=== PATIENT | female | born 1940 | race Caucasian/White ===

== ENCOUNTER → 2018-07-29 | Day surgery (SDC) | payer MEDICARE ==
[2018-07-28 12:43] LABS: BASOPHILS # (AUTO) 0.1 (0.0-0.1); BASOPHILS % 1.3 % (0.0-1.0); EOSINOPHILS # (AUTO) 0.1 (0.0-0.4); EOSINOPHILS % 1.4 % (0.0-6.0); HEMATOCRIT 39.5 % (34.2-44.1); HEMOGLOBIN 13.5 g/dL (12.0-16.0); LYMPHOCYTES # (AUTO) 1.7 (1.0-3.2); LYMPHOCYTES % 24.3 % (18.0-39.1); MEAN CORPUSCULAR HEMOGLOBIN 30.5 pg (28-32); MEAN CORPUSCULAR HGB CONC 34.2 g/dL (31-35); MEAN CORPUSCULAR VOLUME 89.4 fL (81-99); MONOCYTES # (AUTO) 0.7 (0.2-0.8); MONOCYTES % 9.7 % (4.4-11.3); NEUTROPHILS # (AUTO) 4.4 (2.1-6.9); NEUTROPHILS % 62.7 % (38.7-80.0); PLATELET COUNT 181 x10e3/uL (140-360); RED BLOOD COUNT 4.42 x10e6/uL (3.6-5.1); RED CELL DISTRIBUTION WIDTH 13.2 % (11.7-14.4)
[~2018-07-29] MED LIST: ASPIR 8181 MG PO; ATORVASTATIN CA20 MG PO; CARVEDILOL12.5 MG PO; FENTANYL CITRATE/PF 100MCG/2 ML INJ ONE; FLUOXETINE HCL10 MG PO; FUROSEMIDE40 MG PO; INSULIN REGULAR, HUMAN 100 UNIT/1 ML 3ML VIAL ONE; JANUMET 50-1,01 EACH PO; LEFLUNOMIDE20 MG PO; LISINOPRIL10 MG PO; MIDAZOLAM HCL 2 MG/2 ML VIAL ONE; PROPOFOL IV EMULSION 10 MG/ML 50 ML VIAL ONE; VITAMIN D1000 UNI1 PO
--- OUTSIDE RECORDS SUMMARY | 2018-07-29 09:20 | XMS REPORT | Summary of Care ---
Author Author [facility] Organization [facility] Address Unknown Phone Unavailable Encounter HQ Rossir_german(FIN) [id number] Date(s): 03/06/16 - 03/06/16 [facility] [address] [place] [address]- Discharge Disposition: Home or Self Care Attending Physician: Physician, Non Associated MD Referring Physician: Willis Walsh DO Vital Signs No data available for this section Problem List Condition Effective Dates Status Health Status Informant Acute bronchitis1, 2 07/14/13 Resolved Acute pharyngitis3 07/14/13 Resolved Acute sinusitis4, 5 01/29/12 Resolved Acute suppurative 07/14/13 Resolved otitis media6 Arthritis of hand7, 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 8 Backache9 05/21/13 Resolved 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 svkdoaye40 Diabetes Active mellitus(Confirmed) Eahvymu16 03/27/13 Active Hormone replacement 04/05/10 Active fkmyzos56 Hypertension(Confirm Active ed) Hypertensive 04/05/10 Active wdomobd46 Hypertriglyceridemia 09/23/12 Active 14 Jxzpwcru75 07/31/10 Active Knee pain16 03/22/14 Active Menopausal 07/31/10 Active oggsntpc81 Obesity(Confirmed) Active Postmenopausal 03/10/12 Active Postmenopausal 04/05/10 Active state19 Sziyagb99 02/24/13 Active Xoqsgnnboq46 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 Type 2 diabetes 12/01/12 Active mellitus well fjnnbeqtgo57 Vitamin D 11/19/11 Active aejjudrfjf98 1Data migrated from [employer] on 02/25/15. 2Data migrated from [employer] on 02/25/15. 3Data migrated from [employer] on 02/25/15. 4Data migrated from [employer] on 02/25/15. 5Data migrated from [employer] on 02/25/15. 6Data migrated from [employer] on 02/25/15. 7Data migrated from [employer] on 02/16/15. 8Data migrated from [employer] on 01/08/15. 9Data migrated from [employer] on 02/25/15. 10Data migrated from [employer] on 01/08/15. 11Data migrated from [employer] on 01/08/15. 12Data migrated from [employer] on 01/08/15. 13Data migrated from [employer] on 01/08/15. 14Data migrated from [employer] on 01/08/15. 15Data migrated from [employer] on 01/08/15. 16Data migrated from [employer] on 01/08/15. 17Data migrated from [employer] on 01/08/15. 18Data migrated from [employer] on 01/08/15. 19Data migrated from [employer] on 01/08/15. 20Data migrated from [employer] on 01/08/15. 21Data migrated from [employer] on 02/16/15. 22Data migrated from [employer] on 01/08/15. 23Data migrated from [employer] on 01/08/15. Allergies, Adverse Reactions, Alerts Substance Reaction Severity Status erythromycin1 Active 1Data migrated from [employer] on 12/07/14. Originally documented as ERYTHROMYCIN. Medications No data available for this section Results No data available for this section Immunizations Given and Recorded Vaccine Date Status Refusal Reason Hx influenza vaccine-unspecified1 06/02/10 Given 1Result Comment: fluvirin. Migrated from OBS ; Data migrated from [employer] on 09/12/2015. Procedures Procedure Date Related Diagnosis Body Site Appendectomy Cataract surgery Excision of Magana's neuroma Hysterectomy Laparoscopic adjustable gastric banding Tonsillectomy Social History Social History Type Response Alcohol Past Smoking Status Never smoker; Exposure to Tobacco Smoke None; Cigarette Smoking Last 365 Days No; Reg Smoking Cessation Counseling No Assessment and Plan No data available for this section
--- OUTSIDE RECORDS SUMMARY | 2018-07-29 09:20 | XMS REPORT | Summary of Care ---
Author Organization Unknown Address Unknown Phone Unavailable Encounter HQ Encntr_alias(MARIUSZ) [id number] Date(s): 03/22/14 - 03/22/14 [facility] Outpatient Imaging [address] Discharge Disposition: Home Physician Attending: Rasheeda Milton MD Reason for Visit 719.46 - JOINT PAIN-L/LE Problem List No data available for this section Allergies, Adverse Reactions, Alerts Substance Reaction Severity Status erythromycin Active Medications No data available for this section Medications Administered During Your Visit No data available for this section Immunizations No data available for this section
--- OUTSIDE RECORDS SUMMARY | 2018-07-29 09:20 | XMS REPORT | Summary of Care ---
Author Organization Unknown Address Unknown Phone Unavailable Encounter HQ Miladis(FIN) [id number] Date(s): 01/27/15 - 01/27/15 [facility] Outpatient Imaging [address] [address]- [phone] Discharge Disposition: Home Physician Attending: Rasheeda Milton MD Vital Signs No data available for this section Problem List Condition Effective Dates Status Health Status Informant Arthritis of hand1 07/23/13 Active Depressive disorder2 09/01/10 Active Fatigue3 03/27/13 Active Hormone replacement 04/05/10 Active therapy4 Hypertensive 04/05/10 Active episode5 Hypertriglyceridemia 09/23/12 Active 6 Insomnia7 07/31/10 Active Knee pain8 03/22/14 Active Menopausal flushing9 07/31/10 Active Postmenopausal 03/10/12 Active gyscpkopkwff16 Postmenopausal 04/05/10 Active state11 Kqgfuiv87 02/24/13 Active Type 2 diabetes 12/01/12 Active mellitus well adsjfqqhro21 Vitamin D 11/19/11 Active dnsewhuwbc76 1Data migrated from [employer] on 01/08/15. 2Data migrated from [employer] on 01/08/15. 3Data migrated from [employer] on 01/08/15. 4Data migrated from [employer] on 01/08/15. 5Data migrated from [employer] on 01/08/15. 6Data migrated from [employer] on 01/08/15. 7Data migrated from [employer] on 01/08/15. 8Data migrated from [employer] on 01/08/15. 9Data migrated from [employer] on 01/08/15. 10Data migrated from [employer] on 01/08/15. 11Data migrated from [employer] on 01/08/15. 12Data migrated from [employer] on 01/08/15. 13Data migrated from [employer] on 01/08/15. 14Data migrated from [employer] on 01/08/15. Allergies, Adverse Reactions, Alerts Substance Reaction Severity Status erythromycin1 Active 1Data migrated from [employer] on 12/07/14. Originally documented as ERYTHROMYCIN. Medications No data available for this section Results No data available for this section Immunizations No data available for this section Procedures No data available for this section Social History No data available for this section Assessment and Plan No data available for this section
--- OUTSIDE RECORDS SUMMARY | 2018-07-29 09:20 | XMS REPORT | Summary of Care ---
Author Author [facility] Organization [facility] Address Unknown Phone Unavailable Encounter HQ Rossir_german(FIN) [id number] Date(s): 04/23/16 - 04/23/16 [facility] [address] [place] [address]- Discharge Disposition: Home or Self Care Attending Physician: Gino Zacarias MD Referring Physician: Gino Zacarias MD Vital Signs No data available for this section Problem List Condition Effective Dates Status Health Status Informant Acute bronchitis1, 2 07/14/13 Resolved Acute pharyngitis3 07/14/13 Resolved Acute sinusitis4, 5 01/29/12 Resolved Acute suppurative 07/14/13 Resolved otitis media6 Arthritis of hand7, 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 8 Backache9 05/21/13 Resolved 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 sxhxapwm43 Diabetes Active mellitus(Confirmed) Auhrskv68 03/27/13 Active Hormone replacement 04/05/10 Active miujipn20 Hypertension(Confirm Active ed) Hypertensive 04/05/10 Active Hypertriglyceridemia 09/23/12 Active 14 Fuybxzap89 07/31/10 Active Knee pain16 03/22/14 Active Menopausal 07/31/10 Active qqbstltu62 Obesity(Confirmed) Active Postmenopausal 03/10/12 Active jolqwpksbmhc19 Postmenopausal 04/05/10 Active state19 Ymaltik86 02/24/13 Active Ihssuyjpwm68 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 Type 2 diabetes 12/01/12 Active mellitus well nsqtcdnevm27 Vitamin D 11/19/11 Active 1Data migrated from [employer] on 02/25/15. [...]
--- OUTSIDE RECORDS SUMMARY | 2018-07-29 09:20 | XMS REPORT | Continuity of Care Document ---
Author Author [facility] Interface Address Unknown Phone Unavailable Problems Problem Status Onset Date Classification Date Reported Comments Source TIA (TRANSIENT ISCHEMIC ATTACK), UNCONTR Active 09/07/2017 [facility] STROKE LIKE SYMPTOMS Active 09/07/2017 [facility] UNWELL Active 03/08/2017 [facility] BRAIN TIA, ACUTE HYPOKALEMIA Active 03/08/2017 [facility] DX: J84.10=PULMONARY FIBROSIS, UNSPECIFI Active 02/07/2017 [facility] R07.1 Active 01/30/2017 [facility] PYELONEPHRITIS, PNEUMONIA, ACUTE UTI Active 12/14/2016 [facility] FEVER Active 12/14/2016 [facility] SYNCOPE Active 07/26/2016 [facility] BACTERIAL SEPSIS, NSTEMI Active 07/26/2016 [facility] SCREENING/POSTMENOPAUSAL OSTEOPOROSIS Active 06/11/2016 [facility] CPAP 05857 Active 04/17/2016 [facility] SPLIT NIGHT 38229 Active 02/21/2016 [facility] Arthritis of hand<sup>7, 8</sup> Active 01/14/2015 Problem 12/16/2017 Data migrated from [employer] on 01/08/15. [facility] Tendinitis<sup>21</sup> Active 01/14/2015 Problem 12/16/2017 Data migrated from [employer] on 02/16/15. [facility] 729.5 - PAIN IN LIMB [facility] [place] Knee pain<sup>8</sup> Active 03/22/2014 Problem 01/30/2015 8Data migrated from [employer] on 01/08/15. [facility] Knee pain<sup>16</sup> Active 03/22/2014 Problem 12/16/2017 Data migrated from [employer] on 01/08/15. [facility] Arthritis of hand<sup>1</sup> Active 07/23/2013 Problem 01/30/2015 1Data migrated from [employer] on 01/08/15. [facility] [place] Acute bronchitis<sup>1, 2</sup> Resolved 07/14/2013 Problem 12/16/2017 Data migrated from [employer] on 02/25/15. [facility] Acute pharyngitis<sup>3</sup> Resolved 07/14/2013 Problem 12/16/2017 Data migrated from [employer] on 02/25/15. [facility] Acute suppurative otitis media<sup>6</sup> Resolved 07/14/2013 Problem 12/16/2017 Data migrated from [employer] on 02/25/15. [facility] Backache<sup>9</sup> Resolved 05/21/2013 Problem 12/16/2017 Data migrated from [employer] on 02/25/15. [facility] Fatigue<sup>3</sup> Active 03/27/2013 Problem 01/30/2015 3Data migrated from [employer] on 01/08/15. [facility] Fatigue<sup>11</sup> Active 03/27/2013 Problem 12/16/2017 Data migrated from [employer] on 01/08/15. [facility] Snoring<sup>12</sup> Active 02/24/2013 Problem 01/30/2015 12Data migrated from [employer] on 01/08/15. [facility] Snoring<sup>20</sup> Active 02/24/2013 Problem 12/16/2017 Data migrated from [employer] on 01/08/15. [facility] Type 2 diabetes mellitus well controlled<sup>13</sup> Active 12/01/2012 Problem 01/30/2015 13Data migrated from [employer] on 01/08/15. [facility] Type 2 diabetes mellitus well controlled<sup>22</sup> Active 12/01/2012 Problem 12/16/2017 Data migrated from [employer] on 01/08/15. [facility] Hypertriglyceridemia<sup>6</sup> Active 09/23/2012 Problem 01/30/2015 6Data migrated from [employer] on 01/08/15. [facility] Hypertriglyceridemia<sup>14</sup> Active 09/23/2012 Problem 12/16/2017 Data migrated from [employer] on 01/08/15. [facility] Postmenopausal osteoporosis<sup>10</sup> Active 03/10/2012 Problem 01/30/2015 10Data migrated from [employer] on 01/08/15. [facility] Postmenopausal osteoporosis<sup>18</sup> Active 03/10/2012 Problem 12/16/2017 Data migrated from [employer] on 01/08/15. [facility] Acute sinusitis<sup>4, 5</sup> Resolved 01/29/2012 Problem 12/16/2017 Data migrated from [employer] on 02/25/15. [facility] Vitamin D deficiency<sup>14</sup> Active 11/19/2011 Problem 01/30/2015 14Data migrated from [employer] on 01/08/15. [facility] Vitamin D deficiency<sup>23</sup> Active 11/19/2011 Problem 12/16/2017 Data migrated from [employer] on 01/08/15. [facility] Depressive disorder<sup>2</sup> Active 09/01/2010 Problem 01/30/2015 2Data migrated from [employer] on 01/08/15. [facility] Depressive disorder<sup>10</sup> Active 09/01/2010 Problem 12/16/2017 Data migrated from [employer] on 01/08/15. [facility] Insomnia<sup>7</sup> Active 07/31/2010 Problem 01/30/2015 7Data migrated from [employer] on 01/08/15. [facility] Menopausal flushing<sup>9</sup> Active 07/31/2010 Problem 01/30/2015 9Data migrated from [employer] on 01/08/15. [facility] Insomnia<sup>15</sup> Active 07/31/2010 Problem 12/16/2017 Data migrated from [employer] on 01/08/15. [facility] Menopausal flushing<sup>17</sup> Active 07/31/2010 Problem 12/16/2017 Data migrated from [employer] on 01/08/15. [facility] Hormone replacement therapy<sup>4</sup> Active 04/05/2010 Problem 01/30/2015 4Data migrated from [employer] on 01/08/15. [facility] Hypertensive episode<sup>5</sup> Active 04/05/2010 Problem 01/30/2015 5Data migrated from [employer] on 01/08/15. [facility]<sup>11</sup> Active 04/05/2010 Problem 01/30/2015 11Data migrated from [employer] on 01/08/15. [facility] Hormone replacement therapy<sup>12</sup> Active 04/05/2010 Problem 12/16/2017 Data migrated from [employer] on 01/08/15. [facility] Hypertensive episode<sup>13</sup> Active 04/05/2010 Problem 12/16/2017 Data migrated from [employer] on 01/08/15. [facility] Postmenopausal state<sup>19</sup> Active 04/05/2010 Problem 12/16/2017 Data migrated from [employer] on 01/08/15. [facility] Diabetes mellitus Active Problem 12/16/2017 [facility] Hypertension Active Problem 12/16/2017 [facility] Obesity Active Problem 12/16/2017 [facility] Hypertensive heart disease without heart failure Active Problem 04/18/2018 Zackery Thakur MD, PA,[facility] Body mass index 33.0-33.9, adult Active Problem 04/18/2018 Zackery Thakur MD, PA Old myocardial infarction Active Problem 04/18/2018 Zackery Thakur MD, PA,[facility] Type 2 diabetes mellitus without complications Active Problem 04/18/2018 Zackery Thakur MD, PA Family history of ischemic heart disease and other diseases of the circulatory system Active Diagnosis 04/18/2018 Zackery Thakur MD, PA Screening for cardiovascular disorders Active Problem 04/18/2018 Zackery Thakur MD, PA Mixed hyperlipidemia Active Diagnosis 04/18/2018 Zackery Thakur MD, [place] Obesity, unspecified Active Problem 04/18/2018 Zackery Thakur MD, [place] Cerebrovascular disease, unspecified Active Problem 04/18/2018 Zackery Thakur MD, [place] Lower extremity edema Active Problem 04/18/2018 Zackery Thakur MD PA Body mass index 36.0-36.9, adult Active Problem 04/18/2018 Zackery Thakur MD PA Body mass index 31.0-31.9, adult Active Problem 04/18/2018 Zackery Thakur MD, PA Pulmonary hypertension, secondary Active Problem 04/18/2018 Zackery Thakur MD, [place] Hypertensive heart disease with heart failure Active Problem 04/18/2018 Zackery Thakur MD, [place] Atrial fibrillation Resolved Problem 12/16/2017 [facility] CHF (<span ID="[id number]">Confirmed</span>) Resolved Problem 12/16/2017 [facility] Mitral regurgitation Resolved Problem 12/16/2017 [facility] Heart attack Resolved Problem 12/16/2017 [facility] Transient cerebral ischemic attack, unspecified 12/16/2017 [facility] Type 2 diabetes mellitus with hyperglycemia 12/16/2017 [facility] Rheumatoid arthritis, unspecified 12/16/2017 [facility] Hypertensive urgency 12/16/2017 [facility] Hyperlipidemia, unspecified 12/16/2017 [facility] Facial weakness 12/16/2017 [facility] Slurred speech 12/16/2017 [facility] Atherosclerotic heart disease of [place] coronary artery without angina pectoris 12/16/2017 [facility] NIHSS score 0 12/16/2017 [facility] Coma scale, best motor response, obeys commands, at arrival to emergency department 12/16/2017 [facility] Coma scale, eyes open, spontaneous, at arrival to emergency department 12/16/2017 [facility] Coma scale, best verbal response, oriented, at arrival to emergency department 12/16/2017 [facility] 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 12/16/2017 [facility] Personal history of transient ischemic attack , and cerebral infarction without residual deficits 12/16/2017 [facility] OBSTRUCTIVE SLEEP APNEA (ADULT) (PEDIATR Active [facility] AGE-RELATED OSTEOPOROSIS W/O CURRENT PAT Active [facility] SEPSIS, UNSPECIFIED ORGANISM Active [facility] NON-ST ELEVATION (NSTEMI) MYOCARDIAL INF Active [facility] TUBULO-INTERSTITIAL NEPHRITIS, 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 [facility] PNEUMONIA, UNSPECIFIED ORGANISM Active [facility] URINARY TRACT INFECTION, SITE NOT SPECIF Active [facility] CHEST PAIN ON BREATHING Active [facility] TRANSIENT CEREBRAL ISCHEMIC ATTACK, UNSP Active [facility] HYPOKALEMIA Active [facility] ESSENTIAL (PRIMARY) HYPERTENSION Active [facility] Medications Medication Details Route Status Patient Instructions Ordering Provider Order Date Source Lisinopril 10 mg, 2 tab, Route: PO, Drug form: TAB, Daily, Dosing Weight 94.091, kg, Start date: 09/10/17 9:00:00 [employer], Duration: 30 day, Stop date: 10/09/17 9:00:00 CSTNotes: (Same as: Prinivil, Zestril) No Longer Active 09/10/2017 [facility] atorvastatin 40 MG Oral Tablet [Lipitor] 40 mg=1 tab, PO, Bedtime, # 30 tab, 0 Refill(s), Pharmacy: [id number] Active 09/09/2017 [facility] lisinopril 10 mg oral tablet 10 mg=1 tab, PO, Daily, # 30 tab, 0 Refill(s), Pharmacy: [facility] Active 09/09/2017 [facility] amLODIPine 10 mg oral tablet 10 mg=1 tab, PO, Daily, # 30 tab, 0 Refill(s), Pharmacy: [facility] Active 09/09/2017 [facility] Prednisone 20 mg, 1 tab, Route: PO, Drug form: TAB, Daily, Dosing Weight 94.091, kg, Start date: 09/09/17 9:00:00 [employer], Duration: 5 day, Stop date: 09/13/17 9:00:00 CSTNotes: Take with food. Inactive 09/09/2017 [facility] potassium chloride 20 mEq oral tablet, extended release 40 mEq, 2 tab, Route: PO, Drug form: ERTAB, Daily, Dosing Weight 94.091, kg, Start date: 09/09/17 9:00:00 [employer], Duration: 30 day, Stop date: 10/08/17 9:00:00 CSTNotes: (Same as: K-Dur 20) "Do Not Crush" With food and full glass of water Inactive 09/09/2017 [facility] leflunomide 10 mg, 0.5 tab, Route: PO, Drug form: TAB, Daily, Dosing Weight 94.091, kg, Start date: 09/09/17 9:00:00 [employer], Duration: 30 day, Stop date: 10/08/17 9:00:00 CSTNotes: Non-Formulary Drug (Same as:Arava) Inactive 09/09/2017 [facility] Furosemide 40 MG Oral Tablet 40 mg, 1 tab, Route: PO, Drug form: TAB, Daily, Dosing Weight 94.091, kg, Start date: 09/09/17 9:00:00 [employer], Duration: 30 day, Stop date: 10/08/17 9:00:00 CSTNotes: (Same as: Lasix) May cause GI upset. Give with food or milk. Inactive 09/09/2017 [facility] Prozac 10 mg, 1 cap, Route: PO, Drug form: CAP, Daily, Dosing Weight 94.091, kg, Start date: 09/09/17 9:00:00 [employer], Duration: 30 day, Stop date: 10/08/17 9:00:00 CSTNotes: (Same as: Prozac) Inactive 09/09/2017 [facility] Escitalopram 10 mg, 1 tab, Route: PO, Drug form: TAB, Daily, Dosing Weight 94.091, kg, Start date: 09/09/17 9:00:00 [employer], Duration: 30 day, Stop date: 10/08/17 9:00:00 CSTNotes: (Same as: Lexapro) Inactive 09/09/2017 [facility] Aspirin 81 MG Enteric Coated Tablet 81 mg, 1 tab, Route: PO, Drug form: ECTAB, Daily, Dosing Weight 94.091, kg, Start date: 09/09/17 9:00:00 [employer], Duration: 30 day, Stop date: 10/08/17 9:00:00 CSTNotes: Do not crush or chew. (Same As: Ecotrin) Inactive 09/09/2017 [facility] Saline Flush 0.9% 10 ml, Route: IVP, Drug Form: INJ, Dosing Weight 94.091, kg, Q12H, Start date: 09/08/17 21:00:00 [employer], Duration: 30 day, Stop date: 10/08/17 9:00:00 CSTNotes: (Same as: BD Posiflush) No Longer Active 09/09/2017 [facility] carvedilol 6.25 mg, 2 tab, Route: PO, Drug form: TAB, Q12H, Dosing Weight 94.091, kg, Start date: 09/08/17 21:00:00 [employer], Duration: 30 day, Stop date: 10/08/17 9:00:00 CSTNotes: Give with food. (Same As: Coreg) No Longer Active 09/09/2017 [facility] atorvastatin 80 mg, 2 tab, Route: PO, Drug form: TAB, Bedtime, Dosing Weight 94.091, kg, Start date: 09/08/17 21:00:00 [employer], Duration: 30 day, Stop date: 10/07/17 21:00:00 CSTNotes: (Same as: Lipitor) No Longer Active 09/09/2017 [facility] Lorazepam 0.5 mg, 1 tab, Route: PO, Drug form: TAB, Bedtime, Dosing Weight 94.091, kg, Start date: 09/08/17 21:00:00 [employer], Duration: 30 day, Stop date: 10/07/17 21:00:00 CSTNotes: (Same as: Ativan) No Longer Active 09/09/2017 [facility] Saline Flush 0.9% 10 ml, Route: IVP, Drug Form: INJ, Dosing Weight 94.091, kg, PRN, PRN Line Flush, Start date: 09/08/17 20:23:00 [employer], Duration: 30 day, Stop date: 10/08/17 20:22:00 CSTNotes: (Same as: BD Posiflush) No Longer Active 09/09/2017 [facility] Lisinopril 20 mg, 1 tab, Route: PO, Drug form: TAB, BID, Dosing Weight 94.091, kg, Start date: 09/08/17 17:00:00 [employer], Duration: 30 day, Stop date: 10/08/17 9:00:00 CSTNotes: (Same as: Prinivil, Zestril) No Longer Active 09/08/2017 [facility] Clonidine Hydrochloride 0.2 MG Oral Tablet 0.1 mg, 1 tab, Route: PO, Drug form: TAB, PRN, Dosing Weight 94.091, kg, PRN Hypertension, Start date: 09/08/17 16:13:00 [employer], Duration: 30 day, Stop date: 10/08/17 16:12:00 CSTNotes: (Same As: Catapres) No Longer Active 09/08/2017 [facility] Clonidine 0.1 mg, 1 tab, Route: PO, Drug form: TAB, Q8H, Dosing Weight 94.091, kg, Start date: 09/08/17 16:13:00 [employer], Duration: 30 day, Stop date: 10/08/17 16:00:00 CSTNotes: (Same As: Catapres) No Longer Active 09/08/2017 [facility] Amlodipine 10 mg, 2 tab, Route: PO, Drug form: TAB, Daily, Dosing Weight 94.091, kg, Start date: 09/08/17 16:12:00 [employer], Duration: 30 day, Stop date: 10/08/17 9:00:00 CSTNotes: (Same as: Norvasc) No Longer Active 09/08/2017 [facility] Clonidine 0.1 mg, 1 tab, Route: PO, Drug form: TAB, Q6H, Dosing Weight 94.091, kg, PRN Elevated BP, Start date: 09/08/17 14:40:00 [employer], Duration: 30 day, Stop date: 10/08/17 14:39:00 CSTNotes: (Same As: Catapres) No Longer Active 09/08/2017 [facility] Hydralazine Hydrochloride 50 MG Oral Tablet 50 mg, 1 tab, Route: PO, Drug form: TAB, TID, Dosing Weight 94.091, kg, Start date: 09/08/17 13:00:00 [employer], Duration: 30 day, Stop date: 10/08/17 9:00:00 CSTNotes: (Same as: Apresoline) May interfere w/enteral feedings Take With Food No Longer Active 09/08/2017 [facility] NS 1,000 mL 1,000 mL, Rate: 75 ml/hr, Infuse over: 13.3 hr, Route: IV, Dosing Weight 94.091 kg, Total Volume: 1,000, Start date: 09/08/17 10:28:00 [employer], Duration: 30 day, Stop date: 10/08/17 10:27:00 [employer], 2.06, m2 No Longer Active 09/08/2017 [facility] Protonix 40 mg, Route: IVP, Drug form: INJ, ONCE, Dosing Weight 94.091, kg, Start date: 09/08/17 10:26:00 [employer], Stop date: 09/08/17 10:26:00 CSTNotes: For IV push reconstitute with 10 ml 0.9% sodium chloride and push over 2 minutes. (Same as: Protonix) Inactive 09/08/2017 [facility] Insulin Lispro 3 unit, 0.03 mL, Route: SUB-Q, Drug form: SOLN, Bedtime, Dosing Weight 94.091, kg, PRN Blood Glucose Results, Start date: 09/08/17 9:20:00 [employer], Duration: 30 day, Stop date: 10/08/17 9:19:00 CSTNotes: Roll in palms of hands gently; Do not shake `vigorously. (Same as: Humalog ) "Single Patient Use Only " WASTE: F/P - Black; E - Municipal Trash Bin Stable for 28 days at room temperature. Expires in days from Date No Longer Active 09/08/2017 [facility] Glucagon 1 mg, Route: IM, Drug form: PDR/INJ, PRN, Dosing Weight 94.091, kg, PRN Blood Glucose Results, Start date: 09/08/17 9:20:00 [employer], Duration: 30 day, Stop date: 10/08/17 9:19:00 [employer] No Longer Active 09/08/2017 [facility] Dextrose 50% Syringe 25 gm, 50 mL, Route: IVP, Drug Form: INJ, Dosing Weight 94.091, kg, PRN, PRN Blood Glucose Results, Start date: 09/08/17 9:20:00 [employer], Duration: 30 day, Stop date: 10/08/17 9:19:00 [employer] No Longer Active 09/08/2017 [facility] Saline Flush 0.9% 10 ml, Route: IVP, Drug Form: INJ, Dosing Weight 94.091, kg, Q12H, Start date: 09/08/17 9:00:00 [employer], Duration: 30 day, Stop date: 10/07/17 21:00:00 CSTNotes: (Same as: BD Posiflush) No Longer Active 09/08/2017 [facility] Potassium Chloride 40 mEq, 2 tab, Route: PO, Drug form: ERTAB, Q4H, Dosing Weight 94.091, kg, Start date: 09/08/17 8:00:00 [employer], Duration: 2 doses or times, Stop date: 09/08/17 12:00:00 CSTNotes: (Same as: K- Dur 20) "Do Not Crush" With food and full glass of water Inactive 09/08/2017 [facility] Zofran 4 mg, 2 mL, Route: IVP, Drug form: INJ, Q6H, Dosing Weight 94.091, kg, PRN as needed for nausea/vomiting, Priority: STAT, Start date: 09/08/17 7:40:00 [employer], Duration: 30 day, Stop date: 10/08/17 7:39:00 CSTNotes: (Same as: Zofran) MEDICATION WASTE Product Size: 4 mg Product Wasted: ___ mg No Longer Active 09/08/2017 [facility] Zofran 4 mg, Route: IVP, Drug form: INJ, Q6H, Dosing Weight 94.091, kg, Priority: STAT, Start date: 09/08/17 7:19:00 [employer], Duration: 30 day, Stop date: 10/08/17 6:00:00 [employer] Inactive 09/08/2017 [facility] Hydralazine 10 mg, 0.5 mL, Route: IVP, Drug form: INJ, Q4H, Dosing Weight 94.091, kg, PRN Elevated BP, Start date: 09/08/17 1:55:00 [employer], Duration: 30 day, Stop date: 10/08/17 1:54:00 CSTNotes: (Same as: Dorothy clifford) Push over 5 minutes No Longer Active 09/08/2017 [facility] tramadol hydrochloride 50 MG Oral Tablet 50 mg, 1 tab, Route: PO, Drug form: TAB, Q6H, Dosing Weight 94.091, kg, PRN Pain Score 1-3, Start date: 09/08/17 1:49:00 [employer], Duration: 30 day, Stop date: 10/08/17 1:48:00 CSTNotes: Not to exceed 400mg/day. (Same As: Ultram) No Longer Active 09/08/2017 [facility] Tylenol 650 mg, 2 tab, Route: PO, Drug form: TAB, Q6H, Dosing Weight 94.091, kg, PRN Pain 1-3/Temp > 100.4 F, Start date: 09/08/17 1:49:00 [employer], Duration: 30 day, Stop date: 10/08/17 1:48:00 CSTNotes: Do not exceed 4 gm/day. (Same as: Tylenol) No Longer Active 09/08/2017 [facility] Saline Flush 0.9% 10 ml, Route: IVP, Drug Form: INJ, Dosing Weight 94.091, kg, PRN, PRN Line Flush, Start date: 09/08/17 0:43:00 [employer], Duration: 30 day, Stop date: 10/08/17 0:42:00 CSTNotes: (Same as: BD Posiflush) No Longer Active 09/08/2017 [facility] predniSONE 20 mg oral tablet 20 mg=1 tab, PO, Daily, for 5 days, 0 Refill(s) Active 09/08/2017 [facility] escitalopram 10 mg oral tablet 10 mg=1 tab, PO, Daily, # 30 tab, 0 Refill(s) Active 09/08/2017 [facility] leflunomide 10 mg oral tablet 10 mg=1 tab, PO, Daily, # 30 tab, 0 Refill(s) Active 09/08/2017 [facility] LORazepam 0.5 mg oral tablet 0.5 mg=1 tab, PO, Bedtime, # 30 tab, 0 Refill(s) Active 09/08/2017 [facility] Aspirin 324 mg, 4 tab, Route: CHEW, Drug form: CHEWTAB, ONCE, Dosing Weight 94.091, kg, Priority: STAT, Start date: 09/07/17 23:06:00 [employer], Stop date: 09/07/17 23:06:00 CSTNotes: Take with food. No Longer Active 09/08/2017 [facility] Hydralazine 10 mg, 0.5 mL, Route: IVP, Drug form: INJ, ONCE, Dosing Weight 94.091, kg, Priority: STAT, Start date: 09/07/17 22:28:00 [employer], Stop date: 09/07/17 22:28:00 CSTNotes: (Same as: Apresoline) Push over 5 minutes Inactive 09/08/2017 [facility] Saline Flush 0.9% 10 mL, Route: IVP, Drug Form: INJ, Dosing Weight 81.392, kg, PRN, PRN Line Flush, Start date: 09/07/17 22:08:00 [employer], Duration: 30 day, Stop date: 10/07/17 22:07:00 CSTNotes: (Same as: BD Posiflush) No Longer Active 09/08/2017 [facility] Amlodipine Besylate 1 tablet Orally Active 5 MG Orally Once a day [facility] 03/20/2017 Zackery Thakur MD, [place] Amlodipine Besylate 1 tablet Orally Active 5 MG Orally Once a day [facility] 03/20/2017 Zackery Thakur [place], [place] Hydralazine Hydrochloride 50 MG Oral Tablet 50 mg=1 tab, PO, TID, # 90 tab, 0 Refill(s), Pharmacy: [id number] Active 03/12/2017 [facility] Hydralazine 10 mg, 0.5 mL, Route: IV, Drug form: INJ, ONCE, Dosing Weight 81.392, kg, Priority: NOW, Start date: 03/12/17 10:39:00 CDT, Stop date: 03/12/17 10:39:00 CDTNotes: (Same as: Apresoline) Push over 5 minutes Inactive 03/12/2017 [facility] Hydralazine Hydrochloride 25 MG Oral Tablet 25 mg, 1 tab, Route: PO, Drug form: TAB, Q6H, Dosing Weight 81.392, kg, Priority: NOW, Start date: 03/11/17 14:02:00 CDT, Duration: 30 day, Stop date: 04/10/17 12:00:00 CDTNotes: (Same as: Apresoline) May interfere w/enteral feedings Take With Food. No Longer Active 03/11/2017 [facility] Clonidine Hydrochloride 0.1 MG Oral Tablet 0.1 mg, 1 tab, Route: PO, Drug form: TAB, Q6H, Dosing Weight 81.392, kg, PRN Hypertension, Start date: 03/10/17 22:12:00 CDT, Duration: 30 day, Stop date: 04/09/17 22:11:00 CDTNotes: (Same As: Catapres) No Longer Active 03/11/2017 [facility] Insulin, Aspart, Human 1 unit, 0.01 mL, Route: SUB-Q, Drug form: SOLN, Bedtime, Dosing Weight 81.392, kg, PRN Blood Glucose Results, Start date: 03/10/17 22:10:00 CDT, Duration: 30 day, Stop date: 04/09/17 22:09:00 CDTNotes: Roll in palms of hands gently; Do not shake vigorously. (Same as: NovoLOG) "single patient use only" WASTE: F/P - Black; E - Municipal Trash Bin Stable for 28 days at room temperature. Expires in days from Date No Longer Active 03/11/2017 [facility] Glucagon 1 mg, Route: IM, Drug form: PDR/INJ, PRN, Dosing Weight 81.392, kg, PRN Blood Glucose Results, Start date: 03/10/17 22:10:00 CDT, Duration: 30 day, Stop date: 04/09/17 22:09:00 CDT No Longer Active 03/11/2017 [facility] Dextrose 50% Syringe 12.5 gm, 25 mL, Route: IVP, Drug Form: INJ, Dosing Weight 81.392, kg, PRN, PRN Blood Glucose Results, Start date: 03/10/17 22:10:00 CDT, Duration: 30 day, Stop date: 04/09/17 22:09:00 CDT No Longer Active 03/11/2017 [facility] Lisinopril 20 mg, 1 tab, Route: PO, Drug form: TAB, BID, Dosing Weight 81.392, kg, Start date: 03/10/17 17:00:00 CDT, Duration: 30 day, Stop date: 04/09/17 9:00:00 CDTNotes: (Same as: Prinivil, Zestril) No Longer Active 03/10/2017 [facility] K-Dur 20 20 mEq, 1 tab, Route: PO, Drug form: ERTAB, ONCE, Dosing Weight 81.392, kg, Start date: 03/10/17 16:47:00 CDT, Stop date: 03/10/17 16:47:00 CDTNotes: (Same as: K-Dur 20) "Do Not Crush" With food and full glass of water Inactive 03/10/2017 [facility] lisinopril 20 mg oral tablet 20 mg, PO, BID, # 60 tab, 2 Refill(s) Active 03/10/2017 [facility] carvedilol 6.25 mg oral tablet 6.25 mg=1 tab, PO, Q12H, # 60 tab, 1 Refill(s) Active 03/10/2017 [facility] atorvastatin 80 mg oral tablet 80 mg=1 tab, PO, Bedtime, # 30 tab, 1 Refill(s) Active 03/10/2017 [facility] Furosemide 40 MG Oral Tablet 40 mg, 1 tab, Route: PO, Drug form: TAB, Daily, Dosing Weight 81.392, kg, Start date: 03/10/17 9:00:00 CDT, Duration: 30 day, Stop date: 04/08/17 9:00:00 CDTNotes: (Same as: Lasix) May cause GI upset. Give with food or milk. No Longer Active 03/10/2017 [facility] Prozac 10 mg, 1 cap, Route: PO, Drug form: CAP, Daily, Dosing Weight 81.392, kg, Start date: 03/10/17 9:00:00 CDT, Duration: 30 day, Stop date: 04/08/17 9:00:00 CDTNotes: (Same as: Prozac) No Longer Active 03/10/2017 [facility] aspirin 81 mg tablet, enteric coated 81 mg, 1 tab, Route: PO, Drug form: ECTAB, Daily, Dosing Weight 81.392, kg, Start date: 03/10/17 9:00:00 CDT, Duration: 30 day, Stop date: 04/08/17 9:00:00 CDT No Longer Active 03/10/2017 [facility] Coreg 6.25 mg, 2 tab, Route: PO, Drug form: TAB, Q12H, Dosing Weight 81.392, kg, Start date: 03/09/17 21:00:00 CDT, Duration: 30 day, Stop date: 04/08/17 9:00:00 CDTNotes: Give with food. (Same As: Coreg) No Longer Active 03/10/2017 [facility] atorvastatin 80 mg, 2 tab, Route: PO, Drug form: TAB, Bedtime, Dosing Weight 79.545, kg, Start date: 03/09/17 21:00:00 CDT, Duration: 30 day, Stop date: 04/07/17 21:00:00 CDTNotes: (Same as: Lipitor) No Longer Active 03/10/2017 [facility] Hydralazine Hydrochloride 10 MG Oral Tablet 10 mg, 1 tab, Route: PO, Drug form: TAB, TID, Dosing Weight 81.392, kg, Start date: 03/09/17 17:00:00 CDT, Duration: 30 day, Stop date: 04/08/17 13:00:00 CDTNotes: (Same as: Apresoline) May interfere w/enteral feedings. Take With Food No Longer Active 03/09/2017 [facility] Glipizide 5 mg, 1 tab, Route: PO, Drug form: TAB, BID, Dosing Weight 81.392, kg, Start date: 03/09/17 17:00:00 CDT, Duration: 30 day, Stop date: 04/08/17 9:00:00 CDTNotes: (Same as: Glucotrol) 30 min before meals. No Longer Active 03/09/2017 [facility] Lisinopril 10 mg, 2 tab, Route: PO, Drug form: TAB, BID, Dosing Weight 81.392, kg, Start date: 03/09/17 17:00:00 CDT, Duration: 30 day, Stop date: 04/08/17 9:00:00 CDTNotes: (Same as: Prinivil, Zestril) No Longer Active 03/09/2017 [facility] Glucagon 1 mg, Route: IM, Drug form: PDR/INJ, PRN, Dosing Weight 81.392, kg, PRN Blood Glucose Results, Start date: 03/09/17 14:51:00 CDT, Duration: 30 day, Stop date: 04/08/17 14:50:00 CDT No Longer Active 03/09/2017 [facility] Dextrose 50% Syringe 25 gm, 50 mL, Route: IVP, Drug Form: INJ, Dosing Weight 81.392, kg, PRN, PRN Blood Glucose Results, Start date: 03/09/17 14:51:00 CDT, Duration: 30 day, Stop date: 04/08/17 14:50:00 CDT No Longer Active 03/09/2017 [facility] Insulin, Aspart, Human 4 unit, 0.04 mL, Route: SUB-Q, Drug form: SOLN, TID-Before Meals, Dosing Weight 81.392, kg, PRN Blood Glucose Results, Start date: 03/09/17 14:51:00 CDT, Duration: 30 day, Stop date: 04/08/17 14:50:00 CDTNotes: Roll in palms of hands gently; Do not shake vigorously. (Same as: NovoLOG) "single patient use only" WASTE: F/P - Black; E - Municipal Trash Bin Stable for 28 days at room temperature. Expires in days from Date No Longer Active 03/09/2017 [facility] K-Dur 20 20 mEq, 1 tab, Route: PO, Drug form: ERTAB, ONCE, Dosing Weight 81.392, kg, Start date: 03/09/17 14:39:00 CDT, Stop date: 03/09/17 14:39:00 CDTNotes: (Same as: K-Dur 20) "Do Not Crush" With food and full glass of water Inactive 03/09/2017 [facility] Trazodone Hydrochloride 50 MG Oral Tablet 50 mg, 1 tab, Route: PO, Drug form: TAB, Bedtime, Dosing Weight 81.392, kg, PRN Sleep, Start date: 03/09/17 14:38:00 CDT, Duration: 30 day, Stop date: 04/08/17 14:37:00 CDTNotes: (Same As: Desyrel) No Longer Active 03/09/2017 [facility] Albuterol 0.833 MG/ML / Ipratropium [place] 0.167 MG/ML Inhalant Solution [DuoNeb] 3 mL, Route: NEB, Drug Form: SOLN, Dosing Weight 81.392, kg, QID, PRN as needed for shortness of breath or wheezing, Start date: 03/09/17 14:37:00 CDT, Duration: 30 day, Stop date: 04/08/17 14:36:00 CDTNotes: (Same as: Duoneb) No Longer Active 03/09/2017 [facility] metoprolol extended release 50 mg, 1 tab, Route: PO, Drug form: ERTAB, Daily, Priority: NOW, Start date: 03/09/17 9:25:00 CDT, Duration: 30 day, Stop date: 04/08/17 9:00:00 CDTNotes: (Same as: Toprol XL) May split tab, but do not crush. Inactive 03/09/2017 [facility] Hydralazine Hydrochloride 10 MG Oral Tablet 10 mg, 1 tab, Route: PO, Drug form: TAB, Q8H, Dosing Weight 81.392, kg, Priority: NOW, Start date: 03/09/17 9:24:00 CDT, Duration: 30 day, Stop date: 04/08/17 8:00:00 CDTNotes: (Same as: Apresoline) May interfere w/enteral feedings. Take With Food Inactive 03/09/2017 [facility] pneumococcal capsular polysaccharide type 1 vaccine / pneumococcal capsular polysaccharide type 10A vaccine / pneumococcal capsular polysaccharide type 11A vaccine / pneumococcal capsular polysaccharide type 12F vaccine / pneumococcal capsular polysacchar 0.5 mL, Route: IM, Drug Form: INJ, Daily, Start date: 03/09/17 9:00:00 CDT, Duration: 1 doses or times, Stop date: 03/09/17 9:00:00 CDTNotes: (Same as: Pneumovax 23) Refrigerate Inactive 03/09/2017 [facility] Saline Flush 0.9% 10 ml, Route: IVP, Drug Form: INJ, Dosing Weight 79.545, kg, Q12H, Start date: 03/09/17 9:00:00 CDT, Duration: 30 day, Stop date: 04/07/17 21:00:00 CDTNotes: (Same as: BD Posiflush) No Longer Active 03/09/2017 [facility] aspirin 81 mg tablet, enteric coated 81 mg, 1 tab, Route: PO, Drug form: ECTAB, Daily, Dosing Weight 79.545, kg, Start date: 03/09/17 9:00:00 CDT, Duration: 30 day, Stop date: 04/07/17 9:00:00 CDTNotes: Do not crush or chew. (Same As: Ecotrin) No Longer Active 03/09/2017 [facility] Tylenol 650 mg, 2 tab, Route: PO, Drug form: TAB, Q6H, Dosing Weight 81.392, kg, PRN Pain Score 1-3, Start date: 03/09/17 7:52:00 CDT, Duration: 30 day, Stop date: 04/08/17 7:51:00 CDTNotes: Do not exceed 4 gm/day. (Same as: Tylenol) No Longer Active 03/09/2017 [facility] aspirin 81 mg tablet, enteric coated 81 mg=1 tab, PO, Daily, # 90 tab, 3 Refill(s) Active 03/09/2017 [facility] Glipizide 5 mg, PO, BID, 0 Refill(s) Active 03/09/2017 [facility] Hydralazine 10 mg, Route: IV, ONCE, Dosing Weight 79.545, kg, Start date: 03/09/17 1:08:00 CDT, Stop date: 03/09/17 1:08:00 CDT Inactive 03/09/2017 [facility] Magnesium Oxide 800 mg, 2 tab, Route: PO, Drug form: TAB, PRN, Dosing Weight 79.545, kg, PRN Abnormal Lab Result, For NON-ICU Patients Only., Start date: 03/09/17 1:02:00 CDT, Duration: 30 day, Stop date: 04/08/17 1 :01:00 CDTNotes: (Same as: Mag-Ox 400) Magnesium oxide [id number] elemental magnesium Dose=____mg magnesium oxide (___mg elemental magnesium) No Longer Active 03/09/2017 [facility] Magnesium Sulfate 1 gm, 100 mL, Route: IVPB, Drug form: INJ, PRN, Dosing Weight 79.545, kg, PRN Abnormal Lab Result, For NON-ICU Patients Only., Start date: 03/09/17 1:02:00 CDT, Duration: 30 day, Stop date: 04/08/17 1:01:00 CDTNotes: WASTE: F/P - Sink; E - Municipal Trash Bin No Longer Active 03/09/2017 [facility] Calcium Gluconate 2 gm, 20 mL, Route: IVPB, PRN, Dosing Weight 79.545, kg, PRN Abnormal Lab Result, For NON-ICU Patients Only., Start date: 03/09/17 1:02:00 CDT, Duration: 30 day, Stop date: 04/08/17 1:01:00 CDTNotes: WASTE: F/P - Sink; E - Municipal Trash Bin No Longer Active 03/09/2017 [facility] sodium phosphate 30 mmol, 10 mL, Route: IVPB, PRN, Dosing Weight 79.545, kg, PRN Abnormal Lab Result, For NON-ICU Patients Only., Start date: 03/09/17 1:02:00 CDT, Duration: 30 day, Stop date: 04/08/17 1:01:00 CDT No Longer Active 03/09/2017 [facility] potassium phosphate-sodium phosphate 250 mg-280 mg-160 mg oral powder for reconstitution 2 pkt, Route: PO, Drug Form: PDR/REC, Dosing Weight 79.545, kg, PRN, PRN Abnormal Lab Result, For NON-ICU Patients Only, Start date: 03/09/17 1:02:00 CDT, Duration: 30 day, Stop date: 04/08/17 1:01:00 CDTNotes: (Same as: Phos-NaK) Each 1.5 gm pkt has 250mg phosphorous. Mix w/2.5oz water and stir. No Longer Active 03/09/2017 [facility] potassium phosphate 15 mmol, 5 mL, Route: IVPB, PRN, Dosing Weight 79.545, kg, PRN Abnormal Lab Result, For NON-ICU Patients Only., Start date: 03/09/17 1:02:00 CDT, Duration: 30 day, Stop date: 04/08/17 1:01:00 CDTNotes: (Same as: K Phosphate.) 1 mMol phoshate has 1.47 mEq potassium Infuse over 4 hours No Longer Active 03/09/2017 [facility] Potassium Chloride 10 mEq, 100 mL, Route: IVPB, Drug form: INJ, PRN, Dosing Weight 79.545, kg, PRN Abnormal Lab Result, For NON-ICU Patients Only, Start date: 03/09/17 1:02:00 CDT, Duration: 30 day, Stop date: 04/08/17 1:01:00 CDTNotes: Infuse at a rate of 10 mEq/hr. (Same as: KCL) No Longer Active 03/09/2017 [facility] Saline Flush 0.9% 10 ml, Route: IVP, Drug Form: INJ, Dosing Weight 79.545, kg, PRN, PRN Line Flush, Start date: 03/09/17 1:01:00 CDT, Duration: 30 day, Stop date: 04/08/17 1:00:00 CDTNotes: (Same as: BD Posiflush) No Longer Active 03/09/2017 [facility] Potassium Chloride 1.33 MEQ/ML Oral Solution 40 mEq, 15 mL, Route: PO, Drug form: LIQ, ONCE, Dosing Weight 79.545, kg, Priority: STAT, Start date: 03/09/17 0:33:00 CDT, Stop date: 03/09/17 0:33:00 CDT Inactive 03/09/2017 [facility] Aspirin 324 mg, Route: CHEW, Drug form: CHEWTAB, ONCE, Dosing Weight 79.545, kg, Priority: STAT, Start date: 03/08/17 23:11:00 CDT, Stop date: 03/08/17 23:11:00 CDT No Longer Active 03/09/2017 [facility] Saline Flush 0.9% 10 mL, Route: IVP, Drug Form: INJ, Dosing Weight 79.545, kg, PRN, PRN Line Flush, Start date: 03/08/17 21:22:00 CDT, Duration: 30 day, Stop date: 04/07/17 21:21:00 CDTNotes: (Same as: BD Posiflush) No Longer Active 03/09/2017 [facility] Lisinopril 1 tablet Orally Active 10 MG Orally Once a day [facility] 11/26/2016 [place], [place] Lisinopril 1 tablet Orally Active 10 MG Orally Once a day [facility] 11/26/2016 Zackery Thakur [place], [place] Amlodipine Besylate 1 tablet Orally Active 10 MG Orally Once a day [facility] 11/26/2016 Zackery Thakur [place], [place] POLYETHYLENE GLYCOL 3350 PO, Daily, PRN Constipation, 0 Refill(s) Active 08/25/2016 [facility] Oxycodone Hydrochloride 1 MG/ML Oral Solution 10 mg=10 mL, [place], Q8H, PRN Other -See Comment | Pain Score 3-8, 0 Refill(s) Active 08/25/2016 [facility] ondansetron 2 mg/mL injectable solution 4 mg=2 mL, IVP, Q6H, PRN Nausea & Vomiting, 0 Refill(s) Active 08/25/2016 [facility] ocular lubricant Each Affected Eye, QID, PRN Dry Eyes, 0 Refill(s) Active 08/25/2016 [facility] Nystatin 100 UNT/MG Topical Powder 1 appl, TOP, PRN, PRN For Fungal Prophylaxis, 0 Refill(s) Active 08/25/2016 [facility] Morphine 2 mg=1 mL, IVP, Q4H, PRN Pain Score 7-10, 0 Refill(s) Active 08/25/2016 [facility] metoprolol tartrate 50 mg oral tablet 50 mg=1 tab, PEG, Q8H, 0 Refill(s) Active 08/25/2016 [facility] magnesium oxide 400 mg oral tablet 800 mg=2 tab, PO, PRN, PRN Abnormal Lab Result, 0 Refill(s) Active 08/25/2016 [facility] insulin isophane (NPH) 100 units/mL human recombinant subcutaneous suspension 8 unit, SUB-Q, BID, 0 Refill(s) Active 08/25/2016 [facility] Insulin, Aspart, Human 10 unit, SUB-Q, Sliding Scale, PRN Blood Glucose Results, 0 Refill(s) Active 08/25/2016 [facility] Glucagon 1 mg, IM, PRN, PRN Blood Glucose Results, 0 Refill(s) Active 08/25/2016 [facility] fentaNYL 0.05 mg/mL injectable solution 25 microgram=0.5 mL, IVP, Q2H, PRN Pain Score 1-5, 0 Refill(s) Active 08/25/2016 [facility] furosemide 10 mg/mL injectable solution 20 mg=2 mL, IVP, Daily, 0 Refill(s) Active 08/25/2016 [facility] famotidine 10 mg/mL intravenous solution 20 mg=2 mL, IVP, Q12H, 0 Refill(s) Active 08/25/2016 [facility] Calcium Carbonate 500 MG Chewable Tablet 500 mg=1 tab, PO, PRN, PRN Abnormal Lab Result, 0 Refill(s) Active 08/25/2016 [facility] Bacitracin 0.5 UNT/MG / Polymyxin B 10 UNT/MG Topical Ointment 1 appl, TOP, Daily, 0 Refill(s) Active 08/25/2016 [facility] Albuterol 0.833 MG/ML / Ipratropium [place] 0.167 MG/ML Inhalant Solution [DuoNeb] 3 mL, NEB, PRN, PRN Respiratory Protocol, 0 Refill(s) Active 08/25/2016 [facility] Acetaminophen 650 MG Rectal Suppository 650 mg=1 supp, [place], Q6H, PRN Pain 4-6/Temp > 100.4 F, 0 Refill(s) Active 08/25/2016 [facility] Lasix 20 mg, 2 mL, Route: IVP, Drug form: INJ, Daily, Dosing Weight 82.045, kg, Start date: 08/25/16 9:00:00 [employer], Duration: 30 day, Stop date: 09/23/16 9:00:00 CSTNotes: (Same as: Lasix) No Longer Active 08/25/2016 [facility] Triple Antibiotic topical ointment 1 appl, Route: TOP, Daily, Drug form: OINT, Start date: 08/24/16 9:00:00 [employer], Duration: 30 day, Stop date: 09/22/16 9:00:00 [employer] No Longer Active 08/24/2016 [facility] Famotidine 20 mg, 2 mL, Route: IVP, Drug form: INJ, Q12H, Dosing Weight 82.045, kg, Start date: 08/23/16 21:00:00 [employer], Duration: 30 day, Stop date: 09/22/16 9:00:00 CSTNotes: (Same as: Pepcid) Can be dilute in 5-10cc NS IVP: Slow IV push over at least 2 minutes. No Longer Active 08/24/2016 [facility] Artificial Tears 1 drp, Route: Each Affected Eye, QID, Drug form: SOLN, PRN Dry Eyes, Start date: 08/23/16 14:46:00 [employer], Duration: 30 day, Stop date: 09/22/16 14:45:00 [employer] No Longer Active 08/23/2016 [facility] bacitracin-polymyxin B topical 1 appl, Route: TOP, Daily, Drug form: OINT, Start date: 08/23/16 10:00:00 [employer], Duration: 30 day, Stop date: 09/22/16 9:00:00 CSTNotes: (Same As: Polysporin) No Longer Active 08/23/2016 [facility] Metoprolol 5 mg, Route: IV, ONCE, Dosing Weight 82.045, kg, Priority: STAT, Start date: 08/22/16 15:06:00 [employer], Stop date: 08/22/16 15:06:00 [employer] Inactive 08/22/2016 [facility] metoprolol tartrate 50 mg, 1 tab, Route: PEG, Drug form: TAB, Q8H, Dosing Weight 82.045, kg, Start date: 08/22/16 14:48:00 [employer], Stop date: 09/21/16 8:00:00 CSTNotes: (Same as: Lopressor) No Longer Active 08/22/2016 [facility] phenylephrine (ANES) Route: IV, Drug form: INJ, ONCE, Stop date: 08/20/16 15:04:00 [employer] Inactive 08/20/2016 [facility] ondansetron (ANES) Route: IV, Drug form: INJ, ONCE, Stop date: 08/20/16 14:48:00 [employer] Inactive 08/20/2016 [facility] metoclopramide (ANES) Route: IV, Drug form: INJ, ONCE, Stop date: 08/20/16 14:48:00 [employer] Inactive 08/20/2016 [facility] rocuronium (ANES) Route: IV, Drug form: INJ, ONCE, Stop date: 08/20/16 14:43:00 [employer] Inactive 08/20/2016 [facility] midazolam (ANES) Route: IV, Drug form: SOLN, ONCE, Stop date: 08/20/16 14:43:00 [employer] Inactive 08/20/2016 [facility] fentaNYL (ANES) Route: IV, Drug form: INJ, ONCE, Stop date: 08/20/16 14:43:00 [employer] Inactive 08/20/2016 [facility] LR 1000 mL INJ (ANES) Route: IV, Total Volume: 1,000, Start date: 08/20/16 13:47:00 [employer], Stop date: 08/20/16 14:47:00 [employer] Inactive 08/20/2016 [facility] Attn RN: Wait for Vanco draw prior to giving next dose Attn RN: Wait for Vanco draw prior to giving next dose, Reminder, Drug form: MISC, Route: MISC, ONCE, 08/20/16 8:45:00 [employer], Stop date: 08/20/16 8:45:00 [employer] Inactive 08/20/2016 [facility] Insulin, Aspart, Human 4 unit, 0.04 mL, Route: SUB-Q, Drug form: SOLN, Sliding Scale, Dosing Weight 82.045, kg, PRN Blood Glucose Results, Start date: 08/19/16 19:04:00 [employer], Duration: 30 day, Stop date: 09/18/16 19:03:00 CSTNotes: Roll in palms of hands gently; Do not shake vigorously. (Same as: NovoLOG) "single patient use only" WASTE: F/P - Black; E - Municipal Trash Bin Stable for 28 days at room temperature. Expires in days from Date No Longer Active 08/20/2016 [facility] Glucagon 1 mg, Route: IM, Drug form: PDR/INJ, PRN, Dosing Weight 82.045, kg, PRN Blood Glucose Results, Start date: 08/19/16 19:04:00 [employer], Duration: 30 day, Stop date: 09/18/16 19:03:00 [employer] No Longer Active 08/20/2016 [facility] Dextrose 50% Syringe 25 gm, 50 mL, Route: IVP, Drug Form: INJ, Dosing Weight 82.045, kg, PRN, PRN Blood Glucose Results, Start date: 08/19/16 19:04:00 [employer], Duration: 30 day, Stop date: 09/18/16 19:03:00 [employer] No Longer Active 08/20/2016 [facility] Vancomycin 1,000 mg, Route: IVPB, [id number], Dosing Weight 82.045, kg, Priority: NOW, Start date: 08/18/16 21:16:00 [employer], Duration: 30 day, Stop date: 09/17/16 9:00:00 CSTNotes: TIME CRITICAL MEDICATION (Same As: Van cocin) Infusion rate 2001 mg: infuse over 2.5 hours MEDICATION WASTE Product Size: 1000 mg Product Wasted: ___ mg No Longer Active 08/19/2016 [facility] meropenem 500 mg, Route: IVPB, Drug form: PDR/INJ, ABXQ6H, Dosing Weight 82.045, kg, CrCL >=50ml/min, Extended infusion, infuse over 3 hours, Priority: NOW, Start date: 08/18/16 21:16:00 [employer], Duration: 30 day, Stop date: 09/17/16 15:16:00 CSTNotes: Same as Merrem MEDICATION WASTE Product Size: 500 mg Product Wasted: ___ mg No Longer Active 08/19/2016 [facility] Oxycodone Hydrochloride 1 MG/ML Oral Solution 10 mg, 10 mL, Route: NG, Drug form: LIQ, ONCE, Dosing Weight 82.045, kg, Start date: 08/18/16 21:00:00 [employer], Stop date: 08/18/16 21:00:00 CSTNotes: (Same as: 'Roxicodone) Inactive 08/19/2016 [facility] Oxycodone Hydrochloride 1 MG/ML Oral Solution 10 mg, 10 mL, Route: NJ, Drug form: LIQ, Q8H, Dosing Weight 82.045, kg, PRN Other -See Comment, Start date: 08/18/16 16:52:00 [employer], Duration: 30 day, Stop date: 09/17/16 16:51:00 [employer], Pain Score 3-8Notes: (Same as: 'Roxicodone) No Longer Active 08/18/2016 [facility] Famotidine 20 mg, 2 mL, Route: IVP, Drug form: INJ, Daily, Dosing Weight 82.045, kg, Priority: NOW, Start date: 08/18/16 9:40:00 [employer], Duration: 30 day, Stop date: 09/17/16 9:00:00 CSTNotes: (Same as: Pepcid) Can be dilute in 5-10cc NS IVP: Slow IV push over at least 2 minutes. No Longer Active 08/18/2016 [facility] Cathflo Activase 2 mg injection 4 mg, 4 mL, Route: INJ, Drug form: INJ, ONCE, Dosing Weight 82.045, kg, x 2 ports, Priority: NOW, Start date: 08/18/16 0:36:00 [employer], Stop date: 08/18/16 0:36:00 CSTNotes: "Syringe for catheter clearance or interventional radiology use. Reconstitute each vial of Cathflo Activase with 2.2 ml Sterile Water resulting in a 1 mg/ml solution. Stable for 8 hours only. (Same as: Activase) MEDICATION WASTE Product Size: 2 mg Product Wasted: ___ mg Inactive 08/18/2016 [facility] Insulin, Aspart, Human 2 unit, 0.02 mL, Route: SUB-Q, Drug form: SOLN, Sliding Scale, Dosing Weight 82.045, kg, PRN Blood Glucose Results, Start date: 08/18/16 0:35:00 [employer], Duration: 30 day, Stop date: 09/17/16 0:34:00 CSTNotes: Roll in palms of hands gently; Do not shake vigorously. (Same as: NovoLOG) "single patient use only" WASTE: F/P - Black; E - Municipal Trash Bin Stable for 28 days at room temperature. Expires in days from Date No Longer Active 08/18/2016 [facility] Dextrose 50% Syringe 25 gm, 50 mL, Route: IVP, Drug Form: INJ, Dosing Weight 82.045, kg, PRN, PRN Blood Glucose Results, Start date: 08/18/16 0:35:00 [employer], Duration: 30 day, Stop date: 09/17/16 0:34:00 [employer] No Longer Active 08/18/2016 [facility] Glucagon 1 mg, Route: IM, Drug form: PDR/INJ, PRN, Dosing Weight 82.045, kg, PRN Blood Glucose Results, Start date: 08/18/16 0:35:00 [employer], Duration: 30 day, Stop date: 09/17/16 0:34:00 [employer] No Longer Active 08/18/2016 [facility] Gentamicin Sulfate (FCI) 480 mg, 12 mL, Route: IV, ONCE, Dosing Weight 82.045, kg, Start date: 08/17/16 15:52:00 [employer], Stop date: 08/17/16 15:52:00 CSTNotes: TIME CRITICAL MEDICATION (Same as Garamycin) Inactive 08/17/2016 [facility] Fentanyl 50 microgram, 1 mL, Route: IVP, Drug form: INJ, Q2H, Dosing Weight 82.045, kg, PRN Pain Score 6-10, Start date: 08/17/16 13:46:00 [employer], Duration: 30 day, Stop date: 09/16/16 13:45:00 CSTNotes: (Same as: Sublimaze) Preservative free. No Longer Active 08/17/2016 [facility] Oxycodone Hydrochloride 1 MG/ML Oral Solution 10 mg, 10 mL, Route: NJ, Drug form: LIQ, Q6H, Dosing Weight 82.045, kg, Start date: 08/17/16 12:00:00 [employer], Duration: 30 day, Stop date: 09/16/16 6:00:00 CSTNotes: (Same as: 'Roxicodone) No Longer Active 08/17/2016 [facility] Vitamin K1 10 mg, 1 mL, Route: SUB-Q, Drug form: INJ, Daily, Dosing Weight 82.045, kg, Start date: 08/17/16 9:00:00 [employer], Duration: 2 doses or times, Stop date: 08/18/16 9:00:00 CSTNotes: (Same as: Aqua-Mephyton, Vitamin K) MEDICATION WASTE Product Size: 10 mg Product Wasted: ___ mg No Longer Active 08/17/2016 [facility] Miralax 17 gm, 1 pkt, Route: PO, Drug form: PWDR, Daily, Dosing Weight 82.045, kg, PRN Constipation, Start date: 08/16/16 17:55:00 [employer], Stop date: 09/15/16 17:54:00 CSTNotes: Dissolve in 8 oz of water or juice. (Same as: Miralax) No Longer Active 08/16/2016 [facility] Sodium Chloride 0.154 MEQ/ML Injectable Solution 1,000 mL, Rate: 25 ml/hr, Infuse over: 40 hr, Route: IV, Dosing Weight 82.045 kg, Total Volume: 1,000, Start date: 08/16/16 11:04:00 [employer], Duration: 1 day, Stop date: 08/17/16 11:03:00 [employer] Inactive 08/16/2016 [facility] Flagyl 500 mg, 100 mL, Route: IVPB, Drug form: INJ, ABXQ8H, Dosing Weight 82.045, kg, Start date: 08/15/16 23:00:00 [employer], Duration: 30 day, Stop date: 09/14/16 15:00:00 CSTNotes: (Same as: Flagyl) Avoid alcohol. No Longer Active 08/16/2016 [facility] Cefazolin 2 gm, 100 mL, Route: IVPB, Drug form: INJ, [id number], Dosing Weight 82.045, kg, Start date: 08/15/16 23:00:00 [employer], Duration: 30 day, Stop date: 09/14/16 15:00:00 CSTNotes: Same as: Ancef No Longer Active 08/16/2016 [facility] Norvasc 10 mg, 2 tab, Route: PO, Drug form: TAB, Daily, Dosing Weight 82.045, kg, Priority: NOW, Start date: 08/15/16 13:55:00 [employer], Duration: 30 day, Stop date: 09/14/16 9:00:00 CSTNotes: (Same as: Norvasc) No Longer Active 08/15/2016 [facility] Labetalol 10 mg, 2 mL, Route: IV, Drug form: INJ, Q6H, Dosing Weight 82.045, kg, PRN Hypertension, Start date: 08/15/16 13:55:00 [employer], Duration: 30 day, Stop date: 09/14/16 13:54:00 CSTNotes: (Same as: Normodyne, Trandate) Push over 2 minutes Give bolus over 2-3 minutes. No Longer Active 08/15/2016 [facility] Hydralazine 10 mg, 0.5 mL, Route: IV, Drug form: INJ, Q4H, Dosing Weight 82.045, kg, PRN Hypertension, Start date: 08/15/16 13:55:00 [employer], Duration: 30 day, Stop date: 09/14/16 13:54:00 CSTNotes: (Same as: Apresoline) Push over 5 minutes No Longer Active 08/15/2016 [facility] Vitamin K1 10 mg, 1 mL, Route: SUB-Q, Drug form: INJ, ONCE, Dosing Weight 82.045, kg, Priority: NOW, Start date: 08/15/16 13:40:00 [employer], Stop date: 08/15/16 13:40:00 CSTNotes: (Same as: Aqua-Mephyton, Vitamin K) MEDICATION WASTE Product Size: 10 mg Product Wasted: ___ mg Inactive 08/15/2016 [facility] Vancomycin 1.25 gm, 250 mL, Route: IV, Drug form: INJ, ONCE, Dosing Weight 82.045, kg, Start date: 08/14/16 21:54:00 [employer], Stop date: 08/14/16 21:54:00 CSTNotes: TIME CRITICAL MEDICATION Same as: Vancocin-NS (premi xed) Infusion rate 2001 mg: infuse over 2.5 hours Inactive 08/15/2016 [facility] insulin, isophane 8 unit, 0.08 mL, Route: SUB-Q, Drug form: INJ, BID, Dosing Weight 82.045, kg, Start date: 08/11/16 9:28:00 [employer], Duration: 30 day, Stop date: 09/10/16 9:00:00 CSTNotes: Roll in palms of hands gently; Do not shake vigorously. (Same as: NovoLIN N, Humulin N) Do not hold insulin without contacting prescriber "single patient use only" WASTE: F/P - Black; E - Municipal Trash Bin Stable for 14 days at room temperature Expires in days from Date No Longer Active 08/11/2016 [facility] Glucagon 1 mg, Route: IM, Drug form: PDR/INJ, PRN, Dosing Weight 82.045, kg, PRN Blood Glucose Results, Start date: 08/11/16 9:15:00 [employer], Duration: 30 day, Stop date: 09/10/16 9:14:00 [employer] No Longer Active 08/11/2016 [facility] Dextrose 50% Syringe 25 gm, 50 mL, Route: IVP, Drug Form: INJ, Dosing Weight 82.045, kg, PRN, PRN Blood Glucose Results, Start date: 08/11/16 9:15:00 [employer], Duration: 30 day, Stop date: 09/10/16 9:14:00 [employer] No Longer Active 08/11/2016 [facility] Famotidine 20 mg, 1 tab, Route: NG, Drug form: TAB, Daily, Dosing Weight 82.045, kg, Start date: 08/11/16 9:00:00 [employer], Duration: 30 day, Stop date: 09/09/16 9:00:00 CSTNotes: (Same as: Pepcid) No Longer Active 08/11/2016 [facility] Aspirin 81 MG Chewable Tablet 81 mg, 1 tab, Route: NG, Drug form: CHEWTAB, Daily, Dosing Weight 82.045, kg, Start date: 08/11/16 9:00:00 [employer], Duration: 30 day, Stop date: 09/09/16 9:00:00 CSTNotes: Take with food. No Longer Active 08/11/2016 [facility] TPN, adult solution 1,300 mL 1,300 mL, Rate: 50 ml/hr, Infuse over: 26 hr, Route: IV, Dosing Weight 82.045 kg, Total Volume: 1,300, Start date: 08/09/16 22:00:00 [employer], Duration: 1 day, Stop date: 08/10/16 21:59:00 [employer] No Longer Active 08/10/2016 [facility] Sodium Chloride 0.154 MEQ/ML Injectable Solution 1,000 mL, Rate: 25 ml/hr, Infuse over: 40 hr, Route: IV, Dosing Weight 82.045 kg, Total Volume: 1,000, Start date: 08/09/16 17:41:00 [employer], Duration: 30 day, Stop date: 09/08/16 17:40:00 [employer] Inactive 08/09/2016 [facility] fat emulsion, intravenous 250 mL IV, 31.25 ml/hr, Start date: 08/08/16 22:00:00 [employer], Duration: 8, 250 ml, 82.045 No Longer Active 08/09/2016 [facility] TPN, adult solution 1,250 mL 1,250 mL, Rate: 50 ml/hr, Infuse over: 25 hr, Route: IV, Dosing Weight 82.045 kg, Total Volume: 1,250, Start date: 08/08/16 22:00:00 [employer], Duration: 1 day, Stop date: 08/09/16 21:59:00 [employer] No Longer Active 08/09/2016 [facility] TPN, adult solution 1,250 mL 1,250 mL, Rate: 50 ml/hr, Infuse over: 25 hr, Route: IV, Dosing Weight 82.045 kg, Total Volume: 1,250, Start date: 08/07/16 22:00:00 [employer], Duration: 1 day, Stop date: 08/08/16 21:59:00 [employer] No Longer Active 08/08/2016 [facility] Vancomycin 750 mg, Route: IV, ABXQ8H, Dosing Weight 82.045, kg, Start date: 08/07/16 21:00:00 [employer], Duration: 30 day, Stop date: 09/06/16 13:00:00 CSTNotes: TIME CRITICAL MEDICATION (Same As: Vancocin) Infusion rate 2001 mg: infuse over 2.5 hours MEDICATION WASTE Product Size: 1000 mg Product Wasted: ___ mg No Longer Active 08/08/2016 [facility] Zosyn 3.375 gm, Route: IVPB, ABXQ8H, Dosing Weight 82.045, kg, CrCl >=20 ml/min infuse over 4 hours, Start date: 08/07/16 21:00:00 [employer], Duration: 30 day, Stop date: 09/06/16 13:00:00 CSTNotes: (Same as: Zosyn) Dosing based on Piperacillin component No Longer Active 08/08/2016 [facility] Dulcolax Laxative 10 mg, 1 supp, Route: W[place], Drug form: SUPP, ONCE, Dosing Weight 82.045, kg, Start date: 08/07/16 21:00:00 [employer], Stop date: 08/07/16 21:00:00 CSTNotes: (Same As: Dulcolax, Bisco-Lax) Inactive 08/08/2016 [facility] fat emulsion, intravenous 250 mL IV, 31.25 ml/hr, Start date: 08/06/16 22:00:00 [employer], Duration: 8, 250 ml, 82.045Notes: (Same as: Intralipid, Liposyn) Infuse through a 1.2 micron filter No Longer Active 08/07/2016 [facility] TPN, adult solution 1,250 mL 1,250 mL, Rate: 50 ml/hr, Infuse over: 25 hr, Route: IV, Dosing Weight 82.045 kg, Total Volume: 1,250, Start date: 08/06/16 22:00:00 [employer], Duration: 1 day, Stop date: 08/07/16 21:59:00 [employer] No Longer Active 08/07/2016 [facility] TPN, adult solution 1,250 mL 1,250 mL, Rate: 50 ml/hr, Infuse over: 25 hr, Route: IV, Dosing Weight 82.045 kg, Total Volume: 1,250, Start date: 08/05/16 22:00:00 [employer], Duration: 24 hr, Stop date: 08/06/16 21:59:00 [employer] No Longer Active 08/06/2016 [facility] Propofol 10 MG/ML Injectable Suspension 1,000 mg, 100 mL, Rate: Titrate, Start Dose: 5 microgram/kg/min, Titration: 5 microgram/kg/min every 15 min, Goal(s): 3, Max Dose: 50 microgram/kg/min, Route: IV, Dosing Weight 82.045 kg, Total Volume: 100, Start date: 08/05/16 2:30:00 [employer], Stop date:...Notes: If Diprivan - change bottle & tubing every 12 hr Per state nursing law propofol can only be given by a nurse if patient is intubated or bao ng intubated (unless the nurse is a DIRECTOR OF EVENT SALES). Same as: Diprivan No Longer Active 08/05/2016 [facility] TPN, adult solution 1,250 mL 1,250 mL, Rate: 50 ml/hr, Infuse over: 25 hr, Route: IV, Dosing Weight 82.045 kg, Total Volume: 1,250, Start date: 08/04/16 22:00:00 [employer], Duration: 1 day, Stop date: 08/05/16 21:59:00 [employer] No Longer Active 08/05/2016 [facility] TPN, adult solution 1,250 mL 1,250 mL, Rate: 50 ml/hr, Infuse over: 25 hr, Route: IV, Dosing Weight 82.045 kg, Total Volume: 1,250, Start date: 08/03/16 22:00:00 [employer], Duration: 24 hr, Stop date: 08/04/16 21:59:00 [employer] No Longer Active 08/04/2016 [facility] fat emulsion, intravenous 250 mL IV, 31.25 ml/hr, Start date: 08/03/16 22:00:00 [employer], Duration: 8, 250 ml, 82.045Notes: (Same as: Intralipid, Liposyn) Infuse through a 1.2 micron filter No Longer Active 08/04/2016 [facility] Albuterol 0.833 MG/ML / Ipratropium [place] 0.167 MG/ML Inhalant Solution [DuoNeb] 3 ml, Route: NEB, Drug Form: SOLN, Dosing Weight 82.045, kg, PRN, PRN Respiratory Protocol, Start date: 08/03/16 21:44:00 [employer], Duration: 30 day, Stop date: 09/02/16 21:43:00 CSTNotes: (Same as: Duoneb) No Longer Active 08/04/2016 [facility] Acetaminophen 650 MG Rectal Suppository 650 mg, 1 supp, Route: WY, Drug form: SUPP, Q6H, Dosing Weight 82.045, kg, PRN Pain 4-6/Temp > 100.4 F, Start date: 08/03/16 12:47:00 [employer], Duration: 30 day, Stop date: 09/02/16 12:46:00 CSTNotes: Max wqlzmnoiuimci=3865 mg/day (4 gm/day). (Same as: Tylenol) No Longer Active 08/03/2016 [facility] Insulin regular 100 unit + sodium chloride 0.9% INJ 99 mL 99 mL, Rate: Start Insulin Drip Per ICU Protocol, Dosing Weight 82.045, kg, Route: IVPB, Total Volume: 100, Start Date: 08/03/16 12:24:00 [employer], Duration: 30 day, Stop date: 09/02/16 12:23:00 [employer], Replace Every: 24 hrNotes: (Same as: Humulin R and NovoLIN R) WASTE: F/P - Black; E - Municipal Trash Bin (Do not shake) No Longer Active 08/03/2016 [facility] Dextrose 50% Syringe 25 gm, 50 mL, Route: IVP, Drug Form: INJ, Dosing Weight 82.045, kg, PRN, PRN Blood Glucose Results, Start date: 08/03/16 12:24:00 [employer], Duration: 30 day, Stop date: 09/02/16 12:23:00 [employer] No Longer Active 08/03/2016 [facility] Cathflo Activase 2 mg injection 2 mg, 2 mL, Route: IV, Drug form: INJ, ONCE, Dosing Weight 82.045, kg, Start date: 08/03/16 12:21:00 [employer], Stop date: 08/03/16 12:21:00 CSTNotes: "Syringe for catheter clearance or interventional radiology use. Reconstitute each vial of Cathflo Activase with 2.2 ml Sterile Water resulting in a 1 mg/ml solution. Stable for 8 hours only. (Same as: Activase) MEDICATION WASTE Product Size: 2 mg Product Wasted: _0__ mg Inactive 08/03/2016 [facility] TPN, adult solution 1,250 mL 1,250 mL, Rate: 50 ml/hr, Infuse over: 25 hr, Route: IV, Dosing Weight 82.045 kg, Total Volume: 1,250, Start date: 08/02/16 22:00:00 [employer], Duration: 24 hr, Stop date: 08/03/16 21:59:00 [employer] No Longer Active 08/03/2016 [facility] Aspirin 300 mg, 1 supp, Route: WY, Drug form: SUPP, Daily, Dosing Weight 82.045, kg, Start date: 08/02/16 15:00:00 [employer], Duration: 30 day, Stop date: 09/01/16 9:00:00 CSTNotes: Refrigerate. No Longer Active 08/02/2016 [facility] Famotidine 20 mg, 2 mL, Route: IVP, Drug form: INJ, Daily, Dosing Weight 82.045, kg, Start date: 08/02/16 15:00:00 [employer], Duration: 30 day, Stop date: 09/01/16 9:00:00 CSTNotes: (Same as: Pepcid) Can be dilute in 5-10cc NS IVP: Slow IV push over at least 2 minutes. No Longer Active 08/02/2016 [facility] Sodium Chloride 0.154 MEQ/ML Injectable Solution 1,000 mL, Rate: 25 ml/hr, Infuse over: 40 hr, Route: IV, Dosing Weight 82.045 kg, Total Volume: 1,000, Start date: 08/02/16 14:13:00 [employer], Duration: 30 day, Stop date: 09/01/16 14:12:00 [employer] No Longer Active 08/02/2016 [facility] Acetaminophen 1,000 mg, 100 mL, Route: IV, Drug form: INJ, Q6H, Dosing Weight 82.045, kg, PRN Pain 4-6/Temp > 100.4 F, Start date: 08/01/16 15:36:00 [employer], Duration: 30 day, Stop date: 08/31/16 15:35:00 CSTNotes: Infuse over 15 minutes Do not exceed 4gm/day of acetaminophen MEDICATION WASTE Product Size: 1000 mg Product Wasted: ___ mg No Longer Active 08/01/2016 [facility] insulin, isophane 10 unit, 0.1 mL, Route: SUB-Q, Drug form: INJ, ONCE, Dosing Weight 82.045, kg, Priority: STAT, Start date: 08/01/16 9:52:00 [employer], Stop date: 08/01/16 9:52:00 CSTNotes: Roll in palms of hands gently; Do not shake vigorously. (Same as: NovoLIN N, Humulin N) Do not hold insulin without contacting prescriber "single patient use only" WASTE: F/P - Black; E - Municipal Trash Bin Stable for 14 days at room temperature Expires in days from Date Inactive 08/01/2016 [facility] Haldol 2.5 mg, 0.5 mL, Route: IV, Drug form: INJ, Q6H, Dosing Weight 82.045, kg, PRN as needed for agitation, Priority: STAT, Start date: 07/31/16 15:06:00 [employer], Duration: 30 day, Stop date: 08/30/16 15:05:00 CSTNotes: (Same as: Haldol) No Longer Active 07/31/2016 [facility] Labetalol 10 mg, 2 mL, Route: IV, Drug form: INJ, Q6H, Dosing Weight 82.045, kg, PRN Hypertension, Start date: 07/31/16 15:06:00 [employer], Duration: 30 day, Stop date: 08/30/16 15:05:00 CSTNotes: (Same as: Normodyne, Trandate) Push over 2 minutes Give bolus over 2-3 minutes. No Longer Active 07/31/2016 [facility] Hydralazine 10 mg, 0.5 mL, Route: IV, Drug form: INJ, Q4H, Dosing Weight 82.045, kg, PRN Hypertension, Start date: 07/31/16 15:06:00 [employer], Duration: 30 day, Stop date: 08/30/16 15:05:00 CSTNotes: (Same as: Apresoline) Push over 5 minutes No Longer Active 07/31/2016 [facility] Famotidine 20 MG Oral Tablet 20 mg, 1 tab, Route: PO, Drug form: TAB, Daily, Dosing Weight 82.045, kg, Start date: 07/31/16 9:00:00 [employer], Duration: 30 day, Stop date: 08/29/16 9:00:00 CSTNotes: (Same as: Pepcid) No Longer Active 07/31/2016 [facility] Cefazolin 2 gm, 100 mL, Route: IVPB, Drug form: INJ, ABXQ8H, Dosing Weight 82.045, kg, Start date: 07/30/16 12:00:00 [employer], Duration: 30 day, Stop date: 08/29/16 4:00:00 CSTNotes: Same as: Ancef No Longer Active 07/30/2016 [facility] Miralax 17 gm, 1 pkt, Route: PO, Drug form: PWDR, Daily, Dosing Weight 82.045, kg, Start date: 07/29/16 17:00:00 [employer], Stop date: 08/28/16 9:00:00 CSTNotes: Dissolve in 8 oz of water or juice. (Same as: Harriet ax) No Longer Active 07/29/2016 [facility] Lasix 20 mg, 2 mL, Route: IVP, Drug form: INJ, Q12H, Dosing Weight 82.045, kg, Start date: 07/29/16 15:04:00 [employer], Duration: 30 day, Stop date: 09/27/16 9:00:00 CSTNotes: (Same as: Lasix) No Longer Active 07/29/2016 [facility] Calcium Carbonate 500 MG Chewable Tablet 500 mg, 1 tab, Route: PO, Drug form: CHEWTAB, PRN, Dosing Weight 82.045, kg, PRN Abnormal Lab Result, FOR ICU USE ONLY, Start date: 07/29/16 6:54:00 [employer], Duration: 30 day, Stop date: 09/27/16 6:53:00 CSTNotes: (Same As: Tums) Calcium Carbonate 500 tn=334 mg elemental calcium Dose= mg calcium carbonate ( mg elemental calcium) No Longer Active 07/29/2016 [facility] Calcium Gluconate 1 gm, 10 mL, Route: IVPB, PRN, Dosing Weight 82.045, kg, PRN Abnormal Lab Result, Start date: 07/29/16 6:54:00 [employer], Duration: 30 day, Stop date: 09/27/16 6:53:00 [employer], FOR ICU USE ONLYNotes: WASTE: F/P - Sink; E - Municipal Trash Bin No Longer Active 07/29/2016 [facility] Magnesium Sulfate 2 gm, 50 mL, Route: IVPB, Drug form: INJ, PRN, Dosing Weight 82.045, kg, PRN Abnormal Lab Result, Start date: 07/29/16 6:54:00 [employer], Duration: 30 day, Stop date: 09/27/16 6:53:00 [employer], FOR ICU USE ONLYNotes: WASTE: F/P - Sink; E - Municipal Trash Bin No Longer Active 07/29/2016 [facility] Magnesium Oxide 800 mg, 2 tab, Route: PO, Drug form: TAB, PRN, Dosing Weight 82.045, kg, PRN Abnormal Lab Result, FOR ICU USE ONLY, Start date: 07/29/16 6:54:00 [employer], Duration: 30 day, Stop date: 09/27/16 6:53:00 [employer] Notes: (Same as: Mag-Ox 400) Magnesium oxide 450by=681vh elemental magnesium Dose=____mg magnesium oxide (___mg elemental magnesium) No Longer Active 07/29/2016 [facility] potassium phosphate + sodium chloride 0.9% INJ 250 mL 15 mmol, 5 mL, Route: IVPB, PRN, Dosing Weight 82.045, kg, PRN Abnormal Lab Result, Start date: 07/29/16 6:54:00 [employer], Duration: 30 day, Stop date: 09/27/16 6:53:00 [employer], FOR ICU USE ONLYNotes: (Same as: K Phosphate.) 1 mMol phoshate has 1.47 mEq potassium Infuse over 4 hours No Longer Active 07/29/2016 [facility] sodium phosphate + D5W 250 mL 45 mmol, 15 mL, Route: IVPB, PRN, Dosing Weight 82.045, kg, PRN Abnormal Lab Result, Start date: 07/29/16 6:54:00 [employer], Duration: 30 day, Stop date: 09/27/16 6:53:00 [employer], FOR ICU USE ONLY No Longer Active 07/29/2016 [facility] potassium chloride 10 mEq, 100 mL, Route: IVPB, Drug form: INJ, PRN, Dosing Weight 82.045, kg, PRN Abnormal Lab Result, Via peripheral line, Start date: 07/29/16 6:54:00 [employer], Duration: 30 day, Stop date: 09/27/16 6:53:00 [employer], FOR ICU USE ONLYNotes: Infuse at a rate of 10 mEq/hr. (Same as: KCL) No Longer Active 07/29/2016 [facility] potassium phosphate-sodium phosphate 250 mg-280 mg-160 mg oral powder for reconstitution 2 pkt, Route: PO, Drug Form: PDR/REC, Dosing Weight 82.045, kg, PRN, PRN Abnormal Lab Result, FOR ICU USE ONLY, Start date: 07/29/16 6:54:00 [employer], Duration: 30 day, Stop date: 09/27/16 6:53:00 CSTNotes: (Same as: Phos-NaK) Each 1.5 gm pkt has 250mg phosphorous. Mix w/2.5oz water and stir. No Longer Active 07/29/2016 [facility] Please Do not give Vanco prior to trough is collected Please Do not give Vanco prior to trough is collected, Reminder, Drug form: MISC, Route: MISC, ONCE, 07/28/16 16:00:00 [employer], Stop date: 07/28/16 16:00:00 [employer] Inactive 07/28/2016 [facility] Famotidine 20 MG Oral Tablet 20 mg, 1 tab, Route: PO, Drug form: TAB, BID, Dosing Weight 82.045, kg, Start date: 07/28/16 9:00:00 [employer], Duration: 30 day, Stop date: 08/26/16 17:00:00 CSTNotes: (Same as: Pepcid) No Longer Active 07/28/2016 [facility] Potassium Chloride 1.33 MEQ/ML Oral Solution 20 mEq, 15 mL, Route: NG, Drug form: LIQ, ONCE, Dosing Weight 82.045, kg, Start date: 07/28/16 7:03:00 [employer], Stop date: 07/28/16 7:03:00 CSTNotes: (Same as: Potassium Chloride) Inactive 07/28/2016 [facility] potassium phosphate + sodium chloride 0.9% INJ 250 mL 15 mmol, 5 mL, Route: IVPB, ONCE, Dosing Weight 82.045, kg, Start date: 07/28/16 7:02:00 [employer], Stop date: 07/28/16 7:02:00 CSTNotes: (Same as: K Phosphate.) 1 mMol phoshate has 1.47 mEq potassium Infuse over 4 hours Inactive 07/28/2016 [facility] Sodium Chloride 0.154 MEQ/ML Injectable Solution 1,000 mL, 1,000 ml/hr, Infuse Over: 1 hr, Route: IV, 1,000, Drug form: INJ, ONCE, Priority: STAT, Dosing Weight 82.045 kg, Start date: 07/28/16 7:02:00 [employer], Duration: 1 doses or times, Stop date: 07/28/16 7:02:00 [employer] Inactive 07/28/2016 [facility] Sodium Chloride 0.154 MEQ/ML Injectable Solution 1,000 mL, Rate: 75 ml/hr, Infuse over: 13.3 hr, Route: IV, Dosing Weight 82.045 kg, Total Volume: 1,000, Start date: 07/28/16 4:25:00 [employer], Duration: 30 day, Stop date: 08/27/16 4:24:00 [employer] No Longer Active 07/28/2016 [facility] Sodium Chloride 0.154 MEQ/ML Injectable Solution 2,000 mL, 2000 ml/hr, Infuse Over: 1 hr, Route: IV, 2,000, Drug form: INJ, ONCE, Priority: STAT, Dosing Weight 82.045 kg, Start date: 07/28/16 3:13:00 [employer], Duration: 1 doses or times, Stop date: 07/28/16 3:13:00 [employer] Inactive 07/28/2016 [facility] Sodium Chloride 0.154 MEQ/ML Injectable Solution 2,000 mL, Route: IV, ONCE, Dosing Weight 82.045 kg, Start date: 07/28/16 3:11:00 [employer], Stop date: 07/28/16 3:11:00 [employer] Inactive 07/28/2016 [facility] Sodium Chloride 0.154 MEQ/ML Injectable Solution 2,000 mL, Route: IV, ONCE, Dosing Weight 82.045 kg, Start date: 07/28/16 2:57:00 [employer], Stop date: 07/28/16 2:57:00 [employer] Inactive 07/28/2016 [facility] Norepinephrine 8 mg, 8 mL, Rate: Titrate, Start Dose: 5 microgram/min, Titration: 2 microgram/min every 2-5 minutes, Goal(s): MAP >=60 mmHg, Max Dose: 70 microgram/min, Route: IV, Dosing Weight 82.045 kg, Total Vol ume: 250, Start date: 07/28/16 2:56:00 [employer], Duratio...Notes: Not for direct administration - DILUTE. Protect from light. (Same as:Levophed). Administer by either central venous catheter or peripherally-inserted central catheter (PICC) line. No Longer Active 07/28/2016 [facility] heparin 5,000 unit, 1 mL, Route: SUB-Q, Drug form: INJ, Q8H, Dosing Weight 82.045, kg, Start date: 07/28/16 0:00:00 [employer], Duration: 30 day, Stop date: 08/26/16 16:00:00 CSTNotes: porcine heparin No Longer Active 07/28/2016 [facility] Sodium Chloride 0.154 MEQ/ML Injectable Solution 1,000 mL, Rate: 75 ml/hr, Infuse over: 13.3 hr, Route: IV, Dosing Weight 82.045 kg, Total Volume: 1,000, Start date: 07/27/16 23:45:00 [employer], Duration: 30 day, Stop date: 08/26/16 23:44:00 [employer] No Longer Active 07/28/2016 [facility] insulin, isophane 22 unit, 0.22 mL, Route: SUB-Q, Drug form: INJ, Q12H, Dosing Weight 82.045, kg, Start date: 07/27/16 21:00:00 [employer], Stop date: 08/26/16 9:00:00 CSTNotes: Roll in palms of hands gently; Do not shake vigorously. (Same as: NovoLIN N, Humulin N) Do not hold insulin without contacting prescriber "single patient use only" WASTE: F/P - Black; E - [employer] Trash Bin Stable for 14 days at room temperature Expires in days from Date No Longer Active 07/28/2016 [facility] Aspirin 81 MG Chewable Tablet 81 mg, 1 tab, Route: PO, Drug form: CHEWTAB, Daily, Dosing Weight 82.045, kg, Priority: STAT, Start date: 07/27/16 19:03:00 [employer], Duration: 30 day, Stop date: 08/26/16 9:00:00 CSTNotes: Take with food. No Longer Active 07/28/2016 [facility] Propofol 40 mg, 4 mL, Route: IV, Drug form: SUSP, ONCE, Dosing Weight 82.045, kg, Start date: 07/27/16 16:15:00 [employer], Stop date: 07/27/16 16:15:00 CSTNotes: If Diprivan - change bottle & tubing every 12 hr Per state nursing law propofol can only be given by a nurse if patient is intubated or being intubated (unless the nurse is a DIRECTOR OF EVENT SALES). Same as: Diprivan Inactive 07/27/2016 [facility] Midazolam 50 mg, 50 mL, Rate: Titrate, Start Dose: 1 mg/hr, Titration: Rebolus 1 mg IV and/or Titrate by 1 milligram/hour every 30 minutes, Goal(s): RASS -1 to -2, Max Dose: 10 mg/hr, Route: IV, Dosing Weight 82.045 kg, Total Volume: 50, Start date: 07/27/16 16...Notes: (Same as: Versed) No Longer Active 07/27/2016 [facility] Fentanyl 1,250 microgram, 250 mL, Rate: Titrate, Start Dose: 50 microgram/hr, Titration: 25 micrograms/hour every 15 minutes, Goal(s): RASS -1 to -2, Max Dose: 300 microgram/hr, Route: IV, Dosing Weight 82.045 kg, Total Volume: 250, Start date: 07/27/16 16:04:...Notes: Concentration: 5 microgram / ml No Longer Active 07/27/2016 [facility] Succinylcholine 60 mg, 3 mL, Route: IV, Drug form: INJ, ONCE, Dosing Weight 82.045, kg, Start date: 07/27/16 16:03:00 [employer], Stop date: 07/27/16 16:03:00 CSTNotes: (Same As: Anectine) Inactive 07/27/2016 [facility] Midazolam 2 mg, 2 mL, Route: IVP, Drug form: INJ, ONCE, Dosing Weight 82.045, kg, Start date: 07/27/16 16:03:00 [employer], Stop date: 07/27/16 16:03:00 CSTNotes: (Same as: Versed) MEDICATION WASTE Product Size: 2 mg Product Wasted: ___ mg Inactive 07/27/2016 [facility] Etomidate 10 mg, 5 mL, Route: IV, Drug form: INJ, ONCE, Dosing Weight 82.045, kg, Start date: 07/27/16 16:03:00 [employer], Stop date: 07/27/16 16:03:00 CSTNotes: (Same as: Amidate). Per state nursing law etomidate can only be given by a nurse if patient is intubated or being intubated (unless the nurse is a DIRECTOR OF EVENT [employer]). Inactive 07/27/2016 [facility] vancomycin 1.25 gm, 250 mL, Route: IVPB, Drug form: INJ, [id number], Start date: 07/27/16 16:00:00 [employer], Duration: 30 day, Stop date: 08/25/16 18:00:00 CSTNotes: TIME CRITICAL MEDICATION Same as: Vancocin-NS (premi xed) Infusion rate 2001 mg: infuse over 2.5 hours No Longer Active 07/27/2016 [facility] Vancomycin 1,000 mg, Route: IVPB, [id number], Dosing Weight 86.364, kg, Start date: 07/27/16 16:00:00 [employer], Duration: 30 day, Stop date: 08/25/16 16:00:00 CSTNotes: TIME CRITICAL MEDICATION (Same As: Vancocin) Infusi on rate 2001 mg: infuse over 2.5 hours MEDICATION WASTE Product Size: 1000 mg Product Wasted: ___ mg Inactive 07/27/2016 [facility] Insulin, Aspart, Human 15 unit, 0.15 mL, Route: SUB-Q, Drug form: SOLN, Sliding Scale, Dosing Weight 82.045, kg, PRN Blood Glucose Results, Start date: 07/27/16 15:57:00 [employer], Duration: 30 day, Stop date: 08/26/16 15:56:00 CSTNotes: Roll in palms of hands gently; Do not shake vigorously. (Same as: NovoLOG) "single patient use only" WASTE: F/P - Black; E - Municipal Trash Bin Stable for 28 days at room temperature. Expires in days from Date No Longer Active 07/27/2016 [facility] Dextrose 50% Syringe 12.5 gm, 25 mL, Route: IVP, Drug Form: INJ, Dosing Weight 82.045, kg, PRN, PRN Blood Glucose Results, Start date: 07/27/16 15:57:00 [employer], Duration: 30 day, Stop date: 08/26/16 15:56:00 [employer] No Longer Active 07/27/2016 [facility] Glucagon 1 mg, Route: IM, Drug form: PDR/INJ, PRN, Dosing Weight 82.045, kg, PRN Blood Glucose Results, Start date: 07/27/16 15:57:00 [employer], Duration: 30 day, Stop date: 08/26/16 15:56:00 [employer] No Longer Active 07/27/2016 [facility] aspirin 81 mg tablet, enteric coated 81 mg, 1 tab, Route: PO, Drug form: CHEWTAB, Daily, Dosing Weight 82.045, kg, Priority: NOW, Start date: 07/27/16 13:32:00 [employer], Stop date: 08/26/16 9:00:00 CSTNotes: Take with food. Inactive 07/27/2016 [facility] Vancomycin 1 ea, Route: MISC, Dosing Weight 82.045, kg, ONCALL, Start date: 07/27/16 12:00:00 [employer], Duration: 1 doses or times, Pharmacy to dose Inactive 07/27/2016 [facility] potassium chloride 10 mEq, 100 mL, Route: IVPB, Drug form: INJ, Q1H, Dosing Weight 82.045, kg, Total Dose=20 meq, Start date: 07/27/16 12:00:00 [employer], Duration: 2 doses or times, Stop date: 07/27/16 13:00:00 [employer], Peripheral LineNotes: Infuse at a rate of 10 mEq/hr. (Same as: KCL) Inactive 07/27/2016 [facility] Lasix 20 mg, 2 mL, Route: IVP, Drug form: INJ, ONCE, Dosing Weight 82.045, kg, Start date: 07/27/16 11:08:00 [employer], Stop date: 07/27/16 11:08:00 CSTNotes: (Same as: Lasix) Inactive 07/27/2016 [facility] Prozac 10 mg, 1 cap, Route: PO, Drug form: CAP, Daily, Dosing Weight 86.364, kg, Start date: 07/27/16 9:00:00 [employer], Duration: 30 day, Stop date: 09/24/16 9:00:00 CSTNotes: (Same as: Prozac) No Longer Active 07/27/2016 [facility] Zosyn 3.375 gm, Route: IVPB, [id number], Dosing Weight 86.364, kg, CrCl >=20 ml/min infuse over 4 hours, Start date: 07/26/16 22:00:00 [employer], Duration: 30 day, Stop date: 08/25/16 14:00:00 CSTNotes: (Same as: Zosyn) Dosing based on Piperacillin component No Longer Active 07/27/2016 [facility] Saline Flush 0.9% 10 ml, Route: IVP, Drug Form: INJ, Dosing Weight 86.364, kg, Q12H, Start date: 07/26/16 21:00:00 [employer], Duration: 30 day, Stop date: 09/24/16 9:00:00 CSTNotes: (Same as: BD Posiflush) No Longer Active 07/27/2016 [facility] atorvastatin 10 mg, 1 tab, Route: PO, Drug form: TAB, Bedtime, Dosing Weight 86.364, kg, Start date: 07/26/16 21:00:00 [employer], Duration: 30 day, Stop date: 09/23/16 21:00:00 CSTNotes: (Same As: Lipitor) No Longer Active 07/27/2016 [facility] Zosyn 3.375 gm, Route: IVPB, Drug form: PDR/INJ, Q6H, Dosing Weight 86.364, kg, Priority: STAT, Start date: 07/26/16 18:06:00 [employer], Duration: 30 day, Stop date: 08/25/16 18:00:00 [employer] Inactive 07/27/2016 [facility] Vancomycin 1 gm, Route: IVPB, Drug form: INJ, Q12H, Dosing Weight 86.364, kg, Priority: STAT, Start date: 07/26/16 18:06:00 [employer], Duration: 30 day, Stop date: 08/25/16 9:00:00 [employer] Inactive 07/27/2016 [facility] Acetaminophen 325 mg, Route: PO, Drug form: TAB, Q4H, Dosing Weight 86.364, kg, PRN Pain Score 4-6, Start date: 07/26/16 18:06:00 [employer], Duration: 30 day, Stop date: 08/25/16 18:05:00 [employer] Inactive 07/27/2016 [facility] Morphine 2 mg, 1 mL, Route: IVP, Drug form: INJ, Q4H, Dosing Weight 86.364, kg, PRN Pain Score 7-10, Start date: 07/26/16 18:06:00 [employer], Duration: 30 day, Stop date: 09/24/16 18:05:00 CSTNotes: (Same as:MORPhine Sulfate) No Longer Active 07/27/2016 [facility] Ondansetron 4 mg, 2 mL, Route: IVP, Drug form: INJ, Q6H, Dosing Weight 86.364, kg, PRN Nausea & Vomiting, Start date: 07/26/16 18:06:00 [employer], Duration: 30 day, Stop date: 09/24/16 18:05:00 CSTNotes: (Same as: Ben) MEDICATION WASTE Product Size: 4 mg Product Wasted: ___ mg No Longer Active 07/27/2016 [facility] Tylenol 1,000 mg, 2 tab, Route: PO, Drug form: TAB, Q6H, Dosing Weight 86.364, kg, PRN Pain 1-3/Temp > 100.4 F, Start date: 07/26/16 17:08:00 [employer], Duration: 30 day, Stop date: 08/25/16 17:07:00 CSTNotes: Max acetaminophen 4000 mg/day (4 gm/day). (Same as: Tylenol Extra Strength) No Longer Active 07/26/2016 [facility] potassium chloride 10 mEq, 100 mL, Route: IVPB, Drug form: INJ, Q1H, Dosing Weight 86.364, kg, Total Dose=40 meq, Start date: 07/26/16 17:00:00 [employer], Duration: 4 doses or times, Stop date: 07/26/16 20:00:00 [employer], Peripheral LineNotes: Infuse at a rate of 10 mEq/hr. (Same as: KCL) Inactive 07/26/2016 [facility] Insulin, Aspart, Human 2 unit, 0.02 mL, Route: SUB-Q, Drug form: SOLN, Bedtime, Dosing Weight 86.364, kg, PRN Blood Glucose Results, Start date: 07/26/16 16:47:00 [employer], Duration: 30 day, Stop date: 08/25/16 16:46:00 CSTNotes: Roll in palms of hands gently; Do not shake vigorously. (Same as: NovoLOG) "single patient use only" WASTE: F/P - Black; E - Municipal Trash Bin Stable for 28 days at room temperature. Expires in days from Date No Longer Active 07/26/2016 [facility] Dextrose 50% Syringe 25 gm, 50 mL, Route: IVP, Drug Form: INJ, Dosing Weight 86.364, kg, PRN, PRN Blood Glucose Results, Start date: 07/26/16 16:47:00 [employer], Duration: 30 day, Stop date: 08/25/16 16:46:00 [employer] No Longer Active 07/26/2016 [facility] Glucagon 1 mg, Route: IM, Drug form: PDR/INJ, PRN, Dosing Weight 86.364, kg, PRN Blood Glucose Results, Start date: 07/26/16 16:47:00 [employer], Duration: 30 day, Stop date: 08/25/16 16:46:00 [employer] No Longer Active 07/26/2016 [facility] Saline Flush 0.9% 10 ml, Route: IVP, Drug Form: INJ, Dosing Weight 86.364, kg, PRN, PRN Line Flush, Start date: 07/26/16 16:44:00 [employer], Duration: 30 day, Stop date: 09/24/16 16:43:00 CSTNotes: (Same as: BD Posiflush) No Longer Active 07/26/2016 [facility] Nystatin 100 UNT/MG Topical Powder 1 appl, Route: TOP, PRN, Drug form: PWDR, PRN For Fungal Prophylaxis, Start date: 07/26/16 16:44:00 [employer], Duration: 30 day, Stop date: 09/24/16 16:43:00 CSTNotes: (Same as:Mycostatin, Nilstat) For external use only. No Longer Active 07/26/2016 [facility] Acetaminophen 650 mg, 2 tab, Route: PO, Drug form: TAB, Q4H, Dosing Weight 86.364, kg, PRN For Temp > 100.4 F, Start date: 07/26/16 16:44:00 [employer], Duration: 30 day, Stop date: 08/25/16 16:43:00 CSTNotes: Do not exceed 4 gm/day. (Same as: Tylenol) Inactive 07/26/2016 [facility] Ondansetron 4 mg, 2 mL, Route: IVP, Drug form: INJ, Q8H, Dosing Weight 86.364, kg, PRN Nausea & Vomiting, Start date: 07/26/16 16:44:00 [employer], Duration: 30 day, Stop date: 08/25/16 16:43:00 CSTNotes: (Same as: Zofran) MEDICATION WASTE Product Size: 4 mg Product Wasted: ___ mg Inactive 07/26/2016 [facility] Lactated Ringers 1,000 mL 1,000 mL, Rate: 100 ml/hr, Infuse over: 10 hr, Route: IV, Dosing Weight 86.364 kg, Total Volume: 1,000, Start date: 07/26/16 16:40:00 [employer], Duration: 20 hr, Stop date: 07/27/16 12:39:00 [employer] No Longer Active 07/26/2016 [facility] Aspirin 325 mg, Route: PO, Drug form: TAB, ONCE, Dosing Weight 86.364, kg, Priority: STAT, Start date: 07/26/16 15:42:00 [employer], Stop date: 07/26/16 15:42:00 [employer] Inactive 07/26/2016 [facility] Zosyn 3.375 gm, Route: IVPB, ONCE, Dosing Weight 86.364, kg, Priority: STAT, Start date: 07/26/16 13:11:00 [employer], Stop date: 07/26/16 13:11:00 CSTNotes: (Same as: Zosyn) Dosing based on Piperacillin component MEDICATION WASTE Product Size: 3375 mg Product Wasted: ___ mg Inactive 07/26/2016 [facility] Vancomycin 2,000 mg, 500 mL, Route: IVPB, Drug form: SOLN, ONCE, Dosing Weight 86.364, kg, Time Critical Medication, Priority: STAT, Start date: 07/26/16 12:55:00 [employer], Stop date: 07/26/16 12:55:00 CSTNotes: TIME C RITICAL MEDICATION Same as: Vancocin Infusion rate 2001 mg: infuse over 2.5 hours Inactive 07/26/2016 [facility] cefepime 1 gm, Route: IVPB, ONCE, Dosing Weight 86.364, kg, Priority: STAT, Start date: 07/26/16 12:55:00 [employer], Stop date: 07/26/16 12:55:00 [employer] Inactive 07/26/2016 [facility] Saline Flush 0.9% 10 mL, Route: IVP, Drug Form: INJ, Dosing Weight 86.364, kg, PRN, PRN Line Flush, Start date: 07/26/16 12:55:00 [employer], Duration: 30 day, Stop date: 08/25/16 12:54:00 CSTNotes: (Same as: BD Posiflush) No Longer Active 07/26/2016 [facility] Sodium Chloride 0.154 MEQ/ML Injectable Solution 2,590.92 mL, 2,000 ml/hr, Route: IV, ONCE, Priority: STAT, Dosing Weight 86.364 kg, Start date: 07/26/16 12:55:00 [employer], Duration: 1 doses or times, Stop date: 07/26/16 12:55:00 [employer] Inactive 07/26/2016 [facility] Amlodipine Besylate 1 tablet Orally Active 10 MG Orally Once a day Blaze Thakur MD, DANY Metoprolol Tartrate 1 tablet with food Orally Active 25 MG Orally twice a day (bid) Blaze Thakur MD, PA Meloxicam 1 tablet Orally Active 15 MG Orally Once a day Blaze Thakur MD, PA Leflunomide 1 tablet Orally Active 10 MG Orally Once a day Blaze Thakur MD, PA Klor-Con M20 1 tablet with food Orally Active 20 MEQ Orally Once a day Blaze Thakur MD, PA Furosemide 1 tablet Orally Active 40 MG Orally Once a day Blaze Thakur MD, PA Janumet 1 tablet with meals Orally Active 50-1000 MG Orally Twice a day Blaze Thakur MD, PA GlipiZIDE 1 tablet Orally Active 5 MG Orally Once a day Blaze Thakur MD, PA Fluoxetine HCl 1 capsule in the morning Orally Active 10 MG Orally Once a day Blaze Thakur MD, PA Atorvastatin Calcium 1 tablet Orally Active 10 MG Orally Once a day Blaze Thakur MD, PA Atorvastatin Calcium 1 tablet Orally Active 80 MG Orally Once a day Blaze Thakur MD, DANY Potassium Bicarb & Chloride not defined Orally Active 20 MEQ Orally Blaze Thakur MD, PA Meloxicam 1 tablet Orally Active 15 MG Orally Once a day Blaze Thakur MD, PA Furosemide 1 tablet Orally Active 40 mg Orally twice a day (bid) Blaze Thakur MD, PA HydrALAZINE HCl 1 tablet Orally Active 50 MG Orally Three times a day Blaze Thakur MD, PA Leflunomide 1 tablet Orally Active 10 MG Orally Once a day Blaze Thakur MD, PA Janumet 1 tablet with meals Orally Active 50-1000 MG Orally Twice a day Blaze Thakur MD, PA Fluoxetine HCl 1 capsule in the morning Orally Active 10 MG Orally Once a day Blaze Thakur MD, PA Aspirin 1 tablet Orally Active 81 MG Orally Once a day Blaze Thakur MD, PA Coreg 1 tablet Orally Active 6.25 MG Orally twice a day (bid) Blaze Thakur MD, PA Leflunomide 1 tablet Orally Active 20 MG Orally Once a day Blaze Thakur MD, PA HydrALAZINE HCl 1 tablet Orally Active 50 MG Orally Three times a day Blaze Thakur MD, PA Atorvastatin Calcium 1 tablet Orally Active 80 MG Orally Once a day Blaze Thakur MD, PA Coreg 1 tablet Orally Active 6.25 MG Orally twice a day (bid) Blaze Thakur MD, PA Aspirin 1 tablet Orally Active 81 MG Orally Once a day Blaze Thakur MD, DANY Allergies, Adverse Reactions, Alerts Substance Category Reaction Severity Reaction type Status Date Reported Comments Source erythromycin<sup>1</sup> Assertion Drug allergy Active 04/05/2010 1Data migrated from [employer] on 12/07/14. Originally documented as ERYTHROMYCIN. [facility] Erythromycin Adverse Reaction Info Not Available Adverse Reaction Active 04/17/2018 Zackery Thakur MD, DANY erythromycin Assertion [facility] [place] Immunizations Immunization Date Given Site Status Last Updated Comments Source pneumococcal 23-valent vaccine 03/09/2017 Not Given [facility] pneumococcal 13-valent vaccine<sup>3</sup> 06/07/2016 Left Deltoid completed [facility] Result Comment: [facility]#[id number] [facility] pneumococcal 13-valent vaccine<sup>1</sup> 06/07/2016 Left Deltoid completed [facility] Result Comment: [facility]#[id number] [facility] Hx influenza vaccine-unspecified<sup>1</sup> 2016 [facility] Location History: at specialist office [facility] Hx influenza vaccine-unspecified<sup>2</sup> 2016 [facility] Location History: at specialist office [facility] Hx influenza vaccine-unspecified<sup>2</sup> 06/02/2010 Left Deltoid completed [facility] Result Comment: fluvirin. Migrated from OBS ; Data migrated from [employer] on 09/12/2015. [facility] Hx influenza vaccine-unspecified<sup>1</sup> 06/02/2010 Left Deltoid completed [facility] Result Comment: fluvirin. Migrated from OBS ; Data migrated from [employer] on 09/12/2015. [facility] Hx influenza vaccine-unspecified<sup>3</sup> 06/02/2010 Left Deltoid completed [facility] Result Comment: fluvirin. Migrated from OBS ; Data migrated from [employer] on 09/12/2015. [facility] Results Order Name Results Value Reference Range Date Interpretation Comments [facility] CHEM PANEL eGFR 45 mL/min/1.73m2 09/09/2017 Result Comment: The eGFR is calculated using the CKD-EPI formula. In most young, healthy individuals the eGFR will be >90 mL/min/1.73m2. The eGFR declines with age. An eGFR of 60-89 may be normal in some populations, particularly the elderly, for whom the CKD-EPI formula has not been extensively validated. Use of the eGFR is not recommended in the following populations: Individuals with unstable creatinine concentrations, including patients and those with serious co-morbid conditions. Patients with extremes in muscle mass or diet. The data above are obtained from the National Kidney Disease Education Program (NKDEP) which additionally recommends that when the eGFR is used in patients with extremes of body mass index for purposes of drug dosing, the eGFR should be multiplied by the estimated BMI. [facility] CHEM PANEL Creatinine Lvl 1.18 mg/dL 0.50 - 1.40 09/09/2017 [facility] CHEM PANEL Chloride Lvl 102 meq/L 95 - 109 09/09/2017 [facility] CHEM PANEL Sodium Lvl 140 meq/L 135 - 145 09/09/2017 [facility] CHEM PANEL Potassium Lvl 3.2 meq/L 3.5 - 5.1 09/09/2017 [facility] CHEM PANEL CO2 28 meq/L 24 - 32 09/09/2017 [facility] CHEM PANEL Calcium Lvl 8.8 mg/dL 8.5 - 10.5 09/09/2017 [facility] CHEM PANEL BUN 28 mg/dL 7 - 22 09/09/2017 [facility] CHEM PANEL Glucose Lvl 203 mg/dL 70 - 99 09/09/2017 [facility] CHEM PANEL AGAP 13.2 meq/L 10.0 - 20.0 09/09/2017 [facility] HEMATOLOGY Hgb 13.7 g/dL 12.0 - 16.0 09/09/2017 [facility] HEMATOLOGY Hct 39.8 % 36.0 - 48.0 09/09/2017 [facility] HEMATOLOGY MCH 30.7 pg 27.0 - 31.0 09/09/2017 [facility] HEMATOLOGY MCHC 34.5 g/dL 32.0 - 36.0 09/09/2017 [facility] HEMATOLOGY MCV 89.1 fL 80.0 - 98.0 09/09/2017 [facility] HEMATOLOGY RBC 4.47 M/CMM 4.20 - 5.40 09/09/2017 [facility] HEMATOLOGY WBC 10.6 K/CMM 3.7 - 10.4 09/09/2017 [facility] HEMATOLOGY Platelet 239 K/CMM 133 - 450 09/09/2017 [facility] HEMATOLOGY MPV 8.2 fL 7.4 - 10.4 09/09/2017 [facility] HEMATOLOGY RDW 13.7 % 11.5 - 14.5 09/09/2017 [facility] HEMATOLOGY Basophils # 0.1 K/CMM 0.0 - 0.2 09/09/2017 [facility] HEMATOLOGY Eosinophils 0.2 % 0.0 - 4.0 09/09/2017 [facility] HEMATOLOGY Monocytes 9.1 % 2.0 - 12.0 09/09/2017 [facility] HEMATOLOGY Segs-Bands # 7.0 K/CMM 1.5 - 8.1 09/09/2017 [facility] HEMATOLOGY Basophils 0.5 % 0.0 - 1.0 09/09/2017 [facility] HEMATOLOGY Lymphocytes 24.3 % 20.0 - 40.0 09/09/2017 [facility] HEMATOLOGY Segs 65.9 % 45.0 - 75.0 09/09/2017 [facility] HEMATOLOGY Monocytes # 1.0 K/CMM 0.0 - 0.8 09/09/2017 [facility] HEMATOLOGY Lymphocytes # 2.6 K/CMM 1.0 - 5.5 09/09/2017 [facility] CARDIAC ENZYMES Total CK 37 unit/L 12 - 191 09/08/2017 [facility] CARDIAC ENZYMES Troponin-I null 0.00 - 0.40 09/08/2017 [facility] ELECTROLYTES Potassium Lvl 3.3 meq/L 3.5 - 5.1 09/08/2017 [facility] Brain wo contrast CT Brain wo contrast CT Clinical Indication: - tia Comparison: Comparison is made to CT study of 09/07/2017 and MR study of 09/08/2017 TECHNIQUE: CT images were obtained from the foramen magnum to the vertex without the use of intravenous contrast on a multidetector CT. Coronal and sagittal reconstructions were obtained. CT radiation dose DLP: 858 mGy-cm FINDINGS: BRAIN PARENCHYMA: There is generalized brain parenchymal atrophy related to the patient's age. Mild nonspecific periventricular white matter disease changes are noted. Atherosclerotic calcifications are present within the carotid siphons and distal vertebral arteries. There are no focal mass lesions on this noncontrast head CT. There is no mass effect, midline shift or edema. There are no intra-axial or extra-axial fluid collections, intraventricular or intraparenchymal hemorrhage. There is no noncontrast CT evidence of a subacute stroke. The pineal, sellar, brainstem, cerebellum and skull base regions appear unremarkable. VENTRICLES: The lateral ventricles, third and fourth ventricles appear unremarkable. The basilar cisterns are normal. ORBITS, MASTOIDS AND PARANASAL SINUSES: The visualized orbits and paranasal sinuses are unremarkable. The mastoid air cells are clear. SKULL: There are no calvarial abnormalities seen. If there is further concern for intracranial pathology or acute stroke, MRI of the brain may be performed for complete assessment. IMPRESSION: Chronic age-related and small vessel ischemic changes without mass, hemorrhage or subacute stroke. Findings are stable. SL: EVETTE 09/08/2017 - - Read by: Jose Leigh MD Dictated Date/time: 09/08/17 10:31 Electronically Signed by: Jose Leigh MD 09/08/17 10:40 FINAL REPORT [facility] CARDIAC ENZYMES Troponin-I null 0.00 - 0.40 09/08/2017 [facility] CARDIAC ENZYMES Total CK 45 unit/L 12 - 191 09/08/2017 [facility] CHEM PANEL Calcium Lvl 8.6 mg/dL 8.5 - 10.5 09/08/2017 [facility] CHEM PANEL eGFR 56 mL/min/1.73m2 09/08/2017 Result Comment: The eGFR is calculated using the CKD-EPI formula. In most young, healthy individuals the eGFR will be >90 mL/min/1.73m2. The eGFR declines with age. An eGFR of 60-89 may be normal in some populations, particularly the elderly, for whom the CKD-EPI formula has not been extensively validated. Use of the eGFR is not recommended in the following populations: Individuals with unstable creatinine concentrations, including patients and those with serious co-morbid conditions. Patients with extremes in muscle mass or diet. The data above are obtained from the National Kidney Disease Education Program (NKDEP) which additionally recommends that when the eGFR is used in patients with extremes of body mass index for purposes of drug dosing, the eGFR should be multiplied by the estimated BMI. [facility] CHEM PANEL Glucose Lvl 318 mg/dL 70 - 99 09/08/2017 [facility] CHEM PANEL BUN 20 mg/dL 7 - 22 09/08/2017 [facility] CHEM PANEL AGAP 15.8 meq/L 10.0 - 20.0 09/08/2017 [facility] CHEM PANEL Creatinine Lvl 0.98 mg/dL 0.50 - 1.40 09/08/2017 [facility] CHEM PANEL Chloride Lvl 100 meq/L 95 - 109 09/08/2017 [facility] CHEM PANEL CO2 24 meq/L 24 - 32 09/08/2017 [facility] CHEM PANEL Sodium Lvl 137 meq/L 135 - 145 09/08/2017 [facility] CHEM PANEL Potassium Lvl 2.8 meq/L 3.5 - 5.1 09/08/2017 Result Comment: Critical Result(s) called to Jluis Chu at 09/08/2017 05:53 by MADHURI. Read back OK. [facility] HEMATOLOGY Monocytes 8.8 % 2.0 - 12.0 09/08/2017 [facility] HEMATOLOGY Segs 72.5 % 45.0 - 75.0 09/08/2017 [facility] HEMATOLOGY Eosinophils 0.2 % 0.0 - 4.0 09/08/2017 [facility] HEMATOLOGY Lymphocytes # 2.2 K/CMM 1.0 - 5.5 09/08/2017 [facility] HEMATOLOGY Monocytes # 1.1 K/CMM 0.0 - 0.8 09/08/2017 [facility] HEMATOLOGY Segs-Bands # 9.0 K/CMM 1.5 - 8.1 09/08/2017 [facility] HEMATOLOGY Basophils 0.4 % 0.0 - 1.0 09/08/2017 [facility] Lymphocytes 18.1 % 20.0 - 40.0 09/08/2017 [facility] MCV 88.3 fL 80.0 - 98.0 09/08/2017 [facility] RDW 13.6 % 11.5 - 14.5 09/08/2017 [facility] MPV 8.8 fL 7.4 - 10.4 09/08/2017 [facility] MCHC 34.4 g/dL 32.0 - 36.0 09/08/2017 [facility] Platelet 249 K/CMM 133 - 450 09/08/2017 [facility] MCH 30.4 pg 27.0 - 31.0 09/08/2017 [facility] WBC 12.3 K/CMM 3.7 - 10.4 09/08/2017 [facility] Hgb 14.2 g/dL 12.0 - 16.0 09/08/2017 [facility] RBC 4.68 M/CMM 4.20 - 5.40 09/08/2017 [facility] Hct 41.3 % 36.0 - 48.0 09/08/2017 [facility] LIPIDS LDL (Calculated) 131 mg/dL <=99 mg/dL 09/08/2017 [facility] LIPIDS VLDL 51 09/08/2017 [facility] LIPIDS Chol 244 mg/dL <=199 mg/dL 09/08/2017 [facility] LIPIDS HDL 62 mg/dL >=61 mg/dL 09/08/2017 [facility] LIPIDS Trig 254 mg/dL <=149 mg/dL 09/08/2017 [facility] LIPIDS CHD Risk 3.94 3.90 - 5.80 09/08/2017 [facility] SPECIAL CHEMISTRY Hgb A1C 9.0 % <=5.6 % 09/08/2017 [facility] CHEM PANEL eGFR 54 mL/min/1.73m2 09/08/2017 Result Comment: The eGFR is calculated using the CKD-EPI formula. In most young, healthy individuals the eGFR will be >90 mL/min/1.73m2. The eGFR declines with age. An eGFR of 60-89 may be normal in some populations, particularly the elderly, for whom the CKD-EPI formula has not been extensively validated. Use of the eGFR is not recommended in the following populations: Individuals with unstable creatinine concentrations, including patients and those with serious co-morbid conditions. Patients with extremes in muscle mass or diet. The data above are obtained from the National Kidney Disease Education Program (NKDEP) which additionally recommends that when the eGFR is used in patients with extremes of body mass index for purposes of drug dosing, the eGFR should be multiplied by the estimated BMI. [facility] CHEM PANEL ALT 18 unit/L 0 - 65 09/08/2017 [facility] CHEM PANEL Albumin Lvl 3.6 g/dL 3.5 - 5.0 09/08/2017 [facility] CHEM PANEL AST 18 unit/L 0 - 37 09/08/2017 [facility] CHEM PANEL Alk Phos 152 unit/L 39 - 136 09/08/2017 [facility] CHEM PANEL Bili Total 0.5 mg/dL 0.2 - 1.3 09/08/2017 [facility] CHEM PANEL AGAP 14.8 meq/L 10.0 - 20.0 09/08/2017 [facility] CHEM PANEL B/C Ratio 20 6 - 25 09/08/2017 [facility] CHEM PANEL A/G Ratio 0.8 0.7 - 1.6 09/08/2017 [facility] CHEM PANEL Globulin 4.6 g/dL 2.7 - 4.2 09/08/2017 [facility] CHEM PANEL BUN 20 mg/dL 7 - 22 09/08/2017 [facility] CHEM PANEL Creatinine Lvl 1.02 mg/dL 0.50 - 1.40 09/08/2017 [facility] CHEM PANEL Sodium Lvl 136 meq/L 135 - 145 09/08/2017 [facility] CHEM PANEL Chloride Lvl 99 meq/L 95 - 109 09/08/2017 [facility] CHEM PANEL CO2 26 meq/L 24 - 32 09/08/2017 [facility] CHEM PANEL Total Protein 8.2 g/dL 6.4 - 8.4 09/08/2017 [facility] CHEM PANEL Calcium Lvl 8.9 mg/dL 8.5 - 10.5 09/08/2017 [facility] CHEM PANEL Glucose Lvl 349 mg/dL 70 - 99 09/08/2017 [facility] CARDIAC ENZYMES Troponin-I null 0.00 - 0.40 09/08/2017 [facility] CARDIAC ENZYMES CK MB 1.1 ng/mL 0.5 - 3.6 09/08/2017 [facility] CARDIAC ENZYMES Total CK 283 unit/L 12 - 191 09/08/2017 [facility] CARDIAC ENZYMES CK MB Index 0.4 0.0 - 2.5 09/08/2017 [facility] HEMATOLOGY PTT 27.0 s 22.9 - 35.8 09/08/2017 [facility] MCHC 33.9 g/dL 32.0 - 36.0 09/08/2017 [facility] HEMATOLOGY RDW 13.8 % 11.5 - 14.5 09/08/2017 [facility] HEMATOLOGY Platelet 258 K/CMM 133 - 450 09/08/2017 [facility] HEMATOLOGY MPV 8.2 fL 7.4 - 10.4 09/08/2017 [facility] HEMATOLOGY WBC 11.7 K/CMM 3.7 - 10.4 09/08/2017 [facility] MCH 29.8 pg 27.0 - 31.0 09/08/2017 [facility] Hct 46.0 % 36.0 - 48.0 09/08/2017 [facility] HEMATOLOGY MCV 87.7 fL 80.0 - 98.0 09/08/2017 [facility] RBC 5.24 M/CMM 4.20 - 5.40 09/08/2017 [facility] Hgb 15.6 g/dL 12.0 - 16.0 09/08/2017 [facility] HEMATOLOGY INR 0.94 0.85 - 1.17 09/08/2017 [facility] HEMATOLOGY PT 12.6 s 12.0 - 14.7 09/08/2017 [facility] HEMATOLOGY Monocytes 6.1 % 2.0 - 12.0 09/08/2017 [facility] HEMATOLOGY Monocytes # 0.7 K/CMM 0.0 - 0.8 09/08/2017 [facility] HEMATOLOGY Eosinophils 0.1 % 0.0 - 4.0 09/08/2017 [facility] Lymphocytes # 1.9 K/CMM 1.0 - 5.5 09/08/2017 [facility] HEMATOLOGY Segs-Bands # 9.0 K/CMM 1.5 - 8.1 09/08/2017 [facility] HEMATOLOGY Basophils # 0.1 K/CMM 0.0 - 0.2 09/08/2017 [facility] HEMATOLOGY Basophils 0.4 % 0.0 - 1.0 09/08/2017 [facility] HEMATOLOGY Segs 77.5 % 45.0 - 75.0 09/08/2017 [facility] HEMATOLOGY Lymphocytes 15.9 % 20.0 - 40.0 09/08/2017 [facility] Carotid artery Doppler bilat US Carotid artery Doppler bilat US Patient Name: SAVANNAH RICHARDSON : 1940; Age: 77 years Female MR: [id number] Study: Carotid artery Doppler bilat US 09/08/2017 12:43 AM [employer] Clinical Indication: - tia. COMPARISON: None TECHNIQUE: López-scale, color Doppler and spectral Doppler of the carotid arteries was performed. Any reported ICA stenoses indirectly reference the distal internal carotid diameter as the denominator for the stenosis measurement, utilizing consensus panel criteria. FINDINGS: RIGHT: No significant plaque. ICA PSV 74 cm/sec CCA PSV 78 cm/sec ICA/CCA ratio 0.94 Vertebral flow is antegrade. External carotid artery is patent. LEFT: No significant plaque. ICA PSV 74 cm/sec CCA PSV 132 cm/sec ICA/CCA ratio 0.56 Vertebral flow is antegrade. External carotid artery is patent. IMPRESSION: 1. RIGHT: ICA stenosis <50% by velocity criteria. 1. LEFT: ICA stenosis <50% by velocity criteria. Consensus panel Doppler US criteria for diagnosis of ICA stenosis: Stenosis (%) ICA PSV (cm/sec) ICA/CCA ratio <50 <125 <2.0 50-69 125-230 2.0-4.0 >70 but less than >230 >4.0 near occlusion Near occlusion High, low, or Variable undetectable SL: [id number] 09/08/2017 - - Read by: Navin Pablo MD Dictated Date/time: 09/08/17 08:01 Electronically Signed by: Navin Pablo MD 09/08/17 08:03 FINAL REPORT [facility] Brain wo contrast MRA Brain wo contrast MRA MRI BRAIN WITHOUT CONTRAST, MRA BRAIN WITHOUT CONTRAST INDICATION: Left facial droop and slurred speech COMPARISON: CT brain 09/07/2017, MRI brain 03/09/2017 DISCUSSION: MRI BRAIN: There are generalized involutional changes of the brain and microangiopathic changes of the white matter. There is no evidence of acute vascular insults, space occupying lesions, hemorrhage, hydrocephalus, midline shift, or extra- axial fluid collections. No cortical-based, suprasellar, craniocervical, or bone abnormalities are seen. MRA BRAIN: The bilateral internal carotid arteries are patent. The bilateral anterior and middle cerebral arteries are patent. The vertebrobasilar arteries and bilateral posterior cerebral arteries are patent. No aneurysms are identified. IMPRESSION: 1. Chronic age-related changes of the brain. No acute intracranial abnormalities are visualized. 2. Unremarkable MRA of the elim ira of [place]. SL:16 09/08/2017 - - Read by: Davis Singleton MD Dictated Date/time: 09/08/17 02:13 Electronically Signed by: Davis Singleton MD 09/08/17 02:25 FINAL REPORT [facility] Brain wo contrast MRI Brain wo contrast MRI MRI BRAIN WITHOUT CONTRAST, MRA BRAIN WITHOUT CONTRAST INDICATION: Left facial droop and slurred speech COMPARISON: CT brain 09/07/2017, MRI brain 03/09/2017 DISCUSSION: MRI BRAIN: There are generalized involutional changes of the brain and microangiopathic changes of the white matter. There is no evidence of acute vascular insults, space occupying lesions, hemorrhage, hydrocephalus, midline shift, or extra- axial fluid collections. No cortical-based, suprasellar, craniocervical, or bone abnormalities are seen. MRA BRAIN: The bilateral internal carotid arteries are patent. The bilateral anterior and middle cerebral arteries are patent. The vertebrobasilar arteries and bilateral posterior cerebral arteries are patent. No aneurysms are identified. IMPRESSION: 1. Chronic age-related changes of the brain. No acute intracranial abnormalities are visualized. 2. Unremarkable MRA of the elim ira of [place]. SL:16 09/08/2017 - - Read by: Davis Singleton MD Dictated Date/time: 09/08/17 02:13 Electronically Signed by: Davis Singleton MD 09/08/17 02:25 FINAL REPORT [facility] Chest 1view DX Chest 1view DX 1 view chest portable: HISTORY: Cerebrovascular accident. FINDINGS: Mildly prominent cardiac silhouette is stable from 03/08/2017. The interstitial markings in each lung are prominent suggesting mild pulmonary vascular congestion. No airspace pneumonia, pleural fluid or pneumothorax. SL: PEREZ 09/07/2017 - - Read by: Cory Swenson MD Dictated Date/time: 09/07/17 22:38 Electronically Signed by: Cory Swenson MD 09/07/17 22:39 FINAL REPORT [facility] Brain Stroke wo contrast CT Brain Stroke wo contrast CT Patient Name: SAVANNAH RICHARDSON : 1940; Age: 77 years Female MR: [id number] Study: Brain Stroke wo contrast CT 09/07/2017 10:08 PM [employer] Clinical Indication: - facial droop. Left facial droop. CT Radiation Dose DLP 901 mGy-cm COMPARISON: None TECHNIQUE: CT images were obtained from the foramen magnum to the vertex without the use of intravenous contrast on a multidetector CT. Coronal and sagittal reconstructions were obtained. FINDINGS: BRAIN PARENCHYMA: There is generalized brain parenchymal atrophy related to the patient's age. Nonspecific periventricular white matter disease changes are noted. Atherosclerotic calcifications are present within the carotid siphons and distal vertebral arteries. There are no focal mass lesions on this noncontrast head CT. There is no mass effect, midline shift or edema. There are no intra-axial or extra-axial fluid collections. There is no intraventricular or intraparenchymal hemorrhage. There is no noncontrast CT evidence of a subacute stroke. Right basal ganglia chronic lacunar infarction. The pineal, sellar, brainstem, cerebellum and skull base regions appear normal. VENTRICLES: The lateral ventricles, third and fourth ventricles appear normal. The basilar cisterns are normal. ORBITS, MASTOIDS AND PARANASAL SINUSES: The visualized orbits are normal. The visualized paranasal sinuses are normal. The mastoid air cells are clear. SKULL: There are no calvarial abnormalities seen. If there is further concern for intracranial pathology or acute stroke, MRI of the brain may be performed for complete assessment. IMPRESSION: Chronic age-related and small vessel ischemic changes without mass, hemorrhage or subacute stroke. SL: JCHICO 09/07/2017 - - Read by: Navin Pablo MD Dictated Date/time: 09/07/17 22:35 Electronically Signed by: Navin Pablo MD 09/07/17 22:39 FINAL REPORT [facility] Hgb 14.6 g/dL 12.0 - 16.0 03/10/2017 [facility] MCV 88.3 fL 80.0 - 98.0 03/10/2017 [facility] Hct 42.5 % 36.0 - 48.0 03/10/2017 [facility] HEMATOLOGY MPV 8.7 fL 7.4 - 10.4 03/10/2017 [facility] HEMATOLOGY Platelet 230 K/CMM 133 - 450 03/10/2017 [facility] HEMATOLOGY RBC 4.82 M/CMM 4.20 - 5.40 03/10/2017 [facility] HEMATOLOGY WBC 9.1 K/CMM 3.7 - 10.4 03/10/2017 [facility] HEMATOLOGY MCH 30.4 pg 27.0 - 31.0 03/10/2017 [facility] HEMATOLOGY RDW 14.6 % 11.5 - 14.5 03/10/2017 [facility] HEMATOLOGY MCHC 34.4 g/dL 32.0 - 36.0 03/10/2017 [facility] HEMATOLOGY Eosinophils # 0.2 K/CMM 0.0 - 0.5 03/10/2017 [facility] HEMATOLOGY Basophils # 0.1 K/CMM 0.0 - 0.2 03/10/2017 [facility] HEMATOLOGY Basophils 1.0 % 0.0 - 1.0 03/10/2017 [facility] HEMATOLOGY Lymphocytes # 2.2 K/CMM 1.0 - 5.5 03/10/2017 [facility] HEMATOLOGY Segs-Bands # 5.8 K/CMM 1.5 - 8.1 03/10/2017 [facility] HEMATOLOGY Eosinophils 2.2 % 0.0 - 4.0 03/10/2017 [facility] HEMATOLOGY Lymphocytes 23.6 % 20.0 - 40.0 03/10/2017 [facility] HEMATOLOGY Monocytes 9.9 % 2.0 - 12.0 03/10/2017 [facility] Monocytes # 0.9 K/CMM 0.0 - 0.8 03/10/2017 [facility] HEMATOLOGY Segs 63.3 % 45.0 - 75.0 03/10/2017 [facility] CHEM PANEL Glucose Lvl 196 mg/dL 70 - 99 03/10/2017 [facility] CHEM PANEL Potassium Lvl 3.4 meq/L 3.5 - 5.1 03/10/2017 [facility] CHEM PANEL Sodium Lvl 141 meq/L 135 - 145 03/10/2017 [facility] CHEM PANEL Creatinine Lvl 0.81 mg/dL 0.50 - 1.40 03/10/2017 [facility] CHEM PANEL BUN 23 mg/dL 7 - 22 03/10/2017 [facility] CHEM PANEL Calcium Lvl 8.8 mg/dL 8.5 - 10.5 03/10/2017 [facility] CHEM PANEL AGAP 11.4 meq/L 10.0 - 20.0 03/10/2017 [facility] CHEM PANEL Chloride Lvl 107 meq/L 95 - 109 03/10/2017 [facility] CHEM PANEL CO2 26 meq/L 24 - 32 03/10/2017 [facility] CHEM PANEL eGFR 72 mL/min/1.73m2 03/10/2017 Result Comment: The eGFR is calculated using the CKD-EPI formula. In most young, healthy individuals the eGFR will be >90 mL/min/1.73m2. The eGFR declines with age. An eGFR of 60-89 may be normal in some populations, particularly the elderly, for whom the CKD-EPI formula has not been extensively validated. Use of the eGFR is not recommended in the following populations: Individuals with unstable creatinine concentrations, including patients and those with serious co-morbid conditions. Patients with extremes in muscle mass or diet. The data above are obtained from the National Kidney Disease Education Program (NKDEP) which additionally recommends that when the eGFR is used in patients with extremes of body mass index for purposes of drug dosing, the eGFR should be multiplied by the estimated BMI. [facility] Carotid artery Doppler bilat US Carotid artery Doppler bilat US Carotid artery Doppler bilat US CLINICAL HISTORY: Aphasia - tia. COMPARISON: none TECHNIQUE: López scale, color Doppler and spectral Doppler of the cervical carotid arteries was performed with standard technique. Static images are submitted for review. FINDINGS: RIGHT: There is no significant intimal thickening or plaque visualized in right CCA. Visualized portion of right ECA is patent. No significant plaque is visualized at the right carotid bulb or visualized portion of right ICA. Right ICA PSV 97 cm/sec. Right CCA PSV 198 cm/sec. Right ICA/CCA Ratio 0.5 LEFT: There is no significant intimal thickening or plaque visualized in the left CCA. Visualized portion of left ECA is patent. No significant plaque is visualized at the left carotid bulb and visualized portion of left ICA. Left ICA PSV 78 cm/sec. Left CCA PSV 169 cm/sec. Left ICA/CCA Ratio 0.5 Antegrade flow is visualized in both vertebral arteries. IMPRESSION: No sonographic evidence for hemodynamically significant stenosis. CONSENSUS PANEL Doppler US criteria for diagnosis of ICA stenosis: Stenosis (%) ICA PSV (cm/sec) ICA EDV(cm/sec) ICA/CCA ratio <50 % <125 <40 <2.0 50-69 % 125-230 40-100 2.0-4.0 >70% but less than >230 >100 >4.0 near occlusion NOTE: Any reported ICA stenoses indirectly reference the distal internal carotid diameter as the denominator for stenosis measurement utilizing Consensus Panel Criteria. SL: [id number] 03/09/2017 - - Read by: Taurus Galloway MD Dictated Date/time: 03/09/17 15:02 Electronically Signed by: Taurus Galloway MD 03/09/17 15:04 FINAL REPORT [facility] CHEM PANEL Magnesium Lvl 2.0 mg/dL 1.8 - 2.4 03/09/2017 [facility] ELECTROLYTES AGAP 9.2 meq/L 10.0 - 20.0 03/09/2017 [facility] ELECTROLYTES eGFR 78 mL/min/1.73m2 03/09/2017 Result Comment: The eGFR is calculated using the CKD-EPI formula. In most young, healthy individuals the eGFR will be >90 mL/min/1.73m2. The eGFR declines with age. An eGFR of 60-89 may be normal in some populations, particularly the elderly, for whom the CKD-EPI formula has not been extensively validated. Use of the eGFR is not recommended in the following populations: Individuals with unstable creatinine concentrations, including patients and those with serious co-morbid conditions. Patients with extremes in muscle mass or diet. The data above are obtained from the National Kidney Disease Education Program (NKDEP) which additionally recommends that when the eGFR is used in patients with extremes of body mass index for purposes of drug dosing, the eGFR should be multiplied by the estimated BMI. [facility] ELECTROLYTES Chloride Lvl 108 meq/L 95 - 109 03/09/2017 [facility] ELECTROLYTES CO2 26 meq/L 24 - 32 03/09/2017 [facility] ELECTROLYTES Potassium Lvl 3.2 meq/L 3.5 - 5.1 03/09/2017 [facility] ELECTROLYTES Creatinine Lvl 0.76 mg/dL 0.50 - 1.40 03/09/2017 [facility] ELECTROLYTES BUN 14 mg/dL 7 - 22 03/09/2017 [facility] ELECTROLYTES Sodium Lvl 140 meq/L 135 - 145 03/09/2017 [facility] ELECTROLYTES Calcium Lvl 9.0 mg/dL 8.5 - 10.5 03/09/2017 [facility] ELECTROLYTES Glucose Lvl 169 mg/dL 70 - 99 03/09/2017 [facility] LIPIDS CHD Risk 4.73 3.90 - 5.80 03/09/2017 [facility] LIPIDS LDL (Calculated) 148 mg/dL <=99 mg/dL 03/09/2017 [facility] LIPIDS VLDL 31 03/09/2017 [facility] LIPIDS Chol 227 mg/dL <=199 mg/dL 03/09/2017 [facility] LIPIDS Trig 153 mg/dL <=149 mg/dL 03/09/2017 [facility] LIPIDS HDL 48 mg/dL >=61 mg/dL 03/09/2017 [facility] SPECIAL CHEMISTRY Hgb A1C 6.6 % <=5.6 % 03/09/2017 [facility] HEMATOLOGY PTT 23.5 s 22.9 - 35.8 03/09/2017 [facility] HEMATOLOGY INR 1.02 0.85 - 1.17 03/09/2017 [facility] HEMATOLOGY PT 13.6 s 12.0 - 14.7 03/09/2017 [facility] URINE AND STOOL UA Color Ltyellow 03/09/2017 [facility] URINE AND STOOL UA Urobilinogen <=1.0 mg/dL 0.1 - 1.0 03/09/2017 [facility] URINE AND STOOL UA Bacteria Occasional /HPF None Seen /HPF 03/09/2017 [facility] URINE AND STOOL UA Turbidity Clear (03/08/17 11:29 PM) Clear 03/09/2017 [facility] URINE AND STOOL UA Spec Grav 1.008 <=1.030 03/09/2017 [facility] URINE AND STOOL UA Protein 30 mg/dL Negative mg/dL 03/09/2017 [facility] URINE AND STOOL UA Glucose Negative mg/dL Negative mg/dL 03/09/2017 [facility] URINE AND STOOL UA pH 7.0 5.0 - 8.0 03/09/2017 [facility] URINE AND STOOL UA Ketones Negative mg/dL Negative mg/dL 03/09/2017 [facility] URINE AND STOOL UA Bili Negative *NA* (03/08/17 11:29 PM) Negative 03/09/2017 [facility] URINE AND STOOL UA Blood Negative (03/08/17 11:29 PM) Negative 03/09/2017 [facility] URINE AND STOOL UA WBC 3 /HPF 0 - 5 03/09/2017 [facility] URINE AND STOOL UA Nitrite Negative (03/08/17 11:29 PM) Negative 03/09/2017 [facility] URINE AND STOOL UA Sq Epi Few /LPF Few /LPF 03/09/2017 [facility] URINE AND STOOL UA Leuk Est Trace *ABN* (03/08/17 11:29 PM) Negative 03/09/2017 [facility] URINE AND STOOL UA RBC 3 /HPF 0 - 2 03/09/2017 [facility] CARDIAC ENZYMES Troponin-I null 0.00 - 0.40 03/09/2017 [facility] CARDIAC ENZYMES CK MB null 0.5 - 3.6 03/09/2017 [facility] CARDIAC ENZYMES Total CK 163 unit/L 12 - 191 03/09/2017 [facility] CARDIAC ENZYMES CK MB Index null 0.0 - 2.5 03/09/2017 [facility] CHEM PANEL eGFR 61 mL/min/1.73m2 03/09/2017 Result Comment: The eGFR is calculated using the CKD-EPI formula. In most young, healthy individuals the eGFR will be >90 mL/min/1.73m2. The eGFR declines with age. An eGFR of 60-89 may be normal in some populations, particularly the elderly, for whom the CKD-EPI formula has not been extensively validated. Use of the eGFR is not recommended in the following populations: Individuals with unstable creatinine concentrations, including patients and those with serious co-morbid conditions. Patients with extremes in muscle mass or diet. The data above are obtained from the National Kidney Disease Education Program (NKDEP) which additionally recommends that when the eGFR is used in patients with extremes of body mass index for purposes of drug dosing, the eGFR should be multiplied by the estimated BMI. [facility] CHEM PANEL BUN 18 mg/dL 7 - 22 03/09/2017 [facility] CHEM PANEL Creatinine Lvl 0.93 mg/dL 0.50 - 1.40 03/09/2017 [facility] CHEM PANEL Glucose Lvl 201 mg/dL 70 - 99 03/09/2017 [facility] CHEM PANEL Alk Phos 98 unit/L 39 - 136 03/09/2017 [facility] CHEM PANEL AST 61 unit/L 0 - 37 03/09/2017 [facility] CHEM PANEL Bili Total 0.4 mg/dL 0.2 - 1.3 03/09/2017 [facility] CHEM PANEL CO2 28 meq/L 24 - 32 03/09/2017 [facility] CHEM PANEL Chloride Lvl 106 meq/L 95 - 109 03/09/2017 [facility] CHEM PANEL B/C Ratio 19 6 - 25 03/09/2017 [facility] CHEM PANEL Calcium Lvl 8.8 mg/dL 8.5 - 10.5 03/09/2017 [facility] CHEM PANEL Sodium Lvl 137 meq/L 135 - 145 03/09/2017 [facility] CHEM PANEL ALT 20 unit/L 0 - 65 03/09/2017 [facility] CHEM PANEL A/G Ratio 0.7 0.7 - 1.6 03/09/2017 [facility] CHEM PANEL Total Protein 8.1 g/dL 6.4 - 8.4 03/09/2017 [facility] CHEM PANEL Globulin 4.8 g/dL 2.7 - 4.2 03/09/2017 [facility] CHEM PANEL Albumin Lvl 3.3 g/dL 3.5 - 5.0 03/09/2017 [facility] CHEM PANEL AGAP 5.6 meq/L 10.0 - 20.0 03/09/2017 [facility] CHEM PANEL Potassium Lvl 2.6 meq/L 3.5 - 5.1 03/09/2017 Result Comment: Critical Result(s) called to heydi davis at 03/09/2017 00:19 by [employer] Read back OK. [facility] HEMATOLOGY Monocytes # 0.8 K/CMM 0.0 - 0.8 03/09/2017 [facility] HEMATOLOGY Lymphocytes # 2.3 K/CMM 1.0 - 5.5 03/09/2017 [facility] HEMATOLOGY Eosinophils 2.1 % 0.0 - 4.0 03/09/2017 [facility] HEMATOLOGY Segs-Bands # 4.6 K/CMM 1.5 - 8.1 03/09/2017 [facility] HEMATOLOGY Basophils 0.9 % 0.0 - 1.0 03/09/2017 [facility] HEMATOLOGY Basophils # 0.1 K/CMM 0.0 - 0.2 03/09/2017 [facility] HEMATOLOGY Eosinophils # 0.2 K/CMM 0.0 - 0.5 03/09/2017 [facility] HEMATOLOGY Lymphocytes 28.9 % 20.0 - 40.0 03/09/2017 [facility] Segs 58.0 % 45.0 - 75.0 03/09/2017 [facility] Monocytes 10.1 % 2.0 - 12.0 03/09/2017 [facility] MPV 8.7 fL 7.4 - 10.4 03/09/2017 [facility] MCHC 33.4 g/dL 32.0 - 36.0 03/09/2017 [facility] Platelet 220 K/CMM 133 - 450 03/09/2017 [facility] RDW 14.3 % 11.5 - 14.5 03/09/2017 [facility] MCH 29.6 pg 27.0 - 31.0 03/09/2017 [facility] MCV 88.7 fL 80.0 - 98.0 03/09/2017 [facility] Hct 43.4 % 36.0 - 48.0 03/09/2017 [facility] Hgb 14.5 g/dL 12.0 - 16.0 03/09/2017 [facility] RBC 4.89 M/CMM 4.20 - 5.40 03/09/2017 [facility] WBC 7.9 K/CMM 3.7 - 10.4 03/09/2017 [facility] Brain wo contrast MRI Brain wo contrast MRI Brain wo contrast MRI CLINICAL INDICATION: Patient states that she had difficulty with her speech. - stroke; COMPARISON: CT head 03/08/2017 TECHNIQUE: Multiplanar imaging of the brain was performed without IV contrast. FINDINGS: BRAIN PARENCHYMA: There are multiple discrete foci of increased T2 signal identified in the centrum semiovale with additional focus noted in the left cerebellum near the brachium pontis. These changes likely represent old lacunar infarcts given the patient's history of diabetes but given their distribution, possibility of multiple sclerosis should be clinically excluded. None of these areas demonstrate any increased signal on the diffusion-weighted images. This excludes acute infarct or acute phase of MS. Mild increase in signal without corresponding increase in signal on the diffusion-weighted images is also noted in the left tonny. Mild increase in signal in the periventricular white matter is likely related to chronic ischemic change from small vessel disease. There is no space-occupying lesion, mass effect or midline shift. No extra-axial fluid collection or intraparenchymal hemorrhage. No CP angle mass is visualized. IACs, brainstem and craniocervical junction are unremarkable. VENTRICLES: There is dilation of ventricles and subarachnoid spaces but not out of proportion to the underlying cerebral atrophy. VISUALIZED VESSELS: The expected intracranial flow voids are present. SELLA, SKULL BASE AND ORBITS: The visualized orbits and optic chiasm are unremarkable. Pituitary gland demonstrates normal morphology.. PARANASAL SINUSES AND MASTOIDS: The visualized paranasal sinuses are clear. There is fluid in right mastoid air cells. IMPRESSION: Abnormal signal in bilateral centrum semiovale, left tonny and left cerebellum is likely related to small vessel disease given the patient's history of diabetes. However given the distribution of the abnormality, MS should be clinically excluded. No acute infarct or other significant acute abnormality is noted in the brain. Cerebral atrophy. Mild right mastoid air cell disease. No other significant abnormality is noted on the non-IV contrast MRI of the brain. SL: [id number] 03/09/2017 - - Read by: Taurus Galloway MD Dictated Date/time: 03/09/17 07:28 Electronically Signed by: Taurus Galloway MD 03/09/17 08:01 FINAL REPORT [facility] Brain wo contrast CT Brain wo contrast CT Study: Brain wo contrast CT 03/08/2017 9:22 PM CDT Patient Name: SAVANNAH RICHARDSON MR: [id number] : 1940; Age: 76 years y/o Female Ordering Physician: Bulmaro Galindo MD Clinical Indication: ct dlp 978.31mgycm - TIA, aphasia, resolved Comparison: None TECHNIQUE: CT images were obtained from the foramen magnum to the vertex without the use of intravenous contrast on a multidetector CT. Coronal and sagittal reformatted images were prepared. FINDINGS: BRAIN PARENCHYMA: 1. Mild diffuse age-appropriate atrophy is present associated with mild nonspecific periventricular low attenuation most consistent with old microangiopathic ischemic change. 2. No evidence of acute intracranial hemorrhage, mass lesion, mass effect, midline shift, or extra-axial fluid collection. VENTRICLES: The lateral ventricles, third ventricle, fourth ventricle, and basilar cisterns are appropriate for degree of atrophy present. PARANASAL SINUSES: Mild diffuse mucoperiosteal thickening in the ethmoid sinus. The visualized portions of the remaining paranasal sinuses are clear. MASTOIDS: Clear. ORBITS AND SOFT TISSUES: The visualized portions of the orbits are normal. SKULL: No acute fracture or suspicious osseous lesion. IMPRESSION: 1. Mild diffuse age-appropriate atrophy is present associated with mild nonspecific periventricular low attenuation most consistent with old microangiopathic ischemic change. 2. Chronic sinusitis as above discussed. SL: [id number] 03/08/2017 - - Read by: Stuart Silva MD Dictated Date/time: 03/08/17 22:09 Electronically Signed by: Stuart Silva MD 03/08/17 22:12 FINAL REPORT [facility] 1view DX Chest 1view DX Chest 1view DX CLINICAL HISTORY: - weakness COMPARISON: 01/30/2017 FINDINGS/IMPRESSION: Limited AP portable study. Support Lines/Devices: none Lungs: Pulmonary underinflation. Mild central vascular congestion. No consolidation or effusion. Cardiomediastinum: Mild stable cardiac silhouette enlargement. Bone and Soft Tissues: No acute bony abnormality is evident. SL: [id number] 03/08/2017 - - Read by: Taurus Galloway MD Dictated Date/time: 03/09/17 14:41 Electronically Signed by: Taurus Galloway MD 03/09/17 14:42 FINAL REPORT [facility] wo contrast CT Chest wo contrast CT Study: CT CHEST WITHOUT CONTRAST Clinical Indication: Pulmonary fibrosis; shortness of breath; Comparison: Chest 12/15/2016 and 01/30/2017 Technique: Axial images with sagittal and coronal reconstructions were obtained without contrast. CT Radiation Dose: GON=357 mGy-cm. FINDINGS: There are patchy bilateral groundglass opacities. Focal linear scarring involves the right upper lobe, the superior segment of the right lower lobe, the lingula and the base of the right lower lobe. No endobronchial obstructing lesion or bronchiectasis is identified. No mass or pneumonia is identified. No gross mediastinal vascular abnormality is identified. There is no hilar or mediastinal adenopathy. No pleural or pericardial effusion is seen. Images of the upper abdomen are remarkable for a lap band at the esophagogastric junction region. IMPRESSION: 1. Bilateral pulmonary scarring as described. 2. No definite acute abnormality. 3. Lap band. SL: [id number] 02/13/2017 - - Read by: Dick De Jesus MD Dictated Date/time: 02/13/17 16:01 Electronically Signed by: Dick De Jesus MD 02/13/17 16:06 FINAL REPORT [facility] Chest 2 views DX Chest 2 views DX Chest 2 views DX CLINICAL HISTORY: - R07.1 Chest pain on breathing COMPARISON: 12/15/2016 FINDINGS: SUPPORT DEVICES: none LUNGS: There is mild diffuse increase in reticular opacities throughout both lungs. No consolidation or any significant effusion. No pneumothorax is evident. CARDIOVASCULAR: Mild stable cardiac silhouette enlargement. Pulmonary vasculature is within normal limits. MEDIASTINUM/TIAGO: Trachea is midline. No contour abnormality is noted. OSSEOUS STRUCTURES: No acute bony abnormality is noted. SOFT TISSUES: No significant soft tissue abnormality is noted. Lap band catheter is incidentally noted to be in place. IMPRESSION: Mild diffuse increase in nonspecific reticular opacities involving both lungs. High-resolution chest CT may be performed for further evaluation as clinically indicated. Mild stable cardiac silhouette enlargement. SL: [id number] 01/30/2017 - - Read by: Taurus Galloway MD Dictated Date/time: 01/30/17 16:16 Electronically Signed by: Taurus Galloway MD 01/30/17 16:19 FINAL REPORT [facility] 1view DX Chest 1view DX Clinical Indication: dyspnea - ? FLASH PULMONARY EDEMA Comparison: 12/14/2016 FINDINGS: HEART: Cardiomegaly. PULMONARY VASCULATURE: Moderate pulmonary vasculature congestion versus perihilar nonspecific airspace opacity. LUNGS: Lung volumes are maintained. There are no pneumothoraces noted. Costophrenic sulci: -Right costophrenic sulcus: The right costophrenic sulcus is sharp without evidence for pleural effusions or thickening. -Left costophrenic sulcus: The left costophrenic sulcus is sharp without evidence for pleural effusions or thickening. BONES: The visualized osseous structures are unremarkable. IMPRESSION: 1. Mild cardiomegaly with moderate pulmonary vascular congestion versus nonspecific airspace infiltrate, this is worse than the prior study. SL: [id number] 12/15/2016 - - Read by: Tyson Bennett DO Dictated Date/time: 12/15/16 02:13 Electronically Signed by: Tyson Bennett DO 12/15/16 02:18 FINAL REPORT [facility] 1view DX Chest 1view DX Clinical Indication: pain - Undifferentiated Sepsis Comparison: None FINDINGS: HEART: Borderline heart size. PULMONARY VASCULATURE: Mild pulmonary vasculature congestion versus perihilar nonspecific airspace opacity. LUNGS: Right lower lobe nonspecific airspace opacity. Costophrenic sulci: -Right costophrenic sulcus: The right costophrenic sulcus is sharp without evidence for pleural effusions or thickening. -Left costophrenic sulcus: The left costophrenic sulcus is sharp without evidence for pleural effusions or thickening. BONES: The visualized osseous structures are unremarkable. IMPRESSION: 1. Mild cardiomegaly with mild pulmonary vascular congestion versus nonspecific airspace infiltrate. 2. Right lower lobe nonspecific airspace opacity.. SL: [id number] 12/14/2016 - - Read by: Tyson Bennett DO Dictated Date/time: 12/14/16 23:18 Electronically Signed by: Tyson Bennett DO 12/14/16 23:18 FINAL REPORT [facility] Chest 2 views DX Chest 2 views DX CHEST TWO VIEW INDICATION: Shortness of breath. COMPARISON: 08/18/2016 chest x-ray. FINDINGS: There is diffuse prominence of interstitial markings bilaterally. Cardiomediastinal silhouette is stable and the heart within normal limits. Bones intact. No pleural effusions. IMPRESSION: Diffuse interstitial process consistent either with diffuse pneumonia or interstitial edema END IMPRESSION SL: [id number] 12/08/2016 - - Read by: Juan Rangel MD Dictated Date/time: 12/08/16 13:31 Electronically Signed by: Juan Rangel MD 12/08/16 13:32 FINAL REPORT [facility] eGFR 88 mL/min/1.73m2 08/25/2016 Result Comment: The eGFR is calculated using the CKD-EPI formula. In most young, healthy individuals the eGFR will be >90 mL/min/1.73m2. The eGFR declines with age. An eGFR of 60-89 may be normal in some populations, particularly the elderly, for whom the CKD-EPI formula has not been extensively validated. Use of the eGFR is not recommended in the following populations: Individuals with unstable creatinine concentrations, including patients and those with serious co-morbid conditions. Patients with extremes in muscle mass or diet. The data above are obtained from the National Kidney Disease Education Program (NKDEP) which additionally recommends that when the eGFR is used in patients with extremes of body mass index for purposes of drug dosing, the eGFR should be multiplied by the estimated BMI. [facility] CHEM PANEL CO2 34 meq/L 24 - 32 08/25/2016 [facility] CHEM PANEL Calcium Lvl 8.1 mg/dL 8.5 - 10.5 08/25/2016 [facility] CHEM PANEL Sodium Lvl 144 meq/L 135 - 145 08/25/2016 [facility] CHEM PANEL Potassium Lvl 3.9 meq/L 3.5 - 5.1 08/25/2016 [facility] CHEM PANEL Chloride Lvl 107 meq/L 95 - 109 08/25/2016 [facility] CHEM PANEL Glucose Lvl 179 mg/dL 70 - 99 08/25/2016 [facility] CHEM PANEL BUN 22 mg/dL 7 - 22 08/25/2016 [facility] CHEM PANEL Creatinine Lvl 0.65 mg/dL 0.50 - 1.40 08/25/2016 [facility] CHEM PANEL AGAP 6.9 meq/L 10.0 - 20.0 08/25/2016 [facility] CHEM PANEL Magnesium Lvl 2.1 mg/dL 1.8 - 2.4 08/25/2016 [facility] CHEM PANEL Phosphorus 2.6 mg/dL 2.5 - 4.5 08/25/2016 [facility] HEMATOLOGY MPV 7.5 fL 7.4 - 10.4 08/25/2016 [facility] Platelet 406 K/CMM 133 - 450 08/25/2016 [facility] RDW 15.1 % 11.5 - 14.5 08/25/2016 [facility] MCHC 33.0 g/dL 32.0 - 36.0 08/25/2016 [facility] Hgb 8.2 g/dL 12.0 - 16.0 08/25/2016 [facility] RBC 2.80 M/CMM 4.20 - 5.40 08/25/2016 [facility] MCV 88.5 fL 80.0 - 98.0 08/25/2016 [facility] WBC 12.2 K/CMM 3.7 - 10.4 08/25/2016 [facility] MCH 29.2 pg 27.0 - 31.0 08/25/2016 [facility] Hct 24.7 % 36.0 - 48.0 08/25/2016 [facility] Monocytes # 1.0 K/CMM 0.0 - 0.8 08/25/2016 [facility] Eosinophils # 0.2 K/CMM 0.0 - 0.5 08/25/2016 [facility] HEMATOLOGY Basophils # 0.1 K/CMM 0.0 - 0.2 08/25/2016 [facility] HEMATOLOGY Segs-Bands # 9.4 K/CMM 1.5 - 8.1 08/25/2016 [facility] HEMATOLOGY Lymphocytes # 1.4 K/CMM 1.0 - 5.5 08/25/2016 [facility] HEMATOLOGY Eosinophils 1.8 % 0.0 - 4.0 08/25/2016 [facility] HEMATOLOGY Basophils 1.1 % 0.0 - 1.0 08/25/2016 [facility] HEMATOLOGY Monocytes 8.6 % 2.0 - 12.0 08/25/2016 [facility] HEMATOLOGY Lymphocytes 11.8 % 20.0 - 40.0 08/25/2016 [facility] HEMATOLOGY Segs 76.7 % 45.0 - 75.0 08/25/2016 [facility] ELECTROLYTES Potassium Lvl 3.6 meq/L 3.5 - 5.1 08/25/2016 [facility] CHEM PANEL Magnesium Lvl 2.2 mg/dL 1.8 - 2.4 08/24/2016 [facility] CHEM PANEL Phosphorus 3.2 mg/dL 2.5 - 4.5 08/24/2016 [facility] CHEM PANEL eGFR 86 mL/min/1.73m2 08/24/2016 Result Comment: The eGFR is calculated using the CKD-EPI formula. In most young, healthy individuals the eGFR will be >90 mL/min/1.73m2. The eGFR declines with age. An eGFR of 60-89 may be normal in some populations, particularly the elderly, for whom the CKD-EPI formula has not been extensively validated. Use of the eGFR is not recommended in the following populations: Individuals with unstable creatinine concentrations, including patients and those with serious co-morbid conditions. Patients with extremes in muscle mass or diet. The data above are obtained from the National Kidney Disease Education Program (NKDEP) which additionally recommends that when the eGFR is used in patients with extremes of body mass index for purposes of drug dosing, the eGFR should be multiplied by the estimated BMI. [facility] CHEM PANEL Sodium Lvl 143 meq/L 135 - 145 08/24/2016 [facility] CHEM PANEL Creatinine Lvl 0.68 mg/dL 0.50 - 1.40 08/24/2016 [facility] CHEM PANEL Chloride Lvl 103 meq/L 95 - 109 08/24/2016 [facility] CHEM PANEL Potassium Lvl 2.9 meq/L 3.5 - 5.1 08/24/2016 Result Comment: Critical Result(s) called to Octavio Telles at 08/24/2016 07:16 byHA. Read back OK. [facility] CHEM PANEL CO2 32 meq/L 24 - 32 08/24/2016 [facility] CHEM PANEL AGAP 10.9 meq/L 10.0 - 20.0 08/24/2016 [facility] CHEM PANEL BUN 20 mg/dL 7 - 22 08/24/2016 [facility] CHEM PANEL Glucose Lvl 199 mg/dL 70 - 99 08/24/2016 [facility] CHEM PANEL Calcium Lvl 7.9 mg/dL 8.5 - 10.5 08/24/2016 [facility] HEMATOLOGY Platelet 424 K/CMM 133 - 450 08/24/2016 [facility] RDW 14.8 % 11.5 - 14.5 08/24/2016 [facility] MCHC 33.0 g/dL 32.0 - 36.0 08/24/2016 [facility] MPV 7.3 fL 7.4 - 10.4 08/24/2016 [facility] Hct 24.3 % 36.0 - 48.0 08/24/2016 [facility] Hgb 8.0 g/dL 12.0 - 16.0 08/24/2016 [facility] MCH 28.7 pg 27.0 - 31.0 08/24/2016 [facility] MCV 87.2 fL 80.0 - 98.0 08/24/2016 [facility] WBC 13.8 K/CMM 3.7 - 10.4 08/24/2016 [facility] RBC 2.79 M/CMM 4.20 - 5.40 08/24/2016 [facility] Basophils # 0.1 K/CMM 0.0 - 0.2 08/24/2016 [facility] HEMATOLOGY Eosinophils # 0.2 K/CMM 0.0 - 0.5 08/24/2016 [facility] HEMATOLOGY Monocytes # 1.0 K/CMM 0.0 - 0.8 08/24/2016 [facility] Lymphocytes # 1.2 K/CMM 1.0 - 5.5 08/24/2016 [facility] HEMATOLOGY Segs-Bands # 11.3 K/CMM 1.5 - 8.1 08/24/2016 [facility] Basophils 0.6 % 0.0 - 1.0 08/24/2016 [facility] HEMATOLOGY Eosinophils 1.1 % 0.0 - 4.0 08/24/2016 [facility] HEMATOLOGY Monocytes 7.3 % 2.0 - 12.0 08/24/2016 [facility] HEMATOLOGY Lymphocytes 8.9 % 20.0 - 40.0 08/24/2016 [facility] HEMATOLOGY Segs 82.1 % 45.0 - 75.0 08/24/2016 [facility] CHEM PANEL Phosphorus 3.5 mg/dL 2.5 - 4.5 08/23/2016 [facility] CHEM PANEL Magnesium Lvl 2.1 mg/dL 1.8 - 2.4 08/23/2016 [facility] CHEM PANEL eGFR 88 mL/min/1.73m2 08/23/2016 Result Comment: The eGFR is calculated using the CKD-EPI formula. In most young, healthy individuals the eGFR will be >90 mL/min/1.73m2. The eGFR declines with age. An eGFR of 60-89 may be normal in some populations, particularly the elderly, for whom the CKD-EPI formula has not been extensively validated. Use of the eGFR is not recommended in the following populations: Individuals with unstable creatinine concentrations, including patients and those with serious co-morbid conditions. Patients with extremes in muscle mass or diet. The data above are obtained from the National Kidney Disease Education Program (NKDEP) which additionally recommends that when the eGFR is used in patients with extremes of body mass index for purposes of drug dosing, the eGFR should be multiplied by the estimated BMI. [facility] CHEM PANEL CO2 32 meq/L 24 - 32 08/23/2016 [facility] CHEM PANEL AGAP 10.0 meq/L 10.0 - 20.0 08/23/2016 [facility] CHEM PANEL Calcium Lvl 8.0 mg/dL 8.5 - 10.5 08/23/2016 [facility] CHEM PANEL Creatinine Lvl 0.65 mg/dL 0.50 - 1.40 08/23/2016 [facility] CHEM PANEL Sodium Lvl 145 meq/L 135 - 145 08/23/2016 [facility] CHEM PANEL Glucose Lvl 150 mg/dL 70 - 99 08/23/2016 [facility] CHEM PANEL BUN 17 mg/dL 7 - 22 08/23/2016 [facility] CHEM PANEL Chloride Lvl 106 meq/L 95 - 109 08/23/2016 [facility] HEMATOLOGY MCV 88.5 fL 80.0 - 98.0 08/23/2016 [facility] WBC 12.9 K/CMM 3.7 - 10.4 08/23/2016 [facility] MCH 28.6 pg 27.0 - 31.0 08/23/2016 [facility] Hct 24.4 % 36.0 - 48.0 08/23/2016 [facility] Hgb 7.9 g/dL 12.0 - 16.0 08/23/2016 [facility] MCHC 32.3 g/dL 32.0 - 36.0 08/23/2016 [facility] Platelet 336 K/CMM 133 - 450 08/23/2016 [facility] RBC 2.75 M/CMM 4.20 - 5.40 08/23/2016 [facility] RDW 14.9 % 11.5 - 14.5 08/23/2016 [facility] MPV 7.5 fL 7.4 - 10.4 08/23/2016 [facility] Monocytes 7.0 % 2.0 - 12.0 08/23/2016 [facility] Eosinophils # 0.2 K/CMM 0.0 - 0.5 08/23/2016 [facility] Monocytes # 0.9 K/CMM 0.0 - 0.8 08/23/2016 [facility] Basophils 0.4 % 0.0 - 1.0 08/23/2016 [facility] Lymphocytes # 1.2 K/CMM 1.0 - 5.5 08/23/2016 [facility] Segs-Bands # 10.5 K/CMM 1.5 - 8.1 08/23/2016 [facility] Lymphocytes 9.6 % 20.0 - 40.0 08/23/2016 [facility] Basophils # 0.1 K/CMM 0.0 - 0.2 08/23/2016 [facility] Eosinophils 1.6 % 0.0 - 4.0 08/23/2016 [facility] Segs 81.4 % 45.0 - 75.0 08/23/2016 [facility] BLOOD BANK RESULTS FFP product Product available (08/22/16 2:00 PM) 08/22/2016 [facility] BLOOD BANK RESULTS ABO/Rh O POS 08/22/2016 [facility] BLOOD BANK RESULTS Antibody Scrn Negative (08/22/16 7:16 AM) 08/22/2016 [facility] HEMATOLOGY RBC Morph Normal (08/22/16 2:22 AM) 08/22/2016 [facility] HEMATOLOGY Plt Morph Normal (08/22/16 2:22 AM) 08/22/2016 [facility] HEMATOLOGY INR 1.29 0.85 - 1.17 08/22/2016 [facility] HEMATOLOGY PT 16.3 s 12.0 - 14.7 08/22/2016 [facility] TOXICOLOGY Vanco Tr 16.1 ug/ml 08/20/2016 [facility] TOXICOLOGY Vanco Tr TND 0916 08/20/2016 [facility] HEMATOLOGY INR 1.51 0.85 - 1.17 08/20/2016 [facility] HEMATOLOGY PT 18.5 s 12.0 - 14.7 08/20/2016 [facility] HEMATOLOGY Plt Morph Normal (08/19/16 4:55 AM) 08/19/2016 [facility] HEMATOLOGY RBC Morph Normal (08/19/16 4:55 AM) 08/19/2016 [facility] Chest 1view DX Chest 1view DX Chest 1view DX 76 years old Female Clinical Indication: Tube placement/removal/reposition; Comparison: 08/18/2016 at 13:41 FINDINGS: Tubes and lines: A right-sided PICC line extends into the mid SVC. There is an endotracheal tube approximately 3 cm above the sean. A weighted feeding tube passes through the mediastinum into the distal stomach. LUNGS: The volume of the lungs is somewhat diminished by shallow inspiration. Image obtained in a lordotic projection. Electrocardiogram lines superimposed on the mediastinum. There is some perihilar patchy infiltrates are present on the left. Right infrahilar infiltrates appear slightly improved when compared to previous exam. The right perihilar area appears less congested. No pleural effusion is noted. MEDIASTINUM: The cardiac silhouette is partially obscured on the left by adjacent parenchymal disease appear stable when compared to prior study. CHEST WALL: Unremarkable. SKELETON: The visualized osseous structures are unremarkable. IMPRESSION: 1. Mild improvement in perihilar congestion and right basilar infiltrate when compared to previous exam. 2. Support tubes and lines in satisfactory position. ADAM: SYLVIA 08/18/2016 - - Read by: Jose M Rivero MD Dictated Date/time: 08/18/16 17:52 Electronically Signed by: Jose M Rivero MD 08/18/16 17:55 FINAL REPORT [facility] Chest 1view DX Chest 1view DX Study: Chest 1view DX Clinical Indication: Tube placement/removal/reposition Comparison: Chest x-ray from 08/17/2016 FINDINGS: All support lines and tubes remain in stable position. Cardiac silhouette remains enlarged. Multifocal asymmetric alveolar opacities throughout the bilateral lungs are stable. Small right pleural effusion is suspected. There is no pneumothorax. The osseous structures are unremarkable. IMPRESSION: Stable exam of the chest SL: [id number] 08/18/2016 - - Read by: Nicholas Shell MD Dictated Date/time: 08/18/16 14:14 Electronically Signed by: Nicholas Shell MD 08/18/16 14:15 FINAL REPORT [facility] 1view Chest 1view DX Chest 1view DX 76 years old Female Clinical Indication: Tube placement/removal/reposition; NG TUBE REPOSITIONED Comparison: 08/17/2016 at 10:15 FINDINGS: Tubes and lines: The endotracheal tube is 3 cm above the sena in the midline. A weighted feeding tube is looped in the stomach with the tip in the proximal stomach. LAP band also present. LUNGS: The volume of the lungs is slightly diminished by shallow inspiration. There is pulmonary edema throughout the left lung and in the right lung base. Findings similar to previous examination allowing for some differences in radiographic technique. No large effusion suspected. MEDIASTINUM: Cardiac silhouette mildly prominent. Cardiac margin partially obscured by adjacent parenchymal disease. CHEST WALL: Unremarkable. SKELETON: The visualized osseous structures are unremarkable. IMPRESSION: 1. Weighted feeding tube coiled in stomach. SL: [id number] 08/17/2016 - - Read by: Jose M Rivero MD Dictated Date/time: 08/17/16 13:28 Electronically Signed by: Jose M Rivero MD 08/17/16 13:30 FINAL REPORT [facility] 1view DX Patient Name: SAVANNAH RICHARDSON : 1940; Age: 76 years Female MR: [id number] Study: Chest 1view DX Order Time: 08/17/2016 9:26 AM [employer] CLINICAL INDICATION: Tube placement/removal/reposition ADDITIONAL HISTORY: None COMPARISON: Chest radiograph on 08/14/2016 FINDINGS: Lines: Stable position of the right PICC line, endotracheal tube, and Dobbhoff tube. Lungs: The bilateral airspace and interstitial opacities are grossly unchanged. No obvious effusion or pneumothorax. Mediastinum: The cardiac silhouette is mildly enlarged. Midline trachea. Bones and soft tissues: Unremarkable. IMPRESSION: No significant change since 08/14/2016. : [id number] 08/17/2016 - - Read by: Moose Miguel MD Dictated Date/time: 08/17/16 10:51 Electronically Signed by: Moose Miguel MD 08/17/16 10:53 FINAL REPORT [facility] Toxic Gran Moderate *ABN* (08/16/16 5:57 AM) None Seen 08/16/2016 [facility] HEMATOLOGY Bands 2.0 % 0.0 - 11.0 08/16/2016 [facility] Atypical Lymphs 0.0 % <=0.0 % 08/16/2016 [facility] Metamyelocytes 5.0 % 0.0 - 1.0 08/16/2016 [facility] RBC Morph Normal (08/16/16 5:57 AM) 08/16/2016 [facility] Plt Morph Normal (08/16/16 5:57 AM) 08/16/2016 [facility] PT 18.7 s 12.0 - 14.7 08/16/2016 [facility] INR 1.53 0.85 - 1.17 08/16/2016 [facility] PTT 33.0 s 22.9 - 35.8 08/14/2016 [facility] Chest 1view DX Chest 1view DX Clinical Indication:76 years Female with Tube placement/removal/reposition Comparison: Chest x-ray 08/13/2016 FINDINGS: Lines: Endotracheal tube tip is approximately 2 cm above the sean. Tip of feeding tube is below the field of view of the study. Unchanged position of right PICC The single frontal chest radiograph shows normal lung volumes. Unchanged diffuse bilateral airspace opacities. Cavitation in the right lower lobe. Partially visualized gastric band and catheter. Small bilateral pleural effusion. No pneumothorax. Cardiac silhouette is stable. Pulmonary vasculature is normal. The trachea is midline. There are no acute osseous abnormalities noted. IMPRESSION: 1. No change since prior chest x-ray and no new acute abnormality. 2. Diffuse bilateral airspace opacities and a right lower lobe cavitation. 08/14/2016 - - Read by: Doni Westbrook MD Dictated Date/time: 08/14/16 08:09 Electronically Signed by: Doni Westbrook MD 08/14/16 08:13 FINAL REPORT [facility] CHEM PANEL Procalcitonin Lvl 1.75 ng/mL 0.00 - 0.10 08/13/2016 [facility] Chest 1view DX Chest 1view DX Study: Chest 1view DX portable 08/13/2016 1707 hours Clinical Indication: Crackles; intubated Comparison: Chest 08/09/2016 FINDINGS: The endotracheal tube terminates above the sean. Feeding tube enters the stomach but its terminal point is not evident. Right PICC terminates within the superior vena cava. The cardiac silhouette is enlarged. The diffuse coarse bilateral pulmonary opacities are grossly stable. No pneumothorax or significant pleural effusion is seen. IMPRESSION: No significant change. SL: [id number] 08/13/2016 - - Read by: Dick De Jesus MD Dictated Date/time: 08/13/16 17:58 Electronically Signed by: iDck De Jesus MD 08/13/16 17:59 FINAL REPORT [facility] CHEM PANEL Albumin Lvl 1.2 g/dL 3.5 - 5.0 08/13/2016 [facility] CHEM PANEL Total Protein 8.1 g/dL 6.4 - 8.4 08/13/2016 [facility] CHEM PANEL AST 22 unit/L 0 - 37 08/13/2016 [facility] CHEM PANEL ALT 9 unit/L 0 - 65 08/13/2016 [facility] CHEM PANEL Alk Phos 182 unit/L 39 - 136 08/13/2016 [facility] CHEM PANEL Bili Total 1.9 mg/dL 0.2 - 1.3 08/13/2016 [facility] CHEM PANEL A/G Ratio 0.2 0.7 - 1.6 08/13/2016 [facility] CHEM PANEL Globulin 6.9 g/dL 2.7 - 4.2 08/13/2016 [facility] CHEM PANEL B/C Ratio 30 6 - 25 08/13/2016 [facility] CHEM PANEL Albumin Lvl 1.1 g/dL 3.5 - 5.0 08/10/2016 [facility] Abdomen AP DX Abdomen AP DX Patient Name: SAVANNAH RICHARDSON : 1940; Age: 76 years Female MR: [id number] Study: Abdomen AP DX 08/09/2016 6:20 PM [employer]. Clinical Indication: Tube placement/removal/reposition. COMPARISON: None FINDINGS: Views: 1 Dobbhoff tube tip is in the gastric antral region. Laparoscopic band is in place. There is a non-obstructive bowel gas pattern. There is no abnormal dilation of bowel loops. There are no radiopaque densities noted. There are no clinically significant osseous abnormalities noted. Bilateral pleural effusions with lower lobe infiltrates. Right femoral acetabular joint arthritic change. IMPRESSION: 1. Dobbhoff tube tip in the gastric antral region. 2. Bilateral lower lobe infiltrates and effusions. 3. Right femoral acetabular joint osteoarthritic change. SL: [id number] 08/09/2016 - - Read by: Navin Pablo MD Dictated Date/time: 08/09/16 20:06 Electronically Signed by: Navin Pablo MD 08/09/16 20:10 FINAL REPORT [facility] TOXICOLOGY Vanco Tr TND 1200 08/09/2016 [facility] TOXICOLOGY Vanco Tr 29.1 ug/ml 08/09/2016 [facility] Chest 1view DX Chest 1view DX Chest 1view DX CLINICAL HISTORY:Crackles COMPARISON: none FINDINGS: Limited AP portable study. Stable position of ET tube. Extensive patchy airspace disease involving both lungs persists without significant change. No large effusion is evident on either side. Stable cardiomediastinum. No acute bony abnormality is noted. Multiple EKG leads and other wires project over the patient's chest. IMPRESSION: No significant change from previous study is noted. SL: [id number] 08/09/2016 - - Read by: Taurus Galloway MD Dictated Date/time: 08/09/16 07:11 Electronically Signed by: Taurus Galloway MD 08/09/16 07:13 FINAL REPORT [facility] Neck soft tissue w contrast CT Neck soft tissue w contrast CT CT SOFT TISSUE NECK WITH CONTRAST INDICATION: Soft tissue neck trauma, Absent of breath sounds; ICU patient that was ventilated - per RN patient had procedure done and there was bleeding; looking for hematoma, CT dose DLP - 277 mGycm COMPARISON: CT soft tissue neck without contrast 08/03/2016 DISCUSSION: An endotracheal tube is in place. The distal end is not completely included in the current study. Fluid is noted in the pharynx, surrounding the tube. The lumen of the tube is patent. The subglottic trachea is clear. As previously described, there is edema of the visceral space of the infrahyoid neck, not significantly changed. No hematoma is identified. There is persistent, but decreased right paratracheal extraluminal gas. The thyroid is heterogeneous, but normal in size. Heterogeneity may be secondary to injury or primary thyroid pathology. Grossly, no masses of the upper aerodigestive tract are identified. No suspicious cervical lymphadenopathy is seen. The bilateral parotid and submandibular glands are unremarkable. No acute bony abnormalities are visualized. Advanced cervical spondylosis is noted. There is mild partial opacification of the visible left sphenoid sinus. The visible paranasal sinuses are otherwise clear. There is increasing opacification of the right mastoid and right middle ear cavity. There is mild partial opacification of the left mastoid. There is mild interval improvement in extensive patchy consolidation of the visible lung apices. Bilateral pleural effusions are again noted. IMPRESSION: 1. Stable edema of the visceral space of the infrahyoid neck and mild interval improvement in right paratracheal extra-axial gas. The findings suggest laryngeal trauma. No hematoma is identified. 2. The thyroid is heterogeneous, but normal in size. Heterogeneity may be secondary to injury or primary thyroid pathology. 3. Mild interval improvement in extensive opacification of the visible upper lungs. SL:16 08/08/2016 - - Read by: Davis Singleton MD Dictated Date/time: 08/08/16 23:08 Electronically Signed by: Davis Singleton MD 08/08/16 23:22 FINAL REPORT [facility] 1view DX Chest 1view DX Portable chest: The endotracheal tube is in satisfactory position. Extensive bilateral pulmonary infiltrates are again noted. There is slight improvement in opacity in the right lung compared to the previous day. There is no significant change in the left lung infiltrates. The right lower lobe cavity or pneumatocele is unchanged. There is no evidence of pneumothorax. A small right pleural effusion is noted. There are no other new findings. ADAM DLAWRENCE-PC 08/06/2016 - - Read by: Doni Pastor MD Dictated Date/time: 08/06/16 07:42 Electronically Signed by: Doni Pastor MD 08/06/16 07:43 FINAL REPORT [facility] 1view DX Chest 1view DX CHEST RADIOGRAPH SINGLE VIEW INDICATION: Assess tube placement COMPARISON: Chest radiograph 08/04/2016 IMPRESSION: The distal end of the endotracheal tube is approximately 3.9 cm above the sean. The right PICC remains in satisfactory position. The lungs are underinflated. There is no significant interval change in marked bilateral pulmonary opacification. No pneumothorax is visualized. SL:16 08/05/2016 - - Read by: Davis Singleton MD Dictated Date/time: 08/05/16 12:00 Electronically Signed by: Davis Singleton MD 08/05/16 12:01 FINAL REPORT [facility] wo contrast CT Chest wo contrast CT CT CHEST WITHOUT CONTRAST: HISTORY: Sepsis. TECHNIQUE: Multislice axial acquisitions were done through the chest without contrast. Sagittal and coronal reformatted images were also obtained. FINDINGS: The endotracheal tube and PICC line are in satisfactory position. A lap band is noted in good position. There are diffuse groundglass opacities in the lungs with interspersed interstitial infiltrates. There is consolidation in the right lower lobe with a 4.6 cm cavity in the right lower lobe with an adjacent irregular 2.3 cm cavity. The larger cavity contains internal septations without fluid, which could potentially be skeletonized vessels. Small cavities in the right middle lobe, right upper lobe and left upper lobe are also seen. There is no significant effusion. There is no mediastinal mass or significant lymph node enlargement. Mild pericardial fluid is seen in the upper recesses. There are no acute osseous abnormalities. IMPRESSION: 1. Bilateral pulmonary infiltrates and consolidation consistent with pneumonia. 2. Bilateral cavitary lesions. The larger cavitary areas are in the right lower lobe consolidation suggesting necrotizing pneumonia. 3. Small pericardial effusion. [id number] 08/04/2016 - - Read by: Doni Pastor MD Dictated Date/time: 08/04/16 13:44 Electronically Signed by: Doni Pastor MD 08/04/16 13:53 FINAL REPORT [facility] 1view DX Chest 1view DX Portable chest: The endotracheal tube and PICC line are in satisfactory position. There is no significant change in the bilateral alveolar pulmonary infiltrates compared to the previous day. A small pneumatocele over the right lung base is noted which may be slightly increased in size. There is no significant effusion. There are no other new findings. DLAWRENCE-PC 08/04/2016 - - Read by: Doni Pastor MD Dictated Date/time: 08/04/16 07:23 Electronically Signed by: Doni Pastor MD 08/04/16 07:24 FINAL REPORT [facility] Neck soft tissue wo contrast CT Neck soft tissue wo contrast CT CT SOFT TISSUE NECK WITHOUT CONTRAST INDICATION: Absence of breath sounds,soft tissue injury, CT dose DLP 334 mGy-cm COMPARISON: None DISCUSSION: An endotracheal tube is in place, the distal end above the sean. Fluid is noted in the pharynx, surrounding the tube. The lumen of the tube is patent. The subglottic trachea is mostly clear. Mild secretions are noted near the tip of the tube. There is edema of the visceral space of the infrahyoid neck. The prelaryngeal and upper pretracheal soft tissue is prominent and heterogeneous, suggesting hematoma, associated with extraluminal gas. Evaluation is limited without the use of intravenous contrast. The thyroid is heterogeneous and indistinct. Grossly, no masses of the upper aerodigestive tract are identified. No suspicious cervical lymphadenopathy is seen. The bilateral parotid and submandibular glands are grossly unremarkable. Bones: No acute bony abnormalities are visualized. Advanced cervical spondylosis is noted. Paranasal sinuses: There is mild partial opacification of the visible left sphenoid sinus and left mastoid. The visible paranasal sinuses and mastoid air cells are otherwise clear. Lungs: There is extensive patchy consolidation of the visible lung apices. Bilateral pleural effusions are also noted. IMPRESSION: 1. The findings, as described, are compatible with laryngeal and thyroid trauma. There is an ill-defined hematoma the visceral space of the infrahyoid neck, predominantly involving the thyroid. 2. Extensive pulmonary opacification. SL:16 08/03/2016 - - Read by: Davis Singleton MD Dictated Date/time: 08/05/16 08:22 Electronically Signed by: Davis Singleton MD 08/05/16 08:39 FINAL REPORT [facility] LIPIDS Trig 167 mg/dL <=149 mg/dL 08/03/2016 [facility] Chest 1view DX Chest 1view DX Chest 1view DX 76 years old Female Clinical Indication: Tube placement/removal/reposition; Comparison: None FINDINGS: Tubes and lines: The endotracheal tube is 1.5 cm above the sean. A right-sided PICC line extends to the lower SVC. LUNGS: The volume of the lungs is diminished by shallow inspiration. There is patchy pulmonary infiltration in the perihilar lungs. Some improvement in left apical infiltrate has occurred since the previous examination of 08/02/2016. Patchy basilar infiltrates remain. There is some moderate consolidation in the right lung apex. No pleural effusion is noted. MEDIASTINUM: The cardiac silhouette is exaggerated by some leftward rotation but is probably stable. CHEST WALL: Unremarkable. SKELETON: The visualized osseous structures are unremarkable. IMPRESSION: 1. Patchy bilateral pulmonary infiltrates moderately severe throughout the right lung and the left lower lung with some improvement in the left lung apex since the previous exam. 2. Satisfactory position of right-sided PICC line and endotracheal tube. : [id number] 08/03/2016 - - Read by: Jose M Rivero MD Dictated Date/time: 08/03/16 07:52 Electronically Signed by: Jose M Rivero MD 08/03/16 07:55 FINAL REPORT [facility] 1view DX Chest 1view DX Portable chest: The endotracheal tube and PICC line are in satisfactory position. There is no change in the bilateral alveolar infiltrates compared to the earlier exam on the same day considering technical variances. There is no significant effusion. There is no other change. [id number] 08/02/2016 - - Read by: Doni Pastor MD Dictated Date/time: 08/02/16 13:12 Electronically Signed by: Doni Pastor MD 08/02/16 13:13 FINAL REPORT [facility] 1view DX Chest 1view DX Patient Name: SAVANNAH RICHARDSON : 1940; Age: 76 years y/o Female MR: [id number] Study: Chest 1view DX 08/02/2016 3:00 AM [employer] Ordering Physician: Clinical Indication: Tube placement/removal/reposition; Comparison: 08/01/2016 Chest one view Endotracheal tube, right arm PICC are satisfactory. Nasogastric tube has been removed. Gastric band device overlies the epigastric region as before. Stable cardiomegaly. Diffuse interstitial pulmonary infiltrates persist with little change. There is no significant pleural effusion. IMPRESSION: No significant change in lung aeration since prior study. : [id number] 08/02/2016 - - Read by: Bull Suarez MD Dictated Date/time: 08/02/16 07:45 Electronically Signed by: Bull Suarez MD 08/02/16 07:46 FINAL REPORT [facility] Chest 1view DX Chest 1view DX Portable chest: The endotracheal tube, nasogastric tube and PICC line are in satisfactory position. There is better expansion of the lungs compared to the previous day without significant change in the bilateral pulmonary infiltrates. The right hemidiaphragm is elevated. There is no significant effusion. There is no other significant change. [id number] 08/01/2016 - - Read by: Doni Pastor MD Dictated Date/time: 08/01/16 07:11 Electronically Signed by: Doni Pastor MD 08/01/16 07:12 FINAL REPORT [facility] Chest 1view DX Chest 1view DX Portable chest: The endotracheal tube, nasogastric tube and PICC line are in satisfactory position. The lap band remains in place. There is no change in the bilateral pulmonary infiltrates compared to the previous exam on 07/27/2016. There is no significant effusion. There is no other change. DLAWRENCE-PC 07/31/2016 - - Read by: Doni Pastor MD Dictated Date/time: 07/31/16 06:56 Electronically Signed by: Doni Pastor MD 07/31/16 06:56 FINAL REPORT [facility] TOXICOLOGY Vanco Lvl 15.4 ug/ml 07/28/2016 [facility] CHEM PANEL Lactic Acid Lvl 1.4 mMol/L 0.5 - 2.2 07/28/2016 [facility] CHEM PANEL Procalcitonin Lvl 179.35 ng/mL 0.00 - 0.10 07/28/2016 Result Comment: Critical Result(s) called to Shani Alvarenga at 07/28/2016 07:41 by zonia. Read back OK. [facility] HEMATOLOGY PTT 32.1 s 22.9 - 35.8 07/28/2016 [facility] Chest 1view DX Chest 1view DX EXAM: XR CHEST 1 VIEW DATE: 07/27/2016 11:29 PM [employer] INDICATION: Tube placement/removal/reposition COMPARISON: 07/27/2016 TECHNIQUE: A single AP view of the chest was obtained. FINDINGS: A right PICC has been placed, with the tip projecting over the atriocaval junction. The endotracheal and nasogastric tube are unchanged. There is redemonstration of cardiomegaly and diffuse airspace opacities throughout the lungs, which have slightly increased from the prior exam. The osseous structures are unchanged. IMPRESSION: 1. Interval placement of a right PICC, with the tip projecting over the atriocaval junction. 2. Mild interval increase in diffuse airspace opacities, which may represent pulmonary edema or multifocal infection. SL: [id number] 07/27/2016 - - Read by: Willis Carrington MD Dictated Date/time: 07/27/16 23:54 Electronically Signed by: Willis Carrington MD 07/27/16 23:55 FINAL REPORT [facility] Chest 1 v for Placement DX Chest 1 v for Placement DX EXAM: XR CHEST, 1 VIEW DATE: 07/27/2016 4:45 PM [employer] INDICATION: Tube Placement (Endotracheal). COMPARISON: 07/26/2016 TECHNIQUE: Frontal radiograph of the chest was obtained. FINDINGS: An endotracheal tube tip projects 3.0 cm above the sean. The nasogastric tube side-port projects over the gastric body. Moderate cardiomegaly and interstitial pulmonary edema is redemonstrated. An ill-defined left retrocardiac opacity is identified. A lap band projects over the left upper quadrant. The osseous structures are unchanged. IMPRESSION: Interval satisfactory placement of an endotracheal and nasogastric tube. No other significant interval change. SL: [id number] 07/27/2016 - - Read by: Willis Carrington MD Dictated Date/time: 07/27/16 17:49 Electronically Signed by: Willis Carrington MD 07/27/16 17:50 FINAL REPORT [facility] CARDIAC ENZYMES Total CK 979 unit/L 12 - 191 07/27/2016 [facility] CARDIAC ENZYMES Troponin-I 3.50 ng/mL 0.00 - 0.40 07/27/2016 Result Comment: Critical Result(s) called to pal meneses at 07/27/2016 02:54 by mely. Read back OK. [facility] CARDIAC ENZYMES CK MB 8.9 ng/mL 0.5 - 3.6 07/27/2016 [facility] CARDIAC ENZYMES CK MB Index 0.9 0.0 - 2.5 07/27/2016 [facility] CHEM PANEL AST 69 unit/L 0 - 37 07/27/2016 [facility] CHEM PANEL Alk Phos 65 unit/L 39 - 136 07/27/2016 [facility] CHEM PANEL Bili Total 1.2 mg/dL 0.2 - 1.3 07/27/2016 [facility] CHEM PANEL B/C Ratio 15 6 - 25 07/27/2016 [facility] CHEM PANEL Total Protein 6.5 g/dL 6.4 - 8.4 07/27/2016 [facility] CHEM PANEL Albumin Lvl 2.1 g/dL 3.5 - 5.0 07/27/2016 [facility] CHEM PANEL ALT 27 unit/L 0 - 65 07/27/2016 [facility] CHEM PANEL A/G Ratio 0.5 0.7 - 1.6 07/27/2016 [facility] CHEM PANEL Globulin 4.4 g/dL 2.7 - 4.2 07/27/2016 [facility] CHEM PANEL Lactic Acid Lvl 3.2 mMol/L 0.5 - 2.2 07/27/2016 [facility] BACTERIAL - SEROLOGY MRSA by PCR Negative (07/26/16 9:08 PM) 07/27/2016 [facility] CARDIAC ENZYMES CK MB Index 0.8 0.0 - 2.5 07/27/2016 [facility] CARDIAC ENZYMES CK MB 7.6 ng/mL 0.5 - 3.6 07/27/2016 [facility] CARDIAC ENZYMES Total CK 987 unit/L 12 - 191 07/27/2016 [facility] CARDIAC ENZYMES Troponin-I 6.50 ng/mL 0.00 - 0.40 07/27/2016 Result Comment: Critical Result(s) called to Josué Musa at 07/26/2016 20:39_ byJASON_. Read back OK. [facility] CHEM PANEL Lactic Acid Lvl 3.3 mMol/L 0.5 - 2.2 07/27/2016 [facility] URINE AND STOOL UA pH 5.0 5.0 - 8.0 07/27/2016 [facility] URINE AND STOOL UA Color Yellow *NA* (07/26/16 7:52 PM) Yellow 07/27/2016 [facility] URINE AND STOOL UA Turbidity Clear (07/26/16 7:52 PM) Clear 07/27/2016 [facility] URINE AND STOOL UA Spec Grav 1.024 <=1.030 07/27/2016 [facility] URINE AND STOOL UA Bili Negative *NA* (07/26/16 7:52 PM) Negative 07/27/2016 [facility] URINE AND STOOL UA Protein >=300 mg/dL Negative mg/dL 07/27/2016 [facility] URINE AND STOOL UA Ketones 20 mg/dL Negative mg/dL 07/27/2016 [facility] URINE AND STOOL UA Blood Large *ABN* (07/26/16 7:52 PM) Negative 07/27/2016 [facility] URINE AND STOOL UA Glucose 500 mg/dL Negative mg/dL 07/27/2016 [facility] URINE AND STOOL UA Urobilinogen <=1.0 mg/dL 0.1 - 1.0 07/27/2016 [facility] URINE AND STOOL UA Sq Epi Occasional /LPF Few /LPF 07/27/2016 [facility] URINE AND STOOL UA Nitrite Positive *ABN* (07/26/16 7:52 PM) Negative 07/27/2016 [facility] URINE AND STOOL UA Leuk Est Negative (07/26/16 7:52 PM) Negative 07/27/2016 [facility] URINE AND STOOL UA RBC 11 /HPF 0 - 2 07/27/2016 [facility] URINE AND STOOL UA Bacteria Occasional /HPF None Seen /HPF 07/27/2016 [facility] URINE AND STOOL UA WBC 4 /HPF 0 - 5 07/27/2016 [facility] VIRAL - SEROLOGY RSV Ag Negative (07/26/16 7:52 PM) Negative 07/27/2016 [facility] VIRAL - SEROLOGY Influ A Negative (07/26/16 7:52 PM) Negative 07/27/2016 [facility] VIRAL - SEROLOGY Influ B Negative (07/26/16 7:52 PM) Negative 07/27/2016 [facility] BACTERIAL - SEROLOGY Source Strep Urine (07/26/16 4:24 PM) 07/26/2016 [facility] BACTERIAL - SEROLOGY Strep pneumoniae Ag Negative (07/26/16 4:24 PM) Negative 07/26/2016 [facility] URINE AND STOOL UA Sq Epi None Seen 07/26/2016 [facility] URINE AND STOOL UA Urobilinogen <=1.0 mg/dL 0.1 - 1.0 07/26/2016 [facility] URINE AND STOOL UA WBC 4 /HPF 0 - 5 07/26/2016 [facility] URINE AND STOOL UA Leuk Est Negative (07/26/16 4:24 PM) Negative 07/26/2016 [facility] URINE AND STOOL UA RBC 4 /HPF 0 - 2 07/26/2016 [facility] URINE AND STOOL UA Bacteria Occasional /HPF None Seen /HPF 07/26/2016 [facility] URINE AND STOOL UA Turbidity Clear (07/26/16 4:24 PM) Clear 07/26/2016 [facility] URINE AND STOOL UA Color Yellow *NA* (07/26/16 4:24 PM) Yellow 07/26/2016 [facility] URINE AND STOOL UA Spec Grav 1.027 <=1.030 07/26/2016 [facility] URINE AND STOOL UA pH 5.0 5.0 - 8.0 07/26/2016 [facility] URINE AND STOOL UA Protein >=300 mg/dL Negative mg/dL 07/26/2016 [facility] URINE AND STOOL UA Glucose 500 mg/dL Negative mg/dL 07/26/2016 [facility] URINE AND STOOL UA Ketones 20 mg/dL Negative mg/dL 07/26/2016 [facility] URINE AND STOOL UA Bili Negative *NA* (07/26/16 4:24 PM) Negative 07/26/2016 [facility] URINE AND STOOL UA Nitrite Positive *ABN* (07/26/16 4:24 PM) Negative 07/26/2016 [facility] URINE AND STOOL UA Blood Large *ABN* (07/26/16 4:24 PM) Negative 07/26/2016 [facility] BLOOD BANK RESULTS Antibody Scrn Negative (07/26/16 12:59 PM) 07/26/2016 [facility] BLOOD BANK RESULTS ABO/Rh O POS 07/26/2016 [facility] CARDIAC ENZYMES CK MB Index 0.5 0.0 - 2.5 07/26/2016 [facility] CARDIAC ENZYMES Troponin-I 2.50 ng/mL 0.00 - 0.40 07/26/2016 [facility] CARDIAC ENZYMES CK MB 2.4 ng/mL 0.5 - 3.6 07/26/2016 [facility] CARDIAC ENZYMES Total CK 513 unit/L 12 - 191 07/26/2016 [facility] CHEM PANEL B/C Ratio 11 6 - 25 07/26/2016 [facility] CHEM PANEL Bili Total 1.4 mg/dL 0.2 - 1.3 07/26/2016 [facility] CHEM PANEL Alk Phos 104 unit/L 39 - 136 07/26/2016 [facility] CHEM PANEL Globulin 5.2 g/dL 2.7 - 4.2 07/26/2016 [facility] CHEM PANEL Total Protein 8.2 g/dL 6.4 - 8.4 07/26/2016 [facility] CHEM PANEL AST 33 unit/L 0 - 37 07/26/2016 [facility] CHEM PANEL ALT 31 unit/L 0 - 65 07/26/2016 [facility] CHEM PANEL A/G Ratio 0.6 0.7 - 1.6 07/26/2016 [facility] CHEM PANEL Procalcitonin Lvl 71.39 ng/mL 0.00 - 0.10 07/26/2016 Result Comment: Critical Result(s) called to Savannah Telles at _07/26/2016 15:38 by_AN. Read back OK. [facility] HEMATOLOGY Bands 30.0 % 0.0 - 11.0 07/26/2016 [facility] Atypical Lymphs 0.0 % <=0.0 % 07/26/2016 [facility] Metamyelocytes 3.0 % 0.0 - 1.0 07/26/2016 [facility] HEMATOLOGY PTT 30.5 s 22.9 - 35.8 07/26/2016 [facility] Brain wo contrast CT Brain wo contrast CT Patient Name: SAVANNAH RICHARDSON : 1940; Age: 76 years Female MR: [id number] Study: Brain wo contrast CT 07/26/2016 2:10 PM [employer] Clinical Indication: Headache Primary [place] dlp:981.84. Pt to ER per EMS s/p found down by . pt states she had been on the floor since last night. TECHNIQUE: CT images were obtained from the foramen magnum to the vertex without the use of intravenous contrast on a multidetector CT. Coronal and sagittal reconstructions were obtained. FINDINGS: BRAIN PARENCHYMA: There is generalized brain parenchymal atrophy related to the patient's age. Nonspecific periventricular white matter disease changes are noted. Atherosclerotic calcifications are present within the carotid siphons and distal vertebral arteries. There are no focal mass lesions on this noncontrast head CT. There is no mass effect, midline shift or edema. There are no intra-axial or extra-axial fluid collections. There is no intraventricular or intraparenchymal hemorrhage. There is no noncontrast CT evidence of a subacute stroke. The pineal, sellar, brainstem, cerebellum and skull base regions appear normal. VENTRICLES: The lateral ventricles, third and fourth ventricles appear normal. The basilar cisterns are normal. ORBITS, MASTOIDS AND PARANASAL SINUSES: The visualized orbits are normal. Mild ethmoid sinus mucosal thickening. The mastoid air cells are clear. SKULL: There are no calvarial abnormalities seen. If there is further concern for intracranial pathology or acute stroke, MRI of the brain may be performed for complete assessment. IMPRESSION: Chronic age-related and small vessel ischemic changes without mass, hemorrhage or subacute stroke. SL: JULIETTE-ISRRAEL 07/26/2016 - - Read by: Navin Pablo MD Dictated Date/time: 07/26/16 15:30 Electronically Signed by: Navin Pablo MD 07/26/16 15:35 FINAL REPORT [facility] Spine cervical wo contrast CT Spine cervical wo contrast CT Clinical Indication: Found down, states she has been on the floor since yesterday evening; Comparison: None Technique: Multi-detector CT imaging of the cervical spine is performed. Coronal and sagittal reconstructions were obtained. CT Radiation Dose DLP 1102 mGy-cm FINDINGS: ALIGNMENT AND GENERAL ASSESSMENT: Reversal of usual cervical lordosis. Minimal anterolisthesis of C4 on C5.. There are no fractures or subluxations. The craniocervical junction is normal. The atlanto-dental alignment appears unremarkable. The posterior elements and spinous processes are unremarkable. The facet joint, spinolaminar and spinous process alignment are normal. DISK SPACES AND SOFT TISSUES: The prevertebral soft tissues are normal. Fusions of C3 and C4, and C6 and C7. Extensive degenerative disc disease at the remaining levels of the cervical spine. Multilevel facet arthropathy. VISUALIZED LUNG APICES: Biapical pulmonary nodules which measure up to [address] myelogram or MRI of the cervical spine may be performed, if there is further concern. IMPRESSION: 1. No fractures or subluxations of the cervical spine. 2. Advanced multilevel degenerative changes, osseous lesions of the C3 and C4 vertebral bodies and C6 and C7 vertebral bodies. Reversal of usual cervical lordosis. Osseous demineralization. SL: [id number] 07/26/2016 - - Read by: Doni Westbrook MD Dictated Date/time: 07/26/16 15:18 Electronically Signed by: Doni Westbrook MD 07/26/16 15:23 FINAL REPORT [facility] Chest/Abdomen/Pelvis wo IV contrast CT Chest/Abdomen/Pelvis wo IV contrast CT Clinical Indication: Found down; Comparison: CT chest 08/25/2013 Technique: Multi-detector CT imaging of the chest, abdomen and pelvis is performed without IV contrast. Coronal and sagittal reconstructions were obtained. CT Radiation Dose DLP 1187 mGy-cm FINDINGS: Lack of IV contrast limits the sensitivity of the examination, and limits evaluation of the vessels. CHEST: Lungs and Pleura: Patchy airspace opacities of the dependent portions of the right upper and lower lobes left basilar atelectasis. Multiple bilateral pulmonary nodules. Largest right nodule measures 10 mm in the right upper lobe (series 3 image 12). Largest left nodule measures 9 mm in the anterior left upper lobe (series 3 image 12). Multiple other bilateral subcentimeter nodules are noted. There is no interstitial lung disease. There is no pleural effusion. There is no pneumothorax. Airway: The central airway is normal. Mediastinum: The non-contrast enhanced images of the mediastinum show no definite mediastinal lymphadenopathy. There is no cardiomegaly. A small amount of intermediate density pericardial fluid. Mild coronary artery calcifications. Pulmonary arteries are unremarkable. ABDOMEN/PELVIS: Hepatobiliary: No focal hepatic lesion. No biliary ductal dilatation. Hepatic steatosis. Pancreas: No focal mass or ductal dilatation. Spleen: No splenomegaly. Adrenals: Indeterminate 1.4 cm left adrenal nodule. Kidneys: No hydronephrosis or renal stones. Perinephric stranding, left more than right. Pelvic organs: The uterus has been removed. Bladder is unremarkable. Peritoneum/Retroperitoneum: No free air or free fluid. Lymph nodes: No lymphadenopathy. Bowel: No significant bowel thickening or dilatation. The appendix is visualized and appears unremarkable. Gastric band which is in appropriate position. Bones and soft tissues: No acute abnormalities. Degenerative changes in the lower lumbar spine. Slight convex left curvature of the lower lumbar spine. IMPRESSION: 1. Patchy airspace opacities of the dependent portions of the right upper and lower lobes which may be due to aspiration or pneumonia. Left basilar atelectasis. 2. Multiple bilateral pulmonary nodules which measure up to 1 cm, new since the scan from 08/25/2013. These may be infectious/inflammatory, or due to metastatic disease. Recommend a short-term follow-up chest CT in 3 months and possible PET/CT for evaluation when feasible. 3. A small amount of intermediate density pericardial fluid, suggestive of hemopericardium 4. Indeterminate 1.4 cm left adrenal nodule. MRI of the abdomen without and with contrast would be useful for characterization. 5. Nonspecific bilateral perinephric stranding, which can be due to chronic kidney disease, nephritis, or infection. 6. Hepatic steatosis. SL: [id number] 07/26/2016 - - Read by: Doni Westbrook MD Dictated Date/time: 12/15/16 15:24 Electronically Signed by: Doni Westbrook MD 07/26/16 15:36 FINAL REPORT [facility] Chest 1view DX Chest 1view DX Portable chest: The cardiac silhouette is enlarged. There is pulmonary venous congestion and diffuse interstitial infiltrate in the lungs consistent with pulmonary edema. There may be some alveolar infiltrate in the left retrocardiac region. There is no significant effusion. A Lap Band over the left upper quadrant is noted. [id number] 07/26/2016 - - Read by: Doni Pastor MD Dictated Date/time: 07/26/16 14:18 Electronically Signed by: Doni Pastor MD 07/26/16 14:19 FINAL REPORT [facility] Digital Mammo Scre[place] AMENDMENT: 08/27/2016 Quoc Chu M.D. The patient's prior mammograms dated 05/31/09 are made available and are compared to the most recent examination. Bilateral benign appearing coarse calcifications have increased/coarsened in the interim. Otherwise, there is no significant change in either breast, allowing for differences in technique/positioning. No mammographic evidence of malignancy. 1 year screening exam is recommended. Amended BI-RADS: 2 Benign letter sent: Comp Normal - DIGITAL MAMMO SCREENING ABDIRAHMAN MA BILATERAL DIGITAL SCREENING MAMMOGRAM WITH CAD: 07/13/2016 CLINICAL: Routine. Current study was evaluated with a Computer Aided Detection (CAD) system. Exam is read without the benefit of comparison films. We have not yet received films from the prior facility where the patient states her prior mammograms were performed. Interpretation has been delayed secondary to this. There are scattered fibroglandular densities in both breasts. There are benign appearing scattered calcifications in both breasts. No significant masses, calcifications, or other findings are seen in either breast. IMPRESSION: BENIGN There is no mammographic evidence of malignancy. A 1 year screening mammogram is recommended. SUMMARY: Prior mammograms would be of added benefit to document halfway stability. This aids in establishing benignity. The patient should make additional efforts to locate her prior exams. An addendum will be made if additional films are provided. Quoc dalton/penrad:07/31/2016 13:57:15 Private Investigator Surveillance: Marlen Flores, [facility] This exam was dictated and interpreted by [id number] for [facility]. letter sent: Bilateral Benign Mammogram BI-RADS: 2 Benign 07/13/2016 - - Read by: Quoc Chu MD Dictated Date/time: 08/27/16 13:35 Electronically Signed by: Quoc Chu MD 08/27/16 13:35 FINAL REPORT - - Read by: Quoc Chu MD Dictated Date/time: 07/31/16 13:57 Electronically Signed by: Quoc Chu MD 07/31/16 13:57 FINAL REPORT [facility] Bone Density Scan Bone Density Scan BONE DENSITY: HISTORY: Osteoporosis TECHNIQUE: Dual energy x-ray absorptiometry (DEXA) was done over the lumbar spine and left hip on a [employer] SL scanner. An artifact was seen on the lumbar spine scanogram, therefore the left forearm was also evaluated. FINDINGS: There is a small round opacity overlying the L1-L2 level on the lumbar spine scanogram consistent with the patient's Lap Band port. The total T score over the lumbar spine is 1.8, consistent with normal bone density. This could be spuriously high due inclusion of the port, although the values over the individual vertebrae are all normal, therefore not significant. The global T-score over the left hip is 0.9, consistent with normal bone density. The focal T-score over the left femoral neck is -0.7, consistent with normal bone density. The BMD is 0.773 g/sq cm. The total T-score over the left forearm is -3.0, consistent with osteoporosis. The BMD over the distal forearm is 0.413 g/sq cm. IMPRESSION: 1. Normal bone density of the lumbar spine. 2. Normal global bone density of the left hip. 3. Normal bone density of the left femoral neck. 4. Osteoporosis of the distal left forearm. FOR YOUR INFORMATION: The World Health Organization has established that OSTEOPOROSIS occurs at -2.5 or more standard deviations below peak bone mass (T-score). OSTEOPENIA occurs at -1.0 to -2.5 standard deviations (T-score) below peak bone mass. [id number] 07/13/2016 - - Read by: Doni Pastor MD Dictated Date/time: 07/13/16 10:35 Electronically Signed by: Doni Pastor MD 07/16/16 07:49 FINAL REPORT [facility] Chest 2 views DX Chest 2 views DX Study: Chest 2 views DX Clinical Indication: Cough and congestion Comparison: 08/11/2013 FINDINGS: The cardiac silhouette is normal in size. The lungs are clear and without consolidation or congestion. No pleural effusion or pneumothorax is seen. The osseous structures are unremarkable. Mild left basilar scarring is seen. Postoperative changes of prior lap band procedure are noted. IMPRESSION: No acute cardiopulmonary disease. SL: [id number] 12/08/2015 - - Read by: Nicholas Shell MD Dictated Date/time: 12/08/15 18:37 Electronically Signed by: Nicholas Shell MD 12/08/15 18:37 FINAL REPORT [facility] Hand 3 views DX Hand 3 views DX Left hand, 3 views. HISTORY: Arthritis, pain. COMPARISON: None available. FINDINGS: Soft tissues of the hand appear mildly diffusely swollen. No significant arthritic change is seen. Joint spaces are grossly preserved. No osseous erosions are identified. SL: 14 01/27/2015 - - Read by: Neno Pichardo MD Dictated Date/time: 01/27/15 17:14 Electronically Signed by: Neno Pichardo MD 01/27/15 17:16 [facility] [place] Vital Signs Vital Sign Value Date Comments Source Weight 195 04/17/2018 Zackery Thakur [place], [place] Heart Rate 77 04/17/2018 Zackery Thakur [place], [place] Diastolic (mm Hg) 82 04/17/2018 Zackery Thakur [place], [place] Systolic (mm Hg) 140 04/17/2018 Zackery Thakur MD, [place] Weight 195 02/24/2018 Zackery Thakur MD, [place] Heart Rate 77 02/24/2018 Zackery Thakur [place], [place] Diastolic (mm Hg) 70 02/24/2018 Zackery Thakur [place], [place] Systolic (mm Hg) 138 02/24/2018 Zackery Thakur MD, [place] Heart Rate 91 09/09/2017 [facility] Systolic (mm Hg) 144 09/09/2017 [facility] Diastolic (mm Hg) 71 09/09/2017 [facility] Systolic (mm Hg) 158 09/09/2017 [facility] Diastolic (mm Hg) 79 09/09/2017 [facility] Temperature Oral (F) 98.5 F 09/09/2017 [facility] Heart Rate 76 09/09/2017 [facility] Respitory Rate 18 09/09/2017 [facility] Heart Rate 74 09/09/2017 [facility] Systolic (mm Hg) 128 09/09/2017 [facility] Diastolic (mm Hg) 70 09/09/2017 [facility] Respitory Rate 18 09/09/2017 [facility] Temperature Oral (F) 98.4 F 09/09/2017 [facility] Respitory Rate 18 09/09/2017 [facility] Temperature Oral (F) 98.8 F 09/09/2017 [facility] BMI Calculated 37.94 09/08/2017 [facility] Weight 94.091 09/08/2017 [facility] Height 157.48 cm 09/08/2017 [facility] Weight 174 05/29/2017 Zackery Thakur MD, [place] Heart Rate 84 05/29/2017 Zackery Thakur MD, [place] Diastolic (mm Hg) 74 05/29/2017 Zackery Thakur MD, [place] Systolic (mm Hg) 140 05/29/2017 Zackery Thakur MD, [place] Weight 170 03/20/2017 Zackery Thakur MD, [place] Heart Rate 75 03/20/2017 Zackery Thakur MD, [place] Diastolic (mm Hg) 90 03/20/2017 Zackery Thakur MD, [place] Systolic (mm Hg) 155 03/20/2017 Zackery Thakur MD, [place] Heart Rate 82 03/12/2017 [facility] Temperature Oral (F) 98 F 03/12/2017 [facility] Respitory Rate 18 03/12/2017 [facility] Systolic (mm Hg) 158 03/12/2017 [facility] Diastolic (mm Hg) 84 03/12/2017 [facility] Heart Rate 88 03/12/2017 [facility] Systolic (mm Hg) 155 03/12/2017 [facility] Diastolic (mm Hg) 78 03/12/2017 [facility] Respitory Rate 18 03/12/2017 [facility] Temperature Oral (F) 98.2 F 03/12/2017 [facility] Respitory Rate 18 03/12/2017 [facility] Heart Rate 74 03/12/2017 [facility] Systolic (mm Hg) 162 03/12/2017 [facility] Diastolic (mm Hg) 95 03/12/2017 [facility] Temperature Oral (F) 97.8 F 03/12/2017 [facility] BMI Calculated 33.9 03/09/2017 [facility] Height 154.94 cm 03/09/2017 [facility] Weight 81.392 03/09/2017 [facility] BMI Calculated 33.13 03/09/2017 [facility] Weight 79.545 03/09/2017 [facility] Height 154.94 cm 03/09/2017 [facility] Weight 168 11/26/2016 Zackery Thakur MD, [place] Heart Rate 80 11/26/2016 Zackery Thakur MD, [place] Diastolic (mm Hg) 62 11/26/2016 Zackery Thakur MD, [place] Systolic (mm Hg) 130 11/26/2016 Zackery Thakur MD, [place] Weight 176 11/08/2016 Zackery Thakur MD, [place] Heart Rate 71 11/08/2016 Zackery Thakur MD, [place] Diastolic (mm Hg) 65 11/08/2016 Zackery Thakur MD, [place] Systolic (mm Hg) 130 11/08/2016 Zackery Thakur MD, [place] Height 154.94 cm 08/25/2016 [facility] Respitory Rate 22 08/25/2016 [facility] Systolic (mm Hg) 151 08/25/2016 [facility] Diastolic (mm Hg) 75 08/25/2016 [facility] Respitory Rate 26 08/25/2016 [facility] Systolic (mm Hg) 146 08/25/2016 [facility] Diastolic (mm Hg) 79 08/25/2016 [facility] Temperature Oral (F) 98.2 F 08/25/2016 [facility] Systolic (mm Hg) 138 08/25/2016 [facility] Diastolic (mm Hg) 73 08/25/2016 [facility] Respitory Rate 25 08/25/2016 [facility] Height 154.94 cm 08/25/2016 [facility] Temperature Oral (F) 98.4 F 08/25/2016 [facility] Height 154.94 cm 08/25/2016 [facility] Temperature Oral (F) 100.3 F 08/10/2016 [facility] Weight 82.045 07/27/2016 [facility] BMI Calculated 34.18 07/27/2016 [facility] BMI Calculated 30.73 07/26/2016 [facility] Weight 86.364 07/26/2016 [facility] Heart Rate 111 07/26/2016 [facility] Encounters Location Location Details Encounter Type Encounter Number Reason For Visit Attending Provider ADM Date DC Date Status Source [facility] [place] [facility] [id number] Rasheeda Milton 03/22/2014 03/23/2014 [facility] [place] [facility] [id number] Rasheeda Milton 01/27/2015 01/28/2015 [facility] [place] Outpatient [id number] RASHEEDA EVANGELISTA- GOR 07/25/2015 Active [facility] Outpatient [id number] RASHEEDA EVANGELISTA- GOR 08/18/2015 Active [facility] Outpatient [id number] RASHEEDA EVANGELISTA- GOR 10/28/2015 Active [facility] Outpatient [id number] DAVON GONZALEZ 12/05/2015 Active [facility] Outpatient [id number] DAVON GONZALEZ 12/08/2015 Active [facility] Outpatient [id number] Willis Orellana III 03/07/2016 03/07/2016 [facility] Outpatient [id number] Gino Zacarias 04/24/2016 04/24/2016 [facility] Outpatient [id number] RASHEEDA EVANGELISTA- GOR 06/07/2016 [facility] Outpatient [id number] Rasheeda Evangelista-Gor 07/13/2016 07/14/2016 [facility] Inpatient [id number] Willis Melendrez 07/26/2016 08/25/2016 [facility] Outpatient [id number] LUCIE FIGUEROA 12/08/2016 [facility] Outpatient [id number] Gino Zacarias 01/30/2017 01/31/2017 [facility] Outpatient [id number] Gino Zacarias 02/13/2017 02/14/2017 [facility] Inpatient [id number] Arnel Storey 03/09/2017 03/12/2017 [facility] Inpatient [id number] Omega Sltaer 09/08/2017 09/09/2017 [facility] Procedures Procedure Code Date Perfomer Comments Source Appendectomy [id number] [facility] Cataract surgery [id number] [facility] Excision of Magana's neuroma [id number] [facility] Hysterectomy [id number] [facility] Laparoscopic adjustable gastric banding [id number] [facility] Tonsillectomy [id number] [facility] Arthroscopic repair of meniscus [id number] [facility] Neck dissection<sup>1</sup> [id number] Replacement of 2 cervical discs [facility]
--- OUTSIDE RECORDS SUMMARY | 2018-07-29 09:20 | XMS REPORT | Summary of Care ---
Author Author [facility] Organization [facility] Address Unknown Phone Unavailable Encounter HQ Eliana_german(FIN) [id number] Date(s): 07/13/16 - 07/13/16 [facility] [address] [place] [address]- Discharge Disposition: Home or Self Care Attending Physician: Rasheeda Milton MD Referring Physician: Rasheeda Milton MD Vital Signs No data available for this section Problem List Condition Effective Dates Status Health Status Informant Acute bronchitis1, 2 07/14/13 Resolved Acute pharyngitis3 07/14/13 Resolved Acute sinusitis4, 5 01/29/12 Resolved Acute suppurative 07/14/13 Resolved otitis media6 Arthritis of hand7, 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 8 Backache9 05/21/13 Resolved 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 oejneodx00 Diabetes Active mellitus(Confirmed) Fsitpyy30 03/27/13 Active Hormone replacement 04/05/10 Active ujabemy48 Hypertension(Confirm Active ed) Hypertensive 04/05/10 Active rbstced86 Hypertriglyceridemia 09/23/12 Active 14 Aewkjrwe42 07/31/10 Active Knee pain16 03/22/14 Active Menopausal 07/31/10 Active niidnroa66 Obesity(Confirmed) Active Postmenopausal 03/10/12 Active ruuvsbckmbxk12 Postmenopausal 04/05/10 Active state19 Ohminxt30 02/24/13 Active Bbzeszwwln34 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 Type 2 diabetes 12/01/12 Active mellitus well ktxogknsxd12 Vitamin D 11/19/11 Active biqtsufmkr57 1Data migrated from [employer] on 02/25/15. [...] Date Status Refusal Reason Hx influenza vaccine-unspecified1 05/15/16 Recorded Hx influenza vaccine-unspecified2 06/02/10 Given pneumococcal 13-valent vaccine3 06/07/16 Given 1Location History: at specialist office 2Result Comment: fluvirin. Migrated from OBS ; Data migrated from [employer] on 09/12/2015. 3Result Comment: [facility]#[id number] Procedures Procedure Date Related Diagnosis Body Site [...]
--- OUTSIDE RECORDS SUMMARY | 2018-07-29 09:21 | XMS REPORT ---
Author Author Zackery Thakur Organization [employer] Address Unknown Phone Unavailable Care Team Providers Care Cross Tie Turner Name Role Phone Zackery Thakur CP Unavailable Allergies No Known Allergies Problems Problem Type Condition Code Onset Dates Condition Status Problem Family history of ischemic heart disease and other diseases of the circulatory system Z82.49 Active Problem Mixed hyperlipidemia E78.2 Active Problem Obesity, unspecified E66.9 Active Problem Body mass index (BMI) 33.0-33.9, adult Z68.33 Active Problem Screening for cardiovascular disorders Z13.6 Active Problem Pulmonary hypertension, secondary I27.2 Active Problem Body mass index (BMI) 31.0-31.9, adult Z68.31 Active Problem Cerebrovascular disease, unspecified I67.9 Active Problem Hypertensive heart disease without heart failure I11.9 Active Problem Type 2 diabetes mellitus without complications E11.9 Active Problem Lower extremity edema M79.89 Active Problem Old myocardial infarction I25.2 Active Medications No Known Medications Results No Known Results Summary Purpose [employer] Submission
--- OUTSIDE RECORDS SUMMARY | 2018-07-29 09:21 | XMS REPORT ---
Author Author Zackery Thakur Organization [employer] Address Unknown Phone Unavailable Care Team Providers Care Plastic Shaper Name Role Phone Zackery Thakur CP Unavailable Allergies No Known Allergies Problems Problem Type Condition Code Onset Dates Condition Status Problem Body mass index (BMI) 33.0-33.9, adult Z68.33 Active Problem Hypertensive heart disease without heart failure I11.9 Active Problem Type 2 diabetes mellitus without complications E11.9 Active Problem Old myocardial infarction I25.2 Active Problem Family history of ischemic heart disease and other diseases of the circulatory system Z82.49 Active Problem Screening for cardiovascular disorders Z13.6 Active Problem Mixed hyperlipidemia E78.2 Active Problem Obesity, unspecified E66.9 Active Medications No Known Medications Results No Known Results Summary Purpose [employer] Submission
--- OUTSIDE RECORDS SUMMARY | 2018-07-29 09:21 | XMS REPORT ---
Author Author Zackery Thakur [facility] [place] eClinicalWorks Address Unknown Phone Unavailable Care Team Providers Care Crane Service Technician Name Role Phone Zackery Thakur Unavailable Allergies, Adverse Reactions, Alerts Substance Reaction Event Type Erythromycin Info Not Available Drug Allergy Problems Problem Type Condition Code Onset Dates Condition Status Problem Family history of ischemic heart disease and other diseases of the circulatory system Z82.49 Active Problem Mixed hyperlipidemia E78.2 Active Problem Obesity, unspecified E66.9 Active Problem Pulmonary hypertension, secondary I27.2 Active Assessment Obesity, unspecified E66.9 Active Problem Body mass index (BMI) 31.0-31.9, adult Z68.31 Active Assessment Body mass index (BMI) 31.0-31.9, adult Z68.31 Active Problem Cerebrovascular disease, unspecified I67.9 Active Problem Hypertensive heart disease without heart failure I11.9 Active Problem Type 2 diabetes mellitus without complications E11.9 Active Problem Lower extremity edema M79.89 Active Problem Old myocardial infarction I25.2 Active Assessment Mixed hyperlipidemia E78.2 Active Assessment Type 2 diabetes mellitus without complications E11.9 Active Assessment Family history of ischemic heart disease and other diseases of the circulatory system Z82.49 Active Assessment Pulmonary hypertension, secondary I27.2 Active Assessment Hypertensive heart disease without heart failure I11.9 Active Assessment Old myocardial infarction I25.2 Active Assessment Lower extremity edema M79.89 Active Problem Body mass index (BMI) 33.0-33.9, adult Z68.33 Active Assessment Cerebrovascular disease, unspecified I67.9 Active Problem Screening for cardiovascular disorders Z13.6 Active Medications Medication Code System Code Instructions Start Date End Date Status Dosage HydrALAZINE HCl [facility] [address]-38 50 MG Orally Three times a day Active 1 tablet GlipiZIDE [facility] [address]-52 5 MG Orally Once a day Active 1 tablet Janumet [facility] [address]-60 50-1000 MG Orally Twice a day Active 1 tablet with meals Meloxicam [facility] [address]-17 15 MG Orally Once a day Active 1 tablet Lisinopril [facility] [address]-57 10 MG Orally Once a day November 26, 2016 Active 1 tablet Metoprolol Tartrate [facility] [address]-24 25 MG Orally twice a day (bid) Active 1 tablet with food Fluoxetine HCl [facility] [address]-89 10 MG Orally Once a day Active 1 capsule in the morning Atorvastatin Calcium [facility] [address]-97 80 MG Orally Once a day Active 1 tablet Leflunomide [facility] [address]-95 10 MG Orally Once a day Active 1 tablet Potassium Bicarb & Chloride [facility] [address]-46 20 MEQ Orally Active not defined Amlodipine Besylate [facility] [address]-29 5 MG Orally Once a day Mar 20, 2017 Active 1 tablet Coreg [facility] [address]-52 6.25 MG Orally twice a day (bid) Active 1 tablet Aspirin [facility] [address]267 81 MG Orally Once a day Active 1 tablet Furosemide [facility] [address]-60 40 MG Orally Once a day Active 1 tablet Vital Signs Date/Time: Mar 20, 2017 BMI 32.12 Index Weight 170 lbs Height 5 ft 1 in in Cardiac Monitoring Heart Rate 75 /min Blood Pressure Diastolic 90 mm Hg Blood Pressure Systolic 155 mm Hg Results No Known Results Summary Purpose eClinicalWorks Submission
--- OUTSIDE RECORDS SUMMARY | 2018-07-29 09:21 | XMS REPORT ---
Author Author Zackery Thakur [facility] eClinicalWorks Address Unknown Phone Unavailable Care Team Providers Care Energy Conservation Engineer Name Role Phone Zackery Thakur Unavailable Allergies, Adverse Reactions, Alerts Substance Reaction Event Type Erythromycin Info Not Available Drug Allergy Problems Problem Type Condition Code Onset Dates Condition Status Problem Hypertensive heart disease without heart failure I11.9 Active Problem Body mass index (BMI) 33.0-33.9, adult Z68.33 Active Problem Old myocardial infarction I25.2 Active Problem Lower extremity edema M79.89 Active Assessment Obesity, unspecified E66.9 Active Problem Body mass index (BMI) 31.0-31.9, adult Z68.31 Active Assessment Body mass index (BMI) 31.0-31.9, adult Z68.31 Active Problem Cerebrovascular disease, unspecified I67.9 Active Problem Screening for cardiovascular disorders Z13.6 Active Problem Type 2 diabetes mellitus without complications E11.9 Active Problem Pulmonary hypertension, secondary I27.2 Active Problem Family history of ischemic heart disease and other diseases of the circulatory system Z82.49 Active Assessment Mixed hyperlipidemia E78.2 Active Assessment Type 2 diabetes mellitus without complications E11.9 Active Assessment Family history of ischemic heart disease and other diseases of the circulatory system Z82.49 Active Assessment Pulmonary hypertension, secondary I27.2 Active Assessment Old myocardial infarction I25.2 Active Assessment Hypertensive heart disease without heart failure I11.9 Active Assessment Lower extremity edema M79.89 Active Problem Obesity, unspecified E66.9 Active Assessment Cerebrovascular disease, unspecified I67.9 Active Problem Mixed hyperlipidemia E78.2 Active Medications Medication Code System Code Instructions Start Date End Date Status Dosage Janumet [facility] 97919554639 50-1000 MG Orally Twice a day Active 1 tablet with meals Atorvastatin Calcium [facility] 40483819185 80 MG Orally Once a day Active 1 tablet Aspirin [facility] 70894594472 81 MG Orally Once a day Active 1 tablet Meloxicam [facility] 87920421791 15 MG Orally Once a day Active 1 tablet Amlodipine Besylate [facility] 88259220455 5 MG Orally Once a day Mar 20, 2017 Active 1 tablet Leflunomide [facility] 95515280985 10 MG Orally Once a day Active 1 tablet Furosemide [facility] 60935069219 40 MG Orally Once a day Active 1 tablet Lisinopril [facility] 73760966466 10 MG Orally Once a day November 26, 2016 Active 1 tablet Coreg [facility] 54044201664 6.25 MG Orally twice a day (bid) Active 1 tablet Fluoxetine HCl [facility] 53558457697 10 MG Orally Once a day Active 1 capsule in the morning HydrALAZINE HCl [facility] 77315254878 50 MG Orally Three times a day Active 1 tablet Potassium Bicarb & Chloride [facility] [address]-12 20 MEQ Orally Active not defined Vital Signs Date/Time: May 29, 2017 BMI 32.87 Index Weight 174 lbs Height 5 ft 1 in in Cardiac Monitoring Heart Rate 84 /min Blood Pressure Diastolic 74 mm Hg Blood Pressure Systolic 140 mm Hg Results No Known Results Summary Purpose eClinicalWorks Submission
--- OUTSIDE RECORDS SUMMARY | 2018-07-29 09:21 | XMS REPORT ---
Author Author Zackery Thakur [facility] eClinicalWorks Address Unknown Phone Unavailable Care Team Providers Care Weir Fisher Name Role Phone Zackery Thakur CP Unavailable Allergies No Known Allergies Problems Problem Type Condition Code Onset Dates Condition Status Problem Old myocardial infarction I25.2 Active Problem Type 2 diabetes mellitus without complications E11.9 Active Problem Body mass index (BMI) 33.0-33.9, adult Z68.33 Active Problem Cerebrovascular disease, unspecified I67.9 Active Problem Lower extremity edema M79.89 Active Problem Body mass index (BMI) 36.0-36.9, adult Z68.36 Active Problem Family history of ischemic heart disease and other diseases of the circulatory system Z82.49 Active Problem Screening for cardiovascular disorders Z13.6 Active Problem Body mass index (BMI) 31.0-31.9, adult Z68.31 Active Problem Pulmonary hypertension, secondary I27.2 Active Problem Obesity, unspecified E66.9 Active Problem Mixed hyperlipidemia E78.2 Active Problem Hypertensive heart disease without heart failure I11.9 Active Medications Medication Code System Code Instructions Start Date End Date Status Dosage HydrALAZINE HCl [facility] 83312706269 50 MG Orally Three times a day Active 1 tablet Potassium Bicarb & Chloride [facility] [address]-79 20 MEQ Orally Active not defined Leflunomide [facility] 53741922080 10 MG Orally Once a day Active 1 tablet Fluoxetine HCl [facility] 94497470736 10 MG Orally Once a day Active 1 capsule in the morning Coreg [facility] 28769129694 6.25 MG Orally twice a day (bid) Active 1 tablet Lisinopril [facility] 83578737309 10 MG Orally Once a day November 26, 2016 Active 1 tablet Meloxicam [facility] 06857495209 15 MG Orally Once a day Active 1 tablet Janumet [facility] 69624234167 50-1000 MG Orally Twice a day Active 1 tablet with meals Furosemide [facility] 03670610916 40 mg Orally twice a day (bid) Active 1 tablet Aspirin [facility] 51317857732 81 MG Orally Once a day Active 1 tablet Atorvastatin Calcium [facility] 48913798152 80 MG Orally Once a day Active 1 tablet Results No Known Results Summary Purpose eClinicalWorks Submission
--- OUTSIDE RECORDS SUMMARY | 2018-07-29 09:21 | XMS REPORT ---
Author Author Zackery Thakur [facility] [place] eClinicalWorks Address Unknown Phone Unavailable Care Team Providers Care Eyeglass Lens Grinder Name Role Phone Zackery Thakur Unavailable Allergies, Adverse Reactions, Alerts Substance Reaction Event Type Erythromycin Info Not Available Drug Allergy Problems Problem Type Condition Code Onset Dates Condition Status Problem Screening for cardiovascular disorders Z13.6 Active Problem Obesity, unspecified E66.9 Active Problem Family history of ischemic heart disease and other diseases of the circulatory system Z82.49 Active Problem Body mass index (BMI) 31.0-31.9, adult Z68.31 Active Problem Lower extremity edema M79.89 Active Problem Pulmonary hypertension, secondary I27.2 Active Problem Type 2 diabetes mellitus without complications E11.9 Active Problem Mixed hyperlipidemia E78.2 Active Problem Old myocardial infarction I25.2 Active Problem Hypertensive heart disease without heart failure I11.9 Active Assessment Family history of ischemic heart disease and other diseases of the circulatory system Z82.49 Active Assessment Pulmonary hypertension, secondary I27.2 Active Assessment Body mass index (BMI) 31.0-31.9, adult Z68.31 Active Assessment Obesity, unspecified E66.9 Active Assessment Lower extremity edema M79.89 Active Assessment Hypertensive heart disease without heart failure I11.9 Active Assessment Mixed hyperlipidemia E78.2 Active Assessment Old myocardial infarction I25.2 Active Assessment Type 2 diabetes mellitus without complications E11.9 Active Problem Body mass index (BMI) 33.0-33.9, adult Z68.33 Active Medications Medication Code System Code Instructions Start Date End Date Status Dosage Meloxicam [facility] [place] [address]-18 15 MG Orally Once a day Active 1 tablet Leflunomide [facility] [place] [address]-87 10 MG Orally Once a day Active 1 tablet Janumet [facility] [place] [address]-69 50-1000 MG Orally Twice a day Active 1 tablet with meals Lisinopril [facility] [place] [address]-13 10 MG Orally Once a day November 26, 2016 Active 1 tablet Fluoxetine HCl [facility] [place] [address]-89 10 MG Orally Once a day Active 1 capsule in the morning Klor-Con M20 [facility] [place] [address]-74 20 MEQ Orally Once a day Active 1 tablet with food Metoprolol Tartrate [facility] [place] [address]-23 25 MG Orally twice a day (bid) Active 1 tablet with food GlipiZIDE [facility] [place] [address]-74 5 MG Orally Once a day Active 1 tablet Amlodipine Besylate [facility] [place] [address]-15 10 MG Orally Once a day November 26, 2016 Inactive 1 tablet Furosemide [facility] [place] [address]-10 40 MG Orally Once a day Active 1 tablet Atorvastatin Calcium [facility] [place] [address]-11 10 MG Orally Once a day Active 1 tablet Vital Signs Date/Time: November 26, 2016 BMI 31.74 Index Weight 168 lbs Height 5ft 1in in Cardiac Monitoring Heart Rate 80 /min Blood Pressure Diastolic 62 mm Hg Blood Pressure Systolic 130 mm Hg Results No Known Results Summary Purpose eClinicalWorks Submission
--- OUTSIDE RECORDS SUMMARY | 2018-07-29 09:21 | XMS REPORT ---
Author Author Zackery Thakur [facility] eClinicalWorks Address Unknown Phone Unavailable Care Team Providers Care Filing Or Registry Clerk Name Role Phone Zackery Thakur Unavailable Allergies, Adverse Reactions, Alerts Substance Reaction Event Type Erythromycin Info Not Available Drug Allergy Problems Problem Type Condition Code Onset Dates Condition Status Problem Type 2 diabetes mellitus without complications E11.9 Active Problem Screening for cardiovascular disorders Z13.6 Active Problem Old myocardial infarction I25.2 Active Problem Body mass index (BMI) 36.0-36.9, adult Z68.36 Active Assessment Family history of ischemic heart disease and other diseases of the circulatory system Z82.49 Active Problem Cerebrovascular disease, unspecified I67.9 Active Assessment Body mass index (BMI) 36.0-36.9, adult Z68.36 Active Problem Hypertensive heart disease with heart failure I11.0 Active Problem Pulmonary hypertension, secondary I27.2 Active Problem Family history of ischemic heart disease and other diseases of the circulatory system Z82.49 Active Problem Lower extremity edema M79.89 Active Problem Body mass index (BMI) 31.0-31.9, adult Z68.31 Active Assessment Cerebrovascular disease, unspecified I67.9 Active Assessment Old myocardial infarction I25.2 Active Assessment Mixed hyperlipidemia E78.2 Active Assessment Type 2 diabetes mellitus without complications E11.9 Active Problem Obesity, unspecified E66.9 Active Problem Mixed hyperlipidemia E78.2 Active Assessment Lower extremity edema M79.89 Active Problem Hypertensive heart disease without heart failure I11.9 Active Assessment Hypertensive heart disease with heart failure I11.0 Active Problem Body mass index (BMI) 33.0-33.9, adult Z68.33 Active Medications Medication Code System Code Instructions Start Date End Date Status Dosage HydrALAZINE HCl [facility] 49486087614 50 MG Orally Three times a day Active 1 tablet Lisinopril [facility] 67367491845 10 MG Orally Once a day November 26, 2016 Active 1 tablet Leflunomide [facility] 37217947179 20 MG Orally Once a day Active 1 tablet Atorvastatin Calcium [facility] 52806607033 80 MG Orally Once a day Active 1 tablet Coreg [facility] 10385077634 6.25 MG Orally twice a day (bid) Active 1 tablet Aspirin [facility] 57626785711 81 MG Orally Once a day Active 1 tablet Janumet [facility] 15951657680 50-1000 MG Orally Twice a day Active 1 tablet with meals Meloxicam [facility] 03033266344 15 MG Orally Once a day Active 1 tablet Potassium Bicarb & Chloride [facility] [address]-58 20 MEQ Orally Active not defined Fluoxetine HCl [facility] 77542875757 10 MG Orally Once a day Active 1 capsule in the morning Furosemide [facility] 92537701164 40 mg Orally twice a day (bid) Active 1 tablet Vital Signs Date/Time: Apr 17, 2018 BMI 36.84 Index Weight 195 lbs Height 5 ft 1 in in Cardiac Monitoring Heart Rate 77 /min Blood Pressure Diastolic 82 mm Hg Blood Pressure Systolic 140 mm Hg Results No Known Results Summary Purpose eClinicalWorks Submission
--- OUTSIDE RECORDS SUMMARY | 2018-07-29 09:21 | XMS REPORT ---
Author Author Zackery Thakur [facility] eClinicalWorks Address Unknown Phone Unavailable Care Team Providers Care Elementary Special Education Teacher Name Role Phone Zackery Thakur CP Unavailable [...] Instructions Start Date End Date Status Dosage Atorvastatin Calcium [facility] 56391430863 80 MG Orally Once a day Active 1 tablet Potassium Bicarb & Chloride [facility] [address]-00 20 MEQ Orally Active not defined Meloxicam [facility] 28057669606 15 MG Orally Once a day Active 1 tablet Furosemide [facility] 81571687022 40 mg Orally twice a day (bid) Active 1 tablet HydrALAZINE HCl [facility] 15986779338 50 MG Orally Three times a day Active 1 tablet Lisinopril [facility] 20543361701 10 MG Orally Once a day November 26, 2016 Active 1 tablet Leflunomide [facility] 19812464378 10 MG Orally Once a day Active 1 tablet Janumet [facility] 39694801389 50-1000 MG Orally Twice a day Active 1 tablet with meals Fluoxetine HCl [facility] 91582724877 10 MG Orally Once a day Active 1 capsule in the morning Aspirin [facility] 29159500765 81 MG Orally Once a day Active 1 tablet Coreg [facility] 39850442516 6.25 MG Orally twice a day (bid) Active 1 tablet Results No Known Results Summary Purpose eClinicalWorks Submission
--- OUTSIDE RECORDS SUMMARY | 2018-07-29 09:21 | XMS REPORT ---
Author Author Zackery Thakur [facility] eClinicalWorks Address Unknown Phone Unavailable Care Team Providers Care Oncology Social Worker Name Role Phone Zackery Thakur Unavailable Allergies, [...] index (BMI) 36.0-36.9, adult Z68.36 Active Problem Lower extremity edema M79.89 Active Problem Body mass index (BMI) 36.0-36.9, adult Z68.36 Active Problem Family history of ischemic heart disease and other diseases of the circulatory system Z82.49 Active Problem Screening for cardiovascular disorders Z13.6 Active Problem Body mass index (BMI) 31.0-31.9, adult Z68.31 Active Problem Pulmonary hypertension, secondary I27.2 Active Assessment Type 2 diabetes mellitus without complications E11.9 Active Assessment Cerebrovascular disease, unspecified I67.9 Active Assessment Family history of ischemic heart disease and other diseases of the circulatory system Z82.49 Active Assessment Mixed hyperlipidemia E78.2 Active Assessment Hypertensive heart disease without heart failure I11.9 Active Problem Obesity, unspecified E66.9 Active Assessment Old myocardial infarction I25.2 Active Problem Mixed hyperlipidemia E78.2 Active Assessment Lower extremity edema M79.89 Active Problem Hypertensive heart disease without heart failure I11.9 Active Medications Medication Code System Code Instructions Start Date End Date Status Dosage Meloxicam [facility] 21250582063 15 MG Orally Once a day Active 1 tablet Fluoxetine HCl [facility] 13023575292 10 MG Orally Once a day Active 1 capsule in the morning Atorvastatin Calcium [facility] 03080324770 80 MG Orally Once a day Active 1 tablet Coreg [facility] 75722272563 6.25 MG Orally twice a day (bid) Active 1 tablet Leflunomide [facility] 06664022601 10 MG Orally Once a day Active 1 tablet Aspirin [facility] 77550566846 81 MG Orally Once a day Active 1 tablet Amlodipine Besylate [facility] 07508097514 5 MG Orally Once a day Mar 20, 2017 February 24, 2018 Inactive 1 tablet Potassium Bicarb & Chloride [facility] [address]-83 20 MEQ Orally Active not defined HydrALAZINE HCl [facility] 23568572215 50 MG Orally Three times a day Active 1 tablet Lisinopril [facility] 58608145967 10 MG Orally Once a day November 26, 2016 Active 1 tablet Janumet [facility] 94812221738 50-1000 MG Orally Twice a day Active 1 tablet with meals Furosemide [facility] 04015044818 40 mg Orally twice a day (bid) Active 1 tablet Vital Signs Date/Time: February 24, 2018 BMI 36.84 Index Weight 195 lbs Height 5 ft 1 in in Cardiac Monitoring Heart Rate 77 /min Blood Pressure Diastolic 70 mm Hg Blood Pressure Systolic 138 mm Hg Results No Known Results Summary Purpose eClinicalWorks Submission
--- OUTSIDE RECORDS SUMMARY | 2018-07-29 09:21 | XMS REPORT | Summary of Care ---
Author Author [facility] Organization [facility] Address Unknown Phone Unavailable Encounter HQ Miladis(MARIUSZ) [id number] Date(s): 07/26/16 - 08/25/16 [facility] [id number] [place] [address]- [phone] Discharge Disposition: Home or Self Care Attending Physician: Willis Melendrez MD Admitting Physician: Willis Melendrez MD Vital Signs 1 2 3 Most recent to oldest [Reference Range]: 154.94 cm (08/25/16 2:48 PM) 154.94 cm (08/25/16 10:38 AM) 154.94 cm (08/25/16 7:14 AM) Height 84 kg (08/25/16 6:11 AM) 82 kg (08/24/16 5:48 AM) 100 kg (08/23/16 6:09 AM) Current Weight 98.2 DegF (08/25/16 12:00 PM) 98.4 DegF (08/25/16 8:00 AM) 100.3 DegF *HI* (08/10/16 12:00 AM) Temperature Oral [96.4-99.1 DegF] 151/75 mmHg *HI* (08/25/16 1:00 PM) 146/79 mmHg *HI* (08/25/16 12:00 PM) 138/73 mmHg (08/25/16 11:00 AM) Blood Pressure [90-140/60-90 mmHg] 22 BRMIN *HI* (08/25/16 1:00 PM) 26 BRMIN *HI* (08/25/16 12:00 PM) 25 BRMIN *HI* (08/25/16 11:00 AM) Respiratory Rate [14-20 BRMIN] 111 bpm *HI* (07/26/16 12:44 PM) Peripheral Pulse Rate [60-100 bpm] 82.045 kg (07/26/16 9:49 PM) 86.364 kg (07/26/16 12:44 PM) Weight 34.18 m2 (07/26/16 9:49 PM) 30.73 m2 (07/26/16 12:44 PM) Body Mass Index Problem List Condition Effective Dates Status Health Status Informant Acute bronchitis1, 2 07/14/13 Resolved Acute pharyngitis3 07/14/13 Resolved Acute sinusitis4, 5 01/29/12 Resolved Acute suppurative 07/14/13 Resolved otitis media6 Arthritis of hand7, 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 8 Backache9 05/21/13 Resolved 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 xhjcvryi40 Diabetes Active mellitus(Confirmed) Kyywiwk77 03/27/13 Active Hormone replacement 04/05/10 Active yepbhuk62 Hypertension(Confirm Active ed) Hypertensive 04/05/10 Active Hypertriglyceridemia 09/23/12 Active 14 Czzyaoew04 07/31/10 Active Knee pain16 03/22/14 Active Menopausal 07/31/10 Active vvyecqof72 Obesity(Confirmed) Active Postmenopausal 03/10/12 Active robulupvwwpi09 Postmenopausal 04/05/10 Active state19 Yemcklv13 02/24/13 Active Hjjtqafsiz23 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 Type 2 diabetes 12/01/12 Active mellitus well rbevhhboai19 Vitamin D 11/19/11 Active prgtkepkvy57 1Data migrated from [employer] on 02/25/15. [...] on 12/07/14. Originally documented as ERYTHROMYCIN. Medications acetaminophen 1,000 mg, 100 mL, Route: IV, Drug form: INJ, Q6H, Dosing Weight 82.045, kg, PRN Pain 4-6/Temp > 100.4 F, Start date: 08/01/16 15:36:00 OPERATIONS LEAD, Duration: 30 day, Stop date: 08/31/16 15:35:00 OPERATIONS LEAD Notes: Infuse over 15 minutesDo not exceed 4gm/day of acetaminophen MEDICAT ION WASTE Product Size: 1000 mgProduct Wasted: ___ mg Start Date: 08/01/16 Stop Date: 08/03/16 Status: Discontinued acetaminophen 650 mg, 2 tab, Route: PO, Drug form: TAB, Q4H, Dosing Weight 86.364, kg, PRN For Temp > 100.4 F, Start date: 07/26/16 16:44:00 OPERATIONS LEAD, Duration: 30 day, Stop date: 08/25/16 16:43:00 OPERATIONS LEAD Notes: Do not exceed 4 gm/day. (Same as: Tylenol) Start Date: 07/26/16 Stop Date: 07/26/16 Status: Discontinued acetaminophen 325 mg, Route: PO, Drug form: TAB, Q4H, Dosing Weight 86.364, kg, PRN Pain Score 4-6, Start date: 07/26/16 18:06:00 OPERATIONS LEAD, Duration: 30 day, Stop date: 08/25/16 1 8:05:00 OPERATIONS LEAD Start Date: 07/26/16 Stop Date: 07/26/16 Status: Deleted acetaminophen 650 mg rectal suppository 650 mg, 1 supp, Route: FL, Drug form: SUPP, Q6H, Dosing Weight 82.045, kg, PRN P ain 4-6/Temp > 100.4 F, Start date: 08/03/16 12:47:00 OPERATIONS LEAD, Duration: 30 day, Stop date: 09/02/16 12:46:00 OPERATIONS LEAD Notes: Max idgkodqlxtqnn=3089 mg/day (4 gm/day). (Same as: Tylenol) Start Date: 08/03/16 Stop Date: 08/26/16 Status: Discontinued acetaminophen 650 mg rectal suppository 650 mg=1 supp, FL, Q6H, PRN Pain 4-6/Temp > 100.4 F, 0 Refill(s) Start Date: 08/25/16 Status: Ordered Artificial Tears 1 drp, Route: Each Affected Eye, QID, Drug form: SOLN, PRN Dry Eyes, Start date: 08/23/16 14:46:00 OPERATIONS LEAD, Duration: 30 day, Stop date: 09/22/16 14:45:00 OPERATIONS LEAD Start Date: 08/23/16 Stop Date: 08/26/16 Status: Discontinued aspirin 300 mg, 1 supp, Route: FL, Drug form: SUPP, Daily, Dosing Weight 82.045, kg, Sta rt date: 08/02/16 15:00:00 OPERATIONS LEAD, Duration: 30 day, Stop date: 09/01/16 9:00:00 CS T Notes: Refrigerate. Start Date: 08/02/16 Stop Date: 08/10/16 Status: Discontinued aspirin 325 mg, Route: PO, Drug form: TAB, ONCE, Dosing Weight 86.364, kg, Priority: STA T, Start date: 07/26/16 15:42:00 OPERATIONS LEAD, Stop date: 07/26/16 15:42:00 OPERATIONS LEAD Start Date: 07/26/16 Stop Date: 07/26/16 Status: Discontinued aspirin 81 mg tablet, chewable 81 mg, 1 tab, Route: PO, Drug form: CHEWTAB, Daily, Dosing Weight 82.045, kg, Pr iority: STAT, Start date: 07/27/16 19:03:00 OPERATIONS LEAD, Duration: 30 day, Stop date: 9:00:00 OPERATIONS LEAD Notes: Take with food. Start Date: 07/27/16 Stop Date: 08/02/16 Status: Discontinued aspirin 81 mg tablet, chewable 81 mg, 1 tab, Route: NG, Drug form: CHEWTAB, Daily, Dosing Weight 82.045, kg, St art date: 08/11/16 9:00:00 OPERATIONS LEAD, Duration: 30 day, Stop date: 09/09/16 9:00:00 CS T Notes: Take with food. Start Date: 08/11/16 Stop Date: 08/15/16 Status: Voided With Results aspirin 81 mg tablet, enteric coated 81 mg, 1 tab, Route: PO, Drug form: CHEWTAB, Daily, Dosing Weight 82.045, kg, Pr iority: NOW, Start date: 07/27/16 13:32:00 OPERATIONS LEAD, Stop date: 08/26/16 9:00:00 OPERATIONS LEAD Notes: Take with food. Start Date: 07/27/16 Stop Date: 07/27/16 Status: Discontinued atorvastatin 10 mg, 1 tab, Route: PO, Drug form: TAB, Bedtime, Dosing Weight 86.364, kg, Star t date: 07/26/16 21:00:00 OPERATIONS LEAD, Duration: 30 day, Stop date: 09/23/16 21:00:00 CS T Notes: (Same As: Lipitor) Start Date: 07/26/16 Stop Date: 08/26/16 Status: Discontinued Attn RN: Wait for Vanco draw prior to giving next dose Attn RN: Wait for Vanco draw prior to giving next dose, Reminder, Drug form: MT SC, Route: MISC, ONCE, 08/20/16 8:45:00 OPERATIONS LEAD, Stop date: 08/20/16 8:45:00 OPERATIONS LEAD Start Date: 08/20/16 Stop Date: 08/20/16 Status: Completed bacitracin-polymyxin B topical 1 appl, Route: TOP, Daily, Drug form: OINT, Start date: 08/23/16 10:00:00 OPERATIONS LEAD, D uration: 30 day, Stop date: 09/22/16 9:00:00 OPERATIONS LEAD Notes: (Same As: Polysporin) Start Date: 08/23/16 Stop Date: 08/26/16 Status: Discontinued bacitracin-polymyxin B topical ointment 1 appl, TOP, Daily, 0 Refill(s) Start Date: 08/25/16 Status: Ordered calcium carbonate 500 mg (200 mg elemental calcium) oral tablet 500 mg, 1 tab, Route: PO, Drug form: CHEWTAB, PRN, Dosing Weight 82.045, kg, PRN Abnormal Lab Result, FOR ICU USE ONLY, Start date: 07/29/16 6:54:00 OPERATIONS LEAD, Durati on: 30 day, Stop date: 09/27/16 6:53:00 OPERATIONS LEAD Notes: (Same As: Beres)Calcium Carbonate 500 bd=991 mg elemental calcium Dose=_ mg calcium carbonate ( mg elemental calcium) Start Date: 07/29/16 Stop Date: 08/26/16 Status: Discontinued calcium carbonate 500 mg (200 mg elemental calcium) oral tablet 1,000 mg, 2 tab, Route: PO, Drug form: CHEWTAB, PRN, Dosing Weight 82.045, kg, P RN Abnormal Lab Result, FOR ICU USE ONLY, Start date: 07/29/16 6:54:00 OPERATIONS LEAD, Dura tion: 30 day, Stop date: 09/27/16 6:53:00 OPERATIONS LEAD Notes: (Same As: Evaristo)Calcium Carbonate 500 wl=862 mg elemental calcium Dose=_ mg calcium carbonate ( mg elemental calcium) Start Date: 07/29/16 Stop Date: 08/26/16 Status: Discontinued calcium carbonate 500 mg (200 mg elemental calcium) oral tablet 500 mg=1 tab, PO, PRN, PRN Abnormal Lab Result, 0 Refill(s) Start Date: 08/25/16 Status: Ordered calcium gluconate + sodium chloride 0.9% INJ 50 mL 1 gm, 10 mL, Route: IVPB, PRN, Dosing Weight 82.045, kg, PRN Abnormal Lab Result , Start date: 07/29/16 6:54:00 OPERATIONS LEAD, Duration: 30 day, Stop date: 09/27/16 6:53:0 0 OPERATIONS LEAD, FOR ICU USE ONLY Notes: WASTE: F/P - Sink; E - Municipal Trash Bin Start Date: 07/29/16 Stop Date: 08/26/16 Status: Discontinued Cathflo Activase 2 mg injection 2 mg, 2 mL, Route: IV, Drug form: INJ, ONCE, Dosing Weight 82.045, kg, Start boris e: 08/03/16 12:21:00 OPERATIONS LEAD, Stop date: 08/03/16 12:21:00 OPERATIONS LEAD Notes: "Syringe for catheter clearance or interventional radiology use.Reconstit tolowa dee-ni' each vial of Cathflo Activase with 2.2 ml Sterile Water resulting in a 1 mg/ ml solution. Stable for 8 hours only. (Same as: Activase) MEDICATION WASTE * Product Size: 2 mgProduct Wasted: _0__ mg Start Date: 08/03/16 Stop Date: 08/03/16 Status: Completed Cathflo Activase 2 mg injection 4 mg, 4 mL, Route: INJ, Drug form: INJ, ONCE, Dosing Weight 82.045, kg, x 2 port s, Priority: NOW, Start date: 08/18/16 0:36:00 OPERATIONS LEAD, Stop date: 08/18/16 0:36:00 OPERATIONS LEAD Notes: "Syringe for catheter clearance or interventional radiology use.Reconstit tolowa dee-ni' each vial of Cathflo Activase with 2.2 ml Sterile Water resulting in a 1 mg/ ml solution. Stable for 8 hours only. (Same as: Activase) MEDICATION WASTE * Product Size: 2 mgProduct Wasted: ___ mg Start Date: 08/18/16 Stop Date: 08/18/16 Status: Completed ceFAZolin 2 gm, 100 mL, Route: IVPB, Drug form: INJ, ABXQ8H, Dosing Weight 82.045, kg, Sta rt date: 07/30/16 12:00:00 OPERATIONS LEAD, Duration: 30 day, Stop date: 08/29/16 4:00:00 CS T Notes: Same as: Ancef Start Date: 07/30/16 Stop Date: 08/07/16 Status: Discontinued ceFAZolin 2 gm, 100 mL, Route: IVPB, Drug form: INJ, ABXQ8H, Dosing Weight 82.045, kg, Sta rt date: 08/15/16 23:00:00 OPERATIONS LEAD, Duration: 30 day, Stop date: 09/14/16 15:00:[address] Notes: Same as: Ancef Start Date: 08/15/16 Stop Date: 08/18/16 Status: Discontinued cefepime 1 gm, Route: IVPB, ONCE, Dosing Weight 86.364, kg, Priority: STAT, Start date: 09/26/15 12:55:00 OPERATIONS LEAD, Stop date: 07/26/16 12:55:00 OPERATIONS LEAD Start Date: 07/26/16 Stop Date: 07/26/16 Status: Discontinued Dextrose 50% Syringe 25 gm, 50 mL, Route: IVP, Drug Form: INJ, Dosing Weight 82.045, kg, PRN, PRN Blo od Glucose Results, Start date: 08/19/16 19:04:00 OPERATIONS LEAD, Duration: 30 day, Stop da te: 09/18/16 19:03:00 OPERATIONS LEAD Start Date: 08/19/16 Stop Date: 08/26/16 Status: Discontinued Dextrose 50% Syringe 12.5 gm, 25 mL, Route: IVP, Drug Form: INJ, Dosing Weight 82.045, kg, PRN, PRN B lood Glucose Results, Start date: 08/19/16 19:04:00 OPERATIONS LEAD, Duration: 30 day, Stop date: 09/18/16 19:03:00 OPERATIONS LEAD Start Date: 08/19/16 Stop Date: 08/26/16 Status: Discontinued Dextrose 50% Syringe 25 gm, 50 mL, Route: IVP, Drug Form: INJ, Dosing Weight 82.045, kg, PRN, PRN Blo od Glucose Results, Start date: 08/11/16 9:15:00 OPERATIONS LEAD, Duration: 30 day, Stop boris e: 09/10/16 9:14:00 OPERATIONS LEAD Start Date: 08/11/16 Stop Date: 08/18/16 Status: Discontinued Dextrose 50% Syringe 12.5 gm, 25 mL, Route: IVP, Drug Form: INJ, Dosing Weight 82.045, kg, PRN, PRN B lood Glucose Results, Start date: 08/11/16 9:15:00 OPERATIONS LEAD, Duration: 30 day, Stop d ate: 09/10/16 9:14:00 OPERATIONS LEAD Start Date: 08/11/16 Stop Date: 08/18/16 Status: Discontinued Dextrose 50% Syringe 25 gm, 50 mL, Route: IVP, Drug Form: INJ, Dosing Weight 86.364, kg, PRN, PRN Blo od Glucose Results, Start date: 07/26/16 16:47:00 OPERATIONS LEAD, Duration: 30 day, Stop da te: 08/25/16 16:46:00 OPERATIONS LEAD Start Date: 07/26/16 Stop Date: 07/27/16 Status: Discontinued Dextrose 50% Syringe 12.5 gm, 25 mL, Route: IVP, Drug Form: INJ, Dosing Weight 86.364, kg, PRN, PRN B lood Glucose Results, Start date: 07/26/16 16:47:00 OPERATIONS LEAD, Duration: 30 day, Stop date: 08/25/16 16:46:00 OPERATIONS LEAD Start Date: 07/26/16 Stop Date: 07/27/16 Status: Discontinued Dextrose 50% Syringe 25 gm, 50 mL, Route: IVP, Drug Form: INJ, Dosing Weight 82.045, kg, PRN, PRN Blo od Glucose Results, Start date: 08/18/16 0:35:00 OPERATIONS LEAD, Duration: 30 day, Stop boris e: 09/17/16 0:34:00 OPERATIONS LEAD Start Date: 08/18/16 Stop Date: 08/19/16 Status: Discontinued Dextrose 50% Syringe 12.5 gm, 25 mL, Route: IVP, Drug Form: INJ, Dosing Weight 82.045, kg, PRN, PRN B lood Glucose Results, Start date: 08/18/16 0:35:00 OPERATIONS LEAD, Duration: 30 day, Stop d ate: 09/17/16 0:34:00 OPERATIONS LEAD Start Date: 08/18/16 Stop Date: 08/19/16 Status: Discontinued Dextrose 50% Syringe 12.5 gm, 25 mL, Route: IVP, Drug Form: INJ, Dosing Weight 82.045, kg, PRN, PRN B lood Glucose Results, Start date: 07/27/16 15:57:00 OPERATIONS LEAD, Duration: 30 day, Stop date: 08/26/16 15:56:00 OPERATIONS LEAD Start Date: 07/27/16 Stop Date: 08/03/16 Status: Discontinued Dextrose 50% Syringe 25 gm, 50 mL, Route: IVP, Drug Form: INJ, Dosing Weight 82.045, kg, PRN, PRN Blo od Glucose Results, Start date: 07/27/16 15:57:00 OPERATIONS LEAD, Duration: 30 day, Stop da te: 08/26/16 15:56:00 OPERATIONS LEAD Start Date: 07/27/16 Stop Date: 08/03/16 Status: Discontinued Dextrose 50% Syringe 25 gm, 50 mL, Route: IVP, Drug Form: INJ, Dosing Weight 82.045, kg, PRN, PRN Blo od Glucose Results, Start date: 08/03/16 12:24:00 OPERATIONS LEAD, Duration: 30 day, Stop da te: 09/02/16 12:23:00 OPERATIONS LEAD Start Date: 08/03/16 Stop Date: 08/13/16 Status: Discontinued Dextrose 50% Syringe 12.5 gm, 25 mL, Route: IVP, Drug Form: INJ, Dosing Weight 82.045, kg, PRN, PRN B lood Glucose Results, Start date: 08/03/16 12:24:00 OPERATIONS LEAD, Duration: 30 day, Stop date: 09/02/16 12:23:00 OPERATIONS LEAD Start Date: 08/03/16 Stop Date: 08/13/16 Status: Discontinued Dulcolax Laxative 10 mg, 1 supp, Route: FL, Drug form: SUPP, ONCE, Dosing Weight 82.045, kg, Start date: 08/07/16 21:00:00 OPERATIONS LEAD, Stop date: 08/07/16 21:00:00 OPERATIONS LEAD Notes: (Same As: Dulcolax, Bisco-Lax) Start Date: 08/07/16 Stop Date: 08/07/16 Status: Completed DuoNeb inhalation solution 3 ml, Route: NEB, Drug Form: SOLN, Dosing Weight 82.045, kg, PRN, PRN Respirator y Protocol, Start date: 08/03/16 21:44:00 OPERATIONS LEAD, Duration: 30 day, Stop date: 08/13 09/28 21:43:00 OPERATIONS LEAD Notes: (Same as: Duoneb) Start Date: 08/03/16 Stop Date: 08/26/16 Status: Discontinued DuoNeb inhalation solution 3 mL, NEB, PRN, PRN Respiratory Protocol, 0 Refill(s) Start Date: 08/25/16 Status: Ordered etomidate 10 mg, 5 mL, Route: IV, Drug form: INJ, ONCE, Dosing Weight 82.045, kg, Start da te: 07/27/16 16:03:00 OPERATIONS LEAD, Stop date: 07/27/16 16:03:00 OPERATIONS LEAD Notes: (Same as: Amidate). Per state nursing law etomidate can only be given by a nurse if patient is intubated or being intubated (unless the nurse is a [employer] SOFTWARE TEST ENGINEER). Start Date: 07/27/16 Stop Date: 07/27/16 Status: Completed famotidine 20 mg, 2 mL, Route: IVP, Drug form: INJ, Q12H, Dosing Weight 82.045, kg, Start d ate: 08/23/16 21:00:00 OPERATIONS LEAD, Duration: 30 day, Stop date: 09/22/16 9:00:00 OPERATIONS LEAD Notes: (Same as: Pepcid)Can be dilute in 5-10cc NS IVP: Slow IV push over at le ast 2 minutes. Start Date: 08/23/16 Stop Date: 08/26/16 Status: Discontinued famotidine 20 mg, 2 mL, Route: IVP, Drug form: INJ, Daily, Dosing Weight 82.045, kg, Start date: 08/02/16 15:00:00 OPERATIONS LEAD, Duration: 30 day, Stop date: 09/01/16 9:00:00 OPERATIONS LEAD Notes: (Same as: Pepcid)Can be dilute in 5-10cc NS IVP: Slow IV push over at le ast 2 minutes. Start Date: 08/02/16 Stop Date: 08/10/16 Status: Discontinued famotidine 20 mg, 1 tab, Route: NG, Drug form: TAB, Daily, Dosing Weight 82.045, kg, Start date: 08/11/16 9:00:00 OPERATIONS LEAD, Duration: 30 day, Stop date: 09/09/16 9:00:00 OPERATIONS LEAD Notes: (Same as: Pepcid) Start Date: 08/11/16 Stop Date: 08/18/16 Status: Discontinued famotidine 20 mg, 2 mL, Route: IVP, Drug form: INJ, Daily, Dosing Weight 82.045, kg, Priori ty: NOW, Start date: 08/18/16 9:40:00 OPERATIONS LEAD, Duration: 30 day, Stop date: 09/17/16 9:00:00 OPERATIONS LEAD Notes: (Same as: Pepcid)Can be dilute in 5-10cc NS IVP: Slow IV push over at le ast 2 minutes. Start Date: 08/18/16 Stop Date: 08/23/16 Status: Discontinued famotidine 10 mg/mL intravenous solution 20 mg=2 mL, IVP, Q12H, 0 Refill(s) Start Date: 08/25/16 Status: Ordered famotidine 20 mg oral tablet 20 mg, 1 tab, Route: PO, Drug form: TAB, BID, Dosing Weight 82.045, kg, Start da te: 07/28/16 9:00:00 OPERATIONS LEAD, Duration: 30 day, Stop date: 08/26/16 17:00:00 OPERATIONS LEAD Notes: (Same as: Pepcid) Start Date: 07/28/16 Stop Date: 07/30/16 Status: Discontinued famotidine 20 mg oral tablet 20 mg, 1 tab, Route: PO, Drug form: TAB, Daily, Dosing Weight 82.045, kg, Start date: 07/31/16 9:00:00 OPERATIONS LEAD, Duration: 30 day, Stop date: 08/29/16 9:00:00 OPERATIONS LEAD Notes: (Same as: Pepcid) Start Date: 07/31/16 Stop Date: 08/02/16 Status: Discontinued fat emulsion, intravenous 250 mL IV, 31.25 ml/hr, Start date: 08/06/16 22:00:00 OPERATIONS LEAD, Duration: 8, 250 ml, 82.045 Notes: (Same as: Intralipid, Liposyn)Infuse through a 1.2 micron filter Start Date: 08/06/16 Stop Date: 08/07/16 Status: Completed fat emulsion, intravenous 250 mL IV, 31.25 ml/hr, Start date: 08/08/16 22:00:00 OPERATIONS LEAD, Duration: 8, 250 ml, 82.045 Start Date: 08/08/16 Stop Date: 08/09/16 Status: Completed fat emulsion, intravenous 250 mL IV, 31.25 ml/hr, Start date: 08/03/16 22:00:00 OPERATIONS LEAD, Duration: 8, 250 ml, 82.045 Notes: (Same as: Intralipid, Liposyn)Infuse through a 1.2 micron filter Start Date: 08/03/16 Stop Date: 08/04/16 Status: Completed fentaNYL 50 microgram, 1 mL, Route: IVP, Drug form: INJ, Q2H, Dosing Weight 82.045, kg, P RN Pain Score 6-10, Start date: 08/17/16 13:46:00 OPERATIONS LEAD, Duration: 30 day, Stop da te: 09/16/16 13:45:00 OPERATIONS LEAD Notes: (Same as: Sublimaze) Preservative free. Start Date: 08/17/16 Stop Date: 08/26/16 Status: Discontinued fentaNYL 25 microgram, 0.5 mL, Route: IVP, Drug form: INJ, Q2H, Dosing Weight 82.045, kg, PRN Pain Score 1-5, Start date: 08/17/16 13:46:00 OPERATIONS LEAD, Duration: 30 day, Stop d ate: 09/16/16 13:45:00 OPERATIONS LEAD Notes: (Same as: Sublimaze) Preservative free. Start Date: 08/17/16 Stop Date: 08/26/16 Status: Discontinued fentaNYL (ANES) Route: IV, Drug form: INJ, ONCE, Stop date: 08/20/16 14:43:00 OPERATIONS LEAD Start Date: 08/20/16 Stop Date: 08/20/16 Status: Completed fentaNYL 0.05 mg/mL injectable solution 25 microgram=0.5 mL, IVP, Q2H, PRN Pain Score 1-5, 0 Refill(s) Start Date: 08/25/16 Status: Ordered fentaNYL 5 microgram/ml NS 250ml (Premix) 1,250 microgram 1,250 microgram, 250 mL, Rate: Titrate, Start Dose: 50 microgram/hr, Titration: 25 micrograms/hour every 15 minutes, Goal(s): RASS -1 to -2, Max Dose: 300 micro gram/hr, Route: IV, Dosing Weight 82.045 kg, Total Volume: 250, Start date: 07/12 01/25 16:04:... Notes: Concentration: 5 microgram / ml Start Date: 07/27/16 Stop Date: 08/17/16 Status: Discontinued Flagyl 500 mg, 100 mL, Route: IVPB, Drug form: INJ, ABXQ8H, Dosing Weight 82.045, kg, S tart date: 08/15/16 23:00:00 OPERATIONS LEAD, Duration: 30 day, Stop date: 09/14/16 15:00:00 OPERATIONS LEAD Notes: (Same as: Flagyl) Avoid alcohol. Start Date: 08/15/16 Stop Date: 08/18/16 Status: Discontinued furosemide 10 mg/mL injectable solution 20 mg=2 mL, IVP, Daily, 0 Refill(s) Start Date: 08/25/16 Status: Ordered gentamicin + sodium chloride 0.9% INJ 100 mL 480 mg, 12 mL, Route: IV, ONCE, Dosing Weight 82.045, kg, Start date: 08/17/16 1 5:52:00 OPERATIONS LEAD, Stop date: 08/17/16 15:52:00 OPERATIONS LEAD Notes: TIME CRITICAL MEDICATION(Same as Garamycin) Start Date: 08/17/16 Stop Date: 08/17/16 Status: Completed glucagon 1 mg, Route: IM, Drug form: PDR/INJ, PRN, Dosing Weight 82.045, kg, PRN Blood Gl ucose Results, Start date: 08/19/16 19:04:00 OPERATIONS LEAD, Duration: 30 day, Stop date: 0 09/18/16 19:03:00 OPERATIONS LEAD Start Date: 08/19/16 Stop Date: 08/26/16 Status: Discontinued glucagon 1 mg, Route: IM, Drug form: PDR/INJ, PRN, Dosing Weight 82.045, kg, PRN Blood Gl ucose Results, Start date: 08/11/16 9:15:00 OPERATIONS LEAD, Duration: 30 day, Stop date: 9:14:00 OPERATIONS LEAD Start Date: 08/11/16 Stop Date: 08/18/16 Status: Discontinued glucagon 1 mg, Route: IM, Drug form: PDR/INJ, PRN, Dosing Weight 86.364, kg, PRN Blood Gl ucose Results, Start date: 07/26/16 16:47:00 OPERATIONS LEAD, Duration: 30 day, Stop date: 0 08/25/16 16:46:00 OPERATIONS LEAD Start Date: 07/26/16 Stop Date: 07/27/16 Status: Discontinued glucagon 1 mg, IM, PRN, PRN Blood Glucose Results, 0 Refill(s) Start Date: 08/25/16 Status: Ordered glucagon 1 mg, Route: IM, Drug form: PDR/INJ, PRN, Dosing Weight 82.045, kg, PRN Blood Gl ucose Results, Start date: 08/18/16 0:35:00 OPERATIONS LEAD, Duration: 30 day, Stop date: 0:34:00 OPERATIONS LEAD Start Date: 08/18/16 Stop Date: 08/19/16 Status: Discontinued glucagon 1 mg, Route: IM, Drug form: PDR/INJ, PRN, Dosing Weight 82.045, kg, PRN Blood Gl ucose Results, Start date: 07/27/16 15:57:00 OPERATIONS LEAD, Duration: 30 day, Stop date: 0 08/26/16 15:56:00 OPERATIONS LEAD Start Date: 07/27/16 Stop Date: 08/03/16 Status: Discontinued Haldol 2.5 mg, 0.5 mL, Route: IV, Drug form: INJ, Q6H, Dosing Weight 82.045, kg, PRN as needed for agitation, Priority: STAT, Start date: 07/31/16 15:06:00 OPERATIONS LEAD, Durati on: 30 day, Stop date: 08/30/16 15:05:00 OPERATIONS LEAD Notes: (Same as: Haldol) Start Date: 07/31/16 Stop Date: 08/09/16 Status: Discontinued heparin 5,000 unit, 1 mL, Route: SUB-Q, Drug form: INJ, Q8H, Dosing Weight 82.045, kg, S tart date: 07/28/16 0:00:00 OPERATIONS LEAD, Duration: 30 day, Stop date: 08/26/16 16:00:00 OPERATIONS LEAD Notes: porcine heparin Start Date: 07/28/16 Stop Date: 08/15/16 Status: Voided With Results hydrALAZINE 10 mg, 0.5 mL, Route: IV, Drug form: INJ, Q4H, Dosing Weight 82.045, kg, PRN Hyp ertension, Start date: 08/15/16 13:55:00 OPERATIONS LEAD, Duration: 30 day, Stop date: 09/14 13:54:00 OPERATIONS LEAD Notes: (Same as: Apresoline)Push over 5 minutes Start Date: 08/15/16 Stop Date: 08/26/16 Status: Discontinued hydrALAZINE 10 mg, 0.5 mL, Route: IV, Drug form: INJ, Q4H, Dosing Weight 82.045, kg, PRN Hyp ertension, Start date: 07/31/16 15:06:00 OPERATIONS LEAD, Duration: 30 day, Stop date: 08/30 15:05:00 OPERATIONS LEAD Notes: (Same as: Apresoline)Push over 5 minutes Start Date: 07/31/16 Stop Date: 08/15/16 Status: Voided With Results insulin aspart 4 unit, 0.04 mL, Route: SUB-Q, Drug form: SOLN, Sliding Scale, Dosing Weight 82. 045, kg, PRN Blood Glucose Results, Start date: 08/19/16 19:04:00 OPERATIONS LEAD, Duration: 30 day, Stop date: 09/18/16 19:03:00 OPERATIONS LEAD Notes: Roll in palms of hands gently; Do not shake vigorously. (Same as: Meghan Addison)"single patient use only"WASTE: F/P - Black; E - Municipal Trash Bin Stable f or 28 days at room temperature.Expires in days from Date Start Date: 08/19/16 Stop Date: 08/26/16 Status: Discontinued insulin aspart 10 unit, 0.1 mL, Route: SUB-Q, Drug form: SOLN, Sliding Scale, Dosing Weight 82. 045, kg, PRN Blood Glucose Results, Start date: 08/19/16 19:04:00 OPERATIONS LEAD, Duration: 30 day, Stop date: 09/18/16 19:03:00 OPERATIONS LEAD Notes: Roll in palms of hands gently; Do not shake vigorously. (Same as: Meghan Addison)"single patient use only"WASTE: F/P - Black; E - Municipal Trash Bin Stable f or 28 days at room temperature.Expires in days from Date Start Date: 08/19/16 Stop Date: 08/26/16 Status: Discontinued insulin aspart 6 unit, 0.06 mL, Route: SUB-Q, Drug form: SOLN, Sliding Scale, Dosing Weight 82. 045, kg, PRN Blood Glucose Results, Start date: 08/19/16 19:04:00 OPERATIONS LEAD, Duration: 30 day, Stop date: 09/18/16 19:03:00 OPERATIONS LEAD Notes: Roll in palms of hands gently; Do not shake vigorously. (Same as: Meghan Addison)"single patient use only"WASTE: F/P - Black; E - Municipal Trash Bin Stable f or 28 days at room temperature.Expires in days from Date Start Date: 08/19/16 Stop Date: 08/26/16 Status: Discontinued insulin aspart 8 unit, 0.08 mL, Route: SUB-Q, Drug form: SOLN, Sliding Scale, Dosing Weight 82. 045, kg, PRN Blood Glucose Results, Start date: 08/19/16 19:04:00 OPERATIONS LEAD, Duration: 30 day, Stop date: 09/18/16 19:03:00 OPERATIONS LEAD Notes: Roll in palms of hands gently; Do not shake vigorously. (Same as: Meghan Addison)"single patient use only"WASTE: F/P - Black; E - Municipal Trash Bin Stable f or 28 days at room temperature.Expires in days from Date Start Date: 08/19/16 Stop Date: 08/26/16 Status: Discontinued insulin aspart 2 unit, 0.02 mL, Route: SUB-Q, Drug form: SOLN, Sliding Scale, Dosing Weight 82. 045, kg, PRN Blood Glucose Results, Start date: 08/19/16 19:04:00 OPERATIONS LEAD, Duration: 30 day, Stop date: 09/18/16 19:03:00 OPERATIONS LEAD Notes: Roll in palms of hands gently; Do not shake vigorously. (Same as: Meghan Addison)"single patient use only"WASTE: F/P - Black; E - Municipal Trash Bin Stable f or 28 days at room temperature.Expires in days from Date Start Date: 08/19/16 Stop Date: 08/26/16 Status: Discontinued insulin aspart 2 unit, 0.02 mL, Route: SUB-Q, Drug form: SOLN, Bedtime, Dosing Weight 86.364, k g, PRN Blood Glucose Results, Start date: 07/26/16 16:47:00 OPERATIONS LEAD, Duration: 30 da y, Stop date: 08/25/16 16:46:00 OPERATIONS LEAD Notes: Roll in palms of hands gently; Do not shake vigorously. (Same as: Meghan Addison)"single patient use only"WASTE: F/P - Black; E - Municipal Trash Bin Stable f or 28 days at room temperature.Expires in days from Date Start Date: 07/26/16 Stop Date: 07/27/16 Status: Discontinued insulin aspart 3 unit, 0.03 mL, Route: SUB-Q, Drug form: SOLN, Bedtime, Dosing Weight 86.364, k g, PRN Blood Glucose Results, Start date: 07/26/16 16:47:00 OPERATIONS LEAD, Duration: 30 da y, Stop date: 08/25/16 16:46:00 OPERATIONS LEAD Notes: Roll in palms of hands gently; Do not shake vigorously. (Same as: Meghan Addison)"single patient use only"WASTE: F/P - Black; E - Municipal Trash Bin Stable f or 28 days at room temperature.Expires in days from Date Start Date: 07/26/16 Stop Date: 07/27/16 Status: Discontinued insulin aspart 4 unit, 0.04 mL, Route: SUB-Q, Drug form: SOLN, Bedtime, Dosing Weight 86.364, k g, PRN Blood Glucose Results, Start date: 07/26/16 16:47:00 OPERATIONS LEAD, Duration: 30 da y, Stop date: 08/25/16 16:46:00 OPERATIONS LEAD Notes: Roll in palms of hands gently; Do not shake vigorously. (Same as: Meghan Addison)"single patient use only"WASTE: F/P - Black; E - Municipal Trash Bin Stable f or 28 days at room temperature.Expires in days from Date Start Date: 07/26/16 Stop Date: 07/27/16 Status: Discontinued insulin aspart 1 unit, 0.01 mL, Route: SUB-Q, Drug form: SOLN, Bedtime, Dosing Weight 86.364, k g, PRN Blood Glucose Results, Start date: 07/26/16 16:47:00 OPERATIONS LEAD, Duration: 30 da y, Stop date: 08/25/16 16:46:00 OPERATIONS LEAD Notes: Roll in palms of hands gently; Do not shake vigorously. (Same as: Meghan Addison)"single patient use only"WASTE: F/P - Black; E - Municipal Trash Bin Stable f or 28 days at room temperature.Expires in days from Date Start Date: 07/26/16 Stop Date: 07/27/16 Status: Discontinued insulin aspart 2 unit, 0.02 mL, Route: SUB-Q, Drug form: SOLN, TID-Before Meals, Dosing Weight 86.364, kg, PRN Blood Glucose Results, Start date: 07/26/16 16:47:00 OPERATIONS LEAD, Durati on: 30 day, Stop date: 08/25/16 16:46:00 OPERATIONS LEAD Notes: Roll in palms of hands gently; Do not shake vigorously. (Same as: Meghan Addison)"single patient use only"WASTE: F/P - Black; E - Municipal Trash Bin Stable f or 28 days at room temperature.Expires in days from Date Start Date: 07/26/16 Stop Date: 07/27/16 Status: Discontinued insulin aspart 4 unit, 0.04 mL, Route: SUB-Q, Drug form: SOLN, TID-Before Meals, Dosing Weight 86.364, kg, PRN Blood Glucose Results, Start date: 07/26/16 16:47:00 OPERATIONS LEAD, Durati on: 30 day, Stop date: 08/25/16 16:46:00 OPERATIONS LEAD Notes: Roll in palms of hands gently; Do not shake vigorously. (Same as: Meghan Addison)"single patient use only"WASTE: F/P - Black; E - Municipal Trash Bin Stable f or 28 days at room temperature.Expires in days from Date Start Date: 07/26/16 Stop Date: 07/27/16 Status: Discontinued insulin aspart 6 unit, 0.06 mL, Route: SUB-Q, Drug form: SOLN, TID-Before Meals, Dosing Weight 86.364, kg, PRN Blood Glucose Results, Start date: 07/26/16 16:47:00 OPERATIONS LEAD, Durati on: 30 day, Stop date: 08/25/16 16:46:00 OPERATIONS LEAD Notes: Roll in palms of hands gently; Do not shake vigorously. (Same as: Meghan Addison)"single patient use only"WASTE: F/P - Black; E - Municipal Trash Bin Stable f or 28 days at room temperature.Expires in days from Date Start Date: 07/26/16 Stop Date: 07/27/16 Status: Discontinued insulin aspart 8 unit, 0.08 mL, Route: SUB-Q, Drug form: SOLN, TID-Before Meals, Dosing Weight 86.364, kg, PRN Blood Glucose Results, Start date: 07/26/16 16:47:00 OPERATIONS LEAD, Durati on: 30 day, Stop date: 08/25/16 16:46:00 OPERATIONS LEAD Notes: Roll in palms of hands gently; Do not shake vigorously. (Same as: Meghan Addison)"single patient use only"WASTE: F/P - Black; E - Municipal Trash Bin Stable f or 28 days at room temperature.Expires in days from Date Start Date: 07/26/16 Stop Date: 07/27/16 Status: Discontinued insulin aspart 10 unit, 0.1 mL, Route: SUB-Q, Drug form: SOLN, TID-Before Meals, Dosing Weight 86.364, kg, PRN Blood Glucose Results, Start date: 07/26/16 16:47:00 OPERATIONS LEAD, Durati on: 30 day, Stop date: 08/25/16 16:46:00 OPERATIONS LEAD Notes: Roll in palms of hands gently; Do not shake vigorously. (Same as: Meghan Addison)"single patient use only"WASTE: F/P - Black; E - Municipal Trash Bin Stable f or 28 days at room temperature.Expires in days from Date Start Date: 07/26/16 Stop Date: 07/27/16 Status: Discontinued insulin aspart 10 unit, SUB-Q, Sliding Scale, PRN Blood Glucose Results, 0 Refill(s) Start Date: 08/25/16 Status: Ordered insulin aspart 8 unit, SUB-Q, Sliding Scale, PRN Blood Glucose Results, 0 Refill(s) Start Date: 08/25/16 Status: Ordered insulin aspart 4 unit, SUB-Q, Sliding Scale, PRN Blood Glucose Results, 0 Refill(s) Start Date: 08/25/16 Status: Ordered insulin aspart 6 unit, SUB-Q, Sliding Scale, PRN Blood Glucose Results, 0 Refill(s) Start Date: 08/25/16 Status: Ordered insulin aspart 2 unit, SUB-Q, Sliding Scale, PRN Blood Glucose Results, 0 Refill(s) Start Date: 08/25/16 Status: Ordered insulin aspart 2 unit, 0.02 mL, Route: SUB-Q, Drug form: SOLN, Sliding Scale, Dosing Weight 82. 045, kg, PRN Blood Glucose Results, Start date: 08/18/16 0:35:00 OPERATIONS LEAD, Duration: 30 day, Stop date: 09/17/16 0:34:00 OPERATIONS LEAD Notes: Roll in palms of hands gently; Do not shake vigorously. (Same as: Meghan Addison)"single patient use only"WASTE: F/P - Black; E - Municipal Trash Bin Stable f or 28 days at room temperature.Expires in days from Date Start Date: 08/18/16 Stop Date: 08/19/16 Status: Discontinued insulin aspart 3 unit, 0.03 mL, Route: SUB-Q, Drug form: SOLN, Sliding Scale, Dosing Weight 82. 045, kg, PRN Blood Glucose Results, Start date: 08/18/16 0:35:00 OPERATIONS LEAD, Duration: 30 day, Stop date: 09/17/16 0:34:00 OPERATIONS LEAD Notes: Roll in palms of hands gently; Do not shake vigorously. (Same as: Meghan Addison)"single patient use only"WASTE: F/P - Black; E - Municipal Trash Bin Stable f or 28 days at room temperature.Expires in days from Date Start Date: 08/18/16 Stop Date: 08/19/16 Status: Discontinued insulin aspart 1 unit, 0.01 mL, Route: SUB-Q, Drug form: SOLN, Sliding Scale, Dosing Weight 82. 045, kg, PRN Blood Glucose Results, Start date: 08/18/16 0:35:00 OPERATIONS LEAD, Duration: 30 day, Stop date: 09/17/16 0:34:00 OPERATIONS LEAD Notes: Roll in palms of hands gently; Do not shake vigorously. (Same as: NovoROSE Addison)"single patient use only"WASTE: F/P - Black; E - Municipal Trash Bin Stable f or 28 days at room temperature.Expires in days from Date Start Date: 08/18/16 Stop Date: 08/19/16 Status: Discontinued insulin aspart 5 unit, 0.05 mL, Route: SUB-Q, Drug form: SOLN, Sliding Scale, Dosing Weight 82. 045, kg, PRN Blood Glucose Results, Start date: 08/18/16 0:35:00 OPERATIONS LEAD, Duration: 30 day, Stop date: 09/17/16 0:34:00 OPERATIONS LEAD Notes: Roll in palms of hands gently; Do not shake vigorously. (Same as: NovoROSE Addison)"single patient use only"WASTE: F/P - Black; E - Municipal Trash Bin Stable f or 28 days at room temperature.Expires in days from Date Start Date: 08/18/16 Stop Date: 08/19/16 Status: Discontinued insulin aspart 4 unit, 0.04 mL, Route: SUB-Q, Drug form: SOLN, Sliding Scale, Dosing Weight 82. 045, kg, PRN Blood Glucose Results, Start date: 08/18/16 0:35:00 OPERATIONS LEAD, Duration: 30 day, Stop date: 09/17/16 0:34:00 OPERATIONS LEAD Notes: Roll in palms of hands gently; Do not shake vigorously. (Same as: NovoROSE Adidson)"single patient use only"WASTE: F/P - Black; E - Municipal Trash Bin Stable f or 28 days at room temperature.Expires in days from Date Start Date: 08/18/16 Stop Date: 08/19/16 Status: Discontinued insulin aspart 15 unit, 0.15 mL, Route: SUB-Q, Drug form: SOLN, Sliding Scale, Dosing Weight 82 .045, kg, PRN Blood Glucose Results, Start date: 07/27/16 15:57:00 OPERATIONS LEAD, Duration : 30 day, Stop date: 08/26/16 15:56:00 OPERATIONS LEAD Notes: Roll in palms of hands gently; Do not shake vigorously. (Same as: Meghan Addison)"single patient use only"WASTE: F/P - Black; E - Municipal Trash Bin Stable f or 28 days at room temperature.Expires in days from Date Start Date: 07/27/16 Stop Date: 08/03/16 Status: Discontinued insulin aspart 9 unit, 0.09 mL, Route: SUB-Q, Drug form: SOLN, Sliding Scale, Dosing Weight 82. 045, kg, PRN Blood Glucose Results, Start date: 07/27/16 15:57:00 OPERATIONS LEAD, Duration: 30 day, Stop date: 08/26/16 15:56:00 OPERATIONS LEAD Notes: Roll in palms of hands gently; Do not shake vigorously. (Same as: Meghan Addison)"single patient use only"WASTE: F/P - Black; E - Municipal Trash Bin Stable f or 28 days at room temperature.Expires in days from Date Start Date: 07/27/16 Stop Date: 08/03/16 Status: Discontinued insulin aspart 12 unit, 0.12 mL, Route: SUB-Q, Drug form: SOLN, Sliding Scale, Dosing Weight 82 .045, kg, PRN Blood Glucose Results, Start date: 07/27/16 15:57:00 OPERATIONS LEAD, Duration : 30 day, Stop date: 08/26/16 15:56:00 OPERATIONS LEAD Notes: Roll in palms of hands gently; Do not shake vigorously. (Same as: NovoROSE G)"single patient use only"WASTE: F/P - Black; E - Municipal Trash Bin Stable f or 28 days at room temperature.Expires in days from Date Start Date: 07/27/16 Stop Date: 08/03/16 Status: Discontinued insulin aspart 6 unit, 0.06 mL, Route: SUB-Q, Drug form: SOLN, Sliding Scale, Dosing Weight 82. 045, kg, PRN Blood Glucose Results, Start date: 07/27/16 15:57:00 OPERATIONS LEAD, Duration: 30 day, Stop date: 08/26/16 15:56:00 OPERATIONS LEAD Notes: Roll in palms of hands gently; Do not shake vigorously. (Same as: NovoROSE Addison)"single patient use only"WASTE: F/P - Black; E - Municipal Trash Bin Stable f or 28 days at room temperature.Expires in days from Date Start Date: 07/27/16 Stop Date: 08/03/16 Status: Discontinued insulin aspart 3 unit, 0.03 mL, Route: SUB-Q, Drug form: SOLN, Sliding Scale, Dosing Weight 82. 045, kg, PRN Blood Glucose Results, Start date: 07/27/16 15:57:00 OPERATIONS LEAD, Duration: 30 day, Stop date: 08/26/16 15:56:00 OPERATIONS LEAD Notes: Roll in palms of hands gently; Do not shake vigorously. (Same as: Meghan Addison)"single patient use only"WASTE: F/P - Black; E - Municipal Trash Bin Stable f or 28 days at room temperature.Expires in days from Date Start Date: 07/27/16 Stop Date: 08/03/16 Status: Discontinued insulin isophane (NPH) 100 units/mL human recombinant subcutaneous suspension 8 unit, SUB-Q, BID, 0 Refill(s) Start Date: 08/25/16 Status: Ordered insulin isophane-NPH 8 unit, 0.08 mL, Route: SUB-Q, Drug form: INJ, BID, Dosing Weight 82.045, kg, St art date: 08/11/16 9:28:00 OPERATIONS LEAD, Duration: 30 day, Stop date: 09/10/16 9:00:00 CS T Notes: Roll in palms of hands gently; Do not shake vigorously. (Same as: NovoLI N N, Humulin N)Do not hold insulin without contacting prescriber"single patient use only"WASTE: F/P - Black; E - Municipal Trash Bin Stable for 14 days at room temperatureExpires in days from Date Start Date: 08/11/16 Stop Date: 08/26/16 Status: Discontinued insulin isophane-NPH 22 unit, 0.22 mL, Route: SUB-Q, Drug form: INJ, Q12H, Dosing Weight 82.045, kg, Start date: 07/27/16 21:00:00 OPERATIONS LEAD, Stop date: 08/26/16 9:00:00 OPERATIONS LEAD Notes: Roll in palms of hands gently; Do not shake vigorously. (Same as: NovoLI N N, Humulin N)Do not hold insulin without contacting prescriber"single patient use only"WASTE: F/P - Black; E - Municipal Trash Bin Stable for 14 days at room temperatureExpires in days from Date Start Date: 07/27/16 Stop Date: 08/03/16 Status: Discontinued insulin isophane-NPH 10 unit, 0.1 mL, Route: SUB-Q, Drug form: INJ, ONCE, Dosing Weight 82.045, kg, P riority: STAT, Start date: 08/01/16 9:52:00 OPERATIONS LEAD, Stop date: 08/01/16 9:52:00 OPERATIONS LEAD Notes: Roll in palms of hands gently; Do not shake vigorously. (Same as: NovoLI N N, Humulin N)Do not hold insulin without contacting prescriber"single patient use only"WASTE: F/P - Black; E - Municipal Trash Bin Stable for 14 days at room temperatureExpires in days from Date Start Date: 08/01/16 Stop Date: 08/01/16 Status: Completed Insulin regular 100 unit + sodium chloride 0.9% INJ 99 mL 99 mL, Rate: Start Insulin Drip Per ICU Protocol, Dosing Weight 82.045, kg, Rout e: IVPB, Total Volume: 100, Start Date: 08/03/16 12:24:00 OPERATIONS LEAD, Duration: 30 day, Stop date: 09/02/16 12:23:00 OPERATIONS LEAD, Replace Every: 24 hr Notes: (Same as: Humulin R and NovoLIN R)WASTE: F/P - Black; E - Municipal Trash Bin (Do not shake) Start Date: 08/03/16 Stop Date: 08/11/16 Status: Discontinued labetalol 10 mg, 2 mL, Route: IV, Drug form: INJ, Q6H, Dosing Weight 82.045, kg, PRN Hyper tension, Start date: 08/15/16 13:55:00 OPERATIONS LEAD, Duration: 30 day, Stop date: 7 13:54:00 OPERATIONS LEAD Notes: (Same as: Normodyne, Trandate)Push over 2 minutes Give bolus over 2-3 mi nutes. Start Date: 08/15/16 Stop Date: 08/26/16 Status: Discontinued labetalol 10 mg, 2 mL, Route: IV, Drug form: INJ, Q6H, Dosing Weight 82.045, kg, PRN Hyper tension, Start date: 07/31/16 15:06:00 OPERATIONS LEAD, Duration: 30 day, Stop date: 7 15:05:00 OPERATIONS LEAD Notes: (Same as: Normodyne, Trandate)Push over 2 minutes Give bolus over 2-3 mi nutes. Start Date: 07/31/16 Stop Date: 08/15/16 Status: Voided With Results Lactated Ringers 1,000 mL 1,000 mL, Rate: 100 ml/hr, Infuse over: 10 hr, Route: IV, Dosing Weight 86.364 k g, Total Volume: 1,000, Start date: 07/26/16 16:40:00 OPERATIONS LEAD, Duration: 20 hr, Stop date: 07/27/16 12:39:00 OPERATIONS LEAD Start Date: 07/26/16 Stop Date: 07/27/16 Status: Completed Lasix 20 mg, 2 mL, Route: IVP, Drug form: INJ, Q12H, Dosing Weight 82.045, kg, Start d ate: 07/29/16 15:04:00 OPERATIONS LEAD, Duration: 30 day, Stop date: 09/27/16 9:00:00 OPERATIONS LEAD Notes: (Same as: Lasix) Start Date: 07/29/16 Stop Date: 08/24/16 Status: Discontinued Lasix 20 mg, 2 mL, Route: IVP, Drug form: INJ, Daily, Dosing Weight 82.045, kg, Start date: 08/25/16 9:00:00 OPERATIONS LEAD, Duration: 30 day, Stop date: 09/23/16 9:00:00 OPERATIONS LEAD Notes: (Same as: Lasix) Start Date: 08/25/16 Stop Date: 08/26/16 Status: Discontinued Lasix 20 mg, 2 mL, Route: IVP, Drug form: INJ, ONCE, Dosing Weight 82.045, kg, Start d ate: 07/27/16 11:08:00 OPERATIONS LEAD, Stop date: 07/27/16 11:08:00 OPERATIONS LEAD Notes: (Same as: Lasix) Start Date: 07/27/16 Stop Date: 07/27/16 Status: Completed LR 1000 mL INJ (ANES) Route: IV, Total Volume: 1,000, Start date: 08/20/16 13:47:00 OPERATIONS LEAD, Stop date: 14:47:00 OPERATIONS LEAD Start Date: 08/20/16 Stop Date: 08/20/16 Status: Completed magnesium oxide 800 mg, 2 tab, Route: PO, Drug form: TAB, PRN, Dosing Weight 82.045, kg, PRN Abn ormal Lab Result, FOR ICU USE ONLY, Start date: 07/29/16 6:54:00 OPERATIONS LEAD, Duration: 30 day, Stop date: 09/27/16 6:53:00 OPERATIONS LEAD Notes: (Same as: Mag-Ox 400)Magnesium oxide [id number] elemental magnesiumDose= ____mg magnesium oxide (___mg elemental magnesium) Start Date: 07/29/16 Stop Date: 08/26/16 Status: Discontinued magnesium oxide 400 mg oral tablet 800 mg=2 tab, PO, PRN, PRN Abnormal Lab Result, 0 Refill(s) Start Date: 08/25/16 Status: Ordered magnesium sulfate 2 gm, 50 mL, Route: IVPB, Drug form: INJ, PRN, Dosing Weight 82.045, kg, PRN Abn ormal Lab Result, Start date: 07/29/16 6:54:00 OPERATIONS LEAD, Duration: 30 day, Stop date: 09/27/16 6:53:00 OPERATIONS LEAD, FOR ICU USE ONLY Notes: WASTE: F/P - Sink; E - Municipal Trash Bin Start Date: 07/29/16 Stop Date: 08/26/16 Status: Discontinued meropenem + sodium chloride 0.9% INJ 100 mL 500 mg, Route: IVPB, Drug form: PDR/INJ, ABXQ6H, Dosing Weight 82.045, kg, CrCL >=50ml/min, Extended infusion, infuse over 3 hours, Priority: NOW, Start date: 08/18/16 21:16:00 OPERATIONS LEAD, Duration: 30 day, Stop date: 09/17/16 15:16:00 OPERATIONS LEAD Notes: Same as Merrem MEDICATION WASTE Product Size: 500 mgProduct Wast ed: ___ mg Start Date: 08/18/16 Stop Date: 08/26/16 Status: Discontinued metoclopramide (ANES) Route: IV, Drug form: INJ, ONCE, Stop date: 08/20/16 14:48:00 OPERATIONS LEAD Start Date: 08/20/16 Stop Date: 08/20/16 Status: Completed metoprolol 5 mg/5 ml INJ 5 mg, Route: IV, ONCE, Dosing Weight 82.045, kg, Priority: STAT, Start date: 06/28 15:06:00 OPERATIONS LEAD, Stop date: 08/22/16 15:06:00 OPERATIONS LEAD Start Date: 08/22/16 Stop Date: 08/22/16 Status: Completed metoprolol tartrate 50 mg, 1 tab, Route: PEG, Drug form: TAB, Q8H, Dosing Weight 82.045, kg, Start d ate: 08/22/16 14:48:00 OPERATIONS LEAD, Stop date: 09/21/16 8:00:00 OPERATIONS LEAD Notes: (Same as: Lopressor) Start Date: 08/22/16 Stop Date: 08/26/16 Status: Discontinued metoprolol tartrate 50 mg oral tablet 50 mg=1 tab, PEG, Q8H, 0 Refill(s) Start Date: 08/25/16 Status: Ordered midazolam (ANES) Route: IV, Drug form: SOLN, ONCE, Stop date: 08/20/16 14:43:00 OPERATIONS LEAD Start Date: 08/20/16 Stop Date: 08/20/16 Status: Completed midazolam - one time ICU bolus dose 2 mg, 2 mL, Route: IVP, Drug form: INJ, ONCE, Dosing Weight 82.045, kg, Start da te: 07/27/16 16:03:00 OPERATIONS LEAD, Stop date: 07/27/16 16:03:00 OPERATIONS LEAD Notes: (Same as: Versed) MEDICATION WASTE Product Size: 2 mgProduct Was daniel: ___ mg Start Date: 07/27/16 Stop Date: 07/27/16 Status: Completed midazolam 50mg/ NS 50ml drip (premixed) 50 mg 50 mg, 50 mL, Rate: Titrate, Start Dose: 1 mg/hr, Titration: Rebolus 1 mg IV and /or Titrate by 1 milligram/hour every 30 minutes, Goal(s): RASS -1 to -2, Max Do se: 10 mg/hr, Route: IV, Dosing Weight 82.045 kg, Total Volume: 50, Start date: 07/27/16 16... Notes: (Same as: Versed) Start Date: 07/27/16 Stop Date: 07/30/16 Status: Discontinued MiraLax 17 gm, 1 pkt, Route: PO, Drug form: PWDR, Daily, Dosing Weight 82.045, kg, Start date: 07/29/16 17:00:00 OPERATIONS LEAD, Stop date: 08/28/16 9:00:00 OPERATIONS LEAD Notes: Dissolve in 8 oz of water or juice.(Same as: Miralax) Start Date: 07/29/16 Stop Date: 08/16/16 Status: Discontinued MiraLax 17 gm, 1 pkt, Route: PO, Drug form: PWDR, Daily, Dosing Weight 82.045, kg, PRN C onstipation, Start date: 08/16/16 17:55:00 OPERATIONS LEAD, Stop date: 09/15/16 17:54:00 OPERATIONS LEAD Notes: Dissolve in 8 oz of water or juice.(Same as: Miralax) Start Date: 08/16/16 Stop Date: 08/26/16 Status: Discontinued morphine Sulfate 2 mg=1 mL, IVP, Q4H, PRN Pain Score 7-10, 0 Refill(s) Start Date: 08/25/16 Status: Ordered morphine Sulfate 2 mg, 1 mL, Route: IVP, Drug form: INJ, Q4H, Dosing Weight 86.364, kg, PRN Pain Score 7-10, Start date: 07/26/16 18:06:00 OPERATIONS LEAD, Duration: 30 day, Stop date: 09/12 10/26 18:05:00 OPERATIONS LEAD Notes: (Same as:MORPhine Sulfate) Start Date: 07/26/16 Stop Date: 08/26/16 Status: Discontinued norepinephrine 4 mg/4 ml inj 8 mg + D5W 242 mL 8 mg, 8 mL, Rate: Titrate, Start Dose: 5 microgram/min, Titration: 2 microgram/m in every 2-5 minutes, Goal(s): MAP >=60 mmHg, Max Dose: 70 microgram/min, Route: IV, Dosing Weight 82.045 kg, Total Volume: 250, Start date: 07/28/16 2:56:00 OPERATIONS LEAD, Duratio... Notes: Not for direct administration - DILUTE. Protect from light. (Same as:Levo phed). Administer by either central venous catheter or peripherally-inserted shannon tral catheter (PICC) line. Start Date: 07/28/16 Stop Date: 08/02/16 Status: Discontinued Norvasc 10 mg, 2 tab, Route: PO, Drug form: TAB, Daily, Dosing Weight 82.045, kg, Priori ty: NOW, Start date: 08/15/16 13:55:00 OPERATIONS LEAD, Duration: 30 day, Stop date: 7 9:00:00 OPERATIONS LEAD Notes: (Same as: Norvasc) Start Date: 08/15/16 Stop Date: 08/26/16 Status: Discontinued NS (Bolus) IV 2,000 mL, 2000 ml/hr, Infuse Over: 1 hr, Route: IV, 2,000, Drug form: INJ, ONCE, Priority: STAT, Dosing Weight 82.045 kg, Start date: 07/28/16 3:13:00 OPERATIONS LEAD, Dura tion: 1 doses or times, Stop date: 07/28/16 3:13:00 OPERATIONS LEAD Start Date: 07/28/16 Stop Date: 07/28/16 Status: Completed NS (Bolus) IV 2,000 mL, Route: IV, ONCE, Dosing Weight 82.045 kg, Start date: 07/28/16 3:11:00 OPERATIONS LEAD, Stop date: 07/28/16 3:11:00 OPERATIONS LEAD Start Date: 07/28/16 Stop Date: 07/28/16 Status: Deleted NS (Bolus) IV 2,000 mL, Route: IV, ONCE, Dosing Weight 82.045 kg, Start date: 07/28/16 2:57:00 OPERATIONS LEAD, Stop date: 07/28/16 2:57:00 OPERATIONS LEAD Start Date: 07/28/16 Stop Date: 07/28/16 Status: Deleted NS (Bolus) IV 1,000 mL, 1,000 ml/hr, Infuse Over: 1 hr, Route: IV, 1,000, Drug form: INJ, ONCE , Priority: STAT, Dosing Weight 82.045 kg, Start date: 07/28/16 7:02:00 OPERATIONS LEAD, Dur ation: 1 doses or times, Stop date: 07/28/16 7:02:00 OPERATIONS LEAD Start Date: 07/28/16 Stop Date: 07/28/16 Status: Completed nystatin topical 100,000 units/g powder 1 appl, Route: TOP, PRN, Drug form: PWDR, PRN For Fungal Prophylaxis, Start date : 07/26/16 16:44:00 OPERATIONS LEAD, Duration: 30 day, Stop date: 09/24/16 16:43:00 OPERATIONS LEAD Notes: (Same as:Mycostatin, Nilstat) For external use only. Start Date: 07/26/16 Stop Date: 08/26/16 Status: Discontinued nystatin topical 100,000 units/g powder 1 appl, TOP, PRN, PRN For Fungal Prophylaxis, 0 Refill(s) Start Date: 08/25/16 Status: Ordered ocular lubricant Each Affected Eye, QID, PRN Dry Eyes, 0 Refill(s) Start Date: 08/25/16 Status: Ordered ondansetron 4 mg, 2 mL, Route: IVP, Drug form: INJ, Q8H, Dosing Weight 86.364, kg, PRN Nause a & Vomiting, Start date: 07/26/16 16:44:00 OPERATIONS LEAD, Duration: 30 day, Stop date: 08/25/16 16:43:00 OPERATIONS LEAD Notes: (Same as: Zofran) MEDICATION WASTE Product Size: 4 mgProduct Was daniel: ___ mg Start Date: 07/26/16 Stop Date: 07/26/16 Status: Discontinued ondansetron 4 mg, 2 mL, Route: IVP, Drug form: INJ, Q6H, Dosing Weight 86.364, kg, PRN Nause a & Vomiting, Start date: 07/26/16 18:06:00 OPERATIONS LEAD, Duration: 30 day, Stop date: 09/24/16 18:05:00 OPERATIONS LEAD Notes: (Same as: Ben) MEDICATION WASTE Product Size: 4 mgProduct Was daniel: ___ mg Start Date: 07/26/16 Stop Date: 08/26/16 Status: Discontinued ondansetron (ANES) Route: IV, Drug form: INJ, ONCE, Stop date: 08/20/16 14:48:00 OPERATIONS LEAD Start Date: 08/20/16 Stop Date: 08/20/16 Status: Completed ondansetron 2 mg/mL injectable solution 4 mg=2 mL, IVP, Q6H, PRN Nausea & Vomiting, 0 Refill(s) Start Date: 08/25/16 Status: Ordered oxyCODONE 5 mg/5 mL oral solution 10 mg=10 mL, NJ, Q8H, PRN Other -See Comment | Pain Score 3-8, 0 Refill(s) Start Date: 08/25/16 Status: Ordered oxyCODONE 5 mg/5 mL oral solution 10 mg, 10 mL, Route: NJ, Drug form: LIQ, Q8H, Dosing Weight 82.045, kg, PRN Othe r -See Comment, Start date: 08/18/16 16:52:00 OPERATIONS LEAD, Duration: 30 day, Stop date: 09/17/16 16:51:00 OPERATIONS LEAD, Pain Score 3-8 Notes: (Same as: 'Roxicodone) Start Date: 08/18/16 Stop Date: 08/26/16 Status: Discontinued oxyCODONE 5 mg/5 mL oral solution 10 mg, 10 mL, Route: NJ, Drug form: LIQ, Q6H, Dosing Weight 82.045, kg, Start da te: 08/17/16 12:00:00 OPERATIONS LEAD, Duration: 30 day, Stop date: 09/16/16 6:00:00 OPERATIONS LEAD Notes: (Same as: 'Roxicodone) Start Date: 08/17/16 Stop Date: 08/18/16 Status: Discontinued oxyCODONE 5 mg/5 mL oral solution 10 mg, 10 mL, Route: NG, Drug form: LIQ, ONCE, Dosing Weight 82.045, kg, Start d ate: 08/18/16 21:00:00 OPERATIONS LEAD, Stop date: 08/18/16 21:00:00 OPERATIONS LEAD Notes: (Same as: 'Roxicodone) Start Date: 08/18/16 Stop Date: 08/18/16 Status: Completed phenylephrine (ANES) Route: IV, Drug form: INJ, ONCE, Stop date: 08/20/16 15:04:00 OPERATIONS LEAD Start Date: 08/20/16 Stop Date: 08/20/16 Status: Completed Please Do not give Vanco prior to trough is collected Please Do not give Vanco prior to trough is collected, Reminder, Drug form: MISC , Route: MISC, ONCE, 07/28/16 16:00:00 OPERATIONS LEAD, Stop date: 07/28/16 16:00:00 OPERATIONS LEAD Start Date: 07/28/16 Stop Date: 07/28/16 Status: Completed polyethylene glycol 3350 PO, Daily, PRN Constipation, 0 Refill(s) Start Date: 08/25/16 Status: Ordered potassium chloride 10 mEq, 100 mL, Route: IVPB, Drug form: INJ, Q1H, Dosing Weight 86.364, kg, Tota l Dose=40 meq, Start date: 07/26/16 17:00:00 OPERATIONS LEAD, Duration: 4 doses or times, St op date: 07/26/16 20:00:00 OPERATIONS LEAD, Peripheral Line Notes: Infuse at a rate of 10 mEq/hr.(Same as: KCL) Start Date: 07/26/16 Stop Date: 07/26/16 Status: Completed potassium chloride 10 mEq, 100 mL, Route: IVPB, Drug form: INJ, PRN, Dosing Weight 82.045, kg, PRN Abnormal Lab Result, Via peripheral line, Start date: 07/29/16 6:54:00 OPERATIONS LEAD, Dura tion: 30 day, Stop date: 09/27/16 6:53:00 OPERATIONS LEAD, FOR ICU USE ONLY Notes: Infuse at a rate of 10 mEq/hr.(Same as: KCL) Start Date: 07/29/16 Stop Date: 08/26/16 Status: Discontinued potassium chloride 20 mEq, 1 tab, Route: PO, Drug form: ERTAB, PRN, Dosing Weight 82.045, kg, PRN A bnormal Lab Result, Start date: 07/29/16 6:54:00 OPERATIONS LEAD, Duration: 30 day, Stop boris e: 09/27/16 6:53:00 OPERATIONS LEAD, FOR ICU USE ONLY Notes: (Same as: K-Dur 20)"Do Not Crush" With food and full glass of water Start Date: 07/29/16 Stop Date: 08/26/16 Status: Discontinued potassium chloride 20 mEq, 15 mL, Route: NJ, Drug form: LIQ, PRN, Dosing Weight 82.045, kg, PRN Abn ormal Lab Result, Start date: 07/29/16 6:54:00 OPERATIONS LEAD, Duration: 30 day, Stop date: 09/27/16 6:53:00 OPERATIONS LEAD, FOR ICU USE ONLY Notes: (Same as: Potassium Chloride) Start Date: 07/29/16 Stop Date: 08/26/16 Status: Discontinued potassium chloride 20 mEq, 100 mL, Route: IVPB, Drug form: INJ, PRN, Dosing Weight 82.045, kg, PRN Abnormal Lab Result, Via central line, Start date: 07/29/16 6:54:00 OPERATIONS LEAD, Duratio n: 30 day, Stop date: 09/27/16 6:53:00 OPERATIONS LEAD, FOR ICU USE ONLY Notes: (Same as: KCL) Infuse no faster than 10 mEq/hr if given peripherally. Start Date: 07/29/16 Stop Date: 08/26/16 Status: Discontinued potassium chloride 10 mEq, 100 mL, Route: IVPB, Drug form: INJ, Q1H, Dosing Weight 82.045, kg, Tota l Dose=20 meq, Start date: 07/27/16 12:00:00 OPERATIONS LEAD, Duration: 2 doses or times, St op date: 07/27/16 13:00:00 OPERATIONS LEAD, Peripheral Line Notes: Infuse at a rate of 10 mEq/hr.(Same as: KCL) Start Date: 07/27/16 Stop Date: 07/27/16 Status: Completed potassium chloride 20 mEq/15 mL oral liquid 20 mEq, 15 mL, Route: NG, Drug form: LIQ, ONCE, Dosing Weight 82.045, kg, Start date: 07/28/16 7:03:00 OPERATIONS LEAD, Stop date: 07/28/16 7:03:00 OPERATIONS LEAD Notes: (Same as: Potassium Chloride) Start Date: 07/28/16 Stop Date: 07/28/16 Status: Completed potassium phosphate + sodium chloride 0.9% INJ 250 mL 15 mmol, 5 mL, Route: IVPB, PRN, Dosing Weight 82.045, kg, PRN Abnormal Lab Resu lt, Start date: 07/29/16 6:54:00 OPERATIONS LEAD, Duration: 30 day, Stop date: 09/27/16 6:53 :00 OPERATIONS LEAD, FOR ICU USE ONLY Notes: (Same as: K Phosphate.) 1 mMol phoshate has 1.47 mEq potassium Infuse o [place] 4 hours Start Date: 07/29/16 Stop Date: 08/26/16 Status: Discontinued potassium phosphate + sodium chloride 0.9% INJ 250 mL 45 mmol, 15 mL, Route: IVPB, PRN, Dosing Weight 82.045, kg, PRN Abnormal Lab Res ult, Start date: 07/29/16 6:54:00 OPERATIONS LEAD, Duration: 30 day, Stop date: 09/27/16 6:5 3:00 OPERATIONS LEAD, FOR ICU USE ONLY Notes: (Same as: K Phosphate.) 1 mMol phoshate has 1.47 mEq potassium Infuse o [place] 4 hours Start Date: 07/29/16 Stop Date: 08/26/16 Status: Discontinued potassium phosphate + sodium chloride 0.9% INJ 250 mL 30 mmol, 10 mL, Route: IVPB, PRN, Dosing Weight 82.045, kg, PRN Abnormal Lab Res ult, Start date: 07/29/16 6:54:00 OPERATIONS LEAD, Duration: 30 day, Stop date: 09/27/16 6:5 3:00 OPERATIONS LEAD, FOR ICU USE ONLY Notes: (Same as: K Phosphate.) 1 mMol phoshate has 1.47 mEq potassium Infuse o [place] 4 hours Start Date: 07/29/16 Stop Date: 08/26/16 Status: Discontinued potassium phosphate + sodium chloride 0.9% INJ 250 mL 15 mmol, 5 mL, Route: IVPB, ONCE, Dosing Weight 82.045, kg, Start date: 07/28/16 7:02:00 OPERATIONS LEAD, Stop date: 07/28/16 7:02:00 OPERATIONS LEAD Notes: (Same as: K Phosphate.) 1 mMol phoshate has 1.47 mEq potassium Infuse o [place] 4 hours Start Date: 07/28/16 Stop Date: 07/28/16 Status: Completed potassium phosphate-sodium phosphate 250 mg-280 mg-160 mg oral powder for recons titution 2 pkt, Route: PO, Drug Form: PDR/REC, Dosing Weight 82.045, kg, PRN, PRN Abnorma l Lab Result, FOR ICU USE ONLY, Start date: 07/29/16 6:54:00 OPERATIONS LEAD, Duration: 30 d ay, Stop date: 09/27/16 6:53:00 OPERATIONS LEAD Notes: (Same as: Phos-NaK) Each 1.5 gm pkt has 250mg phosphorous. Mix w/2.5oz w ater and stir. Start Date: 07/29/16 Stop Date: 08/26/16 Status: Discontinued propofol 40 mg, 4 mL, Route: IV, Drug form: SUSP, ONCE, Dosing Weight 82.045, kg, Start d ate: 07/27/16 16:15:00 OPERATIONS LEAD, Stop date: 07/27/16 16:15:00 OPERATIONS LEAD Notes: If Diprivan - change bottle & tubing every 12 [facility] law propofol can only be given by a nurse if patient is intubated or being intubated (unless the nurse is a QA SOFTWARE TEST ENGINEER). Same as: Facundorimorro Start Date: 07/27/16 Stop Date: 07/27/16 Status: Completed propofol INJ 1,000 mg 1,000 mg, 100 mL, Rate: Titrate, Start Dose: 5 microgram/kg/min, Titration: 5 mi crogram/kg/min every 15 min, Goal(s): 3, Max Dose: 50 microgram/kg/min, Route: I V, Dosing Weight 82.045 kg, Total Volume: 100, Start date: 08/05/16 2:30:00 OPERATIONS LEAD, Stop date:... Notes: If Diprivan - change bottle & tubing every 12 [facility] law propofol can only be given by a nurse if patient is intubated or being intubated (unless the nurse is a QA SOFTWARE TEST ENGINEER). Same as: Diprivan Start Date: 08/05/16 Stop Date: 08/08/16 Status: Discontinued PROzac 10 mg, 1 cap, Route: PO, Drug form: CAP, Daily, Dosing Weight 86.364, kg, Start date: 07/27/16 9:00:00 OPERATIONS LEAD, Duration: 30 day, Stop date: 09/24/16 9:00:00 OPERATIONS LEAD Notes: (Same as: Prozac) Start Date: 07/27/16 Stop Date: 08/26/16 Status: Discontinued rocuronium (ANES) Route: IV, Drug form: INJ, ONCE, Stop date: 08/20/16 14:43:00 OPERATIONS LEAD Start Date: 08/20/16 Stop Date: 08/20/16 Status: Completed Saline Flush 0.9% 10 ml, Route: IVP, Drug Form: INJ, Dosing Weight 86.364, kg, Q12H, Start date: 09/26/15 21:00:00 OPERATIONS LEAD, Duration: 30 day, Stop date: 09/24/16 9:00:00 OPERATIONS LEAD Notes: (Same as: BD Posiflush) Start Date: 07/26/16 Stop Date: 08/26/16 Status: Discontinued Saline Flush 0.9% 10 ml, Route: IVP, Drug Form: INJ, Dosing Weight 86.364, kg, PRN, PRN Line Flush , Start date: 07/26/16 16:44:00 OPERATIONS LEAD, Duration: 30 day, Stop date: 09/24/16 16:43 :00 OPERATIONS LEAD Notes: (Same as: BD Posiflush) Start Date: 07/26/16 Stop Date: 08/26/16 Status: Discontinued Saline Flush 0.9% 10 mL, Route: IVP, Drug Form: INJ, Dosing Weight 86.364, kg, PRN, PRN Line Flush , Start date: 07/26/16 12:55:00 OPERATIONS LEAD, Duration: 30 day, Stop date: 08/25/16 12:54 :00 OPERATIONS LEAD Notes: (Same as: BD Posiflush) Start Date: 07/26/16 Stop Date: 07/27/16 Status: Discontinued sodium chloride 0.9% 1000 ml INJ 1,000 mL 1,000 mL, Rate: 75 ml/hr, Infuse over: 13.3 hr, Route: IV, Dosing Weight 82.045 kg, Total Volume: 1,000, Start date: 07/28/16 4:25:00 OPERATIONS LEAD, Duration: 30 day, Sto p date: 08/27/16 4:24:00 OPERATIONS LEAD Start Date: 07/28/16 Stop Date: 07/31/16 Status: Discontinued sodium chloride 0.9% 1000 ml INJ 1,000 mL 1,000 mL, Rate: 25 ml/hr, Infuse over: 40 hr, Route: IV, Dosing Weight 82.045 kg , Total Volume: 1,000, Start date: 08/16/16 11:04:00 OPERATIONS LEAD, Duration: 1 day, Stop date: 08/17/16 11:03:00 OPERATIONS LEAD Start Date: 08/16/16 Stop Date: 08/16/16 Status: Discontinued sodium chloride 0.9% 1000 ml INJ 1,000 mL 1,000 mL, Rate: 25 ml/hr, Infuse over: 40 hr, Route: IV, Dosing Weight 82.045 kg , Total Volume: 1,000, Start date: 08/02/16 14:13:00 OPERATIONS LEAD, Duration: 30 day, Stop date: 09/01/16 14:12:00 OPERATIONS LEAD Start Date: 08/02/16 Stop Date: 08/17/16 Status: Discontinued sodium chloride 0.9% 1000 ml INJ 1,000 mL 1,000 mL, Rate: 75 ml/hr, Infuse over: 13.3 hr, Route: IV, Dosing Weight 82.045 kg, Total Volume: 1,000, Start date: 07/27/16 23:45:00 OPERATIONS LEAD, Duration: 30 day, St op date: 08/26/16 23:44:00 OPERATIONS LEAD Start Date: 07/27/16 Stop Date: 07/28/16 Status: Voided With Results Sodium Chloride 0.9% IV (Sodium Chloride 0.9% (Bolus) IV) 2,590.92 mL, 2,000 ml/hr, Route: IV, ONCE, Priority: STAT, Dosing Weight 86.364 kg, Start date: 07/26/16 12:55:00 OPERATIONS LEAD, Duration: 1 doses or times, Stop date: 12:55:00 OPERATIONS LEAD Start Date: 07/26/16 Stop Date: 07/26/16 Status: Completed Sodium Chloride 0.9% IV 1000 mL 1,000 mL, Rate: 25 ml/hr, Infuse over: 40 hr, Route: IV, Dosing Weight 82.045 kg , Total Volume: 1,000, Start date: 08/09/16 17:41:00 OPERATIONS LEAD, Duration: 30 day, Stop date: 09/08/16 17:40:00 OPERATIONS LEAD Start Date: 08/09/16 Stop Date: 08/09/16 Status: Deleted sodium phosphate + D5W 250 mL 45 mmol, 15 mL, Route: IVPB, PRN, Dosing Weight 82.045, kg, PRN Abnormal Lab Res ult, Start date: 07/29/16 6:54:00 OPERATIONS LEAD, Duration: 30 day, Stop date: 09/27/16 6:5 3:00 OPERATIONS LEAD, FOR ICU USE ONLY Start Date: 07/29/16 Stop Date: 08/26/16 Status: Discontinued sodium phosphate + D5W 250 mL 30 mmol, 10 mL, Route: IVPB, PRN, Dosing Weight 82.045, kg, PRN Abnormal Lab Res ult, Start date: 07/29/16 6:54:00 OPERATIONS LEAD, Duration: 30 day, Stop date: 09/27/16 6:5 3:00 OPERATIONS LEAD, FOR ICU USE ONLY Start Date: 07/29/16 Stop Date: 08/26/16 Status: Discontinued sodium phosphate + D5W 250 mL 15 mmol, 5 mL, Route: IVPB, PRN, Dosing Weight 82.045, kg, PRN Abnormal Lab Resu lt, Start date: 07/29/16 6:54:00 OPERATIONS LEAD, Duration: 30 day, Stop date: 09/27/16 6:53 :00 OPERATIONS LEAD, FOR ICU USE ONLY Start Date: 07/29/16 Stop Date: 08/26/16 Status: Discontinued succinylcholine 60 mg, 3 mL, Route: IV, Drug form: INJ, ONCE, Dosing Weight 82.045, kg, Start da te: 07/27/16 16:03:00 OPERATIONS LEAD, Stop date: 07/27/16 16:03:00 OPERATIONS LEAD Notes: (Same As: Anectine) Start Date: 07/27/16 Stop Date: 07/27/16 Status: Completed TPN, adult solution 1,250 mL 1,250 mL, Rate: 50 ml/hr, Infuse over: 25 hr, Route: IV, Dosing Weight 82.045 kg , Total Volume: 1,250, Start date: 08/07/16 22:00:00 OPERATIONS LEAD, Duration: 1 day, Stop date: 08/08/16 21:59:00 OPERATIONS LEAD Start Date: 08/07/16 Stop Date: 08/08/16 Status: Completed TPN, adult solution 1,250 mL 1,250 mL, Rate: 50 ml/hr, Infuse over: 25 hr, Route: IV, Dosing Weight 82.045 kg , Total Volume: 1,250, Start date: 08/06/16 22:00:00 OPERATIONS LEAD, Duration: 1 day, Stop date: 08/07/16 21:59:00 OPERATIONS LEAD Start Date: 08/06/16 Stop Date: 08/07/16 Status: Completed TPN, adult solution 1,250 mL 1,250 mL, Rate: 50 ml/hr, Infuse over: 25 hr, Route: IV, Dosing Weight 82.045 kg , Total Volume: 1,250, Start date: 08/05/16 22:00:00 OPERATIONS LEAD, Duration: 24 hr, Stop date: 08/06/16 21:59:00 OPERATIONS LEAD Start Date: 08/05/16 Stop Date: 08/06/16 Status: Completed TPN, adult solution 1,250 mL 1,250 mL, Rate: 50 ml/hr, Infuse over: 25 hr, Route: IV, Dosing Weight 82.045 kg , Total Volume: 1,250, Start date: 08/02/16 22:00:00 OPERATIONS LEAD, Duration: 24 hr, Stop date: 08/03/16 21:59:00 OPERATIONS LEAD Start Date: 08/02/16 Stop Date: 08/03/16 Status: Completed TPN, adult solution 1,250 mL 1,250 mL, Rate: 50 ml/hr, Infuse over: 25 hr, Route: IV, Dosing Weight 82.045 kg , Total Volume: 1,250, Start date: 08/04/16 22:00:00 OPERATIONS LEAD, Duration: 1 day, Stop date: 08/05/16 21:59:00 OPERATIONS LEAD Start Date: 08/04/16 Stop Date: 08/05/16 Status: Completed TPN, adult solution 1,250 mL 1,250 mL, Rate: 50 ml/hr, Infuse over: 25 hr, Route: IV, Dosing Weight 82.045 kg , Total Volume: 1,250, Start date: 08/08/16 22:00:00 OPERATIONS LEAD, Duration: 1 day, Stop date: 08/09/16 21:59:00 OPERATIONS LEAD Start Date: 08/08/16 Stop Date: 08/09/16 Status: Completed TPN, adult solution 1,250 mL 1,250 mL, Rate: 50 ml/hr, Infuse over: 25 hr, Route: IV, Dosing Weight 82.045 kg , Total Volume: 1,250, Start date: 08/03/16 22:00:00 OPERATIONS LEAD, Duration: 24 hr, Stop date: 08/04/16 21:59:00 OPERATIONS LEAD Start Date: 08/03/16 Stop Date: 08/04/16 Status: Completed TPN, adult solution 1,300 mL 1,300 mL, Rate: 50 ml/hr, Infuse over: 26 hr, Route: IV, Dosing Weight 82.045 kg , Total Volume: 1,300, Start date: 08/09/16 22:00:00 OPERATIONS LEAD, Duration: 1 day, Stop date: 08/10/16 21:59:00 OPERATIONS LEAD Start Date: 08/09/16 Stop Date: 08/10/16 Status: Completed Triple Antibiotic topical ointment 1 appl, Route: TOP, Daily, Drug form: OINT, Start date: 08/24/16 9:00:00 OPERATIONS LEAD, Du ration: 30 day, Stop date: 09/22/16 9:00:00 OPERATIONS LEAD Start Date: 08/24/16 Stop Date: 08/23/16 Status: Deleted Tylenol 1,000 mg, 2 tab, Route: PO, Drug form: TAB, Q6H, Dosing Weight 86.364, kg, PRN P ain 1-3/Temp > 100.4 F, Start date: 07/26/16 17:08:00 OPERATIONS LEAD, Duration: 30 day, Stop date: 08/25/16 17:07:00 OPERATIONS LEAD Notes: Max acetaminophen 4000 mg/day (4 gm/day). (Same as: Tylenol Extra Streng th) Start Date: 07/26/16 Stop Date: 08/25/16 Status: Completed vancomycin 1.25 gm, 250 mL, Route: IVPB, Drug form: INJ, [id number], Start date: 07/27/16 16:0 0:00 OPERATIONS LEAD, Duration: 30 day, Stop date: 08/25/16 18:00:00 OPERATIONS LEAD Notes: TIME CRITICAL MEDICATIONSame as: Vancocin-NS (premixed)Infusion rate< 1000 mg: infuse over 1 [id number] - 1500 mg: infuse over 1.5 [id number] - 2000 mg: infuse over 2 hours> 2001 mg: infuse over 2.5 hours Start Date: 07/27/16 Stop Date: 07/30/16 Status: Discontinued vancomycin 1.25 gm, 250 mL, Route: IV, Drug form: INJ, ONCE, Dosing Weight 82.045, kg, Star t date: 08/14/16 21:54:00 OPERATIONS LEAD, Stop date: 08/14/16 21:54:00 OPERATIONS LEAD Notes: TIME CRITICAL MEDICATIONSame as: Vancocin-NS (premixed)Infusion rate< 1000 mg: infuse over 1 [id number] - 1500 mg: infuse over 1.5 [id number] - 2000 mg: infuse over 2 hours> 2001 mg: infuse over 2.5 hours Start Date: 08/14/16 Stop Date: 08/14/16 Status: Completed vancomycin 2,000 mg, 500 mL, Route: IVPB, Drug form: SOLN, ONCE, Dosing Weight 86.364, kg, Time Critical Medication, Priority: STAT, Start date: 07/26/16 12:55:00 OPERATIONS LEAD, Sto p date: 07/26/16 12:55:00 OPERATIONS LEAD Notes: TIME CRITICAL MEDICATIONSame as: Vancocin Infusion rate< 1000 mg: infuse over 1 [id number] - 1500 mg: infuse over 1.5 [id number] - 2000 mg: infuse over 2 hours> 2001 mg: infuse over 2.5 hours Start Date: 07/26/16 Stop Date: 07/26/16 Status: Completed vancomycin 1 gm, Route: IVPB, Drug form: INJ, Q12H, Dosing Weight 86.364, kg, Priority: STA T, Start date: 07/26/16 18:06:00 OPERATIONS LEAD, Duration: 30 day, Stop date: 08/25/16 9:00 :00 OPERATIONS LEAD Start Date: 07/26/16 Stop Date: 07/26/16 Status: Deleted vancomycin + sodium chloride 0.9% 250 mL INJ (for IV set) 250 mL 750 mg, Route: IV, [id number], Dosing Weight 82.045, kg, Start date: 08/07/16 21:00: 00 OPERATIONS LEAD, Duration: 30 day, Stop date: 09/06/16 13:00:00 OPERATIONS LEAD Notes: TIME CRITICAL MEDICATION(Same As: Vancocin)Infusion rate< 1000 mg: infuse over 1 [id number] - 1500 mg: infuse over 1.5 [id number] - 2000 mg: infuse over 2 hours> 2001 mg: infuse over 2.5 hours MEDICATION WASTE Product Size: 1000 mgProduct Wasted: ___ mg Start Date: 08/07/16 Stop Date: 08/09/16 Status: Discontinued vancomycin + sodium chloride 0.9% INJ 250 mL 1,000 mg, Route: IVPB, [id number], Dosing Weight 86.364, kg, Start date: 07/27/16 1 6:00:00 OPERATIONS LEAD, Duration: 30 day, Stop date: 08/25/16 16:00:00 OPERATIONS LEAD Notes: TIME CRITICAL MEDICATION(Same As: Vancocin)Infusion rate< 1000 mg: infuse over 1 [id number] - 1500 mg: infuse over 1.5 [id number] - 2000 mg: infuse over 2 hours> 2001 mg: infuse over 2.5 hours MEDICATION WASTE Product Size: 1000 mgProduct Wasted: ___ mg Start Date: 07/27/16 Stop Date: 07/27/16 Status: Canceled vancomycin + sodium chloride 0.9% INJ 250 mL 1,000 mg, Route: IVPB, [id number], Dosing Weight 82.045, kg, Priority: NOW, Start d ate: 08/18/16 21:16:00 OPERATIONS LEAD, Duration: 30 day, Stop date: 09/17/16 9:00:00 OPERATIONS LEAD Notes: TIME CRITICAL MEDICATION(Same As: Vancocin)Infusion rate< 1000 mg: infuse over 1 [id number] - 1500 mg: infuse over 1.5 [id number] - 2000 mg: infuse over 2 hours> 2001 mg: infuse over 2.5 hours MEDICATION WASTE Product Size: 1000 mgProduct Wasted: ___ mg Start Date: 08/18/16 Stop Date: 08/26/16 Status: Discontinued Vancomycin Pharmacy Dosing 1 ea, Route: MISC, Dosing Weight 82.045, kg, ONCALL, Start date: 07/27/16 12:00: 00 OPERATIONS LEAD, Duration: 1 doses or times, Pharmacy to dose Start Date: 07/27/16 Stop Date: 07/27/16 Status: Deleted Vitamin K1 10 mg, 1 mL, Route: SUB-Q, Drug form: INJ, ONCE, Dosing Weight 82.045, kg, Prior ity: NOW, Start date: 08/15/16 13:40:00 OPERATIONS LEAD, Stop date: 08/15/16 13:40:00 OPERATIONS LEAD Notes: (Same as: Aqua-Mephyton, Vitamin K) MEDICATION WASTE Product Size : 10 mgProduct Wasted: ___ mg Start Date: 08/15/16 Stop Date: 08/15/16 Status: Completed Vitamin K1 10 mg, 1 mL, Route: SUB-Q, Drug form: INJ, Daily, Dosing Weight 82.045, kg, Star t date: 08/17/16 9:00:00 OPERATIONS LEAD, Duration: 2 doses or times, Stop date: 08/18/16 9: 00:00 OPERATIONS LEAD Notes: (Same as: Aqua-Mephy[place], Vitamin K) MEDICATION WASTE Product Size : 10 mgProduct Wasted: ___ mg Start Date: 08/17/16 Stop Date: 08/18/16 Status: Completed Zosyn 3.375 gm, Route: IVPB, Drug form: PDR/INJ, Q6H, Dosing Weight 86.364, kg, Priori ty: STAT, Start date: 07/26/16 18:06:00 OPERATIONS LEAD, Duration: 30 day, Stop date: 18:00:00 OPERATIONS LEAD Start Date: 07/26/16 Stop Date: 07/26/16 Status: Deleted Zosyn + sodium chloride 0.9% 100 ml ADV 100 mL 3.375 gm, Route: IVPB, [id number], Dosing Weight 82.045, kg, CrCl >=20 ml/min infuse over 4 hours, Start date: 08/07/16 21:00:00 OPERATIONS LEAD, Duration: 30 day, Stop date: 09/06/16 13:00:00 OPERATIONS LEAD Notes: (Same as: Zosyn) Dosing based on Piperacillin component Start Date: 08/07/16 Stop Date: 08/15/16 Status: Discontinued Zosyn + sodium chloride 0.9% 100 ml ADV 100 mL 3.375 gm, Route: IVPB, [id number], Dosing Weight 86.364, kg, CrCl >=20 ml/min infuse over 4 hours, Start date: 07/26/16 22:00:00 OPERATIONS LEAD, Duration: 30 day, Stop date: 08/25/16 14:00:00 OPERATIONS LEAD Notes: (Same as: Zosyn) Dosing based on Piperacillin component Start Date: 07/26/16 Stop Date: 07/29/16 Status: Discontinued Zosyn + sodium chloride 0.9% INJ 100 mL 3.375 gm, Route: IVPB, ONCE, Dosing Weight 86.364, kg, Priority: STAT, Start boris e: 07/26/16 13:11:00 OPERATIONS LEAD, Stop date: 07/26/16 13:11:00 OPERATIONS LEAD Notes: (Same as: Zosyn)Dosing based on Piperacillin component MEDICATION WA TOMMY Product Size: 3375 mgProduct Wasted: ___ mg Start Date: 07/26/16 Stop Date: 07/26/16 Status: Completed Results BLOOD BANK RESULTS 1 2 3 Most recent to oldest [Reference Range]: O POS *Unknown* (08/22/16 7:16 AM) O POS *Unknown* (07/26/16 12:59 PM) ABO/Rh Negative (08/22/16 7:16 AM) Negative (07/26/16 12:59 PM) Antibody Scrn Product available (08/22/16 2:00 PM) FFP product ELECTROLYTES 1 2 3 Most recent to oldest [Reference Range]: 144 mEq/L (08/25/16 5:46 AM) 143 mEq/L (08/24/16 6:37 AM) 145 mEq/L (08/23/16 3:54 AM) Sodium Lvl [135-145 mEq/L] 3.9 mEq/L (08/25/16 5:46 AM) 3.6 mEq/L (08/24/16 7:12 PM) 2.9 mEq/L 1 *CRIT* (08/24/16 6:37 AM) Potassium Lvl [3.5-5.1 mEq/L] 107 mEq/L (08/25/16 5:46 AM) 103 mEq/L (08/24/16 6:37 AM) 106 mEq/L (08/23/16 3:54 AM) Chloride Lvl [95-109 mEq/L] 34 mEq/L *HI* (08/25/16 5:46 AM) 32 mEq/L (08/24/16 6:37 AM) 32 mEq/L (08/23/16 3:54 AM) CO2 [24-32 mEq/L] 6.9 mEq/L *LOW* (08/25/16 5:46 AM) 10.9 mEq/L (08/24/16 6:37 AM) 10.0 mEq/L (08/23/16 3:54 AM) AGAP [10.0-20.0 mEq/L] 1Result Comment: Critical Result(s) called to Octavio Telles at 08/24/2016 07:16 byHA. Read back OK. CHEM PANEL 1 2 3 Most recent to oldest [Reference Range]: 0.65 mg/dL (08/25/16 5:46 AM) 0.68 mg/dL (08/24/16 6:37 AM) 0.65 mg/dL (08/23/16 3:54 AM) Creatinine Lvl [0.50-1.40 mg/dL] 88 mL/min/1.73m2 1 *NA* (08/25/16 5:46 AM) 86 mL/min/1.73m2 2 *NA* (08/24/16 6:37 AM) 88 mL/min/1.73m2 3 *NA* (08/23/16 3:54 AM) eGFR 22 mg/dL (08/25/16 5:46 AM) 20 mg/dL (08/24/16 6:37 AM) 17 mg/dL (08/23/16 3:54 AM) BUN [7-22 mg/dL] 30 *HI* (08/13/16 6:35 AM) 15 (07/27/16 1:59 AM) 11 (07/26/16 12:59 PM) B/C Ratio [6-25] 179 mg/dL *HI* (08/25/16 5:46 AM) 199 mg/dL *HI* (08/24/16 6:37 AM) 150 mg/dL *HI* (08/23/16 3:54 AM) Glucose Lvl [70-99 mg/dL] 8.1 g/dL (08/13/16 6:35 AM) 6.5 g/dL (07/27/16 1:59 AM) 8.2 g/dL (07/26/16 12:59 PM) Total Protein [6.4-8.4 g/dL] 1.2 g/dL *LOW* (08/13/16 6:35 AM) 1.1 g/dL *LOW* (08/10/16 6:42 AM) 2.1 g/dL *LOW* (07/27/16 1:59 AM) Albumin Lvl [3.5-5.0 g/dL] 6.9 g/dL *HI* (08/13/16 6:35 AM) 4.4 g/dL *HI* (07/27/16 1:59 AM) 5.2 g/dL *HI* (07/26/16 12:59 PM) Globulin [2.7-4.2 g/dL] 0.2 *LOW* (08/13/16 6:35 AM) 0.5 *LOW* (07/27/16 1:59 AM) 0.6 *LOW* (07/26/16 12:59 PM) A/G Ratio [0.7-1.6] 8.1 mg/dL *LOW* (08/25/16 5:46 AM) 7.9 mg/dL *LOW* (08/24/16 6:37 AM) 8.0 mg/dL *LOW* (08/23/16 3:54 AM) Calcium Lvl [8.5-10.5 mg/dL] 2.6 mg/dL (08/25/16 5:46 AM) 3.2 mg/dL (08/24/16 6:37 AM) 3.5 mg/dL (08/23/16 3:54 AM) Phosphorus [2.5-4.5 mg/dL] 2.1 mg/dL (08/25/16 5:46 AM) 2.2 mg/dL (08/24/16 6:37 AM) 2.1 mg/dL (08/23/16 3:54 AM) Magnesium Lvl [1.8-2.4 mg/dL] 9 unit/L (08/13/16 6:35 AM) 27 unit/L (07/27/16 1:59 AM) 31 unit/L (07/26/16 12:59 PM) ALT [0-65 unit/L] 22 unit/L (08/13/16 6:35 AM) 69 unit/L *HI* (07/27/16 1:59 AM) 33 unit/L (07/26/16 12:59 PM) AST [0-37 unit/L] 182 unit/L *HI* (08/13/16 6:35 AM) 65 unit/L (07/27/16 1:59 AM) 104 unit/L (07/26/16 12:59 PM) Alk Phos [39-136 unit/L] 1.9 mg/dL *HI* (08/13/16 6:35 AM) 1.2 mg/dL (07/27/16 1:59 AM) 1.4 mg/dL *HI* (07/26/16 12:59 PM) Bili Total [0.2-1.3 mg/dL] 1.4 mMol/L (07/28/16 5:58 AM) 3.2 mMol/L *HI* (07/27/16 1:59 AM) 3.3 mMol/L *HI* (07/26/16 7:52 PM) Lactic Acid Lvl [0.5-2.2 mMol/L] 1.75 ng/mL *HI* (08/13/16 3:13 PM) 179.35 ng/mL 4 *CRIT* (07/28/16 5:58 AM) 71.39 ng/mL 5 *CRIT* (07/26/16 12:59 PM) Procalcitonin Lvl [0.00-0.10 ng/mL] 1Result Comment: The eGFR is calculated using the [...] from the [employer] ( [employer]) which additionally recommends that when the eGFR is used in patients with extremes of body mass index for purposes of drug dosing, the eGFR should be mul tiplied by the estimated BMI. 2Result Comment: The eGFR is calculated using the [...] from the [employer] ( [employer]) which additionally recommends that when the eGFR is used in patients with extremes of body mass index for purposes of drug dosing, the eGFR should be mul tiplied by the estimated BMI. 3Result Comment: The eGFR is calculated using the [...] from the [employer] ( [employer]) which additionally recommends that when the eGFR is used in patients with extremes of body mass index for purposes of drug dosing, the eGFR should be mul tiplied by the estimated BMI. 4Result Comment: Critical Result(s) called to Shani Alvarenga at 07/28/2016 07:41 by ka. Read back OK. 5Result Comment: Critical Result(s) called to Savannah Telles at _07/26/2016 15:38 by_[email or web address]. Read back [place]. CARDIAC ENZYMES 1 2 3 Most recent to oldest [Reference Range]: 979 unit/L *HI* (07/27/16 1:59 AM) 987 unit/L *HI* (07/26/16 7:52 PM) 513 unit/L *HI* (07/26/16 12:59 PM) Total CK [12-191 unit/L] 8.9 ng/mL *HI* (07/27/16 1:59 AM) 7.6 ng/mL *HI* (07/26/16 7:52 PM) 2.4 ng/mL (07/26/16 12:59 PM) CK MB [0.5-3.6 ng/mL] 0.9 (07/27/16 1:59 AM) 0.8 (07/26/16 7:52 PM) 0.5 (07/26/16 12:59 PM) CK MB Index [0.0-2.5] 3.50 ng/mL 1 *CRIT* (07/27/16 1:59 AM) 6.50 ng/mL 2 *CRIT* (07/26/16 7:52 PM) 2.50 ng/mL *CRIT* (07/26/16 12:59 PM) Troponin-I [0.00-0.40 ng/mL] 1Result Comment: Critical Result(s) called to pal meneses at 07/27/2016 02:54 by mely. Read back OK. 2Result Comment: Critical Result(s) called to Josué Musa at 07/26/2016 20:39_ byAN_. Read back OK. LIPIDS 1 2 3 Most recent to oldest [Reference Range]: 167 mg/dL *HI* (08/03/16 5:06 AM) Trig [<=149 mg/dL] TOXICOLOGY 1 2 3 Most recent to oldest [Reference Range]: 0916 *NA* (08/20/16 8:34 AM) 1200 *NA* (08/09/16 12:00 PM) Vanco Tr TND 15.4 ug/ml *NA* (07/28/16 4:30 PM) Vanco Lvl 16.1 ug/ml *NA* (08/20/16 8:34 AM) 29.1 ug/ml *NA* (08/09/16 12:00 PM) Vanco Tr URINE AND STOOL 1 2 3 Most recent to oldest [Reference Range]: Clear (07/26/16 7:52 PM) Clear (07/26/16 4:24 PM) UA Turbidity [Clear] Yellow *NA* (07/26/16 7:52 PM) Yellow *NA* (07/26/16 4:24 PM) UA Color [Yellow] 5.0 (07/26/16 7:52 PM) 5.0 (07/26/16 4:24 PM) UA pH [5.0-8.0] 1.024 (07/26/16 7:52 PM) 1.027 (07/26/16 4:24 PM) UA Spec Grav [<=1.030] 500 mg/dL *ABN* (07/26/16 7:52 PM) 500 mg/dL *ABN* (07/26/16 4:24 PM) UA Glucose [Negative mg/dL] Large *ABN* (07/26/16 7:52 PM) Large *ABN* (07/26/16 4:24 PM) UA Blood [Negative] 20 mg/dL *ABN* (07/26/16 7:52 PM) 20 mg/dL *ABN* (07/26/16 4:24 PM) UA Ketones [Negative mg/dL] >=300 mg/dL *ABN* (07/26/16 7:52 PM) >=300 mg/dL *ABN* (07/26/16 4:24 PM) UA Protein [Negative mg/dL] <=1.0 mg/dL *NA* (07/26/16 7:52 PM) <=1.0 mg/dL *NA* (07/26/16 4:24 PM) UA Urobilinogen [0.1-1.0 mg/dL] Negative *NA* (07/26/16 7:52 PM) Negative *NA* (07/26/16 4:24 PM) UA Bili [Negative] Negative (07/26/16 7:52 PM) Negative (07/26/16 4:24 PM) UA Leuk Est [Negative] Positive *ABN* (07/26/16 7:52 PM) Positive *ABN* (07/26/16 4:24 PM) UA Nitrite [Negative] 4 /HPF (07/26/16 7:52 PM) 4 /HPF (07/26/16 4:24 PM) UA WBC [0-5 /HPF] 11 /HPF *HI* (07/26/16 7:52 PM) 4 /HPF *HI* (07/26/16 4:24 PM) UA RBC [0-2 /HPF] Occasional /HPF *NA* (07/26/16 7:52 PM) Occasional /HPF *NA* (07/26/16 4:24 PM) UA Bacteria [None Seen /HPF] Occasional /LPF *NA* (07/26/16 7:52 PM) UA Sq Epi [Few /LPF] None Seen *NA* (07/26/16 4:24 PM) UA Sq Epi HEMATOLOGY 1 2 3 Most recent to oldest [Reference Range]: 12.2 K/CMM *HI* (08/25/16 5:46 AM) 13.8 K/CMM *HI* (08/24/16 6:37 AM) 12.9 K/CMM *HI* (08/23/16 3:54 AM) WBC [3.7-10.4 K/CMM] 2.80 M/CMM *LOW* (08/25/16 5:46 AM) 2.79 M/CMM *LOW* (08/24/16 6:37 AM) 2.75 M/CMM *LOW* (08/23/16 3:54 AM) RBC [4.20-5.40 M/CMM] 8.2 g/dL *LOW* (08/25/16 5:46 AM) 8.0 g/dL *LOW* (08/24/16 6:37 AM) 7.9 g/dL *LOW* (08/23/16 3:54 AM) Hgb [12.0-16.0 g/dL] 24.7 % *LOW* (08/25/16 5:46 AM) 24.3 % *LOW* (08/24/16 6:37 AM) 24.4 % *LOW* (08/23/16 3:54 AM) Hct [36.0-48.0 %] 88.5 fL (08/25/16 5:46 AM) 87.2 fL (08/24/16 6:37 AM) 88.5 fL (08/23/16 3:54 AM) MCV [80.0-98.0 fL] 29.2 pg (08/25/16 5:46 AM) 28.7 pg (08/24/16 6:37 AM) 28.6 pg (08/23/16 3:54 AM) MCH [27.0-31.0 pg] 33.0 g/dL (08/25/16 5:46 AM) 33.0 g/dL (08/24/16 6:37 AM) 32.3 g/dL (08/23/16 3:54 AM) MCHC [32.0-36.0 g/dL] 15.1 % *HI* (08/25/16 5:46 AM) 14.8 % *HI* (08/24/16 6:37 AM) 14.9 % *HI* (08/23/16 3:54 AM) RDW [11.5-14.5 %] 406 K/CMM (08/25/16 5:46 AM) 424 K/CMM (08/24/16 6:37 AM) 336 K/CMM (08/23/16 3:54 AM) Platelet [133-450 K/CMM] 7.5 fL (08/25/16 5:46 AM) 7.3 fL *LOW* (08/24/16 6:37 AM) 7.5 fL (08/23/16 3:54 AM) MPV [7.4-10.4 fL] 76.7 % *HI* (08/25/16 5:46 AM) 82.1 % *HI* (08/24/16 6:37 AM) 81.4 % *HI* (08/23/16 3:54 AM) Segs [45.0-75.0 %] 2.0 % (08/16/16 5:57 AM) 30.0 % *HI* (07/26/16 12:59 PM) Bands [0.0-11.0 %] 11.8 % *LOW* (08/25/16 5:46 AM) 8.9 % *LOW* (08/24/16 6:37 AM) 9.6 % *LOW* (08/23/16 3:54 AM) Lymphocytes [20.0-40.0 %] 0.0 % (08/16/16 5:57 AM) 0.0 % (07/26/16 12:59 PM) Atypical Lymphs [<=0.0 %] 8.6 % (08/25/16 5:46 AM) 7.3 % (08/24/16 6:37 AM) 7.0 % (08/23/16 3:54 AM) Monocytes [2.0-12.0 %] 1.8 % (08/25/16 5:46 AM) 1.1 % (08/24/16 6:37 AM) 1.6 % (08/23/16 3:54 AM) Eosinophils [0.0-4.0 %] 1.1 % *HI* (08/25/16 5:46 AM) 0.6 % (08/24/16 6:37 AM) 0.4 % (08/23/16 3:54 AM) Basophils [0.0-1.0 %] 5.0 % *HI* (08/16/16 5:57 AM) 3.0 % *HI* (07/26/16 12:59 PM) Metamyelocytes [0.0-1.0 %] 9.4 K/CMM *HI* (08/25/16 5:46 AM) 11.3 K/CMM *HI* (08/24/16 6:37 AM) 10.5 K/CMM *HI* (08/23/16 3:54 AM) Segs-Bands # [1.5-8.1 K/CMM] 1.4 K/CMM (08/25/16 5:46 AM) 1.2 K/CMM (08/24/16 6:37 AM) 1.2 K/CMM (08/23/16 3:54 AM) Lymphocytes # [1.0-5.5 K/CMM] 1.0 K/CMM *HI* (08/25/16 5:46 AM) 1.0 K/CMM *HI* (08/24/16 6:37 AM) 0.9 K/CMM *HI* (08/23/16 3:54 AM) Monocytes # [0.0-0.8 K/CMM] 0.2 K/CMM (08/25/16 5:46 AM) 0.2 K/CMM (08/24/16 6:37 AM) 0.2 K/CMM (08/23/16 3:54 AM) Eosinophils # [0.0-0.5 K/CMM] 0.1 K/CMM (08/25/16 5:46 AM) 0.1 K/CMM (08/24/16 6:37 AM) 0.1 K/CMM (08/23/16 3:54 AM) Basophils # [0.0-0.2 K/CMM] Normal (08/22/16 2:22 AM) Normal (08/19/16 4:55 AM) Normal (08/16/16 5:57 AM) RBC Morph Moderate *ABN* (08/16/16 5:57 AM) Toxic Gran [None Seen] Normal (08/22/16 2:22 AM) Normal (08/19/16 4:55 AM) Normal (08/16/16 5:57 AM) Plt Morph 16.3 seconds *HI* (08/22/16 2:22 AM) 18.5 seconds *HI* (08/19/16 6:33 PM) 18.7 seconds *HI* (08/16/16 5:57 AM) PT [12.0-14.7 seconds] 1.29 *HI* (08/22/16 2:22 AM) 1.51 *HI* (08/19/16 6:33 PM) 1.53 *HI* (08/16/16 5:57 AM) INR [0.85-1.17] 33.0 seconds (08/14/16 5:18 AM) 32.1 seconds (07/27/16 8:17 PM) 30.5 seconds (07/26/16 12:59 PM) PTT [22.9-35.8 seconds] BACTERIAL - SEROLOGY 1 2 3 Most recent to oldest [Reference Range]: Negative (07/26/16 9:08 PM) MRSA by PCR Urine (07/26/16 4:24 PM) Source Strep Negative (07/26/16 4:24 PM) Strep pneumoniae Ag [Negative] VIRAL - SEROLOGY 1 2 3 Most recent to oldest [Reference Range]: Negative (07/26/16 7:52 PM) Influ A [Negative] Negative (07/26/16 7:52 PM) Influ B [Negative] Negative (07/26/16 7:52 PM) RSV Ag [Negative] Immunizations Given and Recorded Vaccine Date Status Refusal Reason Hx influenza vaccine-unspecified1 05/15/16 Recorded Hx influenza vaccine-unspecified2 06/02/10 Given pneumococcal 13-valent vaccine3 06/07/16 Given 1Location History: at specialist office 2Result Comment: fluvirin. Migrated from OBS ; Data migrated from [employer] on 09/12/2015. 3Result Comment: [facility]#[id number] Procedures Procedure Date Related Diagnosis Body Site Appendectomy Cataract surgery Excision of Magana's neuroma Hysterectomy Laparoscopic adjustable gastric banding Tonsillectomy Social History Social History Type Response Employment/School Status: unable to obtain. Alcohol Past Smoking Status Unknown if ever smoked; Exposure to Tobacco Smoke None; Cigarette Smoking Last 365 Days Unable to obtain; Reg Smoking Cessation Counseling Yes Assessment and Plan Extracted from: Title: Clinical Document Author: Charlie Patel MD Date: 08/25/16 [facility] INFECTIOUS DISEASE PROGRESS NOTE Natalie Hunter M.D. REASON FOR CONSULTATION & FOLLOW-UP: MSSA Bacteremia SUBJECTIVE: INTERVAL HISTORY: Remains intubated in ICU. afebrile s/peg placement. Transfer to [facility] ROS: Unable to obtain due to medical condition. more awake OBJECTIVE: PHYSICAL EXAMINATION: VitalsTmp(F)[id number] 08/24 22:00----[id number]--- 08/24 21:00----[id number]--- 08/24 20:04 100 40% 08/24 20:02 56213 40% 08/24 20:0098.219254/84----- 40% 24 Hr Tmax: 99.3F (37.39c) at 08/24 16:00Vital Signs are the last 5 in the past 48 hours. GEN: s/p tracheostomy HEENT: ETT LUNG: Crackles diffusely HEART: RRR; +S1/S2 GI: +peg tube Lines, Tubes, and Drains: 08/09/2016 18:27 Gastric Tubes: Nasoduodenal Nostril, right 12 [place] 08/09/2016 18:27 07/27/2016 23:32 Central Lines: Basilic vein, right PICC 07/27/2016 22:01 Indwelling Urinary Catheter: Urethral 16 [place] Indwelling/Continuous MEDICATIONS: Scheduled Meds (9): 07/27/16 FLUoxetine (PROzac) 10 mg PO Daily 08/15/16 amLODIPine (Norvasc) 10 mg PO Daily 07/26/16 atorvastatin 10 mg PO Bedtime 08/11/16 famotidine 20 mg NG Daily 07/29/16 furosemide (Lasix) 20 mg IVP Q12H 08/11/16 insulin isophane (insulin isophane-NPH) 8 unit SUB-Q BID 08/07/16 piperacillin-tazobactam + sodium chloride 0.9% 100 ml ADV 100 mL (Zosyn + sodium chloride 0.9% 100 ml ADV 100 mL) 3.375 gm IVPB ABXQ8H 25 ml/hr 08/10/16 polyethylene glycol 3350 (MiraLax) 17 gm PO Daily 07/26/16 sodium chloride (Saline Flush 0.9%) 10 ml IVP Q12H Allergies (1) ActiveReaction erythromycinNone documented LABORATORY (All labs have been reviewed.): Labs (Last four charted values) WBC H 13.8(AUG 24)H 12.9(AUG 23)H 18.2(AUG 22)H 16.9(AUG 21) Hgb L 8.0(AUG 24)L 7.9(AUG 23)L 7.9(AUG 22)L 8.1(AUG 21) Hct L 24.3(AUG 24)L 24.4(AUG 23)L 24.5(AUG 22)L 24.7(AUG 21) Plt 424(AUG 24)336(AUG 23)367(AUG 22)364(AUG 21) Na 143(AUG 24)145(AUG 23)145(AUG 22)145(AUG 21) K 3.6(AUG 24)C 2.9(AUG 24)C 3.0(AUG 23)L 3.3(AUG 22) CO2 32(AUG 24)32(AUG 23)30(AUG 22)27(AUG 21) Cl 103(AUG 24)106(AUG 23)106(AUG 22)108(AUG 21) Cr 0.68(AUG 24)0.65(AUG 23)0.83(AUG 22)0.77(AUG 21) BUN 20(AUG 24)17(AUG 23)21(AUG 22)20(AUG 21) Glucose Random H 199(AUG 24)H 150(AUG 23)H 201(AUG 22)H 222(AUG 21) Mg 2.2(AUG 24)2.1(AUG 23)2.1(AUG 22)2.3(AUG 21) Phos 3.2(AUG 24)3.5(AUG 23)2.9(AUG 22)3.4(AUG 21) Ca L 7.9(AUG 24)L 8.0(AUG 23)L 7.5(AUG 22)L 7.4(AUG 21) PT H 16.3(AUG 22)H 18.5(AUG 19)H 18.7(AUG 16)H 18.6(AUG 14) INR H 1.29(AUG 22)H 1.51(AUG 19)H 1.53(AUG 16)H 1.52(AUG 14) PTT 33.0(AUG 14)32.1(JUL 27)30.5(JUL 26) Troponin C 3.50(JUL 27)C 6.50(JUL 26)C 2.50(JUL 26) CK MB H 8.9(JUL 27)H 7.6(JUL 26)2.4(JUL 26) Total CK H 979(JUL 27)H 987(JUL 26)H 513(JUL 26) MICROBIOLOGY: All cultures have been reviewed. IMAGING/TESTS: Recent studies have been reviewed. ASSESSMENT & PLAN: 76 yo F presents with: * MSSA Bacteremia * MSSA Bilateral Pneumonia * Probable Endovascular Infection * Neck Hematoma * Acute Hypoxemic Respiratory Failure * Sepsis 2/2 Above - tranfer to [facility] in Am -cont same abx will wean there - no new issues - S/P tracheostomy s/p peg tube - extensive purulence noted - chest PT initiated - expaned IV abx with merem + vanc - resp cx repeated and remained same ANTIMICROBIALS: Total # 27/ 42 merem + vanco Extracted from: Title: DC Author: Willis Melendrez Date: 08/25/16 Hans FELIX DATE OF ADMISSION: 07/26/2016 DATE OF DISCHARGE: 08/25/2016 DISCHARGE DIAGNOSES: 1. Septic shock secondary to necrotizing MSSA pneumonia 2. Acute respiratory failure requiring mechanical ventilation 3. Failure to wean from ventilator s/p tracheostomy 4. Type 2 diabetes 5. Mild-moderate mitral regurgitation 6. Infrahyoid/retropharyngeal hematoma 7. Atrial fibrillation, postprocedural 8. Hypertension PROCEDURES: Tracheostomy tube placement, PEG tube placement CONSULTS: GI, Cardiology, Infectious disease, ENT HOSPITAL COURSE: Ms. Richardson is a 76 year old woman with history of hypertension, type 2 diabetes, DEYSI, depression who was admitted 07/26/16 for syncope and septic shock secondary to pneumonia. She was placed on home CPAP but was unable to wean from NIPPV and was ultimately intubated. Respiratory and blood cultures grew MSSA for which she has been on antibiotics for an extended duration. SANDY was attempted but unsuccessful due to difficulty passing the instrument. She has copious secretions for which she has extensive chest physiotherapy. She could not be weaned from the ventilator and underwent tracheostomy and PEG tube placement. She is being transferred to [facility] for further ventilator weaning and physical therapy as well as IV antibiotics. DISPOSITION: Discharged to LTAC CONDITION: Stable DISCHARGE MEDICATIONS: See home medication reconciliation form PATIENT INSTRUCTIONS: Further instruction per LTAC FOLLOWUP: Per LTAC Willis Melendrez MD #[id number] Pulmonary/Critical Care Medicine [facility]
--- OUTSIDE RECORDS SUMMARY | 2018-07-29 09:21 | XMS REPORT ---
Author Author Zackery Thakur [facility] [employer] Address Unknown Phone Unavailable Care Team Providers Care [employer] Operator Name Role Phone Zackery Thakur Unavailable Allergies, Adverse Reactions, Alerts Substance Reaction Event Type Erythromycin Info Not Available Drug Allergy Problems Problem Type Condition Code Onset Dates Condition Status Assessment Hypertensive heart disease without heart failure I11.9 Active Problem Body mass index (BMI) 33.0-33.9, adult Z68.33 Active Assessment Old myocardial infarction I25.2 Active Problem Hypertensive heart disease without heart failure I11.9 Active Problem Type 2 diabetes mellitus without complications E11.9 Active Problem Old myocardial infarction I25.2 Active Problem Family history of ischemic heart disease and other diseases of the circulatory system Z82.49 Active Problem Screening for cardiovascular disorders Z13.6 Active Problem Mixed hyperlipidemia E78.2 Active Problem Obesity, unspecified E66.9 Active Assessment Screening for cardiovascular disorders Z13.6 Active Assessment Family history of ischemic heart disease and other diseases of the circulatory system Z82.49 Active Assessment Body mass index (BMI) 33.0-33.9, adult Z68.33 Active Assessment Mixed hyperlipidemia E78.2 Active Assessment Obesity, unspecified E66.9 Active Assessment Type 2 diabetes mellitus without complications E11.9 Active Medications Medication Code System Code Instructions Start Date End Date Status Dosage Amlodipine Besylate [facility] [address]-29 10 MG Orally Once a day Active 1 tablet Metoprolol Tartrate [facility] [address]-56 25 MG Orally four times a day (qid) Active 1 tablet with food Meloxicam [facility] [address]-49 15 MG Orally Once a day Active 1 tablet Leflunomide [facility] [address]-34 10 MG Orally Once a day Active 1 tablet Klor-Con M20 [facility] [address]-37 20 MEQ Orally Once a day Active 1 tablet with food Furosemide [facility] [address]-73 40 MG Orally Once a day Active 1 tablet Janumet [facility] [address]-91 50-1000 MG Orally Twice a day Active 1 tablet with meals GlipiZIDE [facility] [address]-76 5 MG Orally Once a day Active 1 tablet Fluoxetine HCl [facility] [address]-79 10 MG Orally Once a day Active 1 capsule in the morning Atorvastatin Calcium [facility] [address]-20 10 MG Orally Once a day Active 1 tablet Vital Signs Date/Time: November 08, 2016 BMI 33.25 Index Weight 176 lbs Height 5ft 1in in Cardiac Monitoring Heart Rate 71 /min Blood Pressure Diastolic 65 mm Hg Blood Pressure Systolic 130 mm Hg Results No Known Results Summary Purpose [employer]Works Submission
--- OUTSIDE RECORDS SUMMARY | 2018-07-29 09:22 | XMS REPORT | Summary of Care ---
Author Author [facility] Organization [facility] Address Unknown Phone Unavailable Encounter ÁNGELA Redding(MARIUSZ) [id number] Date(s): 03/08/17 - 03/12/17 [facility] [address] [place] [address]- [phone] Discharge Disposition: Home or Self Care Attending Physician: Arnel Storey MD Admitting Physician: Arnel Storey MD Vital Signs 1 2 3 Most recent to oldest [Reference Range]: 154.94 cm (03/09/17 3:10 AM) 154.94 cm (03/08/17 9:08 PM) Height 98 DegF (03/12/17 3:42 PM) 98.2 DegF (03/12/17 11:31 AM) 97.8 DegF (03/12/17 8:20 AM) Temperature Oral [96.4-99.1 DegF] 158/84 mmHg *HI* (03/12/17 3:42 PM) 155/78 mmHg *HI* (03/12/17 1:10 PM) 162/95 mmHg *HI* (03/12/17 11:31 AM) Blood Pressure [90-140/60-90 mmHg] 18 BRMIN (03/12/17 3:42 PM) 18 BRMIN (03/12/17 1:10 PM) 18 BRMIN (03/12/17 11:31 AM) Respiratory Rate [14-20 BRMIN] 82 bpm (03/12/17 3:42 PM) 88 bpm (03/12/17 1:10 PM) 74 bpm (03/12/17 11:31 AM) Peripheral Pulse Rate [60-100 bpm] 81.392 kg (03/09/17 3:10 AM) 79.545 kg (03/08/17 9:08 PM) Weight 33.9 m2 (03/09/17 3:10 AM) 33.13 m2 (03/08/17 9:08 PM) Body Mass Index Problem List Condition Effective Dates Status Health Status Informant Acute bronchitis1, 2 07/14/13 Resolved Acute pharyngitis3 07/14/13 Resolved Acute sinusitis4, 5 01/29/12 Resolved Acute suppurative 07/14/13 Resolved otitis media6 Atrial Resolved fibrillation(Confirm ed) Arthritis of hand7, 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 8 Backache9 05/21/13 Resolved CHF (congestive Resolved heart failure)(Confirmed) 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 csdursbu60 Diabetes Active mellitus(Confirmed) Cujuins53 03/27/13 Active Hormone replacement 04/05/10 Active aoljmma23 Hypertension(Confirm Active ed) Hypertensive 04/05/10 Active lsgnycy41 Hypertriglyceridemia 09/23/12 Active 14 Ithlnoyv83 07/31/10 Active Knee pain16 03/22/14 Active Menopausal 07/31/10 Active voqfwcgn68 Mitral Resolved regurgitation(Confir med) Heart Resolved attack(Confirmed) Obesity(Confirmed) Active Postmenopausal 03/10/12 Active hoxvhdzkbriy41 Postmenopausal 04/05/10 Active state19 Cdpgdju59 02/24/13 Active Hhuctxbzac17 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 Type 2 diabetes 12/01/12 Active mellitus well viqcltabwy52 Vitamin D 11/19/11 Active btzafsiqcl17 1Data migrated from [employer] on 02/25/15. [...] on 12/07/14. Originally documented as ERYTHROMYCIN. Medications aspirin 324 mg, Route: CHEW, Drug form: CHEWTAB, ONCE, Dosing Weight 79.545, kg, Priorit y: STAT, Start date: 03/08/17 23:11:00 CDT, Stop date: 03/08/17 23:11:00 CDT Start Date: 03/08/17 Stop Date: 03/09/17 Status: Completed aspirin 81 mg tablet, enteric coated 81 mg, 1 tab, Route: PO, Drug form: ECTAB, Daily, Dosing Weight 81.392, kg, Star t date: 03/10/17 9:00:00 CDT, Duration: 30 day, Stop date: 04/08/17 9:00:00 CDT Start Date: 03/10/17 Stop Date: 03/09/17 Status: Deleted aspirin 81 mg tablet, enteric coated 81 mg=1 tab, PO, Daily, # 90 tab, 3 Refill(s) Start Date: 03/09/17 Status: Ordered aspirin 81 mg tablet, enteric coated 81 mg, 1 tab, Route: PO, Drug form: ECTAB, Daily, Dosing Weight 79.545, kg, Star t date: 03/09/17 9:00:00 CDT, Duration: 30 day, Stop date: 04/07/17 9:00:00 CDT Notes: Do not crush or chew.(Same As: Ecotrin) Start Date: 03/09/17 Stop Date: 03/12/17 Status: Discontinued atorvastatin 80 mg, 2 tab, Route: PO, Drug form: TAB, Bedtime, Dosing Weight 79.545, kg, Star t date: 03/09/17 21:00:00 CDT, Duration: 30 day, Stop date: 04/07/17 21:00:00 CD T Notes: (Same as: Lipitor) Start Date: 03/09/17 Stop Date: 03/12/17 Status: Discontinued atorvastatin 80 mg oral tablet 80 mg=1 tab, PO, Bedtime, # 30 tab, 1 Refill(s) Start Date: 03/10/17 Status: Ordered calcium gluconate + sodium chloride 0.9% INJ 100 mL 2 gm, 20 mL, Route: IVPB, PRN, Dosing Weight 79.545, kg, PRN Abnormal Lab Result , For NON-ICU Patients Only., Start date: 03/09/17 1:02:00 CDT, Duration: 30 day , Stop date: 04/08/17 1:01:00 CDT Notes: WASTE: F/P - Sink; E - Municipal Trash Bin Start Date: 03/09/17 Stop Date: 03/12/17 Status: Discontinued calcium gluconate + sodium chloride 0.9% INJ 120 mL 3 gm, 30 mL, Route: IVPB, PRN, Dosing Weight 79.545, kg, PRN Abnormal Lab Result , For NON-ICU Patients Only., Start date: 03/09/17 1:02:00 CDT, Duration: 30 day , Stop date: 04/08/17 1:01:00 CDT Notes: WASTE: F/P - Sink; E - Municipal Trash Bin Start Date: 03/09/17 Stop Date: 03/12/17 Status: Discontinued carvedilol 6.25 mg oral tablet 6.25 mg=1 tab, PO, Q12H, # 60 tab, 1 Refill(s) Start Date: 03/10/17 Status: Ordered cloNIDine 0.1 mg oral tablet 0.1 mg, 1 tab, Route: PO, Drug form: TAB, Q6H, Dosing Weight 81.392, kg, PRN Hyp ertension, Start date: 03/10/17 22:12:00 CDT, Duration: 30 day, Stop date: 04/09 22:11:00 CDT Notes: (Same As: Catapres) Start Date: 03/10/17 Stop Date: 03/12/17 Status: Discontinued Coreg 6.25 mg, 2 tab, Route: PO, Drug form: TAB, Q12H, Dosing Weight 81.392, kg, Start date: 03/09/17 21:00:00 CDT, Duration: 30 day, Stop date: 04/08/17 9:00:00 CDT Notes: Give with food. (Same As: Coreg) Start Date: 03/09/17 Stop Date: 03/12/17 Status: Discontinued Dextrose 50% Syringe 25 gm, 50 mL, Route: IVP, Drug Form: INJ, Dosing Weight 81.392, kg, PRN, PRN Blo od Glucose Results, Start date: 03/09/17 14:51:00 CDT, Duration: 30 day, Stop da te: 04/08/17 14:50:00 CDT Start Date: 03/09/17 Stop Date: 03/12/17 Status: Discontinued Dextrose 50% Syringe 12.5 gm, 25 mL, Route: IVP, Drug Form: INJ, Dosing Weight 81.392, kg, PRN, PRN B lood Glucose Results, Start date: 03/09/17 14:51:00 CDT, Duration: 30 day, Stop date: 04/08/17 14:50:00 CDT Start Date: 03/09/17 Stop Date: 03/12/17 Status: Discontinued Dextrose 50% Syringe 12.5 gm, 25 mL, Route: IVP, Drug Form: INJ, Dosing Weight 81.392, kg, PRN, PRN B lood Glucose Results, Start date: 03/10/17 22:10:00 CDT, Duration: 30 day, Stop date: 04/09/17 22:09:00 CDT Start Date: 03/10/17 Stop Date: 03/12/17 Status: Discontinued Dextrose 50% Syringe 25 gm, 50 mL, Route: IVP, Drug Form: INJ, Dosing Weight 81.392, kg, PRN, PRN Blo od Glucose Results, Start date: 03/10/17 22:10:00 CDT, Duration: 30 day, Stop da te: 04/09/17 22:09:00 CDT Start Date: 03/10/17 Stop Date: 03/12/17 Status: Discontinued DuoNeb inhalation solution 3 mL, Route: NEB, Drug Form: SOLN, Dosing Weight 81.392, kg, QID, PRN as needed for shortness of breath or wheezing, Start date: 03/09/17 14:37:00 CDT, Duration : 30 day, Stop date: 04/08/17 14:36:00 CDT Notes: (Same as: Duoneb) Start Date: 03/09/17 Stop Date: 03/12/17 Status: Discontinued furosemide 40 mg oral tablet 40 mg, 1 tab, Route: PO, Drug form: TAB, Daily, Dosing Weight 81.392, kg, Start date: 03/10/17 9:00:00 CDT, Duration: 30 day, Stop date: 04/08/17 9:00:00 CDT Notes: (Same as: Lasix) May cause GI upset. Give with food or milk. Start Date: 03/10/17 Stop Date: 03/12/17 Status: Discontinued glipiZIDE 5 mg, 1 tab, Route: PO, Drug form: TAB, BID, Dosing Weight 81.392, kg, Start boris e: 03/09/17 17:00:00 CDT, Duration: 30 day, Stop date: 04/08/17 9:00:00 CDT Notes: (Same as: Glucotrol) 30 min before meals. Start Date: 03/09/17 Stop Date: 03/12/17 Status: Discontinued glipiZIDE 5 mg, PO, BID, 0 Refill(s) Start Date: 03/09/17 Status: Ordered glucagon 1 mg, Route: IM, Drug form: PDR/INJ, PRN, Dosing Weight 81.392, kg, PRN Blood Gl ucose Results, Start date: 03/09/17 14:51:00 CDT, Duration: 30 day, Stop date: 0 04/08/17 14:50:00 CDT Start Date: 03/09/17 Stop Date: 03/12/17 Status: Discontinued glucagon 1 mg, Route: IM, Drug form: PDR/INJ, PRN, Dosing Weight 81.392, kg, PRN Blood Gl ucose Results, Start date: 03/10/17 22:10:00 CDT, Duration: 30 day, Stop date: 0 04/09/17 22:09:00 CDT Start Date: 03/10/17 Stop Date: 03/12/17 Status: Discontinued hydrALAZINE 10 mg, Route: IV, ONCE, Dosing Weight 79.545, kg, Start date: 03/09/17 1:08:00 C DT, Stop date: 03/09/17 1:08:00 CDT Start Date: 03/09/17 Stop Date: 03/09/17 Status: Completed hydrALAZINE 10 mg, 0.5 mL, Route: IV, Drug form: INJ, ONCE, Dosing Weight 81.392, kg, Priori ty: NOW, Start date: 03/12/17 10:39:00 CDT, Stop date: 03/12/17 10:39:00 CDT Notes: (Same as: Apresoline)Push over 5 minutes Start Date: 03/12/17 Stop Date: 03/12/17 Status: Completed hydrALAZINE 10 mg oral tablet 10 mg, 1 tab, Route: PO, Drug form: TAB, TID, Dosing Weight 81.392, kg, Start da te: 03/09/17 17:00:00 CDT, Duration: 30 day, Stop date: 04/08/17 13:00:00 CDT Notes: (Same as: Apresoline) May interfere w/enteral feedings.Take With Food Start Date: 03/09/17 Stop Date: 03/11/17 Status: Discontinued hydrALAZINE 10 mg oral tablet 10 mg, 1 tab, Route: PO, Drug form: TAB, Q8H, Dosing Weight 81.392, kg, Priority : NOW, Start date: 03/09/17 9:24:00 CDT, Duration: 30 day, Stop date: 04/08/17 8 :00:00 CDT Notes: (Same as: Apresoline) May interfere w/enteral feedings.Take With Food Start Date: 03/09/17 Stop Date: 03/09/17 Status: Discontinued hydrALAZINE 25 mg oral tablet 25 mg, 1 tab, Route: PO, Drug form: TAB, Q6H, Dosing Weight 81.392, kg, Priority : NOW, Start date: 03/11/17 14:02:00 CDT, Duration: 30 day, Stop date: 04/10/17 12:00:00 CDT Notes: (Same as: Apresoline) May interfere w/enteral feedings Take With Food. Start Date: 03/11/17 Stop Date: 03/12/17 Status: Discontinued hydrALAZINE 50 mg oral tablet 50 mg=1 tab, PO, TID, # 90 tab, 0 Refill(s), Pharmacy: [id number] Start Date: 03/12/17 Stop Date: 04/11/17 Status: Ordered insulin aspart 4 unit, 0.04 mL, Route: SUB-Q, Drug form: SOLN, TID-Before Meals, Dosing Weight 81.392, kg, PRN Blood Glucose Results, Start date: 03/09/17 14:51:00 CDT, Durati on: 30 day, Stop date: 04/08/17 14:50:00 CDT Notes: Roll in palms of hands gently; Do not shake vigorously. (Same as: Meghan Addison)"single patient use only"WASTE: F/P - Black; E - Municipal Trash Bin Stable f or 28 days at room temperature.Expires in days from Date Start Date: 03/09/17 Stop Date: 03/10/17 Status: Discontinued insulin aspart 5 unit, 0.05 mL, Route: SUB-Q, Drug form: SOLN, TID-Before Meals, Dosing Weight 81.392, kg, PRN Blood Glucose Results, Start date: 03/09/17 14:51:00 CDT, Durati on: 30 day, Stop date: 04/08/17 14:50:00 CDT Notes: Roll in palms of hands gently; Do not shake vigorously. (Same as: Meghan Addison)"single patient use only"WASTE: F/P - Black; E - Municipal Trash Bin Stable f or 28 days at room temperature.Expires in days from Date Start Date: 03/09/17 Stop Date: 03/10/17 Status: Discontinued insulin aspart 3 unit, 0.03 mL, Route: SUB-Q, Drug form: SOLN, TID-Before Meals, Dosing Weight 81.392, kg, PRN Blood Glucose Results, Start date: 03/09/17 14:51:00 CDT, Durati on: 30 day, Stop date: 04/08/17 14:50:00 CDT Notes: Roll in palms of hands gently; Do not shake vigorously. (Same as: Meghan Addison)"single patient use only"WASTE: F/P - Black; E - [facility] Trash Bin Stable f or 28 days at room temperature.Expires in days from Date Start Date: 03/09/17 Stop Date: 03/10/17 Status: Discontinued insulin aspart 2 unit, 0.02 mL, Route: SUB-Q, Drug form: SOLN, TID-Before Meals, Dosing Weight 81.392, kg, PRN Blood Glucose Results, Start date: 03/09/17 14:51:00 CDT, Durati on: 30 day, Stop date: 04/08/17 14:50:00 CDT Notes: Roll in palms of hands gently; Do not shake vigorously. (Same as: Meghan Addison)"single patient use only"WASTE: F/P - Black; E - [facility] Trash Bin Stable f or 28 days at room temperature.Expires in days from Date Start Date: 03/09/17 Stop Date: 03/10/17 Status: Discontinued insulin aspart 1 unit, 0.01 mL, Route: SUB-Q, Drug form: SOLN, TID-Before Meals, Dosing Weight 81.392, kg, PRN Blood Glucose Results, Start date: 03/09/17 14:51:00 CDT, Durati on: 30 day, Stop date: 04/08/17 14:50:00 CDT Notes: Roll in palms of hands gently; Do not shake vigorously. (Same as: Meghan Addison)"single patient use only"WASTE: F/P - Black; E - Municipal Trash Bin Stable f or 28 days at room temperature.Expires in days from Date Start Date: 03/09/17 Stop Date: 03/10/17 Status: Discontinued insulin aspart 1 unit, 0.01 mL, Route: SUB-Q, Drug form: SOLN, Bedtime, Dosing Weight 81.392, k g, PRN Blood Glucose Results, Start date: 03/10/17 22:10:00 CDT, Duration: 30 da y, Stop date: 04/09/17 22:09:00 CDT Notes: Roll in palms of hands gently; Do not shake vigorously. (Same as: Meghan Addison)"single patient use only"WASTE: F/P - Black; E - Municipal Trash Bin Stable f or 28 days at room temperature.Expires in days from Date Start Date: 03/10/17 Stop Date: 03/12/17 Status: Discontinued insulin aspart 2 unit, 0.02 mL, Route: SUB-Q, Drug form: SOLN, Bedtime, Dosing Weight 81.392, k g, PRN Blood Glucose Results, Start date: 03/10/17 22:10:00 CDT, Duration: 30 da y, Stop date: 04/09/17 22:09:00 CDT Notes: Roll in palms of hands gently; Do not shake vigorously. (Same as: Meghan Addison)"single patient use only"WASTE: F/P - Black; E - Municipal Trash Bin Stable f or 28 days at room temperature.Expires in days from Date Start Date: 03/10/17 Stop Date: 03/12/17 Status: Discontinued insulin aspart 3 unit, 0.03 mL, Route: SUB-Q, Drug form: SOLN, Bedtime, Dosing Weight 81.392, k g, PRN Blood Glucose Results, Start date: 03/10/17 22:10:00 CDT, Duration: 30 da y, Stop date: 04/09/17 22:09:00 CDT Notes: Roll in palms of hands gently; Do not shake vigorously. (Same as: Meghan Addison)"single patient use only"WASTE: F/P - Black; E - Municipal Trash Bin Stable f or 28 days at room temperature.Expires in days from Date Start Date: 03/10/17 Stop Date: 03/12/17 Status: Discontinued insulin aspart 4 unit, 0.04 mL, Route: SUB-Q, Drug form: SOLN, Bedtime, Dosing Weight 81.392, k g, PRN Blood Glucose Results, Start date: 03/10/17 22:10:00 CDT, Duration: 30 da y, Stop date: 04/09/17 22:09:00 CDT Notes: Roll in palms of hands gently; Do not shake vigorously. (Same as: Meghan Addison)"single patient use only"WASTE: F/P - Black; E - Municipal Trash Bin Stable f or 28 days at room temperature.Expires in days from Date Start Date: 03/10/17 Stop Date: 03/12/17 Status: Discontinued insulin aspart 4 unit, 0.04 mL, Route: SUB-Q, Drug form: SOLN, TID-Before Meals, Dosing Weight 81.392, kg, PRN Blood Glucose Results, Start date: 03/10/17 22:10:00 CDT, Durati on: 30 day, Stop date: 04/09/17 22:09:00 CDT Notes: Roll in palms of hands gently; Do not shake vigorously. (Same as: Meghan Addison)"single patient use only"WASTE: F/P - Black; E - Municipal Trash Bin Stable f or 28 days at room temperature.Expires in days from Date Start Date: 03/10/17 Stop Date: 03/12/17 Status: Discontinued insulin aspart 2 unit, 0.02 mL, Route: SUB-Q, Drug form: SOLN, TID-Before Meals, Dosing Weight 81.392, kg, PRN Blood Glucose Results, Start date: 03/10/17 22:10:00 CDT, Durati on: 30 day, Stop date: 04/09/17 22:09:00 CDT Notes: Roll in palms of hands gently; Do not shake vigorously. (Same as: Meghan Addison)"single patient use only"WASTE: F/P - Black; E - Municipal Trash Bin Stable f or 28 days at room temperature.Expires in days from Date Start Date: 03/10/17 Stop Date: 03/12/17 Status: Discontinued insulin aspart 3 unit, 0.03 mL, Route: SUB-Q, Drug form: SOLN, TID-Before Meals, Dosing Weight 81.392, kg, PRN Blood Glucose Results, Start date: 03/10/17 22:10:00 CDT, Durati on: 30 day, Stop date: 04/09/17 22:09:00 CDT Notes: Roll in palms of hands gently; Do not shake vigorously. (Same as: Meghan Addison)"single patient use only"WASTE: F/P - Black; E - Municipal Trash Bin Stable f or 28 days at room temperature.Expires in days from Date Start Date: 03/10/17 Stop Date: 03/12/17 Status: Discontinued insulin aspart 5 unit, 0.05 mL, Route: SUB-Q, Drug form: SOLN, TID-Before Meals, Dosing Weight 81.392, kg, PRN Blood Glucose Results, Start date: 03/10/17 22:10:00 CDT, Durati on: 30 day, Stop date: 04/09/17 22:09:00 CDT Notes: Roll in palms of hands gently; Do not shake vigorously. (Same as: Meghan Addison)"single patient use only"WASTE: F/P - Black; E - Municipal Trash Bin Stable f or 28 days at room temperature.Expires in days from Date Start Date: 03/10/17 Stop Date: 03/12/17 Status: Discontinued insulin aspart 1 unit, 0.01 mL, Route: SUB-Q, Drug form: SOLN, TID-Before Meals, Dosing Weight 81.392, kg, PRN Blood Glucose Results, Start date: 03/10/17 22:10:00 CDT, Durati on: 30 day, Stop date: 04/09/17 22:09:00 CDT Notes: Roll in palms of hands gently; Do not shake vigorously. (Same as: Meghan Addison)"single patient use only"WASTE: F/P - Black; E - Municipal Trash Bin Stable f or 28 days at room temperature.Expires in days from Date Start Date: 03/10/17 Stop Date: 03/12/17 Status: Discontinued K-Dur 20 20 mEq, 1 tab, Route: PO, Drug form: ERTAB, ONCE, Dosing Weight 81.392, kg, Star t date: 03/09/17 14:39:00 CDT, Stop date: 03/09/17 14:39:00 CDT Notes: (Same as: K-Dur 20)"Do Not Crush" With food and full glass of water Start Date: 03/09/17 Stop Date: 03/09/17 Status: Completed K-Dur 20 20 mEq, 1 tab, Route: PO, Drug form: ERTAB, ONCE, Dosing Weight 81.392, kg, Star t date: 03/10/17 16:47:00 CDT, Stop date: 03/10/17 16:47:00 CDT Notes: (Same as: K-Dur 20)"Do Not Crush" With food and full glass of water Start Date: 03/10/17 Stop Date: 03/10/17 Status: Completed lisinopril 20 mg, 1 tab, Route: PO, Drug form: TAB, BID, Dosing Weight 81.392, kg, Start da te: 03/10/17 17:00:00 CDT, Duration: 30 day, Stop date: 04/09/17 9:00:00 CDT Notes: (Same as: ivjoy, Zestril) Start Date: 03/10/17 Stop Date: 03/12/17 Status: Discontinued lisinopril 10 mg, 2 tab, Route: PO, Drug form: TAB, BID, Dosing Weight 81.392, kg, Start da te: 03/09/17 17:00:00 CDT, Duration: 30 day, Stop date: 04/08/17 9:00:00 CDT Notes: (Same as: Prinivil, Zestril) Start Date: 03/09/17 Stop Date: 03/10/17 Status: Discontinued lisinopril 20 mg oral tablet 20 mg, PO, BID, # 60 tab, 2 Refill(s) Start Date: 03/10/17 Status: Ordered magnesium oxide 800 mg, 2 tab, Route: PO, Drug form: TAB, PRN, Dosing Weight 79.545, kg, PRN Abn ormal Lab Result, For NON-ICU Patients Only., Start date: 03/09/17 1:02:00 CDT, Duration: 30 day, Stop date: 04/08/17 1:01:00 CDT Notes: (Same as: Mag-Ox 400)Magnesium oxide [id number] elemental magnesiumDose= ____mg magnesium oxide (___mg elemental magnesium) Start Date: 03/09/17 Stop Date: 03/12/17 Status: Discontinued magnesium sulfate 1 gm, 100 mL, Route: IVPB, Drug form: INJ, PRN, Dosing Weight 79.545, kg, PRN Ab normal Lab Result, For NON-ICU Patients Only., Start date: 03/09/17 1:02:00 CDT, Duration: 30 day, Stop date: 04/08/17 1:01:00 CDT Notes: WASTE: F/P - Sink; E - Municipal Trash Bin Start Date: 03/09/17 Stop Date: 03/12/17 Status: Discontinued magnesium sulfate 2 gm, 50 mL, Route: IVPB, Drug form: INJ, PRN, Dosing Weight 79.545, kg, PRN Abn ormal Lab Result, For NON-ICU Patients Only., Start date: 03/09/17 1:02:00 CDT, Duration: 30 day, Stop date: 04/08/17 1:01:00 CDT Notes: WASTE: F/P - Sink; E - Municipal Trash Bin Start Date: 03/09/17 Stop Date: 03/12/17 Status: Discontinued metoprolol extended release 50 mg, 1 tab, Route: PO, Drug form: ERTAB, Daily, Priority: NOW, Start date: 9:25:00 CDT, Duration: 30 day, Stop date: 04/08/17 9:00:00 CDT Notes: (Same as: Toprol XL) May split tab, but do not crush. Start Date: 03/09/17 Stop Date: 03/09/17 Status: Discontinued pneumococcal 23-valent vaccine 0.5 mL, Route: IM, Drug Form: INJ, Daily, Start date: 03/09/17 9:00:00 CDT, Dura tion: 1 doses or times, Stop date: 03/09/17 9:00:00 CDT Notes: (Same as: Pneumovax 23) Refrigerate Start Date: 03/09/17 Stop Date: 03/09/17 Status: Completed potassium chloride 10 mEq, 100 mL, Route: IVPB, Drug form: INJ, PRN, Dosing Weight 79.545, kg, PRN Abnormal Lab Result, For NON-ICU Patients Only, Start date: 03/09/17 1:02:00 CDT , Duration: 30 day, Stop date: 04/08/17 1:01:00 CDT Notes: Infuse at a rate of 10 mEq/hr.(Same as: KCL) Start Date: 03/09/17 Stop Date: 03/12/17 Status: Discontinued potassium chloride 20 mEq, 1 tab, Route: PO, Drug form: ERTAB, PRN, Dosing Weight 79.545, kg, PRN A bnormal Lab Result, For NON-ICU Patients Only, Start date: 03/09/17 1:02:00 CDT, Duration: 30 day, Stop date: 04/08/17 1:01:00 CDT Notes: (Same as: K-Dur 20)"Do Not Crush" With food and full glass of water Start Date: 03/09/17 Stop Date: 03/12/17 Status: Discontinued potassium chloride 20 mEq, 15 mL, Route: NJ, Drug form: LIQ, PRN, Dosing Weight 79.545, kg, PRN Abn ormal Lab Result, For NON-ICU Patients Only, Start date: 03/09/17 1:02:00 CDT, D uration: 30 day, Stop date: 04/08/17 1:01:00 CDT Notes: (Same as: Potassium Chloride) Start Date: 03/09/17 Stop Date: 03/12/17 Status: Discontinued potassium chloride 20 mEq/15 mL oral liquid 40 mEq, 15 mL, Route: PO, Drug form: LIQ, ONCE, Dosing Weight 79.545, kg, Priori ty: STAT, Start date: 03/09/17 0:33:00 CDT, Stop date: 03/09/17 0:33:00 CDT Start Date: 03/09/17 Stop Date: 03/09/17 Status: Completed potassium phosphate + sodium chloride 0.9% INJ 250 mL 15 mmol, 5 mL, Route: IVPB, PRN, Dosing Weight 79.545, kg, PRN Abnormal Lab Resu lt, For NON-ICU Patients Only., Start date: 03/09/17 1:02:00 CDT, Duration: 30 d ay, Stop date: 04/08/17 1:01:00 CDT Notes: (Same as: K Phosphate.) 1 mMol phoshate has 1.47 mEq potassium Infuse o [place] 4 hours Start Date: 03/09/17 Stop Date: 03/12/17 Status: Discontinued potassium phosphate + sodium chloride 0.9% INJ 250 mL 30 mmol, 10 mL, Route: IVPB, PRN, Dosing Weight 79.545, kg, PRN Abnormal Lab Res ult, For NON-ICU Patients Only., Start date: 03/09/17 1:02:00 CDT, Duration: 30 day, Stop date: 04/08/17 1:01:00 CDT Notes: (Same as: K Phosphate.) 1 mMol phoshate has 1.47 mEq potassium Infuse o [place] 4 hours Start Date: 03/09/17 Stop Date: 03/12/17 Status: Discontinued potassium phosphate-sodium phosphate 250 mg-280 mg-160 mg oral powder for recons titution 2 pkt, Route: PO, Drug Form: PDR/REC, Dosing Weight 79.545, kg, PRN, PRN Abnorma l Lab Result, For NON-ICU Patients Only, Start date: 03/09/17 1:02:00 CDT, Durat ion: 30 day, Stop date: 04/08/17 1:01:00 CDT Notes: (Same as: Phos-NaK) Each 1.5 gm pkt has 250mg phosphorous. Mix w/2.5oz w ater and stir. Start Date: 03/09/17 Stop Date: 03/12/17 Status: Discontinued PROzac 10 mg, 1 cap, Route: PO, Drug form: CAP, Daily, Dosing Weight 81.392, kg, Start date: 03/10/17 9:00:00 CDT, Duration: 30 day, Stop date: 04/08/17 9:00:00 CDT Notes: (Same as: Prozac) Start Date: 03/10/17 Stop Date: 03/12/17 Status: Discontinued Saline Flush 0.9% 10 mL, Route: IVP, Drug Form: INJ, Dosing Weight 79.545, kg, PRN, PRN Line Flush , Start date: 03/08/17 21:22:00 CDT, Duration: 30 day, Stop date: 04/07/17 21:21 :00 CDT Notes: (Same as: BD Posiflush) Start Date: 03/08/17 Stop Date: 03/09/17 Status: Discontinued Saline Flush 0.9% 10 ml, Route: IVP, Drug Form: INJ, Dosing Weight 79.545, kg, PRN, PRN Line Flush , Start date: 03/09/17 1:01:00 CDT, Duration: 30 day, Stop date: 04/08/17 1:00:0 0 CDT Notes: (Same as: BD Posiflush) Start Date: 03/09/17 Stop Date: 03/12/17 Status: Discontinued Saline Flush 0.9% 10 ml, Route: IVP, Drug Form: INJ, Dosing Weight 79.545, kg, Q12H, Start date: 0 03/09/17 9:00:00 CDT, Duration: 30 day, Stop date: 04/07/17 21:00:00 CDT Notes: (Same as: BD Posiflush) Start Date: 03/09/17 Stop Date: 03/12/17 Status: Discontinued sodium phosphate + D5W 250 mL 30 mmol, 10 mL, Route: IVPB, PRN, Dosing Weight 79.545, kg, PRN Abnormal Lab Res ult, For NON-ICU Patients Only., Start date: 03/09/17 1:02:00 CDT, Duration: 30 day, Stop date: 04/08/17 1:01:00 CDT Start Date: 03/09/17 Stop Date: 03/12/17 Status: Discontinued sodium phosphate + D5W 250 mL 15 mmol, 5 mL, Route: IVPB, PRN, Dosing Weight 79.545, kg, PRN Abnormal Lab Resu lt, For NON-ICU Patients Only., Start date: 03/09/17 1:02:00 CDT, Duration: 30 d ay, Stop date: 04/08/17 1:01:00 CDT Start Date: 03/09/17 Stop Date: 03/12/17 Status: Discontinued trazodone 50 mg oral tablet 50 mg, 1 tab, Route: PO, Drug form: TAB, Bedtime, Dosing Weight 81.392, kg, PRN Sleep, Start date: 03/09/17 14:38:00 CDT, Duration: 30 day, Stop date: 04/08/17 14:37:00 CDT Notes: (Same As: Desyrel) Start Date: 03/09/17 Stop Date: 03/12/17 Status: Discontinued Tylenol 650 mg, 2 tab, Route: PO, Drug form: TAB, Q6H, Dosing Weight 81.392, kg, PRN Doris n Score 1-3, Start date: 03/09/17 7:52:00 CDT, Duration: 30 day, Stop date: 03/13 03/28 7:51:00 CDT Notes: Do not exceed 4 gm/day. (Same as: Tylenol) Start Date: 03/09/17 Stop Date: 03/12/17 Status: Discontinued Results ELECTROLYTES 1 2 3 Most recent to oldest [Reference Range]: 141 mEq/L (03/10/17 12:25 PM) 140 mEq/L (03/09/17 5:52 AM) 137 mEq/L (03/08/17 10:30 PM) Sodium Lvl [135-145 mEq/L] 3.4 mEq/L *LOW* (03/10/17 12:25 PM) 3.2 mEq/L *LOW* (03/09/17 5:52 AM) 2.6 mEq/L 1 *CRIT* (03/08/17 10:30 PM) Potassium Lvl [3.5-5.1 mEq/L] 107 mEq/L (03/10/17 12:25 PM) 108 mEq/L (03/09/17 5:52 AM) 106 mEq/L (03/08/17 10:30 PM) Chloride Lvl [95-109 mEq/L] 26 mEq/L (03/10/17 12:25 PM) 26 mEq/L (03/09/17 5:52 AM) 28 mEq/L (03/08/17 10:30 PM) CO2 [24-32 mEq/L] 11.4 mEq/L (03/10/17 12:25 PM) 9.2 mEq/L *LOW* (03/09/17 5:52 AM) 5.6 mEq/L *LOW* (03/08/17 10:30 PM) AGAP [10.0-20.0 mEq/L] 1Result Comment: Critical Result(s) called to heydi davis at 03/09/2017 00:19 by eva. Read back OK. CHEM PANEL 1 2 3 Most recent to oldest [Reference Range]: 0.81 mg/dL (03/10/17 12:25 PM) 0.76 mg/dL (03/09/17 5:52 AM) 0.93 mg/dL (03/08/17 10:30 PM) Creatinine Lvl [0.50-1.40 mg/dL] 72 mL/min/1.73m2 1 *NA* (03/10/17 12:25 PM) 78 mL/min/1.73m2 2 *NA* (03/09/17 5:52 AM) 61 mL/min/1.73m2 3 *NA* (03/08/17 10:30 PM) eGFR 23 mg/dL *HI* (03/10/17 12:25 PM) 14 mg/dL (03/09/17 5:52 AM) 18 mg/dL (03/08/17 10:30 PM) BUN [7-22 mg/dL] 19 (03/08/17 10:30 PM) B/C Ratio [6-25] 196 mg/dL *HI* (03/10/17 12:25 PM) 169 mg/dL *HI* (03/09/17 5:52 AM) 201 mg/dL *HI* (03/08/17 10:30 PM) Glucose Lvl [70-99 mg/dL] 8.1 g/dL (03/08/17 10:30 PM) Total Protein [6.4-8.4 g/dL] 3.3 g/dL *LOW* (03/08/17 10:30 PM) Albumin Lvl [3.5-5.0 g/dL] 4.8 g/dL *HI* (03/08/17 10:30 PM) Globulin [2.7-4.2 g/dL] 0.7 (03/08/17 10:30 PM) A/G Ratio [0.7-1.6] 8.8 mg/dL (03/10/17 12:25 PM) 9.0 mg/dL (03/09/17 5:52 AM) 8.8 mg/dL (03/08/17 10:30 PM) Calcium Lvl [8.5-10.5 mg/dL] 2.0 mg/dL (03/09/17 5:52 AM) Magnesium Lvl [1.8-2.4 mg/dL] 20 unit/L (03/08/17 10:30 PM) ALT [0-65 unit/L] 61 unit/L *HI* (03/08/17 10:30 PM) AST [0-37 unit/L] 98 unit/L (03/08/17 10:30 PM) Alk Phos [39-136 unit/L] 0.4 mg/dL (03/08/17 10:30 PM) Bili Total [0.2-1.3 mg/dL] 1Result Comment: The eGFR is calculated using [...] be mul tiplied by the estimated BMI. CARDIAC ENZYMES 1 2 3 Most recent to oldest [Reference Range]: 163 unit/L (03/08/17 10:30 PM) Total CK [12-191 unit/L] <0.5 ng/mL (03/08/17 10:30 PM) CK MB [0.5-3.6 ng/mL] <0.3 (03/08/17 10:30 PM) CK MB Index [0.0-2.5] <0.02 ng/mL (03/08/17 10:30 PM) Troponin-I [0.00-0.40 ng/mL] LIPIDS 1 2 3 Most recent to oldest [Reference Range]: 4.73 (03/09/17 5:52 AM) CHD Risk [3.90-5.80] 227 mg/dL *HI* (03/09/17 5:52 AM) Chol [<=199 mg/dL] 153 mg/dL *HI* (03/09/17 5:52 AM) Trig [<=149 mg/dL] 48 mg/dL *LOW* (03/09/17 5:52 AM) HDL [>=61 mg/dL] 148 mg/dL *HI* (03/09/17 5:52 AM) LDL (Calculated) [<=99 mg/dL] 31 *NA* (03/09/17 5:52 AM) VLDL SPECIAL CHEMISTRY 1 2 3 Most recent to oldest [Reference Range]: 6.6 % *HI* (03/09/17 5:52 AM) Hgb A1C [<=5.6 %] URINE AND STOOL 1 2 3 Most recent to oldest [Reference Range]: Clear (03/08/17 11:29 PM) UA Turbidity [Clear] Ltyellow *NA* (03/08/17 11:29 PM) UA Color 7.0 (03/08/17 11:29 PM) UA pH [5.0-8.0] 1.008 (03/08/17 11:29 PM) UA Spec Grav [<=1.030] Negative mg/dL *NA* (03/08/17 11:29 PM) UA Glucose [Negative mg/dL] Negative (03/08/17 11:29 PM) UA Blood [Negative] Negative mg/dL *NA* (03/08/17 11:29 PM) UA Ketones [Negative mg/dL] 30 mg/dL *ABN* (03/08/17 11:29 PM) UA Protein [Negative mg/dL] <=1.0 mg/dL *NA* (03/08/17 11:29 PM) UA Urobilinogen [0.1-1.0 mg/dL] Negative *NA* (03/08/17 11:29 PM) UA Bili [Negative] Trace *ABN* (03/08/17 11:29 PM) UA Leuk Est [Negative] Negative (03/08/17 11:29 PM) UA Nitrite [Negative] 3 /HPF (03/08/17 11:29 PM) UA WBC [0-5 /HPF] 3 /HPF *HI* (03/08/17 11:29 PM) UA RBC [0-2 /HPF] Occasional /HPF *NA* (03/08/17 11:29 PM) UA Bacteria [None Seen /HPF] Few /LPF *NA* (03/08/17 11:29 PM) UA Sq Epi [Few /LPF] HEMATOLOGY 1 2 3 Most recent to oldest [Reference Range]: 9.1 K/CMM (03/10/17 3:27 PM) 7.9 K/CMM (03/08/17 10:30 PM) WBC [3.7-10.4 K/CMM] 4.82 M/CMM (03/10/17 3:27 PM) 4.89 M/CMM (03/08/17 10:30 PM) RBC [4.20-5.40 M/CMM] 14.6 g/dL (03/10/17 3:27 PM) 14.5 g/dL (03/08/17 10:30 PM) Hgb [12.0-16.0 g/dL] 42.5 % (03/10/17 3:27 PM) 43.4 % (03/08/17 10:30 PM) Hct [36.0-48.0 %] 88.3 fL (03/10/17 3:27 PM) 88.7 fL (03/08/17 10:30 PM) MCV [80.0-98.0 fL] 30.4 pg (03/10/17 3:27 PM) 29.6 pg (03/08/17 10:30 PM) MCH [27.0-31.0 pg] 34.4 g/dL (03/10/17 3:27 PM) 33.4 g/dL (03/08/17 10:30 PM) MCHC [32.0-36.0 g/dL] 14.6 % *HI* (03/10/17 3:27 PM) 14.3 % (03/08/17 10:30 PM) RDW [11.5-14.5 %] 230 K/CMM (03/10/17 3:27 PM) 220 K/CMM (03/08/17 10:30 PM) Platelet [133-450 K/CMM] 8.7 fL (03/10/17 3:27 PM) 8.7 fL (03/08/17 10:30 PM) MPV [7.4-10.4 fL] 63.3 % (03/10/17 3:27 PM) 58.0 % (03/08/17 10:30 PM) Segs [45.0-75.0 %] 23.6 % (03/10/17 3:27 PM) 28.9 % (03/08/17 10:30 PM) Lymphocytes [20.0-40.0 %] 9.9 % (03/10/17 3:27 PM) 10.1 % (03/08/17 10:30 PM) Monocytes [2.0-12.0 %] 2.2 % (03/10/17 3:27 PM) 2.1 % (03/08/17 10:30 PM) Eosinophils [0.0-4.0 %] 1.0 % (03/10/17 3:27 PM) 0.9 % (03/08/17 10:30 PM) Basophils [0.0-1.0 %] 5.8 K/CMM (03/10/17 3:27 PM) 4.6 K/CMM (03/08/17 10:30 PM) Segs-Bands # [1.5-8.1 K/CMM] 2.2 K/CMM (03/10/17 3:27 PM) 2.3 K/CMM (03/08/17 10:30 PM) Lymphocytes # [1.0-5.5 K/CMM] 0.9 K/CMM *HI* (03/10/17 3:27 PM) 0.8 K/CMM (03/08/17 10:30 PM) Monocytes # [0.0-0.8 K/CMM] 0.2 K/CMM (03/10/17 3:27 PM) 0.2 K/CMM (03/08/17 10:30 PM) Eosinophils # [0.0-0.5 K/CMM] 0.1 K/CMM (03/10/17 3:27 PM) 0.1 K/CMM (03/08/17 10:30 PM) Basophils # [0.0-0.2 K/CMM] 13.6 seconds (03/08/17 11:46 PM) PT [12.0-14.7 seconds] 1.02 (03/08/17 11:46 PM) INR [0.85-1.17] 23.5 seconds (03/08/17 11:46 PM) PTT [22.9-35.8 seconds] Immunizations Given and Recorded Vaccine Date Status Refusal Reason Hx influenza vaccine-unspecified1 05/15/16 Recorded Hx influenza vaccine-unspecified2 06/02/10 Given pneumococcal 13-valent vaccine3 06/07/16 Given Not Given Vaccine Date Status Refusal Reason pneumococcal 23-valent vaccine 03/09/17 Not Given Patient Refuses 1Location History: at specialist office 2Result Comment: fluvirin. Migrated from OBS ; Data migrated from [employer] on 09/12/2015. 3Result Comment: [facility]#[id number] Procedures Procedure Date Related Diagnosis Body Site Appendectomy Arthroscopic repair of meniscus Cataract surgery Excision of Magana's neuroma Hysterectomy Laparoscopic adjustable gastric banding Neck dissection1 Tonsillectomy 1Replacement of 2 cervical discs Social History Social History Type Response Substance Abuse Use: None. Alcohol Past Smoking Status Never smoker; Exposure to Tobacco Smoke None; Cigarette Smoking Last 365 Days No; Reg Smoking Cessation Counseling No Assessment and Plan Extracted from: Title: Clinical Document Author: Zackery Thakur MD Date: 03/12/17 Cardiology Note Zackery Thakur MD, PA SUBJECTIVE: CHIEF COMPLAINT: Opinion regarding starting OAC, TIA HISTORY OF PRESENT ILLNESS: 76-year-old female known to me from office who presented 3 days ago with intermittent episodes of aphasia. This was associated with intermittent dizziness, blurry vision and headache. She was seen by neurology and they asked for cardiac opinion regarding starting OAC due to h/o post procedure afib episode few months ago while she was critically ill with sepsis and respiratory failure. No other afib ever documented. She is NSR this entire admission. BP has also been elevated. PAST MEDICAL HISTORY: Hypertension, diabetes mellitus, acute bronchitis, otitis media, sinusitis. PAST SURGICAL HISTORY: 1. Hysterectomy. 2. Appendectomy. 3. Tonsillectomy 4. Laparoscopic gastric banding. 5. Cataract surgery. ALLERGIES: Erythromycin. HOME MEDICATIONS: Per medication reconciliation form. SOCIAL HISTORY: Denies IV drug abuse. Denies cigarette smoking and has prior history of alcohol drinking. FAMILY HISTORY: Significant for heart disease in patient's brother, hypertension and stroke in patient's mother, pancreatic cancer in patient's sister. REVIEW OF SYSTEMS: She denied having chest pain, shortness of breath, orthopnea, PND. She had no abdominal pain, nausea or vomiting. Denies change in bowel movement. She had no fever or chills. Vitals and Temp: VitalsTmp(F)[id number] 03/12 13:10----[id number]--- 03/12 11:3198.892984/842279--- 03/12 08:2097.318873/469835--- 03/12 07:26 1597 21% 03/12 03:3297.914291/094035--- 24 Hr Tmax: 98.2F (36.78c) at 03/12 11:31Vital Signs are the last 5 in the past 48 hours. Scheduled Meds (9): 03/10/17 FLUoxetine (PROzac) 10 mg PO Daily 03/09/17 aspirin (aspirin 81 mg tablet, enteric coated) 81 mg PO Daily 03/09/17 atorvastatin 80 mg PO Bedtime 03/09/17 carvedilol (Coreg) 6.25 mg PO Q12H 03/10/17 furosemide (furosemide 40 mg oral tablet) 40 mg PO Daily 03/09/17 glipiZIDE 5 mg PO BID 03/11/17 hydrALAZINE (hydrALAZINE 25 mg oral tablet) 25 mg PO Q6H 03/10/17 lisinopril 20 mg PO BID 03/09/17 sodium chloride (Saline Flush 0.9%) 10 ml IVP Q12H Continuous Infusions: None Labs (Last four charted values) WBC 9.1(MAR 10)7.9(MAR 08) Hgb 14.6(MAR 10)14.5(MAR 08) Hct 42.5(MAR 10)43.4(MAR 08) Plt 230(MAR 10)220(MAR 08) Na 141(MAR 10)140(MAR 09)137(MAR 08) K L 3.4(MAR 10)L 3.2(MAR 09)C 2.6(MAR 08) CO2 26(MAR 10)26(MAR 09)28(MAR 08) Cl 107(MAR 10)108(MAR 09)106(MAR 08) Cr 0.81(MAR 10)0.76(MAR 09)0.93(MAR 08) BUN H 23(MAR 10)14(MAR 09)18(MAR 08) Glucose Random H 196(MAR 10)H 169(MAR 09)H 201(MAR 08) Mg 2.0(MAR 09) Ca 8.8(MAR 10)9.0(MAR 09)8.8(MAR 08) PT 13.6(MAR 08) INR 1.02(MAR 08) PTT 23.5(MAR 08) Troponin <0.02(MAR 08) CK MB <0.5(MAR 08) Total CK 163(MAR 08) EXAM: NSR; afebrile Head: normocephalic and atraumatic Neck: no carotid bruit; no JVD CV: Regular; -S3; no significant murmurs Lungs: Clear; no wheezing; good air entry Abd: soft and no organomegaly; + bowel sounds Ext: no CCE; good pulses distally Neuro: nonfocal; oriented *3 Psych: appropriate ASSESSMENT: TIA with slurred speach- now resolved h/o post procedure afib episode few months ago while she was critically ill with sepsis and respiratory failure. Also type II WI back then. HTN- now better controlled Normal EF PLAN: No indication for starting OAC at this time Will follow in office and consider further monitoring OK to dc home Thank you, Extracted from: Title: Clinical Document Author: Arnel Storey MD Date: 03/12/17 IPC Discharge Note [facility] Arnel Storey MD DISCHARGE NOTE ADDENDUM: Patient's discharge was initially held secondary to high blood pressure. Pressure management was not improved with oral medications alone and so the patient was given an IV blood pressure medication today. Patient's blood pressure is continuing to improve. We had to consult cardiology as well for history of atrial fibrillation in regards to anticoagulation. Patient will need to follow-up with cardiology as an outpatient for ambulatory cardiac monitoring. Extracted from: Title: Clinical Document Author: Arnel Storey MD Date: 03/12/17 IPC Daily Progress Note [facility] Arnel Storey MD SUBJECTIVE: Patient seen and examined, events reviewed Wants to go home OBJECTIVE: Vitals and Temp: VitalsTmp(F)[id number] 03/12 08:2097.445383/[id number]--- 03/12 07:26 1597 21% 03/12 03:3297.089405/186662--- 03/12 00:0097.551959/243525--- 03/11 20:26 1496--- 24 Hr Tmax: 98F (36.67c) at 03/11 19:15Vital Signs are the last 5 in the past 48 hours. Input/Output RecordInOutBal 03/124hr Tot 10 0 10 02/3124hr Tot 20 3 17 Labs (Last four charted values) WBC 9.1(MAR 10)7.9(MAR 08) Hgb 14.6(MAR 10)14.5(MAR 08) Hct 42.5(MAR 10)43.4(MAR 08) Plt 230(MAR 10)220(MAR 08) Na 141(MAR 10)140(MAR 09)137(MAR 08) K L 3.4(MAR 10)L 3.2(MAR 09)C 2.6(MAR 08) CO2 26(MAR 10)26(MAR 09)28(MAR 08) Cl 107(MAR 10)108(MAR 09)106(MAR 08) Cr 0.81(MAR 10)0.76(MAR 09)0.93(MAR 08) BUN H 23(MAR 10)14(MAR 09)18(MAR 08) Glucose Random H 196(MAR 10)H 169(MAR 09)H 201(MAR 08) Mg 2.0(MAR 09) Ca 8.8(MAR 10)9.0(MAR 09)8.8(MAR 08) PT 13.6(MAR 08) INR 1.02(MAR 08) PTT 23.5(MAR 08) Troponin <0.02(MAR 08) CK MB <0.5(MAR 08) Total CK 163(MAR 08) MEDICATIONS Scheduled Meds (9):FLUoxetine (PROzac), aspirin (aspirin 81 mg tablet, enteric coated), atorvastatin, carvedilol (Coreg), furosemide (furosemide 40 mg oral tablet), glipiZIDE, hydrALAZINE (hydrALAZINE 25 mg oral tablet), lisinopril, sodium chloride (Saline Flush 0.9%) Unscheduled Meds: None PRN Meds (33):Dextrose 50% in Water IV (Dextrose 50% Syringe), Dextrose 50% in Water IV (Dextrose 50% Syringe), Dextrose 50% in Water IV (Dextrose 50% Syringe), Dextrose 50% in Water IV (Dextrose 50% Syringe), acetaminophen (Tylenol), albuterol-ipratropium (DuoNeb inhalation solution), calcium gluconate + sodium chloride 0.9% INJ 100 mL, calcium gluconate + sodium chloride 0.9% INJ 120 mL, cloNIDine (cloNIDine 0.1 mg oral tablet), glucagon, glucagon, insulin aspart, insulin aspart, insulin aspart, insulin aspart, insulin aspart, insulin aspart, insulin aspart, insulin aspart, insulin aspart, magnesium oxide, magnesium sulfate, magnesium sulfate, potassium chloride, potassium chloride, potassium chloride, potassium phosphate + sodium chloride 0.9% INJ 250 mL, potassium phosphate + sodium chloride 0.9% INJ 250 mL, potassium phosphate- sodium phosphate (potassium phosphate-sodium phosphate 250 mg-280 mg-160 mg oral powder for reconstitution), sodium chloride (Saline Flush 0.9%), sodium phosphate + D5W 250 mL, sodium phosphate + D5W 250 mL, trazodone (trazodone 50 mg oral tablet) One Time Meds (1):(Ordered) hydrALAZINE Continuous Infusions: None ASSESSMENT & EXAM: GENERAL: In no apparent distress at this time. HEENT: EOMI. NECK: Supple. No jugular venous distention or bruits. CARDIOVASCULAR: Regular rate and rhythm, S1, S2 positive. LUNGS: Clear to auscultation bilateral. GASTROINTESTINAL: Soft, nontender, nondistended, positive bowel sounds. EXTREMITIES: No clubbing, cyanosis or edema. NEUROLOGICAL: Intact. No gross deficits noted. SKIN: no rashes noted. DIAGNOSES & PROBLEMS: Acute TIA Hypertensive urgency with borderline emergency Diabetes mellitus type 2 Hyperlipidemia History of postprocedural atrial fibrillation with RVR PLAN & TREATMENT: Patient's blood pressure is noted elevated again this morning We will give IV hydralazine today to see if it improves We will increase blood pressure medications again today We will monitor closely with TIA with neurology Appreciate neurologist input as well and discussed with Dr. Fong Continue with aspirin and statin We will consult cardiology to evaluate the postprocedural atrial fibrillation in August to see if patient needs anticoagulation Discussed with case management Further recommendations will be based on this patient's clinical course
--- OUTSIDE RECORDS SUMMARY | 2018-07-29 09:22 | XMS REPORT | Summary of Care ---
Author Author [facility] Organization [facility] Address Unknown Phone Unavailable Encounter HQ Miladis(MARIUSZ) [id number] Date(s): 02/13/17 - 02/13/[address] [facility] [address] [place] [address]- [phone] Discharge Disposition: Home or Self Care Attending [...] 8 Backache9 05/21/13 Resolved 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 uqwfudzj70 Diabetes Active mellitus(Confirmed) Wnxfcze57 03/27/13 Active Hormone replacement 04/05/10 Active rvsnyhw03 Hypertension(Confirm Active ed) Hypertensive 04/05/10 Active tfgezrx23 Hypertriglyceridemia 09/23/12 Active 14 Yeuzxdqp15 07/31/10 Active Knee pain16 03/22/14 Active Menopausal 07/31/10 Active nmmewqsy29 Obesity(Confirmed) Active Postmenopausal 03/10/12 Active hrgfafusngjx17 Postmenopausal 04/05/10 Active state19 Kkdcwjs16 02/24/13 Active Zpxexcetia04 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 Type 2 diabetes 12/01/12 Active mellitus well ujzejkpfoi02 Vitamin D 11/19/11 Active xuzwfwtblx13 1Data migrated from [employer] on 02/25/15. 2Data migrated from [employer] on 02/25/15. 3Data migrated from [employer] on 02/25/15. 4Data migrated from [employer] on 7/17/15. 5Data migrated from [employer] on 02/25/15. [...] from [employer] on 09/12/2015. 3Result Comment: [facility] [place]#[id number] Procedures Procedure Date Related Diagnosis Body Site Appendectomy Cataract surgery Excision of Magana's neuroma Hysterectomy Laparoscopic adjustable gastric banding Tonsillectomy Social History Social History Type Response Employment/School Status: unable to obtain. Alcohol Past Smoking Status Never smoker; Exposure to Tobacco Smoke None; Cigarette Smoking Last 365 Days No; Reg Smoking Cessation Counseling No Assessment and Plan No data available for this section
--- OUTSIDE RECORDS SUMMARY | 2018-07-29 09:22 | XMS REPORT | Summary of Care ---
Author Author [facility] Organization [facility] Address Unknown Phone Unavailable Encounter ÁNGELA Redding(MARIUSZ) [id number] Date(s): 09/07/17 - 09/09/17 [facility] [id number] [place] [address]- Encounter Diagnosis Transient cerebral ischemic attack, unspecified (Final) - Transient cerebral ischemic attack, unspecified (Final) - 09/14/17 Type 2 diabetes mellitus with hyperglycemia (Final) - Hypertensive heart disease without heart failure (Final) - Rheumatoid arthritis, unspecified (Final) - Hypertensive urgency (Final) - Hyperlipidemia, unspecified (Final) - Facial weakness (Final) - Slurred speech (Final) - Atherosclerotic heart disease of [place] coronary artery without angina pectoris (Final) - NIHSS score 0 (Final) - Coma scale, best motor response, obeys commands, at arrival to emergency departm ent (Final) - Coma scale, eyes open, spontaneous, at arrival to emergency department (Final) - Coma scale, best verbal response, oriented, at arrival to emergency department (Final) - care home (current) use of oral hypoglycemic drugs (Final) - Old myocardial infarction (Final) - Personal history of transient ischemic attack (TIA), and cerebral infarction wit hout residual deficits (Final) - Discharge Disposition: Home Care with Home Health Attending Physician: Omega Slater DO Admitting Physician: Omega Slater DO Vital Signs 1 2 3 Most recent to oldest [Reference Range]: 157.48 cm (09/07/17 9:56 PM) Height 98.5 DegF (09/09/17 4:09 PM) 98.4 DegF (09/09/17 11:41 AM) 98.8 DegF (09/09/17 8:30 AM) Temperature Oral [96.4-99.1 DegF] 144/71 mmHg *HI* (09/09/17 4:35 PM) 158/79 mmHg *HI* (09/09/17 4:09 PM) 128/70 mmHg (09/09/17 12:50 PM) Blood Pressure [90-140/60-90 mmHg] 18 BRMIN (09/09/17 4:09 PM) 18 BRMIN (09/09/17 11:41 AM) 18 BRMIN (09/09/17 8:30 AM) Respiratory Rate [14-20 BRMIN] 91 bpm (09/09/17 4:35 PM) 76 bpm (09/09/17 4:09 PM) 74 bpm (09/09/17 12:50 PM) Peripheral Pulse Rate [60-100 bpm] 94.091 kg (09/07/17 9:56 PM) Weight 37.94 m2 (09/07/17 9:56 PM) Body Mass Index Problem List Condition Effective Dates Status Health Status Informant Acute bronchitis1, 2 07/14/13 Resolved Acute pharyngitis3 07/14/13 Resolved Acute sinusitis4, 5 01/29/12 Resolved Acute suppurative 07/14/13 Resolved otitis media6 Atrial Resolved fibrillation(Confirm ed) Arthritis of hand7, 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 8 Backache9 05/21/13 Resolved CHF (congestive Resolved heart failure)(Confirmed) 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 lsgkxkka45 Diabetes Active mellitus(Confirmed) Kmuehzt50 03/27/13 Active Hormone replacement 04/05/10 Active Hypertension(Confirm Active ed) Hypertensive 04/05/10 Active tcuwleb82 Hypertriglyceridemia 09/23/12 Active 14 Tbukqpup39 07/31/10 Active Knee pain16 03/22/14 Active Menopausal 07/31/10 Active nbvjvakg16 Mitral Resolved regurgitation(Confir med) Heart Resolved attack(Confirmed) Obesity(Confirmed) Active Postmenopausal 03/10/12 Active azcpjzhehyqj12 Postmenopausal 04/05/10 Active state19 Rfybaap14 02/24/13 Active Otsiizgmtt07 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 Type 2 diabetes 12/01/12 Active mellitus well ibayzenftv72 Vitamin D 11/19/11 Active ddmpovhqvd61 1Data migrated from [employer] on 02/25/15. [...] on 12/07/14. Originally documented as ERYTHROMYCIN. Medications amLODIPine 10 mg, 2 tab, Route: PO, Drug form: TAB, Daily, Dosing Weight 94.091, kg, Start date: 09/08/17 16:12:00 TERMINAL OPERATOR, Duration: 30 day, Stop date: 10/08/17 9:00:00 TERMINAL OPERATOR Notes: (Same as: Barb) Start Date: 09/08/17 Stop Date: 09/09/17 Status: Discontinued amLODIPine 10 mg oral tablet 10 mg=1 tab, PO, Daily, # 30 tab, 0 Refill(s), Pharmacy: [id number] Start Date: 09/09/17 Status: Ordered aspirin 324 mg, 4 tab, Route: CHEW, Drug form: CHEWTAB, ONCE, Dosing Weight 94.091, kg, Priority: STAT, Start date: 09/07/17 23:06:00 TERMINAL OPERATOR, Stop date: 09/07/17 23:06:00 TERMINAL OPERATOR Notes: Take with food. Start Date: 09/07/17 Stop Date: 09/08/17 Status: Completed aspirin 81 mg tablet, enteric coated 81 mg, 1 tab, Route: PO, Drug form: ECTAB, Daily, Dosing Weight 94.091, kg, Star t date: 09/09/17 9:00:00 TERMINAL OPERATOR, Duration: 30 day, Stop date: 10/08/17 9:00:00 TERMINAL OPERATOR Notes: Do not crush or chew.(Same As: Ecotrin) Start Date: 09/09/17 Stop Date: 09/09/17 Status: Discontinued atorvastatin 80 mg, 2 tab, Route: PO, Drug form: TAB, Bedtime, Dosing Weight 94.091, kg, Star t date: 09/08/17 21:00:00 TERMINAL OPERATOR, Duration: 30 day, Stop date: 10/07/17 21:00:00 CS T Notes: (Same as: Lipitor) Start Date: 09/08/17 Stop Date: 09/09/17 Status: Discontinued carvedilol 6.25 mg, 2 tab, Route: PO, Drug form: TAB, Q12H, Dosing Weight 94.091, kg, Start date: 09/08/17 21:00:00 TERMINAL OPERATOR, Duration: 30 day, Stop date: 10/08/17 9:00:00 TERMINAL OPERATOR Notes: Give with food. (Same As: Coreg) Start Date: 09/08/17 Stop Date: 09/09/17 Status: Discontinued cloNIDine 0.1 mg, 1 tab, Route: PO, Drug form: TAB, Q6H, Dosing Weight 94.091, kg, PRN Adriana vated BP, Start date: 09/08/17 14:40:00 TERMINAL OPERATOR, Duration: 30 day, Stop date: 14:39:00 TERMINAL OPERATOR Notes: (Same As: Catapres) Start Date: 09/08/17 Stop Date: 09/09/17 Status: Discontinued cloNIDine 0.1 mg, 1 tab, Route: PO, Drug form: TAB, Q8H, Dosing Weight 94.091, kg, Start d ate: 09/08/17 16:13:00 TERMINAL OPERATOR, Duration: 30 day, Stop date: 10/08/17 16:00:00 TERMINAL OPERATOR Notes: (Same As: Catapres) Start Date: 09/08/17 Stop Date: 09/09/17 Status: Discontinued cloNIDine 0.2 mg oral tablet 0.1 mg, 1 tab, Route: PO, Drug form: TAB, PRN, Dosing Weight 94.091, kg, PRN Hyp ertension, Start date: 09/08/17 16:13:00 TERMINAL OPERATOR, Duration: 30 day, Stop date: 10/08 16:12:00 TERMINAL OPERATOR Notes: (Same As: Catapres) Start Date: 09/08/17 Stop Date: 09/09/17 Status: Discontinued Dextrose 50% Syringe 25 gm, 50 mL, Route: IVP, Drug Form: INJ, Dosing Weight 94.091, kg, PRN, PRN Blo od Glucose Results, Start date: 09/08/17 9:20:00 TERMINAL OPERATOR, Duration: 30 day, Stop boris e: 10/08/17 9:19:00 TERMINAL OPERATOR Start Date: 09/08/17 Stop Date: 09/09/17 Status: Discontinued Dextrose 50% Syringe 12.5 gm, 25 mL, Route: IVP, Drug Form: INJ, Dosing Weight 94.091, kg, PRN, PRN B lood Glucose Results, Start date: 09/08/17 9:20:00 TERMINAL OPERATOR, Duration: 30 day, Stop d ate: 10/08/17 9:19:00 TERMINAL OPERATOR Start Date: 09/08/17 Stop Date: 09/09/17 Status: Discontinued escitalopram 10 mg, 1 tab, Route: PO, Drug form: TAB, Daily, Dosing Weight 94.091, kg, Start date: 09/09/17 9:00:00 TERMINAL OPERATOR, Duration: 30 day, Stop date: 10/08/17 9:00:00 TERMINAL OPERATOR Notes: (Same as: Lexapro) Start Date: 09/09/17 Stop Date: 09/09/17 Status: Discontinued escitalopram 10 mg oral tablet 10 mg=1 tab, PO, Daily, # 30 tab, 0 Refill(s) Start Date: 09/08/17 Status: Ordered furosemide 40 mg oral tablet 40 mg, 1 tab, Route: PO, Drug form: TAB, Daily, Dosing Weight 94.091, kg, Start date: 09/09/17 9:00:00 TERMINAL OPERATOR, Duration: 30 day, Stop date: 10/08/17 9:00:00 TERMINAL OPERATOR Notes: (Same as: Lasix) May cause GI upset. Give with food or milk. Start Date: 09/09/17 Stop Date: 09/09/17 Status: Discontinued glucagon 1 mg, Route: IM, Drug form: PDR/INJ, PRN, Dosing Weight 94.091, kg, PRN Blood Gl ucose Results, Start date: 09/08/17 9:20:00 TERMINAL OPERATOR, Duration: 30 day, Stop date: 9:19:00 TERMINAL OPERATOR Start Date: 09/08/17 Stop Date: 09/09/17 Status: Discontinued hydrALAZINE 10 mg, 0.5 mL, Route: IVP, Drug form: INJ, Q4H, Dosing Weight 94.091, kg, PRN El evated BP, Start date: 09/08/17 1:55:00 TERMINAL OPERATOR, Duration: 30 day, Stop date: 1:54:00 TERMINAL OPERATOR Notes: (Same as: Apresoline)Push over 5 minutes Start Date: 09/08/17 Stop Date: 09/09/17 Status: Discontinued hydrALAZINE 10 mg, 0.5 mL, Route: IVP, Drug form: INJ, ONCE, Dosing Weight 94.091, kg, Prior ity: STAT, Start date: 09/07/17 22:28:00 TERMINAL OPERATOR, Stop date: 09/07/17 22:28:00 TERMINAL OPERATOR Notes: (Same as: Apresoline)Push over 5 minutes Start Date: 09/07/17 Stop Date: 09/07/17 Status: Completed hydrALAZINE 50 mg oral tablet 50 mg, 1 tab, Route: PO, Drug form: TAB, TID, Dosing Weight 94.091, kg, Start da te: 09/08/17 13:00:00 TERMINAL OPERATOR, Duration: 30 day, Stop date: 10/08/17 9:00:00 TERMINAL OPERATOR Notes: (Same as: Apresoline) May interfere w/enteral feedings Take With Food Start Date: 09/08/17 Stop Date: 09/09/17 Status: Discontinued insulin lispro 3 unit, 0.03 mL, Route: SUB-Q, Drug form: SOLN, Bedtime, Dosing Weight 94.091, k g, PRN Blood Glucose Results, Start date: 09/08/17 9:20:00 TERMINAL OPERATOR, Duration: 30 day , Stop date: 10/08/17 9:19:00 TERMINAL OPERATOR Notes: Roll in palms of hands gently; Do not shake `vigorously. (Same as: Humal og )"Single Patient Use Only "WASTE: F/P - Black; E - Municipal Trash Bin Stabl e for 28 days at room temperature.Expires in days from Date Start Date: 09/08/17 Stop Date: 09/09/17 Status: Discontinued insulin lispro 1 unit, 0.01 mL, Route: SUB-Q, Drug form: SOLN, Bedtime, Dosing Weight 94.091, k g, PRN Blood Glucose Results, Start date: 09/08/17 9:20:00 TERMINAL OPERATOR, Duration: 30 day , Stop date: 10/08/17 9:19:00 TERMINAL OPERATOR Notes: Roll in palms of hands gently; Do not shake `vigorously. (Same as: Humal og )"Single Patient Use Only "WASTE: F/P - Black; E - Municipal Trash Bin Stabl e for 28 days at room temperature.Expires in days from Date Start Date: 09/08/17 Stop Date: 09/09/17 Status: Discontinued insulin lispro 2 unit, 0.02 mL, Route: SUB-Q, Drug form: SOLN, Bedtime, Dosing Weight 94.091, k g, PRN Blood Glucose Results, Start date: 09/08/17 9:20:00 TERMINAL OPERATOR, Duration: 30 day , Stop date: 10/08/17 9:19:00 TERMINAL OPERATOR Notes: Roll in palms of hands gently; Do not shake `vigorously. (Same as: Humal og )"Single Patient Use Only "WASTE: F/P - Black; E - Municipal Trash Bin Stabl e for 28 days at room temperature.Expires in days from Date Start Date: 09/08/17 Stop Date: 09/09/17 Status: Discontinued insulin lispro 4 unit, 0.04 mL, Route: SUB-Q, Drug form: SOLN, Bedtime, Dosing Weight 94.091, k g, PRN Blood Glucose Results, Start date: 09/08/17 9:20:00 TERMINAL OPERATOR, Duration: 30 day , Stop date: 10/08/17 9:19:00 TERMINAL OPERATOR Notes: Roll in palms of hands gently; Do not shake `vigorously. (Same as: Humal og )"Single Patient Use Only "WASTE: F/P - Black; E - Municipal Trash Bin Stabl e for 28 days at room temperature.Expires in days from Date Start Date: 09/08/17 Stop Date: 09/09/17 Status: Discontinued insulin lispro 10 unit, 0.1 mL, Route: SUB-Q, Drug form: SOLN, TID-Before Meals, Dosing Weight 94.091, kg, PRN Blood Glucose Results, Start date: 09/08/17 9:20:00 TERMINAL OPERATOR, Duratio n: 30 day, Stop date: 10/08/17 9:19:00 TERMINAL OPERATOR Notes: Roll in palms of hands gently; Do not shake `vigorously. (Same as: Humal og )"Single Patient Use Only "WASTE: F/P - Black; E - Municipal Trash Bin Stabl e for 28 days at room temperature.Expires in days from Date Start Date: 09/08/17 Stop Date: 09/09/17 Status: Discontinued insulin lispro 8 unit, 0.08 mL, Route: SUB-Q, Drug form: SOLN, TID-Before Meals, Dosing Weight 94.091, kg, PRN Blood Glucose Results, Start date: 09/08/17 9:20:00 TERMINAL OPERATOR, Duratio n: 30 day, Stop date: 10/08/17 9:19:00 TERMINAL OPERATOR Notes: Roll in palms of hands gently; Do not shake `vigorously. (Same as: Humal og )"Single Patient Use Only "WASTE: F/P - Black; E - Municipal Trash Bin Stabl e for 28 days at room temperature.Expires in days from Date Start Date: 09/08/17 Stop Date: 09/09/17 Status: Discontinued insulin lispro 6 unit, 0.06 mL, Route: SUB-Q, Drug form: SOLN, TID-Before Meals, Dosing Weight 94.091, kg, PRN Blood Glucose Results, Start date: 09/08/17 9:20:00 TERMINAL OPERATOR, Duratio n: 30 day, Stop date: 10/08/17 9:19:00 TERMINAL OPERATOR Notes: Roll in palms of hands gently; Do not shake `vigorously. (Same as: Jeannie washington )"Single Patient Use Only "WASTE: F/P - Black; E - Municipal Trash Bin Stabl e for 28 days at room temperature.Expires in days from Date Start Date: 09/08/17 Stop Date: 09/09/17 Status: Discontinued insulin lispro 4 unit, 0.04 mL, Route: SUB-Q, Drug form: SOLN, TID-Before Meals, Dosing Weight 94.091, kg, PRN Blood Glucose Results, Start date: 09/08/17 9:20:00 TERMINAL OPERATOR, Duratio n: 30 day, Stop date: 10/08/17 9:19:00 TERMINAL OPERATOR Notes: Roll in palms of hands gently; Do not shake `vigorously. (Same as: Jeannie washington )"Single Patient Use Only "WASTE: F/P - Black; E - Municipal Trash Bin Stabl e for 28 days at room temperature.Expires in days from Date Start Date: 09/08/17 Stop Date: 09/09/17 Status: Discontinued insulin lispro 2 unit, 0.02 mL, Route: SUB-Q, Drug form: SOLN, TID-Before Meals, Dosing Weight 94.091, kg, PRN Blood Glucose Results, Start date: 09/08/17 9:20:00 TERMINAL OPERATOR, Duratio n: 30 day, Stop date: 10/08/17 9:19:00 TERMINAL OPERATOR Notes: Roll in palms of hands gently; Do not shake `vigorously. (Same as: Jeannie washington )"Single Patient Use Only "WASTE: F/P - Black; E - Municipal Trash Bin Stabl e for 28 days at room temperature.Expires in days from Date Start Date: 09/08/17 Stop Date: 09/09/17 Status: Discontinued leflunomide 10 mg, 0.5 tab, Route: PO, Drug form: TAB, Daily, Dosing Weight 94.091, kg, Star t date: 09/09/17 9:00:00 TERMINAL OPERATOR, Duration: 30 day, Stop date: 10/08/17 9:00:00 TERMINAL OPERATOR Notes: Non-Formulary Drug (Same as:Arava) Start Date: 09/09/17 Stop Date: 09/09/17 Status: Discontinued leflunomide 10 mg oral tablet 10 mg=1 tab, PO, Daily, # 30 tab, 0 Refill(s) Start Date: 09/08/17 Status: Ordered Lipitor 40 mg oral tablet 40 mg=1 tab, PO, Bedtime, # 30 tab, 0 Refill(s), Pharmacy: [id number] Start Date: 09/09/17 Status: Ordered lisinopril 20 mg, 1 tab, Route: PO, Drug form: TAB, BID, Dosing Weight 94.091, kg, Start da te: 09/08/17 17:00:00 TERMINAL OPERATOR, Duration: 30 day, Stop date: 10/08/17 9:00:00 TERMINAL OPERATOR Notes: (Same as: Prinivil, Zestril) Start Date: 09/08/17 Stop Date: 09/09/17 Status: Discontinued lisinopril 10 mg, 2 tab, Route: PO, Drug form: TAB, Daily, Dosing Weight 94.091, kg, Start date: 09/10/17 9:00:00 TERMINAL OPERATOR, Duration: 30 day, Stop date: 10/09/17 9:00:00 TERMINAL OPERATOR Notes: (Same as: Prinivil, Zestril) Start Date: 09/10/17 Stop Date: 09/09/17 Status: Canceled lisinopril 10 mg oral tablet 10 mg=1 tab, PO, Daily, # 30 tab, 0 Refill(s), Pharmacy: [id number] Start Date: 09/09/17 Status: Ordered LORazepam 0.5 mg, 1 tab, Route: PO, Drug form: TAB, Bedtime, Dosing Weight 94.091, kg, Sta rt date: 09/08/17 21:00:00 TERMINAL OPERATOR, Duration: 30 day, Stop date: 10/07/17 21:00:[address] Notes: (Same as: Ativan) Start Date: 09/08/17 Stop Date: 09/09/17 Status: Discontinued LORazepam 0.5 mg oral tablet 0.5 mg=1 tab, PO, Bedtime, # 30 tab, 0 Refill(s) Start Date: 09/08/17 Stop Date: 10/08/17 Status: Ordered NS 1,000 mL 1,000 mL, Rate: 75 ml/hr, Infuse over: 13.3 hr, Route: IV, Dosing Weight 94.091 kg, Total Volume: 1,000, Start date: 09/08/17 10:28:00 TERMINAL OPERATOR, Duration: 30 day, St op date: 10/08/17 10:27:00 TERMINAL OPERATOR, 2.06, m2 Start Date: 09/08/17 Stop Date: 09/09/17 Status: Discontinued potassium chloride 40 mEq, 2 tab, Route: PO, Drug form: ERTAB, Q4H, Dosing Weight 94.091, kg, Start date: 09/08/17 8:00:00 TERMINAL OPERATOR, Duration: 2 doses or times, Stop date: 09/08/17 12: 00:00 TERMINAL OPERATOR Notes: (Same as: K-Dur 20)"Do Not Crush" With food and full glass of water Start Date: 09/08/17 Stop Date: 09/08/17 Status: Completed potassium chloride 20 mEq oral tablet, extended release 40 mEq, 2 tab, Route: PO, Drug form: ERTAB, Daily, Dosing Weight 94.091, kg, Sta rt date: 09/09/17 9:00:00 TERMINAL OPERATOR, Duration: 30 day, Stop date: 10/08/17 9:00:00 TERMINAL OPERATOR Notes: (Same as: K-Dur 20)"Do Not Crush" With food and full glass of water Start Date: 09/09/17 Stop Date: 09/09/17 Status: Discontinued predniSONE 20 mg, 1 tab, Route: PO, Drug form: TAB, Daily, Dosing Weight 94.091, kg, Start date: 09/09/17 9:00:00 TERMINAL OPERATOR, Duration: 5 day, Stop date: 09/13/17 9:00:00 TERMINAL OPERATOR Notes: Take with food. Start Date: 09/09/17 Stop Date: 09/09/17 Status: Discontinued predniSONE 20 mg oral tablet 20 mg=1 tab, PO, Daily, for 5 days, 0 Refill(s) Start Date: 09/08/17 Status: Ordered Protonix 40 mg, Route: IVP, Drug form: INJ, ONCE, Dosing Weight 94.091, kg, Start date: 0 09/08/17 10:26:00 TERMINAL OPERATOR, Stop date: 09/08/17 10:26:00 TERMINAL OPERATOR Notes: For IV push reconstitute with 10 ml 0.9% sodium chloride and push over 2 minutes. (Same as: Protonix) Start Date: 09/08/17 Stop Date: 09/08/17 Status: Completed PROzac 10 mg, 1 cap, Route: PO, Drug form: CAP, Daily, Dosing Weight 94.091, kg, Start date: 09/09/17 9:00:00 TERMINAL OPERATOR, Duration: 30 day, Stop date: 10/08/17 9:00:00 TERMINAL OPERATOR Notes: (Same as: Prozac) Start Date: 09/09/17 Stop Date: 09/09/17 Status: Discontinued Saline Flush 0.9% 10 ml, Route: IVP, Drug Form: INJ, Dosing Weight 94.091, kg, PRN, PRN Line Flush , Start date: 09/08/17 0:43:00 TERMINAL OPERATOR, Duration: 30 day, Stop date: 10/08/17 0:42:0 0 TERMINAL OPERATOR Notes: (Same as: BD Posiflush) Start Date: 09/08/17 Stop Date: 09/09/17 Status: Discontinued Saline Flush 0.9% 10 ml, Route: IVP, Drug Form: INJ, Dosing Weight 94.091, kg, Q12H, Start date: 0 09/08/17 9:00:00 TERMINAL OPERATOR, Duration: 30 day, Stop date: 10/07/17 21:00:00 TERMINAL OPERATOR Notes: (Same as: BD Posiflush) Start Date: 09/08/17 Stop Date: 09/09/17 Status: Discontinued Saline Flush 0.9% 10 ml, Route: IVP, Drug Form: INJ, Dosing Weight 94.091, kg, PRN, PRN Line Flush , Start date: 09/08/17 20:23:00 TERMINAL OPERATOR, Duration: 30 day, Stop date: 10/08/17 20:22 :00 TERMINAL OPERATOR Notes: (Same as: BD Posiflush) Start Date: 09/08/17 Stop Date: 09/09/17 Status: Discontinued Saline Flush 0.9% 10 ml, Route: IVP, Drug Form: INJ, Dosing Weight 94.091, kg, Q12H, Start date: 0 09/08/17 21:00:00 TERMINAL OPERATOR, Duration: 30 day, Stop date: 10/08/17 9:00:00 TERMINAL OPERATOR Notes: (Same as: BD Posiflush) Start Date: 09/08/17 Stop Date: 09/09/17 Status: Discontinued Saline Flush 0.9% 10 mL, Route: IVP, Drug Form: INJ, Dosing Weight 81.392, kg, PRN, PRN Line Flush , Start date: 09/07/17 22:08:00 TERMINAL OPERATOR, Duration: 30 day, Stop date: 10/07/17 22:07 :00 TERMINAL OPERATOR Notes: (Same as: BD Posiflush) Start Date: 09/07/17 Stop Date: 09/09/17 Status: Discontinued tramadol 50 mg oral tablet 50 mg, 1 tab, Route: PO, Drug form: TAB, Q6H, Dosing Weight 94.091, kg, PRN Pain Score 1-3, Start date: 09/08/17 1:49:00 TERMINAL OPERATOR, Duration: 30 day, Stop date: 10/08 1:48:00 TERMINAL OPERATOR Notes: Not to exceed 400mg/day. (Same As: Ultram) Start Date: 09/08/17 Stop Date: 09/09/17 Status: Discontinued Tylenol 650 mg, 2 tab, Route: PO, Drug form: TAB, Q6H, Dosing Weight 94.091, kg, PRN Doris n 1-3/Temp > 100.4 F, Start date: 09/08/17 1:49:00 TERMINAL OPERATOR, Duration: 30 day, Stop date: 10/08/17 1:48:00 TERMINAL OPERATOR Notes: Do not exceed 4 gm/day. (Same as: Tylenol) Start Date: 09/08/17 Stop Date: 09/09/17 Status: Discontinued Zofran 4 mg, 2 mL, Route: IVP, Drug form: INJ, Q6H, Dosing Weight 94.091, kg, PRN as ne eded for nausea/vomiting, Priority: STAT, Start date: 09/08/17 7:40:00 TERMINAL OPERATOR, Dura tion: 30 day, Stop date: 10/08/17 7:39:00 TERMINAL OPERATOR Notes: (Same as: Zofran) MEDICATION WASTE Product Size: 4 mgProduct Was daniel: ___ mg Start Date: 09/08/17 Stop Date: 09/09/17 Status: Discontinued Zofran 4 mg, Route: IVP, Drug form: INJ, Q6H, Dosing Weight 94.091, kg, Priority: STAT, Start date: 09/08/17 7:19:00 TERMINAL OPERATOR, Duration: 30 day, Stop date: 10/08/17 6:00:00 TERMINAL OPERATOR Start Date: 09/08/17 Stop Date: 09/08/17 Status: Discontinued Results ELECTROLYTES 1 2 3 Most recent to oldest [Reference Range]: 140 mEq/L (09/09/17 6:06 AM) 137 mEq/L (09/08/17 3:52 AM) 136 mEq/L (09/07/17 11:41 PM) Sodium Lvl [135-145 mEq/L] 3.2 mEq/L *LOW* (09/09/17 6:06 AM) 3.3 mEq/L *LOW* (09/08/17 1:55 PM) 2.8 mEq/L 1 *CRIT* (09/08/17 3:52 AM) Potassium Lvl [3.5-5.1 mEq/L] 102 mEq/L (09/09/17 6:06 AM) 100 mEq/L (09/08/17 3:52 AM) 99 mEq/L (09/07/17 11:41 PM) Chloride Lvl [95-109 mEq/L] 28 mEq/L (09/09/17 6:06 AM) 24 mEq/L (09/08/17 3:52 AM) 26 mEq/L (09/07/17 11:41 PM) CO2 [24-32 mEq/L] 13.2 mEq/L (09/09/17 6:06 AM) 15.8 mEq/L (09/08/17 3:52 AM) 14.8 mEq/L (09/07/17 11:41 PM) AGAP [10.0-20.0 mEq/L] 1Result Comment: Critical Result(s) called to Jluis Chu at 09/08/2017 05:53 by MADHURI. Read back OK. CHEM PANEL 1 2 3 Most recent to oldest [Reference Range]: 1.18 mg/dL (09/09/17 6:06 AM) 0.98 mg/dL (09/08/17 3:52 AM) 1.02 mg/dL (09/07/17 11:41 PM) Creatinine Lvl [0.50-1.40 mg/dL] 45 mL/min/1.73m2 1 *NA* (09/09/17 6:06 AM) 56 mL/min/1.73m2 2 *NA* (09/08/17 3:52 AM) 54 mL/min/1.73m2 3 *NA* (09/07/17 11:41 PM) eGFR 28 mg/dL *HI* (09/09/17 6:06 AM) 20 mg/dL (09/08/17 3:52 AM) 20 mg/dL (09/07/17 11:41 PM) BUN [7-22 mg/dL] 20 (09/07/17 11:41 PM) B/C Ratio [6-25] 203 mg/dL *HI* (09/09/17 6:06 AM) 318 mg/dL *HI* (09/08/17 3:52 AM) 349 mg/dL *HI* (09/07/17 11:41 PM) Glucose Lvl [70-99 mg/dL] 8.2 g/dL (09/07/17 11:41 PM) Total Protein [6.4-8.4 g/dL] 3.6 g/dL (09/07/17 11:41 PM) Albumin Lvl [3.5-5.0 g/dL] 4.6 g/dL *HI* (09/07/17 11:41 PM) Globulin [2.7-4.2 g/dL] 0.8 (09/07/17 11:41 PM) A/G Ratio [0.7-1.6] 8.8 mg/dL (09/09/17 6:06 AM) 8.6 mg/dL (09/08/17 3:52 AM) 8.9 mg/dL (09/07/17 11:41 PM) Calcium Lvl [8.5-10.5 mg/dL] 18 unit/L (09/07/17 11:41 PM) ALT [0-65 unit/L] 18 unit/L (09/07/17 11:41 PM) AST [0-37 unit/L] 152 unit/L *HI* (09/07/17 11:41 PM) Alk Phos [39-136 unit/L] 0.5 mg/dL (09/07/17 11:41 PM) Bili Total [0.2-1.3 mg/dL] 1Result Comment: [...] 3 Most recent to oldest [Reference Range]: 37 unit/L (09/08/17 1:55 PM) 45 unit/L (09/08/17 3:52 AM) 283 unit/L *HI* (09/07/17 10:12 PM) Total CK [12-191 unit/L] 1.1 ng/mL (09/07/17 10:12 PM) CK MB [0.5-3.6 ng/mL] 0.4 (09/07/17 10:12 PM) CK MB Index [0.0-2.5] <0.02 ng/mL (09/08/17 1:55 PM) <0.02 ng/mL (09/08/17 3:52 AM) <0.02 ng/mL (09/07/17 10:12 PM) Troponin-I [0.00-0.40 ng/mL] LIPIDS 1 2 3 Most recent to oldest [Reference Range]: 3.94 (09/08/17 3:52 AM) CHD Risk [3.90-5.80] 244 mg/dL *HI* (09/08/17 3:52 AM) Chol [<=199 mg/dL] 254 mg/dL *HI* (09/08/17 3:52 AM) Trig [<=149 mg/dL] 62 mg/dL (09/08/17 3:52 AM) HDL [>=61 mg/dL] 131 mg/dL *HI* (09/08/17 3:52 AM) LDL (Calculated) [<=99 mg/dL] 51 *NA* (09/08/17 3:52 AM) VLDL SPECIAL CHEMISTRY 1 2 3 Most recent to oldest [Reference Range]: 9.0 % *HI* (09/08/17 3:52 AM) Hgb A1C [<=5.6 %] HEMATOLOGY 1 2 3 Most recent to oldest [Reference Range]: 10.6 K/CMM *HI* (09/09/17 6:06 AM) 12.3 K/CMM *HI* (09/08/17 3:52 AM) 11.7 K/CMM *HI* (09/07/17 10:12 PM) WBC [3.7-10.4 K/CMM] 4.47 M/CMM (09/09/17 6:06 AM) 4.68 M/CMM (09/08/17 3:52 AM) 5.24 M/CMM (09/07/17 10:12 PM) RBC [4.20-5.40 M/CMM] 13.7 g/dL (09/09/17 6:06 AM) 14.2 g/dL (09/08/17 3:52 AM) 15.6 g/dL (09/07/17 10:12 PM) Hgb [12.0-16.0 g/dL] 39.8 % (09/09/17 6:06 AM) 41.3 % (09/08/17 3:52 AM) 46.0 % (09/07/17 10:12 PM) Hct [36.0-48.0 %] 89.1 fL (09/09/17 6:06 AM) 88.3 fL (09/08/17 3:52 AM) 87.7 fL (09/07/17 10:12 PM) MCV [80.0-98.0 fL] 30.7 pg (09/09/17 6:06 AM) 30.4 pg (09/08/17 3:52 AM) 29.8 pg (09/07/17 10:12 PM) MCH [27.0-31.0 pg] 34.5 g/dL (09/09/17 6:06 AM) 34.4 g/dL (09/08/17 3:52 AM) 33.9 g/dL (09/07/17 10:12 PM) MCHC [32.0-36.0 g/dL] 13.7 % (09/09/17 6:06 AM) 13.6 % (09/08/17 3:52 AM) 13.8 % (09/07/17 10:12 PM) RDW [11.5-14.5 %] 8.2 fL (09/09/17 6:06 AM) 8.8 fL (09/08/17 3:52 AM) 8.2 fL (09/07/17 10:12 PM) MPV [7.4-10.4 fL] 239 K/CMM (09/09/17 6:06 AM) 249 K/CMM (09/08/17 3:52 AM) 258 K/CMM (09/07/17 10:12 PM) Platelet [133-450 K/CMM] 65.9 % (09/09/17 6:06 AM) 72.5 % (09/08/17 3:52 AM) 77.5 % *HI* (09/07/17 10:12 PM) Segs [45.0-75.0 %] 24.3 % (09/09/17 6:06 AM) 18.1 % *LOW* (09/08/17 3:52 AM) 15.9 % *LOW* (09/07/17 10:12 PM) Lymphocytes [20.0-40.0 %] 9.1 % (09/09/17 6:06 AM) 8.8 % (09/08/17 3:52 AM) 6.1 % (09/07/17 10:12 PM) Monocytes [2.0-12.0 %] 0.2 % (09/09/17 6:06 AM) 0.2 % (09/08/17 3:52 AM) 0.1 % (09/07/17 10:12 PM) Eosinophils [0.0-4.0 %] 0.5 % (09/09/17 6:06 AM) 0.4 % (09/08/17 3:52 AM) 0.4 % (09/07/17 10:12 PM) Basophils [0.0-1.0 %] 7.0 K/CMM (09/09/17 6:06 AM) 9.0 K/CMM *HI* (09/08/17 3:52 AM) 9.0 K/CMM *HI* (09/07/17 10:12 PM) Segs-Bands # [1.5-8.1 K/CMM] 2.6 K/CMM (09/09/17 6:06 AM) 2.2 K/CMM (09/08/17 3:52 AM) 1.9 K/CMM (09/07/17 10:12 PM) Lymphocytes # [1.0-5.5 K/CMM] 1.0 K/CMM *HI* (09/09/17 6:06 AM) 1.1 K/CMM *HI* (09/08/17 3:52 AM) 0.7 K/CMM (09/07/17 10:12 PM) Monocytes # [0.0-0.8 K/CMM] 0.1 K/CMM (09/09/17 6:06 AM) 0.1 K/CMM (09/07/17 10:12 PM) Basophils # [0.0-0.2 K/CMM] 12.6 seconds (09/07/17 10:12 PM) PT [12.0-14.7 seconds] 0.94 (09/07/17 10:12 PM) INR [0.85-1.17] 27.0 seconds (09/07/17 10:12 PM) PTT [22.9-35.8 seconds] Immunizations Given and Recorded Vaccine Date Status Refusal Reason pneumococcal 13-valent vaccine1 06/07/16 Given Hx influenza vaccine-unspecified2 05/15/16 Recorded Hx influenza vaccine-unspecified3 06/02/10 Given Not Given Vaccine Date Status Refusal Reason pneumococcal 23-valent vaccine 03/09/17 Not Given Patient Refuses 1Result Comment: [facility]#[id number] 2Location History: at specialist office 3Result Comment: fluvirin. Migrated from OBS ; Data migrated from [employer] on 09/12/2015. Procedures Procedure Date Related Diagnosis Body Site Status Appendectomy Completed Arthroscopic repair of meniscus Completed Cataract surgery Completed Excision of Magana's neuroma Completed Hysterectomy Completed Laparoscopic adjustable gastric banding Completed Neck dissection1 Completed Tonsillectomy Completed 1Replacement of 2 cervical discs Social History Social History Type Response Substance Abuse Use: None. Alcohol Past Smoking Status Never smoker; Exposure to Tobacco Smoke None; Cigarette Smoking Last 365 Days No; Reg Smoking Cessation Counseling No entered on: 09/07/17 Assessment and Plan Extracted from: Title: Clinical Document Author: Genny Balbuena MD Date: 09/09/17 Progress Note - Daily [facility] Completed: Saturday, SEP 09, 2017, 16:48 by Genny Balbuena MD RM: 135 - 1D, SE [id number] SAVANNAH B77y (: 1940) F Attending: Omega Slater: Service: Internal Medicine Reason for Admission: TIA (TRANSIENT ISCHEMIC ATTACK), UNCONTROLLED HYPERTENS Working DRG: Transient ischemia Code status: Full Code [Ordered]Current diet: Isolation: None Documented Allergies: erythromycin SUBJECTIVE She is feeling better. No headache, nasuea, new weakness, numbness, vision changes, chest pain, or fever OBJECTIVE 24hr Labs 09/09 1532 POC Performing LocatioSee Note Glucose GIG637 H 09/09 1048 POC Performing LocatioSee Note Glucose QUK918 H 09/09 0629 POC Performing LocatioSee Note Glucose FPJ507 H 09/09 0606 Glucose Kfp863 H BUN28 H Creatinine Lvl1.18 Sodium Gfg980 Potassium Lvl3.2 L Chloride Ryj074 CO228 AGAP13.2 Calcium Lvl8.8 eGFR45 WBC10.6 H RBC4.47 Hgb13.7 Hct39.8 MCV89.1 MCH30.7 MCHC34.5 RDW13.7 Nihibxkx644 MPV8.2 Segs65.9 Monocytes9.1 Bkrrcucujog37.3 Eosinophils0.2 Basophils0.5 Segs-Bands #7.0 Lymphocytes #2.6 Monocytes #1.0 H Basophils #0.1 09/09 0327 POC Performing LocatioSee Note Glucose INW176 H 09/08 2121 POC Performing LocatioSee Note Glucose CUY680 H 09/08 1355 TSH1.910 Max still necessary (Yes/No): Line still necessary (Yes/No): VitalsTmp(F)PwcrjENYPPsB6IWE6 09/09 16:35----56196/71-------- 09/09 16:0998.725317/285719--- 09/09 12:50----09177/70-------- 09/09 11:4198.487962/827169--- 09/09 08:3098.465999/756474--- 24 Hr Tmax: 99.5F (37.50c) at 09/08 20:39Vital Signs are the last 5 in the past 48 hours. DateWt(kg)Wt(lb)Ht(cm)Ht(in)Method 09/07 (initial) 94.09 207.00Estimated 57.48 62.00Stated I&ORecordInOutBal 08/2923hr Tot 10 0 10 08/2823hr Tot 33 0 33 Medications (36) Active Scheduled Meds (15): 09/09/17 FLUoxetine (PROzac) 10 mg PO Daily 09/08/17 LORazepam 0.5 mg PO Bedtime 09/08/17 amLODIPine 10 mg PO Daily 09/09/17 aspirin (aspirin 81 mg tablet, enteric coated) 81 mg PO Daily 09/08/17 atorvastatin 80 mg PO Bedtime 09/08/17 carvedilol 6.25 mg PO Q12H 09/09/17 escitalopram 10 mg PO Daily 09/09/17 furosemide (furosemide 40 mg oral tablet) 40 mg PO Daily 09/08/17 hydrALAZINE (hydrALAZINE 50 mg oral tablet) 50 mg PO TID 09/09/17 leflunomide 10 mg PO Daily 09/10/17 lisinopril 10 mg PO Daily 09/09/17 potassium chloride (potassium chloride 20 mEq oral tablet, extended release) 40 mEq PO Daily 09/09/17 predniSONE 20 mg PO Daily 09/08/17 sodium chloride (Saline Flush 0.9%) 10 ml IVP Q12H 09/08/17 sodium chloride (Saline Flush 0.9%) 10 ml IVP Q12H Unscheduled Meds: None PRN Meds (19): 09/08/17 Dextrose 50% in Water IV (Dextrose 50% Syringe) 12.5 gm IVP PRN 09/08/17 Dextrose 50% in Water IV (Dextrose 50% Syringe) 25 gm IVP PRN 09/08/17 acetaminophen (Tylenol) 650 mg PO Q6H 09/08/17 glucagon 1 mg IM PRN 09/08/17 hydrALAZINE 10 mg IVP Q4H 09/08/17 insulin lispro 2 unit SUB-Q TID-Before Meals 09/08/17 insulin lispro 4 unit SUB-Q TID-Before Meals 09/08/17 insulin lispro 6 unit SUB-Q TID-Before Meals 09/08/17 insulin lispro 8 unit SUB-Q TID-Before Meals 09/08/17 insulin lispro 10 unit SUB-Q TID-Before Meals 09/08/17 insulin lispro 1 unit SUB-Q Bedtime 09/08/17 insulin lispro 2 unit SUB-Q Bedtime 09/08/17 insulin lispro 3 unit SUB-Q Bedtime 09/08/17 insulin lispro 4 unit SUB-Q Bedtime 09/08/17 ondansetron (Zofran) 4 mg IVP Q6H 09/07/17 sodium chloride (Saline Flush 0.9%) 10 mL IVP PRN 09/08/17 sodium chloride (Saline Flush 0.9%) 10 ml IVP PRN 09/08/17 sodium chloride (Saline Flush 0.9%) 10 ml IVP PRN 09/08/17 tramadol (tramadol 50 mg oral tablet) 50 mg PO Q6H One Time Meds (1): 09/08/17 (Completed) pantoprazole (Protonix) 40 mg IVP ONCE Continuous Infusions (1): 09/08/17 Sodium Chloride 0.9% IV 1,000 mL (NS 1,000 mL) 1,000 mL 75 ml/hr EXAM GEN - NAD HEENT - NCAT. MMM. Op clear Ext - no c/c/e Skin - no rash Neuro: Mental status: Alert and oriented x3. Language intact. Follows all commands CN:PERRL, EOMI, nodroop, facial sensation is normal Motor: 4/5 throughout - some limitations due to joint pain Sensory: intact to LTx4 Cerebellar: intact ftn, hts Abnormal movements: none Assessment 1. TIA 2. HTN - improving 3. CAD 4. DMT2 5. RA 6. HLD Plan aspirn statin BP control euglycemia follow up echo report Extracted from: Title: Discharge Summary * Author: Omega Slater DO Date: 09/09/17 Discharge Plan Discharge Summary Plan Discharge Status: stable. Discharge instructions given: to patient. Discharge disposition: discharge to home. Prescriptions: continue same medications, called to pharmacy. Diagnosis hypertensive crisis TIA History of rheumatoid arthritis Uncontrolled type 2 diabetes mellitus Leukocytosis . Course Worsening. Progressing as expected. Education and Follow-up Counseled: patient, regarding diagnosis, regarding treatment, regarding medications. Extracted from: Title: Clinical Document Author: Garry Erickson MD Date: 09/08/17 The patient presents with left, facial droop, left, upper extremity, paresthesia, altered speech and not altered gait. The onset was 20 minutes prior to arrival. The course/duration of symptoms is constant. Location: Left face upper extremity. The character of symptoms is difficult to speak and numbness. The degree at onset was moderate. The degree at maximum was moderate. The degree at present is none. Risk factors consist of hypertension and hx of TIA. The patient's dominant hand is unknown. Prior episodes: rare. Therapy today: prescription medications. Associated symptoms: headache. Baseline status: ambulatory. Review of Systems Constitutional symptoms: No fever, no chills. Skin symptoms: No rash, Eye symptoms: Vision unchanged, no recent vision problems, no pain. ENMT symptoms: No sore throat, no nasal congestion. Respiratory symptoms: No shortness of breath, no orthopnea, no cough. Cardiovascular symptoms: No chest pain, no palpitations, no diaphoresis. Gastrointestinal symptoms: No abdominal pain, no nausea, no vomiting, no diarrhea. Genitourinary symptoms: No dysuria, no hematuria. Musculoskeletal symptoms: No back pain, Neurologic symptoms: Headache, numbness, L facial droop, slurred speech. Additional review of systems information: All other systems reviewed and otherwise negative. Health Status Allergies: Allergic Reactions (All) Severity Not Documented Erythromycin- No reactions were documented.. Medications: (Selected) Inpatient Medications Ordered Saline Flush 0.9%: 10 mL, IVP, PRN, PRN: Line Flush hydrALAZINE: 10 mg, 0.5 mL, IVP, ONCE Prescriptions Prescribed DuoNeb inhalation solution: 3 mL, NEB, QID, for 30 day, PRN: as needed for shortness of breath or wheezing, 360 mL, 0 Refill(s) PROzac 10 mg oral capsule: 10 mg, 1 cap, PO, Daily, 30 cap, 1 Refill(s) atorvastatin 80 mg oral tablet: 80 mg, 1 tab, PO, Bedtime, 30 tab, 1 Refill(s) carvedilol 6.25 mg oral tablet: 6.25 mg, 1 tab, PO, Q12H, 60 tab, 1 Refill(s) furosemide 40 mg oral tablet: 40 mg, 1 tab, PO, Daily, 30 tab, 0 Refill(s) hydrALAZINE 50 mg oral tablet: 50 mg, 1 tab, PO, TID, for 30 day, 90 tab, 0 Refill(s) lactobacillus acidophilus oral tablet, chewable: 1 tab, PO, BID, for 10 day, 20 tab, 0 Refill(s) lisinopril 20 mg oral tablet: 20 mg, PO, BID, 60 tab, 2 Refill(s) potassium chloride 20 mEq oral tablet, extended release: 40 mEq, 2 tab, PO, Daily, for 30 day, 60 tab, 0 Refill(s) trazodone 50 mg oral tablet: 50 mg, 1 tab, PO, Bedtime, for 14 day, PRN: Sleep, 14 tab, 0 Refill(s) Documented Medications Past Medical/ Family/ Social History Medical history: Active Hypertension (86433333) Diabetes mellitus (654943125) Resolved Acute bronchitis (80833734): Onset on 07/14/2013 at 73 years. Resolved. Comments: - Data migrated from [employer] on 02/25/15. - Data migrated from [employer] on 02/25/15. Acute suppurative otitis media (058882575): Onset on 07/14/2013 at 73 years. Resolved. Comments: - Data migrated from [employer] on 02/25/15. Acute pharyngitis (632853744): Onset on 07/14/2013 at 73 years. Resolved. Comments: - Data migrated from [employer] on 02/25/15. Backache (108385052): Onset on 05/21/2013 at 73 years. Resolved. Comments: - Data migrated from [employer] on 02/25/15. Acute sinusitis (20855261): Onset on 01/29/2012 at 71 years. Resolved. Comments: - Data migrated from [employer] on 02/25/15. - Data migrated from [employer] on 02/25/15. Heart attack (6527363012): Resolved. Atrial fibrillation (5842294485): Resolved. CHF (congestive heart failure) (460803612): Resolved. Mitral regurgitation (1325308310): Resolved., Reviewed as documented in chart. Surgical history: Hysterectomy (496106301). Appendectomy (141818327). Tonsillectomy (475341466). Excision of Magana's neuroma (6102636938). Laparoscopic adjustable gastric banding (4993444927). Cataract surgery (760728552). Neck dissection (330276264). Comments: 03/09/2017 03:25 - Sinai Geller RN Replacement of 2 cervical discs Arthroscopic repair of meniscus (1542932991)., Reviewed as documented in chart. Family history: Heart disease Brother Pancreatic cancer Sister High blood pressure Mother Stroke Mother , Reviewed as documented in chart. Social history: Social & Psychosocial Habits Alcohol 12/08/2016 Use: Past Substance Abuse 03/09/2017 Use: None Tobacco 03/09/2017 Use: Never smoker Exposure to Tobacco Smoke None Cigarette Smoking Last 365 Days No Reg Smoking Cessation Counseli Physical Examination Vital Signs ED-Vital Signs 09/07/2017 21:56 Temperature Oral 97.4 DegF Normal Peripheral Pulse Rate 97 bpm Normal Respiratory Rate 18 BRMIN Normal SpO2 percent 97 % Normal Systolic Blood Pressure 237 mmHg HI Diastolic Blood Pressure 133 mmHg HI . Measurements 09/07/2017 22:09 Heparin Dosing Weight (kg) 67.70 09/07/2017 21:56 Height 157.48 cm Height Collection Method Stated Weight 94.091 kg Dosing Weight Difference Percent 15.602 % Dosing Wt Entered is >10% of Previous Wt Confirmed Dosing Weight Collection Method Estimated Body Surface Area 2.0288 m2 Body Mass Index 37.94 m2 . General: Alert, no acute distress. Skin: Warm, dry, no rash. Head: Normocephalic, atraumatic. Neck: Supple, trachea midline, no tenderness. Eye: Pupils are equal, round and reactive to light, extraocular movements are intact. Ears, nose, mouth and throat: Oral mucosa moist, no pharyngeal erythema or exudate. Cardiovascular: Regular rate and rhythm, No murmur, No edema. Respiratory: Lungs are clear to auscultation, respirations are non-labored, breath sounds are equal. Chest wall: No tenderness, No deformity. Back: Nontender, Normal range of motion, Normal alignment, no step-offs. Musculoskeletal: Normal ROM, normal strength, no tenderness, no swelling, no deformity. Gastrointestinal: Soft, Nontender, Non distended, Normal bowel sounds. SKULL AND SPINE Good range of motion. No pain on palpation. MENTAL STATUS Consciousness: Awake and alert. Orientation: The patient is oriented to person, place, time. Affect: Normal for situation. CRANIAL NERVES CN II (Optic Nerve): Pupils: Equal and reactive to light bilaterally. CN III, IV, : Extraocular movements are full and without nystagmus. CN V: Facial sensation is normal. CN VII: Facial motion is normal. CN VIII: Hearing is intact to finger rub bilaterally. CN IX, X: The palate elevates in the midline. CN XI: Shoulder shrug is symmetrical. CN XII: The tongue protrudes in the midline. MOTOR Bulk: Normal bulk. Tone: Normal tone in upper and lower extremities bilaterally. Fasciculations: There are no fasciculations noted. Effort: Effort appears to be normal. STRENGTH Upper Extremity Strength 5/5 on both side Lower Extremity Strengt 5/5 on both sides SENSORY Sensory: Sensory is normal to light touch in upper and lower extremities. REFLEXES 1+ all over Babinski (R): Down / (L): Down GAITNL NIH Stroke Scale Time: 09/07/2017 22:25 . Level of consciousness: Alert=0. Current month and age: Answers both correctly=0. Open and close eyes/mat linker release hand: Obeys both correctly=0. Best gaze: Normal=0. Visual field testing: No visual field loss=0. Facial paresis: Normal symmetric movement=0. Motor function left arm: Normal=0. Motor function right arm: Normal=0. Motor function left leg: Normal=0. Motor function right leg: Normal=0. Limb ataxia: No ataxia=0. Sensory: Normal=0. Best language: No aphasia=0. Dysarthria: Normal articulation=0. Extinction and inattention: Normal=0. Total score: 0 . [facility]* A/G Ratio: 0.8 (09/08/17) AGAP: 15.8 mEq/L (09/08/17) Albumin Lvl: 3.6 g/dL (09/08/17) Alk Phos: 152 unit/L High (09/08/17) ALT: 18 unit/L (09/08/17) AST: 18 unit/L (09/08/17) B/C Ratio: 20 (09/08/17) Basophils: 0.4 % (09/08/17) Basophils #: 0.1 K/CMM (09/07/17) Bili Total: 0.5 mg/dL (09/08/17) BUN: 20 mg/dL (09/08/17) Calcium Lvl: 8.6 mg/dL (09/08/17) CHD Risk: 3.94 (09/08/17) Chloride Lvl: 100 mEq/L (09/08/17) Chol: 244 mg/dL High (09/08/17) CK MB: 1.1 ng/mL (09/07/17) CK MB Index: 0.4 (09/07/17) CO2: 24 mEq/L (09/08/17) Creatinine Lvl: 0.98 mg/dL (09/08/17) eGFR: 56 mL/min/1.73m2 (09/08/17) Eosinophils: 0.2 % (09/08/17) Globulin: 4.6 g/dL High (09/08/17) Gluc POC Comment 1: Notified RN/MD (09/08/17) Gluc POC Comment 2: Cleaned Meter (09/08/17) Glucose Lvl: 318 mg/dL High (09/08/17) Glucose POC: 356 mg/dL High (09/08/17) Hct: 41.3 % (09/08/17) HDL: 62 mg/dL (09/08/17) Hgb: 14.2 g/dL (09/08/17) Hgb A1C: 9 % High (09/08/17) INR: 0.94 (09/07/17) LDL (Calculated): 131 mg/dL High (09/08/17) Lymphocytes: 18.1 % Low (09/08/17) Lymphocytes #: 2.2 K/CMM (09/08/17) MCH: 30.4 pg (09/08/17) MCHC: 34.4 g/dL (09/08/17) MCV: 88.3 fL (09/08/17) Monocytes: 8.8 % (09/08/17) Monocytes #: 1.1 K/CMM High (09/08/17) MPV: 8.8 fL (09/08/17) Platelet: 249 K/CMM (09/08/17) POC Performing Location: See Note (09/08/17) Potassium Lvl: 3.3 mEq/L Low (09/08/17) PT: 12.6 seconds (09/07/17) PTT: 27 seconds (09/07/17) RBC: 4.68 M/CMM (09/08/17) RDW: 13.6 % (09/08/17) Segs: 72.5 % (09/08/17) Segs-Bands #: 9 K/CMM High (09/08/17) Sodium Lvl: 137 mEq/L (09/08/17) Total CK: 37 unit/L (09/08/17) Total Protein: 8.2 g/dL (09/08/17) Tri mg/dL High (09/08/17) Troponin-I: <0.02 (09/08/17) TSH: 1.91 uIU/mL (09/08/17) VLDL: 51 (09/08/17) WBC: 12.3 K/CMM High (09/08/17) . Radiology results: Brain Stroke wo contrast CT 09/07/17 22:55:08 IMPRESSION: Chronic age-related and small vessel ischemic changes without mass, hemorrhage or subacute stroke. SL: MAYUR Signed By: Navin Pablo MD .Chest 1view DX 09/07/17 22:42:38 1 view chest portable: HISTORY: Cerebrovascular accident. FINDINGS: Mildly prominent cardiac silhouette is stable from 03/08/2017. The interstitial markings in each lung are prominent suggesting mild pulmonary vascular congestion. No airspace pneumonia, pleural fluid or pneumothorax. CAROTID DOPPLER IMPRESSION: 1. RIGHT: ICA stenosis <50% by velocity criteria. 1. LEFT: ICA stenosis <50% by velocity criteria. ASSESSMENT TIA symptoms resolved Type II myocardial infarction in 07/2016 in the setting of sepsis TIA in 03/2017 Hypertensive heart disease Diabetes mellitus Rheumatoid arthritis PLAN: MPP for TIA was initiated Extracted from: Title: General Admission H&P * Author: Mir Davenport MD Date: 09/08/17 Impression and Plan Patient 77-year-old female history of rheumatoid arthritis previous TIA hypertension hepatitis who presents with left-sided weakness and numbness. Patient's symptoms have resolved does appear to be a transient ischemic attack. Will place patient in telemetry observation Will have neurology evaluate the patient We will order an MRI MRA of the brain 2. Hypertension we will resume her previous home therapy 3. Rheumatoid arthritis will resume her previous home therapy 4. Leukocytosis of 11.7 will observe We will order a urinalysis chest x-ray showed some pulmonary vascular congestion 5. Diabetes mellitus we will place on insulin MPP We will resume previous home therapy 6. Disposition will place in observation status
--- OUTSIDE RECORDS SUMMARY | 2018-07-29 09:22 | XMS REPORT ---
Author Author [facility] Address Unknown Phone Unavailable Care Team Providers Care Ore Tester Name Role Phone Unavailable Unavailable Problems This patient has no known problems. Allergies, Adverse Reactions, Alerts This patient has no known allergies or adverse reactions. Medications This patient has no known medications. Results Test Description Test Time Test Comments Text Results Atomic Results Result Comments SCR MAMM BILATERAL DAYANA CAD DIGITAL 2018-07-16 08:56:51 - SCR MAMM BILATERAL DAYANA CAD DIGITALBILATERAL DIGITAL SCREENING MAMMOGRAM 3D/2D WITH CAD: 07/15/2018CLINICAL: Asymptomatic. Digital breast tomosynthesis was performed in addition to routine CC and MLO views. Current mammographic images were evaluated by either a [employer] M-Vu or a [employer] CAD (computer aided detection system). Comparison is made to exam dated 05/31/2009 mammogram - [facility]-. The tissue of both breasts is predominantly fatty. There are benign-appearing calcifications in both breasts. Additionally, clustered calcifications are noted in the right breast and three clusters are noted in the left breast. There also is a benign-appearing 0.3 cm mass in the medial left breast, 9 cm from the nipple. These findings differ from the 2008 examination. No suspicious architectural distortion or lymph node abnormality detected. IMPRESSION: INCOMPLETE ASSESSMENT: ADDITIONAL IMAGING EVALUATION RECOMMENDEDLateral and magnification views of the breasts and sonography would be advised for further evaluation.Khoa Kamara M.D. rb/:07/16/2018 08:56:51 Tip Stretcher: Nadira Martin , [facility]- FWletter sent: Additional Imaging Mammogram BI-RADS: 0 Indeterminate
--- OUTSIDE RECORDS SUMMARY | 2018-07-29 09:22 | XMS REPORT | Summary of Care ---
Author Author [facility] Organization [facility] Address Unknown Phone Unavailable Encounter HQ Miladis(MARIUSZ) [id number] Date(s): 01/30/17 - 01/30/17 [facility] [address] [place] [address]- Discharge Disposition: Home or Self Care Attending Physician: Gino Zacarias MD Admitting Physician: Gino Zacarias MD Vital Signs No data available for this section Problem List Condition Effective Dates Status Health Status Informant Acute bronchitis1, 2 07/14/13 Resolved Acute pharyngitis3 07/14/13 Resolved Acute sinusitis4, 5 01/29/12 Resolved Acute suppurative 07/14/13 Resolved otitis media6 Arthritis of hand7, 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 8 Backache9 05/21/13 Resolved 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 xnomjirf48 Diabetes Active mellitus(Confirmed) Nptrwmm71 03/27/13 Active Hormone replacement 04/05/10 Active Hypertension(Confirm Active ed) Hypertensive 04/05/10 Active bcuantl86 Hypertriglyceridemia 09/23/12 Active 14 Wkgaelyk70 07/31/10 Active Knee pain16 03/22/14 Active Menopausal 07/31/10 Active nttahplg21 Obesity(Confirmed) Active Postmenopausal 03/10/12 Active dxbypsnpdjbc63 Postmenopausal 04/05/10 Active state19 Drjoiet18 02/24/13 Active Mlloivvutf49 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 Type 2 diabetes 12/01/12 Active mellitus well pevhrpbohg81 Vitamin D 11/19/11 Active dbrcainyrg51 1Data migrated from [employer] on 02/25/15. [...] from [employer] on 09/12/2015. 3Result Comment: [facility]#[id number] Procedures Procedure Date Related Diagnosis Body Site [...]
[2018-07-29 13:04] VITALS: BP 155/75
--- NOTE | 2018-07-29 14:33 | Operative Report ---
DATE OF PROCEDURE: July 29, 2018 PROCEDURE PERFORMED: Colonoscopy. PREOPERATIVE DIAGNOSIS: History of colon polyps. POSTOPERATIVE DIAGNOSES 1. Colon polyp in the descending colon. 2. Diverticulosis throughout the colon. PREOPERATIVE MEDICATIONS: Consisted of general anesthesia. Using the Olympus [id number] video colonoscope, it was inserted in the patient's rectum and advanced without difficulty to the level of the cecum all the way back down to the rectum. In the descending colon, 8 mm size polypoid lesion was found and removed with the electrical snare cautery. Scattered diverticula were present throughout the colon. The colonoscope was withdrawn from the patient's rectum, and the procedure was ended. In conclusion, we have a benign polyp in the descending colon that was removed with electrical snare cautery and scattered diverticulosis. Job#: [id number] MARIANNE
== END | disposition home or self-care (01) ==
LOC: OR 09:15
PROVIDERS: ATTEND Internal Medicine Gastroenterology
DX: Z12.11 Encounter for screening for malignant neoplasm of colon (principal); D12.4 Benign neoplasm of descending colon; K57.30 Diverticulosis of large intestine without perforation or abscess without bleeding; Z80.0 Family history of malignant neoplasm of digestive organs; I10 Essential (primary) hypertension; Z01.810 Encounter for preprocedural cardiovascular examination; I25.10 Atherosclerotic heart disease of native coronary artery without angina pectoris; Z01.812 Encounter for preprocedural laboratory examination; E11.9 Type 2 diabetes mellitus without complications; Z79.84 Long term (current) use of oral hypoglycemic drugs; G47.33 Obstructive sleep apnea (adult) (pediatric); F32.9 Major depressive disorder, single episode, unspecified; Z79.82 Long term (current) use of aspirin; K44.9 Diaphragmatic hernia without obstruction or gangrene; Z98.1 Arthrodesis status; Z98.84 Bariatric surgery status; Z80.6 Family history of leukemia; Z88.2 Allergy status to sulfonamides; Z88.1 Allergy status to other antibiotic agents; Z91.040 Latex allergy status
CPT/HCPCS: 36415 ×2; 45385; 82948; 85025; 88305; 93005; J1817; J2250